=== PATIENT | female | born 1955 | race Caucasian/White ===

== ENCOUNTER 2017-05-20 11:18 | Emergency (ER) | payer MEDICARE, OTHER ==
[~2017-05-20] VITALS: Ht 177.8 cm; Wt 131.1 kg
[~2017-05-20 11:18] MED LIST: ALBUTEROL0.63 MG/3 NEB; ALLOPURINOL100 MG PO; ASPIR 8181 MG PO; ATENOLOL50 MG PO; CLONAZEPAM1 MG PO; CLONAZEPAM2 M1 PO; CLONIDINE HCL0.1 MG PO; FUROSEMIDE20 MG PO; GABAPENTIN400 MG PO; GABAPENTIN600 MG PO; LAMICTAL200 MG PO; LAMOTRIGINE200 MG PO; LEVAQUIN500 MG PO; LEVOTHYROXINE125 MCG PO; LEVOTHYROXINE137 MCG PO; LIPITOR40 MG PO; LOSARTAN POTASS25 MG PO; METFORMIN HCL500 MG PO; METRONIDAZOLE500 MG PO; PEPCID20 MG PO; SIMVASTATIN20 MG PO; VENLAFAXINE HC150 MG PO; VENLAFAXINE HCL75 MG PO; ZYPREXA5 MG PO
[2017-05-20] MEDS ORDERED: ASPIRIN 81 MG CHEW TAB PO ONE (11:45)
--- NOTE | 2017-05-20 12:59 | Diagnostic Imaging Report ---
PROCEDURE:X-RAY CHEST, ONE VIEW COMPARISON:Patients [facility], DX, CHEST SINGLE (PORTABLE), 03/02/2016, 9:27. INDICATIONS:CHEST PAIN FINDINGS: There are no consolidations, pleural effusions or pneumothorax. The cardiomediastinal silhouette and pulmonary vasculature are normal. There is no interval change. There are no acute osseous abnormalities. There is a clip present in the left upper quadrant of the abdomen. CONCLUSION: No acute cardiopulmonary abnormality. James Macias D.O. Dictated by: James Macias D.O. on 05/20/2017 at 13:07 Electronically approved by: James Macias D.O. on 05/20/2017 at 13:07
[2017-05-20 14:49] LABS: BASOPHILS # (AUTO) 0.1 (0.0-0.1); BASOPHILS % 0.6 % (0.0-1.0); EOSINOPHILS # (AUTO) 0.2 (0.0-0.4); HEMATOCRIT 41.6 % (34.2-44.1); HEMOGLOBIN 13.7 g/dL (12.0-16.0); LYMPHOCYTES # (AUTO) 3.4 (1.0-3.2); LYMPHOCYTES % 34.4 % (18.0-39.1); MEAN CORPUSCULAR HEMOGLOBIN 29.4 pg (28-32); MEAN CORPUSCULAR HGB CONC 32.9 g/dL (31-35); MEAN CORPUSCULAR VOLUME 89.3 fL (81-99); MONOCYTES # (AUTO) 0.6 (0.2-0.8); MONOCYTES % 5.7 % (4.4-11.3); NEUTROPHILS # (AUTO) 5.6 (2.1-6.9); PLATELET COUNT 167 x10e3/uL (140-360); RED BLOOD COUNT 4.66 x10e6/uL (3.6-5.1); RED CELL DISTRIBUTION WIDTH 13.7 % (11.7-14.4)
[2017-05-20 15:19] LABS: ALBUMIN 4.3 g/dL (3.5-5.0); ALBUMIN/GLOBULIN RATIO 1.2 (0.8-2.0); ANION GAP 13.3 mmol/L (8-16); CALCIUM 10.1 mg/dL (8.4-10.2); CREATININE, SERUM 0.97 mg/dL (0.57-1.11); POTASSIUM 4.3 mmol/L (3.5-5.1)
[2017-05-20 15:27] LABS: CREATINE KINASE MB 1.2 ng/mL (0.00-5.00); TROPONIN I 0.004 ng/mL (0-0.300)
[2017-05-20 19:03] VITALS: BP 131/68
== END 2017-05-20 20:22 | disposition home or self-care (01) ==
LOC: ER 11:18
DX: R07.9 Chest pain, unspecified (principal); I10 Essential (primary) hypertension; E11.9 Type 2 diabetes mellitus without complications; E03.9 Hypothyroidism, unspecified; E78.5 Hyperlipidemia, unspecified; F31.9 Bipolar disorder, unspecified; M10.9 Gout, unspecified; Z87.891 Personal history of nicotine dependence
CPT/HCPCS: 36415; 71010; 80053; 82550; 82553; 82948; 84484; 85025; 93005; 99284

== ENCOUNTER 2017-07-10 06:58 | Emergency (ER) | payer MEDICARE ==
[~2017-07-10] VITALS: Ht 177.8 cm; Wt 131.1 kg
--- OUTSIDE RECORDS SUMMARY | 2017-07-10 07:03 | XMS REPORT ---
[facility] Organization [facility] Address Unknown Phone Unavailable Care Team Providers Care End Polisher Name Role Phone CLAU CÉSAR Unavailable Unavailable Problems This patient has no known problems. Allergies, Adverse Reactions, Alerts This patient has no known allergies or adverse reactions. Medications This patient has no known medications. Results Test Description Test Time Test Comments Text Results Atomic Results Result Comments CHEST SINGLE (NOT PORTABLE) [facility] [address] [address] Patient Name: ALISON HOUSTON MR #: [id number] : 1955 Age/Sex: 62/F Req #: [id number] Adm Physician: Ordered by: LAZARO FERNANDEZ Report #: [id number] Location: ER Room/Bed: _ Procedure: [id number] DX/CHEST SINGLE (NOT PORTABLE) Exam Date: 05/20/17 Exam Time: 1215 REPORT STATUS: Signed PROCEDURE: X-RAY CHEST, ONE VIEW COMPARISON: [facility], DX, CHEST SINGLE (PORTABLE), 03/02/2016, 9:27. INDICATIONS: CHEST PAIN FINDINGS: There are no consolidations, pleural effusions or pneumothorax. The cardiomediastinal silhouette and pulmonary vasculature are normal. There is no interval change. There are no acute osseous abnormalities. There is a clip present in the left upper quadrant of the abdomen. CONCLUSION: No acute cardiopulmonary abnormality. Lenny [place], D.O. Dictated by: Lenny Macias D.O. on 05/20/2017 at 13:07 Electronically approved by: Lenny Macias D.O. on 05/20/2017 at 13:07 Dictated By: LENNY MACIAS DO 1308 Transcribed By: KIAN on 05/20/17 1307 COPY TO: LAZARO FERNANDEZ
--- OUTSIDE RECORDS SUMMARY | 2017-07-10 07:03 | XMS REPORT | Summary of Care ---
Author Author Merrill Rod, Lydia Organization Unknown Address [facility] Phone Unavailable Care Team Providers Care Eight Section Blower Name Role Phone Merrill Rod, Lydia Unavailable Unavailable MCKEON P.A., AGUSTÍN Unavailable Unavailable JOSEPH Villeda, YO Unavailable Unavailable YAMILE Villeda, JESUS MANUEL Unavailable Unavailable NIYAH N.P., MEKA Unavailable Unavailable AQUILES Villeda, ANGELIQUE Unavailable Unavailable JOSEPH TENORIO NE, YO Morales Unavailable Unavailable EARNESTINE LEONARD Unavailable Unavailable NIYAH KURTZ NE, MEKA Velásquez Unavailable Unavailable Adalgisa TENORIO, Kyle Unavailable Unavailable JOSIE TENORIO, MARGARETTE Schultz Unavailable Unavailable Christopher TENORIO, Archie Unavailable Unavailable Richard TENORIO, Gregory Unavailable Unavailable Unavailable Unavailable Functional Status Name Dates Details Functional status health issues are not documented Status: Name Dates Details Cognitive status health issues are not documented Status: Problems Name Dates Details Bipolar disorder (296.80, F31.9) Status: Active Palpitations (785.1, R00.2) Status: Active Female pelvic pain (625.9, R10.2) Status: Active Cutaneous candidiasis (112.3, B37.2) Status: Active Weakness (780.79, R53.1) Status: Active Pre-ulcerative corn or callous (700, L84) Status: Active Thoracic back pain (724.1, M54.6) Status: Active Venous stasis (459.81, I87.8) Status: Active Need for influenza vaccination (V04.81, Z23) Status: Active 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, 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 History of bariatric surgery (V45.86, Z98.84) Status: Active Menopausal hot flushes (627.2, N95.1) Status: Active Post-menopausal bleeding (627.1, N95.0) Status: Active Blood in urine (599.70, R31.9) Status: Active Bright red rectal bleeding (569.3, K62.5) Status: Active Hematuria (599.70, R31.9) Status: Active Nephrolithiasis (592.0, N20.0) Status: Active Acute idiopathic gout involving toe of left foot (274.01, M10.072) Status: Active Abnormal MMSE (780.97, F99) Status: Active Contusion of right great toe without damage to nail, initial encounter (924.3, S90.111A) Status: Active Vertigo (780.4, R42) Status: Active Other acute nonsuppurative otitis media of right ear (381.00, H65.191) Status: Active Ataxia (781.3, R27.0) Status: Active Skin lesion (709.9, L98.9) Status: Active Acute low back pain (724.2, M54.5) Status: Active Decreased vision in both eyes (369.20, H54.3) Status: Active Tension headache (307.81, G44.209) Status: Active Nausea (787.02, R11.0) Status: Active Colon cancer screening (V76.51, Z12.11) Status: Active Hemorrhoid (455.6, K64.9) Status: Active Post-menopausal (V49.81, Z78.0) Status: Active Hemorrhoids (455.6, K64.9) Status: Active Acne vulgaris (706.1, L70.0) Status: Active Bipolar affective disorder, remission status unspecified (296.80, F31.9) Status: Active Chronic diarrhea of unknown origin (787.91, K52.9) Status: Active Generalized osteoarthritis of multiple sites (715.09, M15.9) Status: Active Gout (274.9, M10.9) Status: Active Hypercalcemia (275.42, E83.52) Status: Active 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, 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) Status: Active Nocturnal leg cramps (327.52, G47.62) Status: Active OA (osteoarthritis of spine) (721.90, M47.9) Status: Active Obstructive sleep apnea (327.23, G47.33) Status: Active Peripheral neuropathy, 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.9, G60.9) Status: Active Abnormal urine finding (791.9, R82.90) Status: Active Abdominal pain (789.00, R10.9) Status: Active Weight loss (783.21, R63.4) Status: Active Diarrhea (787.91, R19.7) Status: Active IBS (irritable bowel syndrome) (564.1, K58.9) Status: Active Lumbar radiculopathy (724.4, M54.16) Status: Active UTI symptoms (788.99, R39.9) Status: Active Dizziness (780.4, R42) Status: Active Loss of balance (781.99, R26.89) Status: Active Fall (E888.9, W19.XXXA) Status: Active Other rosacea (695.3, L71.8) Status: Active Bacterial folliculitis (704.8, L73.8) Status: Active Allergic rhinitis due to pollen (477.0, J30.1) Status: Active Acid reflux (530.81, K21.9) Status: Active Shortness of breath at rest (786.05, R06.02) Status: Active Atypical chest pain (786.59, R07.89) Status: Active Morbid or severe obesity due to excess calories (278.01, E66.01) Status: Active Body aches (780.96, R52) Status: Active Sore throat (462, J02.9) Status: Active Common cold (460, J00) Status: Active Chronic obstructive pulmonary disease (496, J44.9) Status: Active BMI 40.0-44.9, adult (V85.41, Z68.41) Status: Active Diabetes mellitus (250.00, E11.9) Status: Active Hypertension (401.9, I10) Status: Active Hyperlipidemia (272.4, E78.5) Status: Active Hypothyroidism (244.9, E03.9) Status: Active Vitamin D deficiency (268.9, E55.9) Status: Active Breast mass, left (611.72, N63.20) Status: Active Medications Name Dates Details Venlafaxine HCl ER 75 MG Oral Tablet Extended Release 24 Hour TAKE 1 TABLET DAILY Active ClonazePAM 1 MG Oral Tablet TAKE 1 TABLET BEDTIME * Refills: 0 Active MetFORMIN HCl - 500 MG Oral Tablet TAKE 1 TABLET TWICE DAILY * Quantity: 180 Refills: 1 AGUSTÍN RASHID * Start : 05-Nov-2015 Active LamoTRIgine 200 MG Oral Tablet TAKE 2 TABLETS DAILY. * Refills: 0 JESUS MANUEL OVALLE M.D. Active Gabapentin 400 MG Oral Capsule TAKE 1 CAPSULE BY MOUTH TWICE DAILY * Quantity: 180 Refills: 0 YO RUIZ M.D. * Start : 16-Jun-2017 Active Vitamin B-12 1000 MCG Oral Tablet TAKE 1 TABLET DAILY DIRECTED. * Refills: 0 JESUS MANUEL OVALLE M.D. Active Fluticasone Propionate 50 MCG/ACT Nasal Suspension USE 2 SPRAYS IN EACH NOSTRIL ONCE DAILY * Quantity: 3 Refills: 1 AGUSTÍN RASHID * Start : 23-Jun-2014 Active 16 GM Bottle Losartan Potassium 100 MG Oral Tablet TAKE 1 TABLET DAILY. * Quantity: 90 Refills: 1 AGUSTÍN RASHID * Start : 22-Aug-2014 Active Arthur Contour Next Test In Vitro Strip Check BG 1-2x a day * Quantity: 2 Refills: 0 JESUS MANUEL OVALLE M.D. * Start : 09-Aug-2015 Active 100 Strip Box Atorvastatin Calcium 40 MG Oral Tablet TAKE 1 TABLET DAILY DIRECTED. * Quantity: 90 Refills: 1 AGUSTÍN RASHID * Start : 09-Aug-2015 Active Levothyroxine Sodium 100 MCG Oral Tablet 1 a day * Quantity: 90 Refills: 1 AGUSTÍN RASHID * Start : 21-Feb-2016 Active MetroNIDAZOLE 0.75 % External Cream APPLY AND GENTLY MASSAGE INTO AFFECTED AREA(S) TWICE DAILY. * Quantity: 1 Refills: 11 ANGELIQUE KWAN M.D. * Start : 01-Sep-2016 Active 45 GM Tube Vitamin A CAPS TAKE 1 CAPSULE DAILY * Refills: 0 Active Vitamin D-3 1000 UNIT Oral Capsule 1 a day ; pt will verify * Refills: 0 JESUS MANUEL OVALLE M.D. Active Hydrocortisone 2.5 % Rectal Cream INSERT 1 APPLICATORFUL RECTALLY AT BEDTIME FOR 7 DAYS, THEN NEEDED. * Quantity: 1 Refills: 1 MEKA LINDER N.P. * Start : 04-Dec-2016 Active 30 GM Tube Arthur Microlet Lancets Check BG 1 to 2x a day * Quantity: 1 Refills: 11 JESUS MANUEL OVALLE M.D. * Start : 21-Jan-2017 Active 100 Unit Package Biotin 5000 MCG Oral Tablet ONCE DAILY * Refills: 0 Active Metoprolol Tartrate 50 MG Oral Tablet TAKE 1 TABLET TWICE DAILY * Quantity: 180 Refills: 1 MCKEON P.A., AGUSTÍN * Start : 02-Apr-2017 Active Levocetirizine Dihydrochloride 5 MG Oral Tablet TAKE 1 TABLET DAILY. * Quantity: 90 Refills: 0 MCKEON P.A., AGUSTÍN * Start : 02-Apr-2017 Active Omeprazole 40 MG Oral Capsule Delayed Release TAKE 1 CAPSULE DAILY * Quantity: 90 Refills: 1 MCKEON P.A., AGUSTÍN * Start : 25-May-2017 Active Allergies and Adverse Reactions Name Dates Details SEJAL Inhibitors (Allergy) Reaction: Cough Status: Active Benadryl (Allergy) Status: Active clindamycin (Allergy) Status: Active Past Medical History Name Dates Details Hypothyroidism (244.9, E03.9) Status: Active History of Arthritis (716.90, M19.90) Status: Resolved History of bipolar disorder (V11.1, Z86.59) Status: Resolved History of Blood tests for routine general physical examination (V72.62, Z00.00 ) Status: Resolved History of Breast screening (V76.10, Z12.31) Status: Resolved History of Burning with urination (788.1, R30.0) Status: Resolved History of chest pain (V13.89, Z87.898) Status: Resolved History of Depression (311, F32.9) Status: Resolved History of essential hypertension (V12.59, Z86.79) Status: Resolved History of gout (V12.29, Z87.39) Status: Resolved History of Helicobacter infection (V12.09, Z86.19) Status: Resolved History of hypercalcemia (V12.29, Z86.39) Status: Resolved History of hypercholesterolemia (V12.29, Z86.39) Status: Resolved History of hyperparathyroidism (V12.29, Z86.39) Status: Resolved History of Lip abscess (528.5, K13.0) Status: Resolved History of migraine (V12.49, Z86.69) Status: Resolved History of Need for pneumococcal vaccination (V03.82, Z23) Status: Resolved History of Neuropathy of foot (355.8, G57.90) Status: Resolved History of Other protein-calorie malnutrition (263.8, E46) Status: Resolved History of Pre-operative cardiovascular examination (V72.81, Z01.810) Status: Resolved History of Restless leg syndrome (333.94, G25.81) Status: Resolved History 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, M48.07) Status: Resolved History of type 2 diabetes mellitus (V12.29, Z86.39) Status: Resolved Procedures Procedure Dates Details US Breast Unilat 18931 Date: 25-May-2017 [N] 2D Echo complete, with Doppler 76395 Date: 27-May-2017 [N] Nuclear Test-Adenosine Stress Perfusion Date: 27-May-2017 US Breast Bilat 29769 Date: 09-Jul-2017 [place] Digital Mammo DX [place] [id number] Date: 09-Jul-2017 History of Gastric Surgery For Morbid Obesity Gastric Stapling Completed History of Cholecystectomy Completed History of Appendectomy Completed History of Parathyroid Complete Parathyroidectomy Completed History of Parathyroid Resection Completed History of Parathyroid Surgery Completed Immunization Name Dates Details Influenza on: Jan-2014 Pneumovax 23 25 MCG/0.5ML Injection Injectable Lot #: [id number] on: 12-Feb-2015 Fluzone Quadrivalent 0.5 ML Intramuscular Suspension Prefilled Syringe Lot #: [id number] on: 12-Feb-2015 Fluzone Quadrivalent 0.5 ML Intramuscular Suspension Prefilled Syringe Lot #: [id number] on: 03-Mar-2016 Fluzone Quadrivalent 0.5 ML Intramuscular Suspension Prefilled Syringe Lot #: [id number] on: 09-Feb-2017 Family History Name Dates Details Family history of myocardial infarction (V17.3, Z82.49) Status: Active Name Dates Details Family history of Alzheimer's disease (V17.2, Z82.0) Status: Active Name Dates Details Family history of bipolar disorder (V17.0, Z81.8) Status: Active Family history of hypertension (V17.49, Z82.49) Status: Active Name Dates Details Family history of bipolar disorder (V17.0, Z81.8) Status: Active Social History Name Dates Details - Status: Name Dates Details Former smoker Vital Signs Date Test Result Details No Known Vitals to report Results Date Description Value Details Results not documented Plan of Care Name Dates Details Planned Observations Planned Goals not documented Planned Encounters Appointment; JESUS MANUEL OVALLE M.D. On: 10-Jul-2017 15:15 Interventions Provided Labs/Procedures/Imaging* MA Digital Mammo DX [place] [id number]; To Be Done: 09 Jul 2017 * US Breast Bilat [id number]; To Be Done: 09 Jul 2017 Instructions Name Dates Details Instructions not documented Encounters Appointment; JESUS MANUEL OVALLE M.D. Encounter Diagnosis: Problem not documented On: 09-Aug-2015 10:30 Appointment; MEKA LINDER NP Encounter Diagnosis: Problem not documented On: 20-Sep-2015 15:00 Appointment; MARI SCHMIDT NP Encounter Diagnosis: Problem not documented On: 17-Oct-2015 10:00 Appointment; KEIRA POSADAS RD Encounter Diagnosis: Problem not documented On: 31-Oct-2015 15:00 Appointment; AGUSTÍN MCKEON P.A. Encounter Diagnosis: Problem not documented On: 13-Nov-2015 9:00 Appointment; JESUS MANUEL OVALLE M.D. Encounter Diagnosis: Problem not documented On: 26-Nov-2015 14:45 Appointment; JESUS MANUEL OVALLE M.D. Encounter Diagnosis: Problem not documented On: 27-Nov-2015 11:00 Appointment; AGUSTÍN MCKEON P.A. Encounter Diagnosis: Problem not documented On: 17-Jan-2016 13:45 Appointment; JESUS MANUEL OVALLE M.D. Encounter Diagnosis: Problem not documented On: 21-Feb-2016 14:15 Appointment; FABIOLA SARKAR P.A. Encounter Diagnosis: Problem not documented On: 03-Mar-2016 14:45 Appointment; [facility] [place] Encounter Diagnosis: Problem not documented On: 07-Mar-2016 13:00 Appointment; MEKA LINDER NP Encounter Diagnosis: Problem not documented On: 28-Mar-2016 10:30 Appointment; KYLE YORK M.D. Encounter Diagnosis: Problem not documented On: 28-Mar-2016 15:00 Appointment; MEKA LINDER NP Encounter Diagnosis: Problem not documented On: 17-Apr-2016 11:00 Appointment; MEKA LINDER NP Encounter Diagnosis: Problem not documented On: 08-May-2016 14:00 Appointment; JESUS MANUEL OVALLE M.D. Encounter Diagnosis: Problem not documented On: 16-May-2016 16:15 Appointment; MEKA LINDER NP Encounter Diagnosis: Problem not documented On: 05-Aug-2016 10:00 Appointment; JESUS MANUEL OVALLE M.D. Encounter Diagnosis: Problem not documented On: 14-Aug-2016 14:45 Appointment; ARCHIE KIRBY M.D. Encounter Diagnosis: Problem not documented On: 01-Sep-2016 8:45 Appointment; WIL BECKHAM NP Encounter Diagnosis: Problem not documented On: 19-Sep-2016 14:30 Appointment; WIL BECKHAM NP Encounter Diagnosis: Problem not documented On: 22-Sep-2016 14:30 Appointment; AGUSTÍN MCKEON PYamilAYamil Encounter Diagnosis: Problem not documented On: 02-Oct-2016 9:00 Appointment; AGUSTÍN MCKEON PYamilAYamil Encounter Diagnosis: Problem not documented On: 09-Oct-2016 9:45 Appointment; AGUSTÍN MCKEON PYamilAYamil Encounter Diagnosis: Problem not documented On: 23-Oct-2016 9:30 Appointment; KYLE YORK M.D. Encounter Diagnosis: Problem not documented On: 06-Nov-2016 15:00 Appointment; KYLE YORK M.D. Encounter Diagnosis: Problem not documented On: 27-Nov-2016 15:45 Appointment; JESUS MANUEL OVALLE M.D. Encounter Diagnosis: Problem not documented On: 27-Nov-2016 16:15 Appointment; MEKA LINDER NP Encounter Diagnosis: Problem not documented On: 04-Dec-2016 10:30 Appointment; ARCHIE KIRBY M.D. Encounter Diagnosis: Problem not documented On: 15-Dec-2016 13:00 Appointment; ASH SCHULTZ P.A. Encounter Diagnosis: Problem not documented On: 02-Jan-2017 13:30 Appointment; KYLE YORK M.D. Encounter Diagnosis: Problem not documented On: 02-Jan-2017 14:30 Appointment; ASH SCHULTZ P.A. Encounter Diagnosis: Problem not documented On: 07-Jan-2017 13:30 Appointment; MEKA LINDER NP Encounter Diagnosis: Problem not documented On: 20-Jan-2017 14:45 Appointment; KYLE YORK M.D. Encounter Diagnosis: Problem not documented On: 02-Feb-2017 13:45 Appointment; AGUSTÍN MCKEON P.A. Encounter Diagnosis: Problem not documented On: 09-Feb-2017 12:30 Appointment; ANGELIQUE KWAN M.D. Encounter Diagnosis: Problem not documented On: 27-Feb-2017 13:00 Appointment; AGUSTÍN MCKEON P.A. Encounter Diagnosis: Problem not documented On: 02-Apr-2017 9:30 Appointment; JESUS MANUEL OVALLE M.D. Encounter Diagnosis: Problem not documented On: 08-Apr-2017 13:30 Appointment; AGUSTÍN MCKEON P.A. Encounter Diagnosis: Problem not documented On: 25-May-2017 8:30 Appointment; GREGORY BRADLEY M.D. Encounter Diagnosis: Problem not documented On: 27-May-2017 13:40 Appointment; YO RUIZ M.D. Encounter Diagnosis: Problem not documented On: 28-May-2017 14:30
[2017-07-10] MEDS ORDERED: LORAZEPAM INJ 2 MG/ML VIAL IV ONE (08:00)
--- NOTE | 2017-07-10 08:23 | Diagnostic Imaging Report ---
PROCEDURE: A single AP view of the chest. COMPARISON: Portable chest 05/20/2017. INDICATIONS: CHEST PAIN, HIGH BLOOD PRESSURE FINDINGS: Lines/tubes: None. Lungs: The lungs are well inflated and clear. There is no evidence of pneumonia or pulmonary edema. Pleura: There is no pleural effusion or pneumothorax. Heart and mediastinum: The heart and the mediastinum are unremarkable. Bones: No acute bony abnormality. Degenerative changes of the thoracic spine. IMPRESSION: No acute radiographic abnormality. Dictated by: Moises Hartmann M.D. on 07/10/2017 at 8:22 Electronically approved by: Moises Hartmann M.D. on 07/10/2017 at 8:22
[2017-07-10 09:03] LABS: BASOPHILS % 0.6 % (0.0-1.0); EOSINOPHILS # (AUTO) 0.1 (0.0-0.4); EOSINOPHILS % 1.3 % (0.0-6.0); HEMOGLOBIN 13.6 g/dL (12.0-16.0); LYMPHOCYTES % 29.5 % (18.0-39.1); MEAN CORPUSCULAR HEMOGLOBIN 29.3 pg (28-32); MEAN CORPUSCULAR VOLUME 86.2 fL (81-99); MONOCYTES # (AUTO) 0.5 (0.2-0.8); MONOCYTES % 6.6 % (4.4-11.3); NEUTROPHILS # (AUTO) 4.2 (2.1-6.9); NEUTROPHILS % 61.9 % (38.7-80.0); PLATELET COUNT 159 x10e3/uL (140-360); RED BLOOD COUNT 4.64 x10e6/uL (3.6-5.1); RED CELL DISTRIBUTION WIDTH 13.4 % (11.7-14.4)
[2017-07-10 09:21] LABS: ALANINE AMINOTRANSFERASE 15 IU/L (0-55); ALBUMIN 4.2 g/dL (3.5-5.0); ALBUMIN/GLOBULIN RATIO 1.3 (0.8-2.0); ALKALINE PHOSPHATASE 68 IU/L (40-150); ANION GAP 14.7 mmol/L (8-16); BLOOD UREA NITROGEN 20 mg/dL (7-26); BUN/CREATININE RATIO 23 (6-25); CALCIUM 10.3 mg/dL (8.4-10.2); CARBON DIOXIDE 24 mmol/L (22-29); CHLORIDE 107 mmol/L (98-107); CREATININE, SERUM 0.86 mg/dL (0.57-1.11); EST GLOMERULAR FILTRATION RATE > 60 ML/MIN (60-); GLUCOSE 109 mg/dL (74-118); MAGNESIUM 1.9 MG/DL (1.3-2.1); PHOSPHORUS 3.6 MG/DL (2.3-4.7); POTASSIUM 3.7 mmol/L (3.5-5.1); SODIUM 142 mmol/L (136-145)
[2017-07-10 09:40] LABS: THYROID STIMULATING HORMONE 3.885 uIU/mL (0.350-4.940)
[2017-07-10 10:34] VITALS: BP 132/77
== END 2017-07-10 11:16 | disposition home or self-care (01) ==
LOC: ER 06:58
DX: F41.0 Panic disorder [episodic paroxysmal anxiety] (principal); I10 Essential (primary) hypertension; E11.9 Type 2 diabetes mellitus without complications; E03.9 Hypothyroidism, unspecified
CPT/HCPCS: 36415; 71045; 80053; 83735; 84100; 84443; 84484; 85025; 93005; 99284

== ENCOUNTER 2017-07-11 20:09 | Emergency (ER) | payer MEDICARE ==
[~2017-07-11] VITALS: Ht 177.8 cm; Wt 131.1 kg
--- OUTSIDE RECORDS SUMMARY | 2017-07-11 20:13 | XMS REPORT | Continuity of Care Document ---
Author Author [facility] Organization [facility] Address [address] [place] [address] Phone Unavailable Care Team Providers Care Donor Services Manager Name Role Phone YO RUIZ (NS) PCP Insurance Providers Guarantor Alison Pedersen Address [address] [place] [address] Email [email or web address] Payer [employer] Medicare Complete Policy Number [id number] Subscriber's Name Alison Pedersen Relationship 18 Self / Same As Patient Advance Directives Directive Response Recorded Date/Time Does the patient have an advance directive? Yes 07/29/14 7:27am If yes, is advance directive on file with [facility]? No 01/19/14 4:30pm If not on file with [facility] will patient provide a copy? Yes 12/14/14 2:53am Do you have a Directive to Physician? No 07/10/17 6:57am Do you have a Medical Power of Reed Man? No 07/10/17 6:57am Do you have an out of hospital Do Not Resuscitate Order? No 07/10/17 6:57am Do you have any special needs we should be aware of? No 07/10/17 6:57am Do you have a support person here with you today? Yes 07/10/17 9:09am Did patient receive Notice of Privacy Practices? Yes 07/10/17 6:57am Did patient receive patient rights and responsibilities? Yes 07/10/17 6:57am Problems Medical Problem Onset Date Status Allergic reaction Unknown Acute Chest pain Unknown Acute Chest pain on exertion 01/19/2014 Acute Medications Current Home Medications Medication Dose Units Route Directions Days Qty Instructions Start Date Albuterol Sulfate 0.63 Mg/3 Ml Vial.neb Nebullizer As Needed Atenolol 50 Mg Tablet 50 Mg Oral Daily Clonazepam 1 Mg Tablet 1 Mg Oral Bedtime Gabapentin 400 Mg Capsule 400 Mg Oral Twice A Day Lamotrigine (Lamictal) 200 Mg Tablet 200 Mg Oral Twice A Day Levothyroxine Sodium 125 Mcg Tablet 125 Mcg Oral Daily Losartan Potassium 25 Mg Tablet 25 Mg Oral Daily Metformin Hcl 500 Mg Tablet 500 Mg Oral Twice A Day Olanzapine (Zyprexa) 5 Mg Tablet 5 Mg Oral Bedtime Simvastatin 20 Mg Tablet 20 Mg Oral Daily Venlafaxine Hcl 75 Mg Tab 75 Mg Oral Twice A Day Past Home Medications Medication Directions Ordered Status Allopurinol 100 Mg Tablet, 100 Mg Oral Daily Discontinued Allopurinol 100 Mg Tablet, 100 Mg Oral Daily Discontinued Aspirin (Aspir 81) 81 Mg Tablet.dr, 81 Mg Oral Daily Discontinued Atorvastatin Calcium (Lipitor) 40 Mg Tablet, 40 Mg Oral Bedtime Discontinued Clonazepam 2 Mg Tab.rapdis, 2 Mg Oral Bedtime Discontinued Famotidine (Pepcid) 20 Mg Tablet, 20 Mg Oral Twice A Day Discontinued Furosemide 20 Mg Tablet, 20 Mg Oral Twice A Day Discontinued Lamotrigine 200 Mg Tablet, 400 Mg Oral Daily Discontinued Levofloxacin (Levaquin) 500 Mg Tablet, 500 Mg Oral Daily Discontinued Metronidazole 500 Mg Tablet, 500 Mg Oral Three Times A Day Discontinued Venlafaxine Hcl (Venlafaxine Hcl Er) 150 Mg Cap.er.24h, 150 Mg Oral Bedtime Discontinued Social History Social History Problem Response Recorded Date/Time Onset Date Status Hx Psychiatric Problems Y - bipolar 01/19/2014 4:30pm Not Applicable Not Applicable Hx Eating Disorder No 01/19/2014 4:30pm Not Applicable Not Applicable Hx Substance Use Disorder No 01/19/2014 4:30pm Not Applicable Not Applicable Hx Depression No 01/19/2014 4:30pm Not Applicable Not Applicable Hx Alcohol Use No 01/19/2014 4:30pm Not Applicable Not Applicable Hx Substance Use Treatment No 01/19/2014 4:30pm Not Applicable Not Applicable Hx Physical Abuse No 01/19/2014 4:30pm Not Applicable Not Applicable Smoking Status Start Date Stop Date Former smoker Hospital Discharge Instructions No hospital discharge instruction information available. Plan of Care Discharge Date 07/10/17 11:16am Disposition HOME, SELF-CARE Condition at Discharge Stable Instructions/Education Provided Panic Attack Forms Provided Work/School Excuse Prescriptions See Medication Section Referrals YO RUIZ MD (NS) Address: [address] [place] [id number] Additional Instructions/Education FOLLOW UP WITH PCP IN 3 DAYS. Functional Status No functional status information available. Allergies, Adverse Reactions, Alerts Allergen Type Severity Reaction Status Last Updated diphenhydramine HCl Allergy Mild ITCHING, SOB Active 03/02/16 Angiotensin-converting enzyme inhibitor Allergy Unknown Active 03/02/16 Immunizations No immunization information available. Vital Signs Acute Vital Signs Vital Response Date/Time Pulse Pulse Rate (adult) 72 bpm (60 - 90) 07/10/2017 10:34am Respiratory Rate 18 bpm (12 - 24) 07/10/2017 10:34am Blood Pressure 132/77 mm Hg 07/10/2017 10:34am Height 5 ft 10 in 07/10/2017 7:01am Weight 289 lb 07/10/2017 7:01am Body Mass Index 41.5 kg/m^2 07/10/2017 7:01am Results Laboratory Results Test Name Result Units Flags Reference Collection Date/Time Result Date/ Time Comments Bedside Glucose 81 mg/dL 70-120 05/20/2017 3:05pm 05/20/2017 3:14pm Meter ID: [id number] Creatine Kinase 67 IU/L 29-168 05/20/2017 1:50pm 05/20/2017 3:24pm Creatine Kinase MB 1.20 ng/mL 0.00-5.00 05/20/2017 1:50pm 05/20/2017 3: 29pm White Blood Count 6.78 x10e3/uL 4.8-10.8 07/10/2017 8:30am 07/10/2017 9 :45am Red Blood Count 4.64 x10e6/uL 3.6-5.1 07/10/2017 8:07/10/2017 9: 45am Hemoglobin 13.6 g/dL 12.0-16.0 07/10/2017 8:07/10/2017 9:45am Hematocrit 40.0 % 34.2-44.1 07/10/2017 8:07/10/2017 9:45am Mean Corpuscular Volume 86.2 fL 81-99 07/10/2017 8:07/10/2017 9: 45am Mean Corpuscular Hemoglobin 29.3 pg 28-32 07/10/2017 8:07/10/2017 9:45am Mean Corpuscular Hemoglobin Concent 34.0 g/dL 31-35 07/10/2017 8:07/10/2017 9:45am Red Cell Distribution Width 13.4 % 11.7-14.4 07/10/2017 8:2017 9:45am Platelet Count 159 x10e3/uL 140-360 07/10/2017 8:07/10/2017 9: 45am Neutrophils (%) (Auto) 61.9 % 38.7-80.0 07/10/2017 8:07/10/2017 9: 45am Lymphocytes (%) (Auto) 29.5 % 18.0-39.1 07/10/2017 8:07/10/2017 9: 45am Monocytes (%) (Auto) 6.6 % 4.4-11.3 07/10/2017 8:07/10/2017 9: 45am Eosinophils (%) (Auto) 1.3 % 0.0-6.0 07/10/2017 8:07/10/2017 9: 45am Basophils (%) (Auto) 0.6 % 0.0-1.0 07/10/2017 8:07/10/2017 9:45am IM GRANULOCYTES % 0.1 % 0.0-1.0 07/10/2017 8:07/10/2017 9:45am Neutrophils # (Auto) 4.2 2.1-6.9 07/10/2017 8:07/10/2017 9:45am Lymphocytes # (Auto) 2.0 1.0-3.2 07/10/2017 8:30am 07/10/2017 9:45am Monocytes # (Auto) 0.5 0.2-0.8 07/10/2017 8:30am 07/10/2017 9:45am Eosinophils # (Auto) 0.1 0.0-0.4 07/10/2017 8:30am 07/10/2017 9:45am Basophils # (Auto) 0.0 0.0-0.1 07/10/2017 8:30am 07/10/2017 9:45am Absolute Immature Granulocyte (auto 0.01 x10e3/uL 0-0.1 07/10/2017 8: 30am 07/10/2017 9:45am Sodium Level 142 mmol/L 136-145 07/10/2017 8:30am 07/10/2017 9:25am Potassium Level 3.7 mmol/L 3.5-5.1 07/10/2017 8:30am 07/10/2017 9:25am Chloride Level 107 mmol/L 98-107 07/10/2017 8:30am 07/10/2017 9:25am Carbon Dioxide Level 24 mmol/L 22-29 07/10/2017 8:30am 07/10/2017 9: 25am Anion Gap 14.7 mmol/L 8-16 07/10/2017 8:30am 07/10/2017 9:25am Blood Urea Nitrogen 20 mg/dL 7-07/10/2017 8:30am 07/10/2017 9:25am Creatinine 0.86 mg/dL 0.57-1.11 07/10/2017 8:30am 07/10/2017 9:25am BUN/Creatinine Ratio 23 6-25 07/10/2017 8:30am 07/10/2017 9:25am Estimat Glomerular Filtration Rate > 60 ML/MIN 60- 07/10/2017 8:30am 9:25am Ranges were taken from the National Kidney Disease Education Program and the National Kid[employer] Foundation literature. Reference ranges: 60 or greater: Normal 16-59 (for 3 consecutive months): Chronic kidney disease 15 or less: Kidney failure Glucose Level 109 mg/dL 74-118 07/10/2017 8:30am 07/10/2017 9:25am Calcium Level 10.3 mg/dL H 8.4-10.2 07/10/2017 8:30am 07/10/2017 9:25am Phosphorus Level 3.6 MG/DL 2.3-4.7 07/10/2017 8:30am 07/10/2017 9:25am Magnesium Level 1.9 MG/DL 1.3-2.1 07/10/2017 8:30am 07/10/2017 9:25am Total Bilirubin 0.9 mg/dL 0.2-1.2 07/10/2017 8:30am 07/10/2017 9:25am Aspartate Amino Transf (AST/SGOT) 15 IU/L 5-34 07/10/2017 8:30am 2017 9:25am Alanine Aminotransferase (ALT/SGPT) 15 IU/L 0-55 07/10/2017 8:30am 9:25am Total Protein 7.4 g/dL 6.5-8.1 07/10/2017 8:30am 07/10/2017 9:25am Albumin 4.2 g/dL 3.5-5.0 07/10/2017 8:30am 07/10/2017 9:25am Globulin 3.2 g/dL 2.3-3.5 07/10/2017 8:30am 07/10/2017 9:25am Albumin/Globulin Ratio 1.3 0.8-2.0 07/10/2017 8:30am 07/10/2017 9: 25am Alkaline Phosphatase 68 IU/L 40-150 07/10/2017 8:30am 07/10/2017 9: 25am Troponin I 0.003 ng/mL 0-0.300 07/10/2017 8:30am 07/10/2017 9:48am Thyroid Stimulating Hormone (TSH) 3.885 uIU/mL 0.350-4.940 07/10/2017 8: 30am 07/10/2017 9:48am Procedures Procedure Status Date Provider(s) X-ray of chest, single view Active 05/20/17 LAZARO FERNANDEZ Encounters Encounter Location Arrival/Admit Date Discharge/Depart Date Attending Provider Departed Emergency Room [facility] 07/10/17 6:58am 11:16am CÉSAR OLGUIN MD Departed Emergency Room [facility] 05/20/17 11:18am 05/20 8:22pm CÉSAR OLGUIN MD
--- OUTSIDE RECORDS SUMMARY | 2017-07-11 20:13 | XMS REPORT | Summary of Care ---
Author Author [facility] Address [address] [place] [address] Phone Unavailable Care Team Providers Care Gaming Table Operator Name Role Phone MCKEON P.A., AGUSTÍN Unavailable Unavailable JOSEPH Villeda, YO Unavailable Henna OVALLE M.D., JESUS MANUEL Unavailable Unavailable NIYAH N.PYamil, MEKA Unavailable Unavailable AQUILES Villeda, ANGELIQUE Unavailable Unavailable JOSEPH TENORIO [place], YO Morales Unavailable Unavailable MARGARET KIRAN, EARNESTINE Schultz Unavailable Unavailable NIYAH KURTZ [place], MEKA Velásquez Unavailable Unavailable Adalgisa TENORIO, Kyle [...] TABLET DAILY. * Quantity: 90 Refills: 1 LINDA P.AAGUSTÍN Lobo * Start : 22-Aug-2014 Active Vitamin A CAPS TAKE 1 CAPSULE DAILY * Refills: 0 Active Hydrocortisone 2.5 % Rectal Cream INSERT 1 APPLICATORFUL RECTALLY AT BEDTIME FOR 7 DAYS, THEN NEEDED. * Quantity: 1 Refills: 1 MEKA LINDER N.P. * Start : 04-Dec-2016 Active 30 GM Tube Arthur Contour Next Test In Vitro Strip Check BG 1-2x a day * Quantity: 2 Refills: 0 JESUS MANUEL OVALLE M.D. * Start : 09-Aug-2015 Active 100 Strip Box Arthur Microlet Lancets Check BG 1 to 2x a day * Quantity: 1 Refills: 11 JESUS MANUEL OVALLE M.D. * Start : 21-Jan-2017 Active 100 Unit Package MetroNIDAZOLE 0.75 % External Cream APPLY AND GENTLY MASSAGE INTO AFFECTED AREA(S) TWICE DAILY. * Quantity: 1 Refills: 11 ANGELIQUE WKAN M.D. * Start : 01-Sep-2016 Active 45 GM Tube Metoprolol Tartrate 50 MG Oral Tablet TAKE 1 TABLET TWICE DAILY * Quantity: 180 Refills: 1 LINDA P.AAGUSTÍN Lobo * Start : 02-Apr-2017 Active Atorvastatin Calcium 40 MG Oral Tablet TAKE 1 TABLET DAILY DIRECTED. * Quantity: 90 Refills: 1 LINDA P.AAGUSTÍN Lobo * Start : 09-Aug-2015 Active Levothyroxine Sodium 100 MCG Oral Tablet 1 a day * Quantity: 90 Refills: 1 MCKEON P.A., AGUSTÍN * Start : 21-Feb-2016 Active Levocetirizine Dihydrochloride 5 MG Oral Tablet TAKE 1 TABLET DAILY. * Quantity: 90 Refills: 0 MCKEON P.A., AGUSTÍN * Start : 02-Apr-2017 Active Vitamin D-3 1000 UNIT Oral Capsule 1 a day ; pt will verify * Refills: 0 JESUS MANUEL OVALLE M.D. Active Omeprazole 40 MG Oral Capsule Delayed Release TAKE 1 CAPSULE DAILY * Quantity: 90 Refills: 1 MCKEON P.A., AGUSTÍN * Start : 25-May-2017 Active Biotin 5000 MCG Oral Tablet ONCE DAILY * Refills: 0 Active Allergies and Adverse Reactions Name Dates [...] Resolved Procedures Procedure Dates Details US Breast Bilat 96115 Date: 09-Jul-2017 MA Digital Mammo DX [place] [id number] Date: 09-Jul-2017 US Breast Unilat [id number] Date: 25-May-2017 [N] 2D Echo complete, with Doppler 68370 Date: 27-May-2017 [N] Nuclear Test-Adenosine Stress Perfusion Date: 27-May-2017 History of Gastric Surgery For Morbid Obesity Gastric Stapling Completed History of Cholecystectomy Completed History of Appendectomy Completed History of Parathyroid Complete Parathyroidectomy Completed History of Parathyroid Resection Completed History of Parathyroid Surgery Completed Immunization Name Dates Details Influenza on: Jan-2014 Pneumovax 23 25 MCG/0.5ML Injection Injectable Lot #: [id number] on: 12-Feb-2015 Fluzone Quadrivalent 0.5 ML Intramuscular Suspension Prefilled Syringe Lot #: [id number] on: 12-Feb-2015 Fluzone Quadrivalent 0.5 ML Intramuscular Suspension Prefilled Syringe Lot #: [id number] on: 03-Mar-2016 Fluzone Quadrivalent 0.5 ML Intramuscular Suspension Prefilled Syringe Lot #: [id number] on: 09-Feb-2017 Family History Name Dates Details [...] Details Planned Observations Planned Goals not documented Instructions Name Dates Details Instructions not documented [...] Problem not documented On: 03-Mar-2016 14:45 Appointment; NIKOLAS BOWSER Encounter Diagnosis: Problem not documented On: 07-Mar-2016 [...] documented On: 22-Sep-2016 14:30 Appointment; AGUSTÍN MCKEON P.AYamil Encounter Diagnosis: Problem not documented On: 02-Oct-2016 9:00 Appointment; AGUSTÍN MCKEON P.AYamil Encounter Diagnosis: Problem not documented On: 09-Oct-2016 [...] documented On: 02-Feb-2017 13:45 Appointment; AGUSTÍN MCKEON PYamilAYamil Encounter Diagnosis: Problem not documented On: 09-Feb-2017 12:30 Appointment; ANGELIQUE KWAN M.D. Encounter Diagnosis: Problem not documented On: 27-Feb-2017 13:00 Appointment; AGUSTÍN MCKEON PYamilAYamil Encounter Diagnosis: Problem not documented On: 02-Apr-2017 [...]
--- NOTE | 2017-07-11 22:26 | Diagnostic Imaging Report ---
EXAMINATION: Head CT HISTORY: Headache, anxiety, hypercoagulation COMPARISON: Head CT on 03/02/2016 TECHNIQUE: Multidetector axial images were obtained without contrast from the foramen magnum to the vertex . The images were reconstructed using brain and bone algorithms. Thin section brain images were reformatted into coronal and sagittal planes. Intravenous contrast: None. Motion/streaking artifact limits the evaluation of the skull base and posterior cranial fossa. FINDINGS: Parenchyma: 1. Unchanged nonspecific approximately 7 mm CSF equal density focus in the right superior temporal white matter without associated mass effect. 2. No mass or hemorrhage. No CT evidence of acute territorial vascular insult. Extra-axial spaces:No abnormal density. No extra-axial fluid collections Brain volume: Normal for age. Ventricles: No hydrocephalus or displacement. Arteries: No density suggestive of thrombus. Dural sinuses: No abnormal density. Extra-axial spaces: No abnormal density. Foramen magnum: No mass, Chiari malformation, or basilar invagination. Sella: Mildly enlarged, partially empty, mostly CSF field. Paranasal/mastoid sinuses: Imaged portions unremarkable. Skull/Scalp: No lytic or blastic lesions. No fractures. IMPRESSION: No acute intracranial abnormalities. Unchanged nonspecific hypodensity in the right temporal lobe compared to head CT on 03/02/2016 Signed by: Dr. Santa Quevedo M.D. on 07/11/2017 10:22 PM
[2017-07-11 22:44] LABS: CREATINE KINASE 133 IU/L (29-168)
[2017-07-11 23:41] VITALS: BP 139/84
[2017-07-11] MEDS ORDERED: KETOROLAC TROMETHAMINE 30 MG/ML VIAL IV STA (23:45)
== END 2017-07-11 23:45 | disposition home or self-care (01) ==
LOC: ER 20:09
DX: F41.1 Generalized anxiety disorder (principal); I10 Essential (primary) hypertension; E11.9 Type 2 diabetes mellitus without complications; E03.9 Hypothyroidism, unspecified; G62.9 Polyneuropathy, unspecified
CPT/HCPCS: 36415; 70450; 82550; 82553; 84484; 99283; J1885; 93005

== ENCOUNTER → 2018-02-19 | Day surgery (SDC) | payer MEDICARE ==
[2018-02-16 12:17] LABS: BASOPHILS # (AUTO) 0.1 (0.0-0.1); BASOPHILS % 0.7 % (0.0-1.0); EOSINOPHILS # (AUTO) 0.2 (0.0-0.4); EOSINOPHILS % 1.7 % (0.0-6.0); HEMATOCRIT 41.6 % (34.2-44.1); HEMOGLOBIN 13.9 g/dL (12.0-16.0); LYMPHOCYTES # (AUTO) 2.7 (1.0-3.2); LYMPHOCYTES % 28.1 % (18.0-39.1); MEAN CORPUSCULAR HEMOGLOBIN 29.1 pg (28-32); MEAN CORPUSCULAR HGB CONC 33.4 g/dL (31-35); MEAN CORPUSCULAR VOLUME 87.2 fL (81-99); MONOCYTES # (AUTO) 0.6 (0.2-0.8); MONOCYTES % 6.4 % (4.4-11.3); NEUTROPHILS % 62.8 % (38.7-80.0); PLATELET COUNT 197 x10e3/uL (140-360); RED BLOOD COUNT 4.77 x10e6/uL (3.6-5.1); RED CELL DISTRIBUTION WIDTH 13.4 % (11.7-14.4)
[2018-02-16 12:37] LABS: ANION GAP 19.4 mmol/L (8-16); CALCIUM 10.7 mg/dL (8.4-10.2); CREATININE, SERUM 1.02 mg/dL (0.57-1.11); POTASSIUM 4.4 mmol/L (3.5-5.1)
--- NOTE | 2018-02-16 13:06 | Diagnostic Imaging Report ---
EXAMINATION: CHEST 2 VIEWS INDICATION: Chest pain. Preop. Foot pain. COMPARISON: None FINDINGS: TUBES and LINES: None. LUNGS: Lungs are well inflated. Lungs are clear. There is no evidence of pneumonia or pulmonary edema. PLEURA: No pleural effusion or pneumothorax. HEART AND MEDIASTINUM: The cardiomediastinal silhouette is unremarkable. BONES AND SOFT TISSUES: No acute osseous lesion. Soft tissues are unremarkable. Metallic clips are seen in the upper abdomen. UPPER ABDOMEN: No free air under the diaphragm. IMPRESSION: No acute thoracic abnormality. Signed by: Dr. Bill Becerril M.D. on 02/16/2018 1:03 PM
[~2018-02-19] MED LIST changes: +ATORVASTATIN CA20 MG PO; +ATORVASTATIN PO; +BUPIVACAINE HCL 0.5% 10ML MPF VIAL INJ ONE; +CEFAZOLIN SOD 2 GM/D5W 50ML 50 ML IV ONE; +DEXAMETHASONE SOD PHOS INJ 4 MG/ML VIAL ONE; +FENTANYL CITRATE/PF 100MCG/2 ML INJ ONE; +FLONASE; +KETOROLAC TROMETHAMINE 30 MG/ML VIAL ONE; +LIDOCAINE HCL 2% LOCAL INJ 5 ML SDV VIAL INJ ONE; +MIDAZOLAM HCL 2 MG/2 ML VIAL ONE; +MUPIROCIN 2% OINT 22 GM TUBE ONE; +ONDANSETRON HCL INJ 2 MG/ML VIAL ONE; +PROPOFOL IV EMULSION 10 MG/ML 20 ML VIAL ONE; +SEVOFLURANE INHAL SOLN 250 ML PEN BTL ONE
[2018-02-19 10:13] VITALS: BP 139/72
--- NOTE | 2018-02-19 15:24 | Operative Report ---
DATE OF PROCEDURE: February 19, 2018 PREOPERATIVE DIAGNOSES 1. 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 2. Chronic ulceration, plantar aspect of the right foot, partial thickness. POSTOPERATIVE DIAGNOSES 1. 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 2. Chronic ulceration, plantar aspect of the right foot, partial thickness. TITLE OF OPERATION 1. Modified Rafi bunionectomy with excision of bone cyst, right foot. 2. Arthrodesis, 2nd digit, right foot. 3. Debridement of ulceration, plantar aspect, right foot with application of human tissue allograft. PROCEDURE IN DETAIL: The patient was taken to the operating room in a mildly sedated state and placed upon the operating table in supine position. Following induction of general anesthetic, the right lower extremity was elevated to 60 degrees to exsanguinate before inflating the pneumatic thigh tourniquet to 350 mmHg to create hemostasis. The right lower extremity was placed upon the operating table prior to performing the following procedures: Procedure #1: Modified Rafi bunionectomy of the right foot. An approximate 6-cm dorsal linear incision was made overlying the dorsomedial aspect of the 1st metatarsophalangeal joint of the right foot. The incision was deepened via sharp and blunt dissection under the level of dorsal capsular structure. Care was taken to identify and retract all vital structures encountered. The head of the 1st metatarsal was delivered in the surgical site and remodeled utilizing oscillating saw. A large bone cyst was noted and was curetted from the central aspect of the head of the 1st metatarsal. A [id number] V osteotomy was placed with apex distally and base proximally through the surgical neck of the 1st metatarsal to allow for relative shift lateralward of the head of the more proximal segment, which was then impacted and stabilized with 2 cortical bone screws. The medial eminence was further remodeled. The area was irrigated with copious amounts of sterile saline solution. Deep closure was 3-0 Vicryl, subcutaneous closure was 4-0 Vicryl, and skin closure was 4-0 nylon. Attention was then directed to the 2nd digit, which was rigidly contracted and dorsally displaced. Linear longitudinal incision was made overlying the dorsal aspect of the 2nd metatarsophalangeal joint of the right foot as well as a separate incision overlying the head of the proximal phalanx. An extensor tenotomy capsulotomy was performed, which allowed for a release of the dorsal contracture of the 2nd digit at the metatarsophalangeal joint. A further dissection of the distal incision, where the head of the proximal phalanx was noted to be significantly prominent dorsally, was then performed. Transverse tenotomy was performed and the head of the proximal phalanx was delivered in the surgical site and remodeled utilizing a basket and cup reamer. The cup and cone style reamer allowed for repositioning of the proximal interphalangeal joint into a rectus positioning. K-wire was advanced distally and the appropriate implant, a 14-mm Trilliant digital implant was inserted. This crossed the proximal interphalangeal joint and was reapproximated with the appropriate compression. A tamp was used to further reduce the compression at the joint level. Excellent compression was achieved via fluoroscopic evaluation. The K-wire was then removed and all wounds were irrigated with copious amounts of sterile saline solution. Deep closure was 3-0 Vicryl and 4-0 nylon. The attention was then directed to the partial thickness plantar ulceration which had been under the prominent 1st metatarsal head. This was on the plantar medial aspect of the foot, which was reduced with a partial thickness debridement. At this point, human tissue allograft was injected into and surrounding all the areas to facilitate healing in this diabetic patient with poor bone stock and chronic ulceration secondary to mild PAD and distal peripheral neuropathy. The appropriate mildly compressive dressings were applied. Release of the pneumatic thigh tourniquet showed a normal hyperemic flush to all digits of the right foot. The patient left the operating room with vital signs stable in apparent satisfactory condition, having tolerated both anesthetic and procedure very well. Job#: [id number] REHAN
--- OUTSIDE RECORDS SUMMARY | 2018-03-02 11:00 | XMS REPORT | Summary of Care ---
Author Author [facility] Organization [facility] Address Unknown Phone Unavailable Encounter DELBERT Arreola(CANDELARIA) [id number] Date(s): 11/13/16 - 11/13/16 [facility] [address] [place] [address]- Discharge Disposition: Home or Self Care Attending Physician: Kyle Diana MD Referring Physician: Kyle Diana MD Vital Signs 1 2 3 Most recent to oldest [Reference Range]: 177.8 cm (11/11/16 2:26 PM) Height 125/69 mmHg (11/13/16 10:15 AM) 121/64 mmHg (11/13/16 10:00 AM) 175/72 mmHg *HI* (11/13/16 8:34 AM) Blood Pressure [90-140/60-90 mmHg] 12 BRMIN *LOW* (11/13/16 10:30 AM) 12 BRMIN *LOW* (11/13/16 10:15 AM) 15 BRMIN (11/13/16 10:00 AM) Respiratory Rate [14-20 BRMIN] 131.455 kg (11/11/16 2:26 PM) Weight 41.58 m2 (11/11/16 2:26 PM) Body Mass Index Problem List Condition Effective Dates Status Health Status Informant Bipolar(Confirmed) Resolved COPD (chronic Resolved obstructive pulmonary disease)(Confirmed) DM (diabetes Resolved mellitus)(Confirmed) Gout(Confirmed) Resolved Hemorrhoids(Confirme Resolved d) HTN - Resolved Hypertension(Confirm ed) Hypothyroidism(Confi Active rmed) Nephrolithiasis(Conf Resolved irmed) Depression(Confirmed Resolved ) MRSA(Confirmed)1, 2 02/19/14 Active OA Resolved (osteoarthritis)(Con firmed) 1Source:Abcesson lip of Mouth , Collection Date Organisam: MRSA 2Problem added by Discern Expert. Allergies, Adverse Reactions, Alerts Substance Reaction Severity Status SEJAL Inhibitors Active Benadryl Active clindamycin Active Medications albuterol 0.083% inhalation solution 2.49 mg=3 mL, INHALATION, Q6H, PRN wheezing, coughing, or shortness of breath, # 240 ea, 1 Refill(s) Start Date: 11/11/16 Stop Date: 01/10/17 Status: Ordered albuterol-ipratropium 2.5-0.5 mg inhalation solution 3 mL, Route: NEB, Drug Form: SOLN, Dosing Weight 131.455, kg, ONCE, STAT, Start date: 11/13/16 8:31:00 CDT, Stop date: 11/13/16 8:31:00 CDT Notes: (Same as: Rachael) Start Date: 11/13/16 Stop Date: 11/13/16 Status: Ordered atorvastatin 40 mg oral tablet 40 mg=1 tab, PO, Bedtime, # 30 tab, 0 Refill(s) Start Date: 11/11/16 Status: Ordered azelastine-fluticasone 137 mcg-50 mcg/inh nasal spray 2 spray, NASAL, Daily, # 23 gm, 1 Refill(s) Start Date: 11/11/16 Stop Date: 12/11/16 Status: Ordered Flovent HFA 220 mcg/inh inhalation aerosol with adapter 1 puff, INHALATION, BID, # 12 gm, 0 Refill(s) Start Date: 11/11/16 Status: Ordered levothyroxine 100 mcg (0.1 mg) oral tablet 100 microgram=1 tab, PO, Daily, # 30 tab, 0 Refill(s) Start Date: 11/11/16 Status: Ordered losartan 100 mg oral tablet 100 mg=1 tab, PO, Daily, # 30 tab, 0 Refill(s) Start Date: 11/11/16 Status: Ordered metroNIDAZOLE topical 0.75% cream 1 appl, TOP, BID, # 45 gm, 0 Refill(s) Start Date: 11/11/16 Status: Ordered ondansetron 8 mg oral tablet 8 mg=1 tab, PO, TID, PRN Nausea & Vomiting, # 3 tab, 0 Refill(s) Start Date: 11/11/16 Stop Date: 11/12/16 Status: Ordered Sodium Chloride 0.9% (Bolus) IV 500 mL, 500 ml/hr, Infuse Over: 1 hr, Route: IV, 500, Drug form: INJ, ONCE, Dosi ng Weight 131.455 kg, Start date: 11/13/16 8:31:00 CDT, Stop date: 11/13/16 8:31 :00 CDT, Bolus Start Date: 11/13/16 Stop Date: 11/13/16 Status: Ordered venlafaxine 75 mg oral capsule, extended release 75 mg=1 cap, PO, Daily, # 30 cap, 0 Refill(s) Start Date: 11/11/16 Status: Ordered Ventolin HFA 90 mcg/inh inhalation aerosol with adapter 2 puff, INHALER, Q6H, PRN wheezing, coughing, or shortness of breath, # 8 gm, 1 Refill(s) Start Date: 11/11/16 Status: Ordered vitamin A 0 Refill(s) Start Date: 11/11/16 Status: Ordered Vitamin B12 0 Refill(s) Start Date: 11/11/16 Status: Ordered Vitamin D3 0 Refill(s) Start Date: 11/11/16 Status: Ordered Results No data available for this section Immunizations No data available for this section Procedures Procedure Date Related Diagnosis Body Site Cholecystocecostomy 1981 Appendectomy Complete parathyroidectomy Gastric bypass Gastric stapling Social History Social History Type Response Alcohol Current, Type Beer, Liquor. Previous treatment: None. Alcohol use interferes with work or home: No. Drinks more than intended: No. Others hurt by drinking: No. Ready to change: No. Household alcohol concerns: No. Smoking Status Former smoker; Previous treatment: None; Ready to change: Yes; Concerns about tobacco use in household: Yes; Exposure to Tobacco Smoke None; Cigarette Smoking Last 365 Days Yes; Reg Smoking Cessation Counseling Yes Assessment and Plan No data available for this section
--- OUTSIDE RECORDS SUMMARY | 2018-03-02 11:00 | XMS REPORT | Continuity of Care Document ---
Author Author [facility] Organization Interface Address Unknown Phone Unavailable Problems Problem Status Onset Date Classification Date Reported Comments Source DX: G30.8 Active 12/15/2017 [facility] UNK Active 11/28/2016 [facility] DX: R10.9=UNSPECIFIED ABDOMINAL PAIN/K52 Active 03/28/2016 [facility] N95.0 - POSTMENOPAUSAL BLEEDING Active 07/06/2015 [facility] Discharge Diagnosis: Ureterolithiasis 05/26/2015 05/29/2015 [facility] ABD PAIN Active 05/25/2015 [facility] L74.519 - "PRIMARY FOCAL HYPERHIDROSIS, [facility]ERD Active 03/28/2015 [facility] R10.9 - UNSPECIFIED ABDOMINAL PAIN Z98.8 Active 03/08/2015 [facility] [place] BACK PAIN Active 02/09/2015 [facility] 724.4 - LUMBOSACRAL SHAKIRA 724.1 - PAIN IN Active [facility]/11[facility] [place] HYPERCALCEMIA, HYPERPARATHYROIDISM ICD-9 Active 05/12/2014 [facility] HYPERPARATHYROIDISM Active 05/12/2014 [facility] MRSA<sup>1, 2</sup> Active 02/19/2014 Problem 12/22/2016 Problem added by Discern Expert. [facility]<sup>1, 2</sup> Active 02/19/2014 Problem 05/20/2014 2Problem added by Discern Expert. [facility] MRSA<sup>1, 2</sup> Active 02/19/2014 Problem 11/16/2015 Problem added by Discern Expert. [facility] [place] MRSA<sup>1, 2</sup> Active 02/19/2014 Problem 05/18/2016 Problem added by Discern Expert. [facility] [place] SWOLLEN LIP Active 02/16/2014 [facility] UPPER LIP ABSCESS VS ANGIOEDEMA Active 02/16/2014 [facility] Bipolar Resolved Problem 12/22/2016 [facility] [place], [facility] [place] DM (<span ID="[id number]">Confirmed</span>) Resolved Problem 12/22/2016 [facility] Gout Resolved Problem 12/22/2016 [facility], LAURA Patel, [facility] [place] HTN - Hypertension Resolved Problem 12/22/2016 [facility] [place] Hyperthyroidism Resolved Problem 03/31/[facility] [place] COPD (<span [id number]">Confirmed</span>) Resolved Problem 12/22/2016 [facility] Hemorrhoids Resolved Problem 12/22/2016 [facility] Hypothyroidism Active Problem 12/22/2016 [facility] Nephrolithiasis Resolved Problem 12/22/2016 [facility] Depression Resolved Problem 12/22/2016 [facility] OA (<span ID="[id number]">Confirmed</span>) Resolved Problem 12/22/2016 [facility] DM (<span [id number]">Confirmed</span>) Resolved Problem 05/20/2014 [facility] Resolved Problem 05/20/2014 [facility] Sun,[facility] Hyperthyroidism Resolved Problem 05/20/[address] [facility] DM (<span [id number]">Confirmed</span>) Resolved Problem 11/16/2015 [facility] [place] HTN - Hypertension Resolved Problem 11/16/2015 [facility] [place] Hyperthyroidism Resolved Problem 11/16/2015 [facility] [place] DM (<span [id number]">Confirmed</span>) Resolved Problem 05/18/2016 [facility] Sun [facility] [place] HTN - Hypertension Resolved Problem 05/18/2016 [facility] [place] Hyperthyroidism Resolved Problem 05/18/[address] [facility] [place] CELLULITIS/ABSCESS MOUTH Active [facility] HYPERCALCEMIA Active [facility] HYPERPARATHYROIDISM NOS Active [facility] UNSPECIFIED ABDOMINAL PAIN Active [facility] Medications Medication Details Route Status Patient Instructions Ordering Provider Order Date Source sodium chloride 0.9% 1000 ml INJ 1,000 mL 1,000 mL, Rate: 25 ml/hr, Infuse over: 40 hr, Route: IV, Dosing Weight 129.091 kg, Total Volume: 1,000, Start date: 12/19/16 11:32:00 CDT, Duration: 1 day, Stop date: 12/20/16 11:31:00 CDT Inactive 12/19/2016 [facility] Albuterol 0.833 MG/ML / Ipratropium [place] 0.167 MG/ML Inhalant Solution 3 mL, Route: NEB, Drug Form: SOLN, Dosing Weight 131.455, kg, ONCE, STAT, Start date: 11/13/16 8:31:00 CDT, Stop date: 11/13/16 8:31:00 CDTNotes: (Same as: Rachael) Inactive 11/13/2016 [facility] Sodium Chloride 0.154 MEQ/ML Injectable Solution 500 mL, 500 ml/hr, Infuse Over: 1 hr, Route: IV, 500, Drug form: INJ, ONCE, Dosing Weight 131.455 kg, Start date: 11/13/16 8:31:00 CDT, Stop date: 11/13/16 8:31:00 CDT, Bolus Inactive 11/13/2016 [facility] Metronidazole 7.5 MG/ML Topical Cream 1 appl, TOP, BID, # 45 gm, 0 Refill(s) Active 11/11/2016 [facility] Ondansetron 8 MG Oral Tablet 8 mg=1 tab, PO, TID, PRN Nausea & Vomiting, # 3 tab, 0 Refill(s) Active 11/11/2016 [facility] atorvastatin 40 mg oral tablet 40 mg=1 tab, PO, Bedtime, # 30 tab, 0 Refill(s) Active 11/11/2016 [facility] Vitamin B12 0 Refill(s) Active 11/11/2016 [facility] Azelastine hydrochloride 0.137 MG/ACTUAT / Fluticasone propionate 0.05 MG/ACTUAT Metered Dose Nasal [place] 2 spray, NASAL, Daily, # 23 gm, 1 Refill(s) Active 11/11/2016 [facility] Ventolin HFA 90 mcg/inh inhalation aerosol with adapter 2 puff, INHALER, Q6H, PRN wheezing, coughing, or shortness of breath, # 8 gm, 1 Refill(s) Active 11/11/2016 [facility] 120 ACTUAT Fluticasone propionate 0.22 MG/ACTUAT Metered Dose Inhaler [Flovent] 1 puff, INHALATION, BID, # 12 gm, 0 Refill(s) Active 11/11/2016 [facility] Vitamin A 0 Refill(s) Active 11/11/2016 [facility] Albuterol 0.83 MG/ML Inhalant Solution 2.49 mg=3 mL, INHALATION, Q6H, PRN wheezing, coughing, or shortness of breath, # 240 ea, 1 Refill(s) Active 11/11/2016 [facility] Vitamin D3 0 Refill(s) Active 11/11/2016 [facility] venlafaxine 75 mg oral capsule, extended release 75 mg=1 cap, PO, Daily, # 30 cap, 0 Refill(s) Active 11/11/2016 [facility] levothyroxine 100 mcg (0.1 mg) oral tablet 100 microgram=1 tab, PO, Daily, # 30 tab, 0 Refill(s) Active 11/11/2016 [facility] losartan 100 mg oral tablet 100 mg=1 tab, PO, Daily, # 30 tab, 0 Refill(s) Active 11/11/2016 [facility] Ciprofloxacin 500 MG Oral Tablet [Cipro] 500 mg=1 tab, PO, Q12H, X 7 day, # 14 tab, 0 Refill(s) Active 05/26/2015 [facility] Acetaminophen 325 MG / Hydrocodone Bitartrate 10 MG Oral Tablet 1 tab, PO, Q4H, PRN Pain, X 2 day, # 12 tab, 0 Refill(s) No Longer Active 05/26/2015 [facility] Tamsulosin hydrochloride 0.4 MG Oral Capsule [Flomax] 0.4 mg=1 cap, PO, Daily, # 30 cap, 0 Refill(s) Active 05/26/2015 [facility] Promethazine Hydrochloride 12.5 MG Oral Tablet [Phenergan] 12.5 mg=1 tab, PO, Q4H, PRN Other-See Comments, X 3 day, # 18 tab, 0 Refill(s) Active 05/26/2015 [facility] Ketorolac 15 mg, 0.5 mL, Route: IVP, Drug form: INJ, ONCE, Dosing Weight 147.273, kg, Priority: STAT, Start date: 05/26/15 1:42:00, Stop date: 05/26/15 1:42:00Notes: (Same as:Toradol) IV bolus must be given >15 seconds. Give IM administration slowly and deeply into the muscle. Not for use > 4 days MEDICATION WASTE Product Size: 30 mg Product Wasted: ___ mg Inactive 05/26/2015 [facility] Ondansetron 4 mg, 2 mL, Route: IVP, Drug form: INJ, ONCE, Dosing Weight 147.273, kg, Priority: STAT, Start date: 05/26/15 1:42:00, Stop date: 05/26/15 1:42:00Notes: (Same as: Zofran) MEDICATION WASTE P roduct Size: 4 mg Product Wasted: ___ mg Inactive 05/26/2015 [facility] Saline Flush 0.9% 10 mL, Route: IVP, Drug Form: INJ, Dosing Weight 147.273, kg, PRN, PRN Line Flush, Start date: 05/26/15 1:42:00, Duration: 30 day, Stop date: 06/25/15 1:41:00Notes: (Same as: BD Posiflush) Inactive 05/26/2015 [facility] Sodium Chloride 0.154 MEQ/ML Injectable Solution 1,000 mL, 1000 ml/hr, Infuse Over: 1 hr, Route: IV, 1,000, Drug form: INJ, ONCE, Priority: STAT, Dosing Weight 147.273 kg, Start date: 05/26/15 1:42:00, Duration: 1 doses or times, Stop date: 05/26/15 1:42:00 Inactive 05/26/2015 [facility] venlafaxine 150 mg, 1 cap, Route: PO, Drug form: ERCAP, Daily, Dosing Weight 145, kg, Start date: 05/17/14 9:00:00, Duration: 30 day, Stop date: 06/15/14 9:00:00Notes: Do not open, crush, or chew. (Same As: Eff exor XR) Inactive 05/17/2014 [facility] Losartan 25 mg, 1 tab, Route: PO, Drug form: TAB, Daily, Dosing Weight 145, kg, Start date: 05/17/14 9:00:00, Duration: 30 day, Stop date: 06/15/14 9:00:00Notes: (Same as: Cozaar) Inactive 05/17/2014 [facility] LaMICtal XR 400 mg, 4 tab, Route: PO, Drug form: ERTAB, Daily, Dosing Weight 145, kg, Start date: 05/17/14 9:00:00, Duration: 30 day, Stop date: 06/15/14 9:00:00Notes: Same as: LaMICtal XR Inactive 05/17/2014 [facility] Gemfibrozil 600 mg, 1 tab, Route: PO, Drug form: TAB, Daily, Dosing Weight 145, kg, Start date: 05/17/14 9:00:00, Duration: 30 day, Stop date: 06/15/14 9:00:00Notes: (Same as: Lopid) Inactive 05/17/2014 [facility] Atenolol 50 MG Oral Tablet 50 mg, 1 tab, Route: PO, Drug form: TAB, Daily, Dosing Weight 145, kg, Start date: 05/17/14 9:00:00, Duration: 30 day, Stop date: 06/15/14 9:00:00Notes: (Same As:Tenormin) Inactive 05/17/2014 [facility] Allopurinol 100 mg, 1 tab, Route: PO, Drug form: TAB, Daily, Dosing Weight 145, kg, Start date: 05/17/14 9:00:00, Duration: 30 day, Stop date: 06/15/14 9:00:00Notes: (Same as: Zyloprim) Inactive 05/17/2014 [facility] Promethazine Hydrochloride 12.5 MG Oral Tablet [Phenergan] 12.5 mg=1 tab, PO, Q4H, Nausea & Vomiting, # 60 tab, 0 Refill(s) Active 05/17/2014 [facility] Docusate Sodium 100 MG Oral Capsule 100 mg=1 cap, PO, BID, # 30 cap, 0 Refill(s) Active 05/17/2014 [facility] Acetaminophen 300 MG / Codeine Phosphate 30 MG Oral Tablet 1 tab, PO, Q4H, Pain Score 1-3, # 50 tab, 0 Refill(s) Active 05/17/2014 [facility] Thyroxine 125 microgram, 1 tab, Route: PO, Drug form: TAB, Q630AM, Dosing Weight 145, kg, Start date: 05/17/14 6:30:00, Duration: 30 day, Stop date: 06/15/14 6:30:00Notes: Take 1 hour before or 2 hours after meal; Enteral feeds may interefere with the absorption of this medication. (Same as:Levothroid) Inactive 05/17/2014 [facility] Clonazepam 1 mg, 1 tab, Route: PO, Drug form: TAB, Bedtime, Dosing Weight 145, kg, Start date: 05/16/14 21:00:00, Duration: 30 day, Stop date: 06/14/14 21:00:00Notes: (Same As: KlonoPIN) No Longer Active 05/17/2014 [facility] Docusate 100 mg, 1 cap, Route: PO, Drug form: CAP, BID, Dosing Weight 145, kg, Start date: 05/16/14 17:00:00, Duration: 30 day, Stop date: 06/15/14 9:00:00Notes: (Same as: Colace) (Do Not Crush) No Longer Active 05/16/2014 [facility] Metformin hydrochloride 500 MG Oral Tablet 1,000 mg, 2 tab, Route: PO, Drug form: TAB, BID, Dosing Weight 145, kg, Start date: 05/16/14 17:00:00, Duration: 30 day, Stop date: 06/15/14 9:00:00Notes: (Same as: Glucophage) Take with meal No Longer Active 05/16/2014 [facility] gabapentin 400 MG Oral Capsule 400 mg, 1 cap, Route: PO, Drug form: CAP, BID, Dosing Weight 145, kg, Start date: 05/16/14 17:00:00, Duration: 30 day, Stop date: 06/15/14 9:00:00Notes: (Same as: Neurontin) No Longer Active 05/16/2014 [facility] Furosemide 20 MG Oral Tablet [Lasix] 20 mg, 1 tab, Route: PO, Drug form: TAB, BID, Dosing Weight 145, kg, Start date: 05/16/14 17:00:00, Duration: 30 day, Stop date: 06/15/14 9:00:00Notes: (Same as: Lasix) May cause GI upset. Give with food or milk. No Longer Active 05/16/2014 [facility] Famotidine 20 mg, 1 tab, Route: PO, Drug form: TAB, BID, Dosing Weight 145, kg, Start date: 05/16/14 17:00:00, Duration: 30 day, Stop date: 06/15/14 9:00:00Notes: (Same as: Pepcid) No Longer Active 05/16/2014 [facility] Ondansetron 4 mg, Route: IVP, ONCE, Dosing Weight 145, kg, PRN Nausea & Vomiting, Start date: 05/16/14 12:41:00 Inactive 05/16/2014 [facility] Labetalol 10 mg, Route: IVP, Q5Min, Dosing Weight 145, kg, PRN Elevated BP, Start date: 05/16/14 12:41:00, Duration: 5 doses or times, Stop date: Limited # of times Inactive 05/16/2014 [facility] Flumazenil 0.2 mg, Route: IVP, PRN, Dosing Weight 145, kg, PRN Benzodiazepine Reversal, Initial dose, Start date: 05/16/14 12:41:00, Duration: 30 day, Stop date: 06/15/14 12:40:00 Inactive 05/16/2014 [facility] Naloxone 0.04 mg, Route: IVP, Q2MIN, Dosing Weight 145, kg, PRN Narcotic Reversal, Start date: 05/16/14 12:41:00, Duration: 8 doses or times, Stop date: Limited # of times Inactive 05/16/2014 [facility] Morphine 2 mg, Route: IVP, Q5Min, Dosing Weight 145, kg, PRN Pain Score 4-6, Start date: 05/16/14 12:41:00, Duration: 5 doses or times, Stop date: Limited # of times Inactive 05/16/2014 [facility] Sodium Chloride 0.154 MEQ/ML Injectable Solution 1,000 mL, Rate: 100 ml/hr, Infuse over: 10 hr, Route: IV, Dosing Weight 145 kg, Total Volume: 1,000, Start date: 05/16/14 12:09:00, Duration: 30 day, Stop date: 06/15/14 12:08:00 No Longer Active 05/16/2014 [facility] Saline Flush 0.9% 10 ml, Route: IVP, Drug Form: INJ, Dosing Weight 145, kg, PRN, PRN Line Flush, Start date: 05/16/14 12:09:00, Duration: 30 day, Stop date: 06/15/14 12:08:00Notes: Same as: BD Posiflush Sterile No Longer Active 05/16/2014 [facility] Ondansetron 4 mg, 2 mL, Route: IVP, Drug form: INJ, Q6H, Dosing Weight 145, kg, PRN Nausea & Vomiting, Start date: 05/16/14 12:09:00, Duration: 30 day, Stop date: 06/15/14 12:08:00Notes: (Same as: Zofran) No Longer Active 05/16/2014 [facility] Promethazine 12.5 mg, 0.5 mL, Route: IVPB, Drug form: INJ, Q4H, Dosing Weight 145, kg, PRN Nausea & Vomiting, Start date: 05/16/14 12:09:00, Duration: 30 day, Stop date: 06/15/14 12:08:00Notes: Do not give IV push. (Same as: Phenergan) No Longer Active 05/16/2014 [facility] acetaminophen-codeine #3 1 tab, Route: PO, Drug Form: TAB, Dosing Weight 145, kg, Q4H, PRN Pain Score 1-3, Start date: 05/16/14 12:09:00, Duration: 30 day, Stop date: 06/15/14 12:08:00Notes: Do not exceed 4gm/day of acetaminophen. (Same as: Tylenol with Codeine # 3) No Longer Active 05/16/2014 [facility] Morphine 2 mg, 1 mL, Route: IVP, Drug form: INJ, Q3H, Dosing Weight 145, kg, PRN Pain Score 1-3, Start date: 05/16/14 12:09:00, Duration: 30 day, Stop date: 06/15/14 12:08:00Notes: (Same as:MORPhine Sulfate) No Longer Active 05/16/2014 [facility] Zofran 4 mg, 2 mL, Route: IVP, Drug form: INJ, ONCE, Dosing Weight 145, kg, PRN as needed for nausea/vomiting, Start date: 05/16/14 9:37:00Notes: (Same as: Zofran) No Longer Active 05/16/2014 [facility] losartan 25 mg oral tablet 25 mg=1 tab, PO, Daily, # 30 tab, 0 Refill(s) Active 05/16/2014 [facility] Ancef 2 gm, 50 mL, Route: IVPB, Drug form: INJ, ONCE, Dosing Weight 145, kg, Start date: 05/16/14 8:59:00, Duration: 1 doses or times, Stop date: 05/16/14 8:59:00 Inactive 05/16/2014 [facility] hydromorphone 2 mg oral tablet See Instructions, 2 tab, # 7 tab, 0 Refill(s)Special Instructions: 2 tab Active 02/22/2014 [facility] clindamycin 300 mg oral capsule 300 mg=1 cap, PO, Q6H, # 28 cap, 0 Refill(s) Active 02/22/2014 [facility] Clindamycin 600 mg, 4 mL, Route: IVPB, [id number], Dosing Weight 144.682, kg, Start date: 02/21/14 22:00:00, Duration: 30 day, Stop date: 03/23/14 14:00:00Notes: (clindamycin 150 mg/1 ml (600 mg/4 ml VL) INJ) (Same As: Cleocin) No Longer Active 02/22/2014 [facility] Ceftriaxone 2 gm, Route: IVPB, [id number], Dosing Weight 144.682, kg, Start date: 02/21/14 21:00:00, Duration: 30 day, Stop date: 03/22/14 21:00:00Notes: (Same As: Rocephin). No Longer Active 02/22/2014 [facility] hydromorphone 0.5 mg, 0.5 mL, Route: IVP, Drug form: INJ, Daily, PRN Wound Care, Start date: 02/21/14 15:43:00, Duration: 30 day, Stop date: 03/23/14 15:42:00 No Longer Active 02/21/2014 [facility] Dilaudid 0.5 mg, Route: IV, ONCE, Dosing Weight 144.682, kg, PRN, Start date: 02/21/14 15:36:00, for wound care Inactive 02/21/2014 [facility] Hydroxyzine 25 mg, 1 tab, Route: PO, Drug form: TAB, Q6H, Dosing Weight 144.682, kg, PRN Itching, Start date: 02/20/14 20:31:00, Stop date: 03/22/14 20:30:00Notes: (Same as: Atarax) Avoid alcohol. No Longer Active 02/21/2014 [facility] Acetaminophen 325 MG / Hydrocodone Bitartrate 5 MG Oral Tablet [Olla 5/325] 1 tab, Route: PO, Drug Form: TAB, Dosing Weight 144.682, kg, Q4H, PRN Pain, Start date: 02/20/14 12:10:00, Duration: 30 day, Stop date: 03/22/14 12:09:00 Inactive 02/20/2014 [facility] Ondansetron 4 mg, Route: IVP, ONCE, Dosing Weight 144.682, kg, PRN Nausea & Vomiting, Start date: 02/20/14 12:10:00 Inactive 02/20/2014 [facility] Meperidine 12.5 mg, Route: IVP, Q30Min, Dosing Weight 144.682, kg, PRN Other -See Comment, For shivering, Start date: 02/20/14 12:10:00, Duration: 2 doses or times, Stop date: Limited # of times Inactive 02/20/2014 [facility] Flumazenil 0.2 mg, Route: IVP, PRN, Dosing Weight 144.682, kg, PRN Benzodiazepine Reversal, Initial dose, Start date: 02/20/14 12:10:00, Duration: 30 day, Stop date: 03/22/14 11:09:00 Inactive 02/20/2014 [facility] Naloxone 0.04 mg, Route: IVP, Q2MIN, Dosing Weight 144.682, kg, PRN Narcotic Reversal, Start date: 02/20/14 12:10:00, Duration: 8 doses or times, Stop date: Limited # of times Inactive 02/20/2014 [facility] Fentanyl 25 microgram, Route: IVP, Q5Min, Dosing Weight 144.682, kg, PRN Pain Score 4-6, Start date: 02/20/14 12:10:00, Duration: 4 doses or times, Stop date: Limited # of times Inactive 02/20/2014 [facility] Hydromorphone 0.5 mg, Route: IVP, Q5Min, Dosing Weight 144.682, kg, PRN Pain Score 7-10, Start date: 02/20/14 12:10:00, Duration: 4 doses or times, Stop date: Limited # of times Inactive 02/20/2014 [facility] Acetaminophen 1,000 mg, Route: IVPB, Drug form: INJ, ONCE, Dosing Weight 144.682, kg, PRN Pain Score 1-3, Start date: 02/20/14 12:10:00, Duration: 1 doses or times, Stop date: Limited # of times Inactive 02/20/2014 [facility] Calcium Chloride 0.0014 MEQ/ML / Potassium Chloride 0.004 MEQ/ML / Sodium Chloride 0.103 MEQ/ML / Sodium Lactate 0.028 MEQ/ML Injectable Solution 1,000 mL, Rate: 25 ml/hr, Infuse over: 40 hr, Route: IV, Dosing Weight 144.682 kg, Total Volume: 1,000, Start date: 02/20/14 11:43:00, Duration: 30 day, Stop date: 03/22/14 11:42:00 Inactive 02/20/2014 [facility] Solu-Medrol 40 mg, 1 mL, Route: IVP, Drug form: INJ, Q8H, Dosing Weight 144.682, kg, Start date: 02/18/14 16:00:00, Duration: 30 day, Stop date: 03/20/14 8:00:00Notes: (Same as:Solu-MEDROL, A-Methapred) No Longer Active 02/18/2014 [facility] Lamictal 200mg Lamictal 200mg, 2 tab, Drug form: MISC, Route: PO, Daily, 02/18/14 10:17:00, Duration: 30 day, Stop date: 03/20/14 9:00:00 No Longer Active 02/18/2014 [facility] Acetaminophen 325 MG / Hydrocodone Bitartrate 7.5 MG Oral Tablet [Olla 7.5/325] 1 tab, Route: PO, Drug Form: TAB, Dosing Weight 144.682, kg, Q6H, PRN Pain Score 4-6, Start date: 02/18/14 9:17:00, Duration: 30 day, Stop date: 03/20/14 9:16:00Notes: Same as Olla 325-7.5mg Do not exceed 4gm/day of acetaminophen. No Longer Active 02/18/2014 [facility] LaMICtal (Lamotrigine) XR 400 mg tab Pt's Own MED LaMICtal (Lamotrigine) XR 400 mg tab [facility] Own [facility], 400 mg, Drug form: MISC, Route: PO, Daily, 02/18/14 9:00:00, Duration: 30 day, Stop date: 03/19/14 9:00:00 Inactive 02/18/2014 [facility] LaMICtal XR 400 mg, Route: PO, Drug form: ERTAB, Daily, Dosing Weight 144.682, kg, Start date: 02/18/14 9:00:00, Duration: 30 day, Stop date: 03/19/14 9:00:00 No Longer Active 02/18/2014 [facility] Thyroxine 125 microgram, 1 tab, Route: PO, Drug form: TAB, Q630AM, Dosing Weight 144.682, kg, Start date: 02/18/14 6:30:00, Duration: 30 day, Stop date: 03/19/14 6:30:00Notes: Take 1 hour before or 2 hours after meal; Enteral feeds may interefere with the absorption of this medication. (Same as:Levothroid) No Longer Active 02/18/2014 [facility] Vancomycin 1 gm, 200 mL, Route: IVPB, Drug form: INJ, Bedtime, Dosing Weight 144.682, kg, Start date: 02/17/14 21:00:00, Duration: 30 day, Stop date: 03/18/14 21:00:00 Inactive 02/18/2014 [facility] Clonazepam 1 mg, 1 tab, Route: PO, Drug form: TAB, Bedtime, Dosing Weight 144.682, kg, Start date: 02/17/14 21:00:00, Duration: 30 day, Stop date: 03/18/14 21:00:00Notes: (Same As: KlonoPIN) No Longer Active 02/18/2014 [facility] Unasyn 3 gm, 1 ea, Route: IVPB, Q6H, Dosing Weight 144.682, kg, Start date: 02/17/14 18:00:00, Duration: 30 day, Stop date: 03/19/14 12:00:00Notes: Dosing based on Ampicillin component (Same as: Unasyn) No Longer Active 02/17/2014 [facility] Famotidine 20 mg, 1 tab, Route: PO, Drug form: TAB, BID, Dosing Weight 144.682, kg, Start date: 02/17/14 17:00:00, Duration: 30 day, Stop date: 03/19/14 9:00:00Notes: (Same as: Pepcid) No Longer Active 02/17/2014 [facility] Furosemide 20 MG Oral Tablet [Lasix] 20 mg, 1 tab, Route: PO, Drug form: TAB, BID, Dosing Weight 144.682, kg, Start date: 02/17/14 17:00:00, Duration: 30 day, Stop date: 03/19/14 9:00:00Notes: (Same as: Lasix) May cause GI upset. Give with food or milk. No Longer Active 02/17/2014 [facility] 24 HR lamotrigine 200 MG Extended Release Enteric Coated Tablet [Lamictal] 400 mg=2 tab, PO, Daily, 0 Refill(s) Active 02/17/2014 [facility] Atenolol 50 MG Oral Tablet 50 mg, 1 tab, Route: PO, Drug form: TAB, Daily, Dosing Weight 144.682, kg, Start date: 02/17/14 11:00:00, Duration: 30 day, Stop date: 03/19/14 9:00:00Notes: (Same As:Tenormin) No Longer Active 02/17/2014 [facility] venlafaxine 150 mg, 1 cap, Route: PO, Drug form: ERCAP, Daily, Dosing Weight 144.682, kg, Start date: 02/17/14 11:00:00, Duration: 30 day, Stop date: 03/19/14 21:00:00Notes: Do not open, crush, or chew. (Same As: Effexor XR) No Longer Active 02/17/2014 [facility] lamotrigine 200 MG Oral Tablet 200 mg, 2 tab, Route: PO, Drug form: TAB, Daily, Dosing Weight 144.682, kg, Start date: 02/17/14 11:00:00, Stop date: 03/19/14 9:00:00Notes: (Same as:LaMICtal) Inactive 02/17/2014 [facility] Gemfibrozil 600 mg, 1 tab, Route: PO, Drug form: TAB, Daily, Dosing Weight 144.682, kg, Start date: 02/17/14 11:00:00, Duration: 30 day, Stop date: 03/19/14 9:00:00Notes: (Same as: Lopid) No Longer Active 02/17/2014 [facility] gabapentin 400 MG Oral Capsule 400 mg, 1 cap, Route: PO, Drug form: CAP, BID, Dosing Weight 144.682, kg, Start date: 02/17/14 11:00:00, Duration: 30 day, Stop date: 03/19/14 9:00:00Notes: (Same as: Neurontin) No Longer Active 02/17/2014 [facility] Enoxaparin 40 mg, 0.4 mL, Route: SUB-Q, Drug form: INJ, [id number], Dosing Weight 144.682, kg, Start date: 02/17/14 10:00:00, Duration: 30 day, Stop date: 03/18/14 10:00:00Notes: (Same as: Lovenox) No Longer Active 02/17/2014 [facility] Zosyn 3.375 gm, 100 mL, Route: IV, Drug form: PDR/INJ, [id number], Dosing Weight 144.682, kg, > 30 kg, Start date: 02/17/14 10:00:00, Duration: 30 day, Stop date: 03/19/14 2:00:00, Pediatric DosingSpecial Instructions: Pediatric DosingNotes: (Same as: Zosyn) Infuse over 4 hours. Activate and reconstitute before use. Dosing based on Piperacillin component Inactive 02/17/2014 [facility] Dextrose 50% Syringe 12.5 gm, 25 mL, Route: IVP, Drug Form: INJ, Dosing Weight 144.682, kg, PRN, PRN Blood Glucose Results, Start date: 02/17/14 9:49:00, Duration: 30 day, Stop date: 03/19/14 8:48:00 No Longer Active 02/17/2014 [facility] Glucagon 1 mg, Route: IM, Drug form: PDR/INJ, PRN, Dosing Weight 144.682, kg, PRN Blood Glucose Results, Start date: 02/17/14 9:49:00, Duration: 30 day, Stop date: 03/19/14 8:48:00 No Longer Active 02/17/2014 [facility] Insulin, Aspart, Human 1 unit, 0.01 mL, Route: SUB-Q, Drug form: SOLN, Bedtime, Dosing Weight 144.682, kg, PRN Blood Glucose Results, Start date: 02/17/14 9:49:00, Duration: 30 day, Stop date: 03/19/14 9:48:00Notes: Roll in palms of hands gently; Do not shake vigorously. (Same as: NovoLOG) "single patient use only" Stable for 28 days at room temperature. Expires in days from Date No Longer Active 02/17/2014 [facility] Famotidine 20 mg=1 tab, PO, BID, # 60 tab, 0 Refill(s) Active 02/17/2014 [facility] Ciprofloxacin 500 mg, PO, Q12H, 0 Refill(s) Inactive 02/17/2014 [facility] Atropine 0.5 mg, 5 mL, Route: IVP, Drug form: INJ, PRN, Dosing Weight 144.682, kg, PRN Bradycardia, Start date: 02/17/14 0:49:00, Duration: 30 day, Stop date: 03/19/14 0:48:00, HR No Longer Active 02/17/2014 [facility] Nitroglycerin 0.4 mg, 1 tab, Route: SL, Drug form: TAB, Q5Min, Dosing Weight 144.682, kg, PRN Chest Pain, Start date: 02/17/14 0:49:00, Duration: 30 day, Stop date: 03/19/14 0:48:00, Chest Pain [id number]: (Same as:N itroquick, Anishtat) "Do Not Crush" Sublingual tablet No Longer Active 02/17/2014 [facility] gemfibrozil 600 mg oral tablet 600 mg=1 tab, PO, Daily, 0 Refill(s) Active 02/17/2014 [facility] gabapentin 400 MG Oral Capsule 400 mg=1 cap, PO, BID, 0 Refill(s) Active 02/17/2014 [facility] Furosemide 20 MG Oral Tablet [Lasix] 20 mg=1 tab, PO, BID, # 30 tab, 0 Refill(s) Active 02/17/2014 [facility] levothyroxine 125 mcg (0.125 mg) oral tablet 125 microgram=1 tab, PO, Daily, 0 Refill(s) Active 02/17/2014 [facility] clonazePAM 1 mg oral tablet 1 mg=1 tab, PO, Bedtime, 0 Refill(s) Active 02/17/2014 [facility] lamotrigine 200 MG Oral Tablet 2 tabs, PO, Daily, 0 Refill(s) Inactive 02/17/2014 [facility] allopurinol 100 mg oral tablet 100 mg=1 tab, PO, Daily, 0 Refill(s) Active 02/17/2014 [facility] venlafaxine 150 mg oral capsule, extended release 150 mg=1 cap, PO, Daily, 0 Refill(s) Active 02/17/2014 [facility] Metformin hydrochloride 500 MG Oral Tablet 1,000 mg=2 tab, PO, BID, 0 Refill(s) Active 02/17/2014 [facility] Atenolol 50 MG Oral Tablet 50 mg=1 tab, PO, Daily, 0 Refill(s) Active 02/17/2014 [facility] Vancomycin 1 gm, 200 mL, Route: IVPB, Drug form: INJ, [id number], Dosing Weight 145.455, kg, Priority: STAT, Start date: 02/17/14 0:03:00, Stop date: 03/18/14 18:57:00 Inactive 02/17/2014 [facility] Ondansetron 4 mg, 2 mL, Route: IVP, Drug form: INJ, Q8H, Dosing Weight 144.682, kg, PRN Nausea & Vomiting, Start date: 02/17/14 0:03:00, Duration: 30 day, Stop date: 03/19/14 0:02:00Notes: (Same as: Zofran) No Longer Active 02/17/2014 [facility] Acetaminophen 650 mg, 20.3 mL, Route: PO, Drug form: LIQ, Q4H, Dosing Weight 144.682, kg, PRN Pain 1-3/Temp > 100.4 F, Start date: 02/17/14 0:03:00, Duration: 30 day, Stop date: 03/19/14 0:02:00Notes: Max aceta [id number]/day (4 gm/day). (Same as: Tylenol) No Longer Active 02/17/2014 [facility] Docusate 100 mg, 1 cap, Route: PO, Drug form: CAP, BID, Dosing Weight 144.682, kg, PRN Constipation, Start date: 02/17/14 0:03:00, Duration: 30 day, Stop date: 03/19/14 0:02:00Notes: (Same as: Colace) (Do Not Crush) No Longer Active 02/17/2014 [facility] Morphine 4 mg, 2 mL, Route: IVP, Drug form: INJ, Q3H, Dosing Weight 145.455, kg, PRN Pain Score 4-6, Start date: 02/17/14 0:03:00, Duration: 30 day, Stop date: 03/19/14 0:02:00Notes: (Same as:MORPhine Sulfate) No Longer Active 02/17/2014 [facility] Methylprednisolone 125 mg, Route: IVP, ONCE, Dosing Weight 145.455, kg, Priority: STAT, Start date: 02/16/14 19:38:00, Stop date: 02/16/14 19:38:00 Inactive 02/17/2014 [facility] Vancomycin 1 gm, Route: IVPB, Drug form: INJ, ONCE, Dosing Weight 145.455, kg, Priority: STAT, Start date: 02/16/14 19:38:00, Stop date: 02/16/14 19:38:00 Inactive 02/17/2014 [facility] Hydromorphone 1 mg, Route: IVP, ONCE, Dosing Weight 145.455, kg, Priority: STAT, Start date: 02/16/14 19:05:00, Stop date: 02/16/14 19:05:00 Inactive 02/17/2014 [facility] Lidocaine Hydrochloride 10 MG/ML Injectable Solution 1 ml, Route: SUB-Q, Drug Form: INJ, Dosing Weight 145.455, kg, ONCE, STAT, Start date: 02/16/14 18:11:00, Stop date: 02/16/14 18:11:00Notes: Preservative free. (Same as: Xylocaine MPF) Inactive 02/16/2014 [facility] Zofran 4 mg, Route: IVP, Drug form: INJ, ONCE, Dosing Weight 145.455, kg, Priority: STAT, Start date: 02/16/14 17:04:00, Stop date: 02/16/14 17:04:00 Inactive 02/16/2014 [facility] Morphine 4 mg, Route: IVP, Drug form: INJ, ONCE, Dosing Weight 145.455, kg, Priority: STAT, Start date: 02/16/14 17:04:00, Stop date: 02/16/14 17:04:00 Inactive 02/16/2014 [facility] Allergies, Adverse Reactions, Alerts Substance Category Reaction Severity Reaction type Status Date Reported Comments Source Benadryl Assertion Drug allergy Active [facility] SEJAL Inhibitors Assertion Drug allergy Active [facility] clindamycin Assertion Drug allergy Active [facility] Immunizations Immunization Date Given Site Status Last Updated Comments Source Results Order Name Results Value Reference Range Date Interpretation Comments Source Brain wo contrast MRI Brain wo contrast MRI Study: Brain wo contrast MRI 12/22/2017 12:37 PM CDT Ordering Physician: Rere Solorio MD Clinical Indication: - G30.8 Other alzheimer's disease. No onset headaches, with photophobia, worsening over the past 3 months. Comparison: None TECHNIQUE: Multiplanar, multiecho magnetic resonance imaging of the brain is performed without contrast on a high-field strength magnet. An oval fluid signal intensity is present in the anterior, superior right temporal lobe measuring 0.8 cm in greatest dimension. It probably represents a neuroepithelial cyst. There may be minimal T2/FLAIR hyperintensity in the posterior chirag, suggesting minimal chronic small vessel ischemic disease. No additional foci of abnormal signal are identified within the cerebral or cerebellar hemispheres. There is no evidence for intracranial mass, mass effect or extra-axial fluid collection. No subacute or chronic blood products are seen. There is no evidence for acute ischemia on diffusion-weighted images. Ventricles, sulci and basal cisterns are within normal limits for age. The mesial temporal lobes are grossly normal and symmetric, with no evidence for size or signal alteration. A flow-void is not seen within the distal right vertebral artery, suggesting occlusion. Remaining visualized arterial flow voids at the skull base and in the dural venous sinuses are within normal limits. The pituitary, internal auditory canals and visualized cranial nerves at the skull base are unremarkable. Paranasal sinuses are clear. Mastoid air cells are clear. Orbital structures are grossly unremarkable. IMPRESSION: Minimal chronic small vessel ischemic disease is suspected in the posterior portion of the chirag. A 0.8 cm neuroepithelial cyst is present in the right temporal lobe. No additional abnormalities are seen. SL: [id number] 12/22/2017 - - Read by: Krystle Cisneros MD Dictated Date/time: 12/22/17 13:56 Electronically Signed by: Krystle Cisneros MD 12/22/17 15:39 FINAL REPORT [facility] Chest 2 views DX Chest 2 views DX EXAM: XR CHEST 2 VIEWS DATE: 05/15/2016 12:40 PM [employer] INDICATION: R63.4 Abnormal weight loss COMPARISON: CXR 03/28/[address] abdomen pelvis 03/28/2016 TECHNIQUE: PA and lateral chest radiographs FINDINGS: Lines and tubes: None. Lungs and pleura: Bibasilar atelectasis. No consolidations. No pleural effusions or pneumothorax. Heart and mediastinum: The cardiac silhouette is slightly prominent size. Bones: No acute bony abnormality is identified. Soft tissues: Mild degenerative changes of the thoracic spine. Upper abdomen: Surgical clips project over the upper abdomen. IMPRESSION: Bibasilar atelectasis. No consolidations. 05/15/2016 - - Read by: Сергей Howard MD Dictated Date/time: 05/15/16 13:32 Electronically Signed by: Сергей Howard MD 05/15/16 13:34 FINAL REPORT [facility] eGFR 70 mL/min/1.73m2 03/28/2016 Result Comment: The eGFR is calculated using the CKD-EPI formula. In most young, healthy individuals the eGFR will be >90 mL/min/1.73m2. The eGFR declines with age. An eGFR of 60-89 may be normal in some populations, particularly the elderly, for whom the CKD-EPI formula has not been extensively validated. Use of the eGFR is not recommended in the following populations: Individuals with unstable creatinine concentrations, including patients and those with serious co-morbid conditions. Patients with extremes in muscle mass or diet. The data above are obtained from the National Kidney Disease Education Program (NKDEP) which additionally recommends that when the eGFR is used in patients with extremes of body mass index for purposes of drug dosing, the eGFR should be multiplied by the estimated BMI. [facility] CHEM PANEL POC Creatinine 0.9 mg/dL 0.5 - 1.4 03/28/2016 [facility] Abdomen/Pelvis w IV contrast CT Abdomen/Pelvis w IV contrast CT Patient Name: ALISON HOUSTON : 1955; Age: 60 years y/o Female MR: [id number] Study: Abdomen/Pelvis w IV contrast CT 03/28/2016 2:42 PM [employer] Ordering Physician: Amie Hicks MD Clinical Indication: chronic diarrhea; abdominal pain; weight loss; Comparison: 03/15/2015 CT abdomen pelvis. TECHNIQUE: Helical imaging was performed from the diaphragm through the symphysis with multiplanar reformations obtained after intravenous administration of 100 mL of Omnipaque. Oral contrast had been administered. Total exam DLP 2144mGy-cm FINDINGS: LOWER CHEST: The lung bases are clear without significant pleural effusion bilaterally. SOLID ORGANS: Previous cholecystectomy. No biliary ductal dilatation. Liver, spleen, pancreas, adrenal glands and kidneys are unremarkable. RETROPERITONEUM: No abdominal or pelvic adenopathy. The abdominal aorta is unremarkable. PELVIS: No pelvic mass. Bladder is unremarkable. BOWEL: No bowel abnormality identified in the abdomen or pelvis. The appendix is nonvisualized. Previous gastric surgery with suture line about the proximal stomach, unchanged from its previous appearance. PERITONEUM: No free intraperitoneal air. No abnormal fluid collection identified in the abdomen or pelvis. MUSCULOSKELETAL: L4-L5 degenerative spondylosis with severe disc space narrowing. No additional bone lesion. IMPRESSION: Prior cholecystectomy. Previous gastroplasty. No specific new or acute findings, otherwise. SL: [id number] 03/28/2016 - - Read by: Zeke Ruiz MD Dictated Date/time: 03/28/16 16:50 Electronically Signed by: Zeke Ruiz MD 03/28/16 17:00 FINAL REPORT [facility] Abdomen complete US Abdomen complete US ULTRASOUND OF THE ABDOMEN History: 60-year-old female with right upper quadrant pain. Technique: Real-time harrison-scale imaging supplemented with color Doppler of complete abdomen was performed. Comparison: CT abdomen pelvis 05/26/2015 Findings: The liver parenchymal pattern suggests steatosis, no focal abnormality seen. The liver is large and long axis dimension of right lobe is 17.8 cm, portal vein caliber is 1.1 cm with hepatopetal flow. The gallbladder is absent and the sonographic Jenkins sign is negative. The common bile duct caliber is 0.3 cm. The pancreas head and body appear normal and pancreatic tail is not seen. The spleen is unremarkable measuring 10.7 cm. The kidneys have normal morphology. Right kidney measures 11.5 x 4 x 4.7 cm and left 11.5 x 4.1 x 4.7 cm. The abdominal aorta and segments of the IVC seen have normal caliber. IMPRESSION: Hepatomegaly with mild steatosis parenchymal pattern. Status post cholecystectomy. Bile ducts have normal caliber. 11/13/2015 - - Read by: James Augustin MD Dictated Date/time: 11/13/15 12:35 Electronically Signed by: James Augustin 11/13/15 12:41 FINAL REPORT [facility] Troponin-I null 0.00 - 0.40 05/26/2015 [facility] CARDIAC ENZYMES CK MB 1.4 ng/mL 0.5 - 3.6 05/26/2015 [facility] CHEM PANEL A/G Ratio 1.2 0.7 - 1.6 05/26/2015 [facility] CHEM PANEL AGAP 12.2 meq/L 10.0 - 20.0 05/26/2015 [facility] CHEM PANEL Globulin 3.5 g/dL 2.0 - 4.0 05/26/2015 [facility] CHEM PANEL B/C Ratio 23 6 - 25 05/26/2015 [facility] CHEM PANEL Total Protein 7.6 g/dL 6.4 - 8.4 05/26/2015 [facility] CHEM PANEL Albumin Lvl 4.1 g/dL 3.5 - 5.0 05/26/2015 [facility] CHEM PANEL AST 16 unit/L 0 - 37 05/26/2015 [facility] CHEM PANEL Alk Phos 116 unit/L 39 - 136 05/26/2015 [facility] CHEM PANEL ALT 36 unit/L 0 - 65 05/26/2015 [facility] CHEM PANEL Bili Total 0.5 mg/dL 0.2 - 1.3 05/26/2015 [facility] CHEM PANEL eGFR 52 mL/min/1.73m2 05/26/2015 Result Comment: The eGFR is calculated using the CKD-EPI formula. In most young, healthy individuals the eGFR will be >90 mL/min/1.73m2. The eGFR declines with age. An eGFR of 60-89 may be normal in some populations, particularly the elderly, for whom the CKD-EPI formula has not been extensively validated. Use of the eGFR is not recommended in the following populations: Individuals with unstable creatinine concentrations, including patients and those with serious co-morbid conditions. Patients with extremes in muscle mass or diet. The data above are obtained from the National Kidney Disease Education Program (NKDEP) which additionally recommends that when the eGFR is used in patients with extremes of body mass index for purposes of drug dosing, the eGFR should be multiplied by the estimated BMI. [facility] CHEM PANEL Calcium Lvl 9.4 mg/dL 8.5 - 10.5 05/26/2015 [facility] CHEM PANEL CO2 28 meq/L 24 - 32 05/26/2015 [facility] CHEM PANEL Chloride Lvl 107 meq/L 95 - 109 05/26/2015 [facility] CHEM PANEL Potassium Lvl 4.2 meq/L 3.5 - 5.1 05/26/2015 [facility] CHEM PANEL Sodium Lvl 143 meq/L 135 - 145 05/26/2015 [facility] CHEM PANEL Creatinine Lvl 1.14 mg/dL 0.50 - 1.40 05/26/2015 [facility] CHEM PANEL BUN 26 mg/dL 7 - 22 05/26/2015 [facility] CHEM PANEL Glucose Lvl 131 mg/dL 70 - 99 05/26/2015 [facility] HEMATOLOGY Lymphocytes # 2.1 K/CMM 1.0 - 5.5 05/26/2015 [facility] HEMATOLOGY Eosinophils # 0.2 K/CMM 0.0 - 0.5 05/26/2015 [facility] HEMATOLOGY Basophils # 0.1 K/CMM 0.0 - 0.2 05/26/2015 [facility] HEMATOLOGY Basophils 1.0 % 0.0 - 1.0 05/26/2015 [facility] HEMATOLOGY Monocytes 7.3 % 2.0 - 12.0 05/26/2015 [facility] HEMATOLOGY Segs-Bands # 5.9 K/CMM 1.5 - 8.1 05/26/2015 [facility] HEMATOLOGY Eosinophils 1.8 % 0.0 - 4.0 05/26/2015 [facility] HEMATOLOGY Segs 66.6 % 45.0 - 75.0 05/26/2015 [facility] HEMATOLOGY Lymphocytes 23.3 % 20.0 - 40.0 05/26/2015 [facility] HEMATOLOGY Monocytes # 0.6 K/CMM 0.0 - 0.8 05/26/2015 [facility] HEMATOLOGY MPV 7.8 fL 7.4 - 10.4 05/26/2015 [facility] HEMATOLOGY RDW 13.9 % 11.5 - 14.5 05/26/2015 [facility] MCHC 32.4 g/dL 32.0 - 36.0 05/26/2015 [facility] MCV 90.4 fL 80.0 - 98.0 05/26/2015 [facility] MCH 29.3 pg 27.0 - 31.0 05/26/2015 [facility] Hct 41.1 % 36.0 - 48.0 05/26/2015 [facility] HEMATOLOGY Platelet 180 K/CMM 133 - 450 05/26/2015 [facility] HEMATOLOGY WBC 8.8 K/CMM 3.7 - 10.4 05/26/2015 [facility] HEMATOLOGY RBC 4.54 M/CMM 4.20 - 5.40 05/26/2015 [facility] Hgb 13.3 g/dL 12.0 - 16.0 05/26/2015 [facility] URINE AND STOOL UA Mucus Moderate /LPF None Seen /LPF 05/26/2015 [facility] URINE AND STOOL UA RBC null 0 - 2 05/26/2015 [facility] URINE AND STOOL UA CaOx Dora Moderate /HPF None Seen /HPF 05/26/2015 [facility] URINE AND STOOL UA Amorph Dora Occasional /HPF None Seen /HPF 05/26/2015 [facility] URINE AND STOOL UA Color Latoya 05/26/2015 [facility] URINE AND STOOL UA Urobilinogen <=1.0 mg/dL 0.1 - 1.0 05/26/2015 [facility] URINE AND STOOL UA pH 5.0 5.0 - 8.0 05/26/2015 [facility] URINE AND STOOL UA Spec Grav 1.027 <=1.030 05/26/2015 [facility] URINE AND STOOL UA Glucose Negative mg/dL Negative mg/dL 05/26/2015 [facility] URINE AND STOOL UA Protein 100 mg/dL Negative mg/dL 05/26/2015 [facility] URINE AND STOOL UA Ketones Negative mg/dL Negative mg/dL 05/26/2015 [facility] URINE AND STOOL UA Bili Negative *NA* (05/26/15 2:06 AM) Negative 05/26/2015 [facility] URINE AND STOOL UA Nitrite Negative (05/26/15 2:06 AM) Negative 05/26/2015 [facility] URINE AND STOOL UA Blood Large *ABN* (05/26/15 2:06 AM) Negative 05/26/2015 [facility] URINE AND STOOL UA Sq Epi Many /LPF Few /LPF 05/26/2015 [facility] URINE AND STOOL UA Leuk Est Small *ABN* (05/26/15 2:06 AM) Negative 05/26/2015 [facility] URINE AND STOOL UA WBC 32 /HPF 0 - 5 05/26/2015 [facility] URINE AND STOOL UA Turbidity Marked *ABN* (05/26/15 2:06 AM) Clear 05/26/2015 [facility] Renal Stone CT Renal Stone CT I. CT SCAN of the ABDOMEN WITHOUT CONTRAST II. CT SCAN of the PELVIS WITHOUT CONTRAST (Renal stone protocol) HISTORY: Abdominal pain, Left Flank Pain The examination was performed from the emergency department. A CT scan of the abdomen and pelvis of 03/15/[address] SCAN OF THE ABDOMEN WITHOUT CONTRAST (Renal stone protocol). Technique: Helical CT images at 5 mm intervals were obtained from the domes of the diaphragms to the iliac crests. Neither oral or intravenous contrast was administered (renal stone protocol). II. CT SCAN OF THE PELVIS WITHOUT CONTRAST (Renal stone protocol). Technique: Helical CT images at 5 mm intervals were obtained from the iliac crests to the pubic symphysis. Neither oral or intravenous contrast was administered. Sagittal and coronal reconstructions were provided. FINDINGS: There is mild left hydronephrosis secondary to a tiny (approximately 1 mm) left ureteral calculus at the left ureterovesical junction (image 107 of series 3). This calculus is too small to be seen on the charger tester radiograph. No other urinary tract calculi are seen. There is no hydronephrosis on the right. 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 There is a tiny (approximately 5 mm) hypodense area in the medial aspect of the midpolar region of the left kidney (image 35 of series 3) probably representing a small hyperdense cyst. No other focal lesions are seen about the kidneys on this limited noncontrast study. The kidneys are normal in size. There are are mild diffuse fatty changes involving the liver. There appears to be mild hepatomegaly. No focal lesions are seen within the liver. There are surgical clips in the right upper quadrant consistent with a prior cholecystectomy. There is no evidence of biliary ductal dilatation. The spleen, pancreas, and adrenal glands are normal in appearance. Evaluation of the solid organs is limited due to lack of intravenous contrast. There postoperative change involving the stomach consistent with bariatric surgery. Please correlate with surgical history. The gastrointestinal structures are otherwise unremarkable. There is no evidence of obstruction or ileus. A small structure possibly representing a small appendix was visualized. There are no findings to suggest appendicitis. Evaluation of the gastrointestinal structures is limited due to lack of oral contrast. No ascites or fluid collections are seen. No mass or adenopathy is seen within the abdomen. There mild atherosclerotic calcifications involving the abdominal aorta. There is no aneurysm. There is a tiny umbilical hernia. There is no herniation of bowel. The visualized lung bases are clear. There are no pleural effusions. The heart is normal in size. There is no pericardial effusion. There is severe degenerative disc disease at L4-L5. There is marked to space narrowing, a vacuum disc phenomena, endplates sclerosis, and osteophyte formation. There are relatively mild degenerative changes elsewhere within the visualized lumbar spine. There is mild hypertrophic spondylosis involving the visualized lower thoracic spine. No blastic or destructive lesions are seen. CONCLUSION: 1. Mild left hydronephrosis secondary to a tiny (approximately 1 mm) distal left ureteral calculus. 2. No other urinary tract calculi are seen. There is no hydronephrosis on the right. 3. Tiny hyperdense lesion within the left kidney, probable hyperdense cyst. 4. Mild malrotation of the right kidney. 5. Mild diffuse fatty change involving the liver. 6. Status post cholecystectomy. 7. Postoperative change involving the stomach consistent with prior bariatric surgery. 8. Severe degenerative disc disease at L4-L5. Coding: Abdomen/Pelvis wo contrast CT SL: 12 Hemal Barragan M.D. 05/26/2015 - - Read by: Hemal Barragan MD Dictated Date/time: 05/26/15 02:59 Electronically Signed by: Hemal Barragan MD 05/26/15 03:07 FINAL REPORT [facility] Abdomen/Pelvis w IV contrast CT Abdomen/Pelvis w IV contrast CT EXAM: Abdomen/Pelvis w contrast CT HISTORY: r10. abdomen pain. Preoperative exam for gastric bypass. COMPARISON: None TECHNIQUE: Helical images of the abdomen and pelvis were obtained from the lung bases to the symphysis pubis after the administration of intravenous contrast. Sagittal and coronal reformats were reviewed. DLP: [id number] Findings: The bilateral lung bases are clear. Fatty liver. Cholecystectomy. Surgical tamar noted at the gastric cardia. The spleen, pancreas, and bilateral adrenal glands are unremarkable. The kidneys enhance symmetrically. No focal parenchymal abnormalities identified. No hydronephrosis is present. The bowel is nondilated without evidence of inflammation. There is no free air or free fluid. No significant abdominal or pelvic lymphadenopathy is noted. The bladder is unremarkable. No adnexal mass. No aggressive osseous lesion is identified. IMPRESSION: Unremarkable appearance of the abdomen. Hepatic steatosis. Cholecystectomy. Surgical tamar noted at the gastric cardia. 03/15/2015 - - Read by: Son Kay MD Dictated Date/time: 03/15/15 16:31 Electronically Signed by: Son Kay MD 03/15/15 16:34 [facility] [facility] [place] Magnesium Lvl 1.9 mg/dL 1.8 - 2.4 05/17/2014 [facility] CHEM PANEL Phosphorus 3.2 mg/dL 2.5 - 4.5 05/17/2014 [facility] CHEM PANEL Calcium Lvl 9.4 mg/dL 8.5 - 10.5 05/17/2014 [facility] PARATHYROID PROFILE PTH Intact 61.8 pg/mL 11.1 - 79.5 05/17/2014 [facility] CHEM PANEL Phosphorus 3.1 mg/dL 2.5 - 4.5 05/16/2014 [facility] CHEM PANEL Magnesium Lvl 1.8 mg/dL 1.8 - 2.4 05/16/2014 [facility] CHEM PANEL Albumin Lvl 3.8 g/dL 3.5 - 5.0 05/16/2014 [facility] CHEM PANEL Calcium Lvl 9.7 mg/dL 8.5 - 10.5 05/16/2014 [facility] ELECTROLYTES AGAP 10.2 meq/L 10.0 - 20.0 05/16/2014 [facility] ELECTROLYTES eGFR 55 mL/min/1.73m2 05/16/2014 1Result Comment: The eGFR is calculated using the CKD-EPI formula. In most young, healthy individuals the eGFR will be >90 mL/min/1.73m2. The eGFR declines with age. An eGFR of 60-89 may be normal in some populations, particularly the elderly, for whom the CKD-EPI formula has not been extensively validated. Use of the eGFR is not recommended in the following populations: Individuals with unstable creatinine concentrations, including patients and those with serious co-morbid conditions. Patients with extremes in muscle mass or diet. The data above are obtained from the National Kidney Disease Education Program (NKDEP) which additionally recommends that when the eGFR is used in patients with extremes of body mass index for purposes of drug dosing, the eGFR should be multiplied by the estimated BMI. [facility] ELECTROLYTES Sodium Lvl 142 meq/L 135 - 145 05/16/2014 [facility] ELECTROLYTES Potassium Lvl 4.2 meq/L 3.5 - 5.1 05/16/2014 [facility] ELECTROLYTES Chloride Lvl 109 meq/L 95 - 109 05/16/2014 [facility] ELECTROLYTES CO2 27 meq/L 24 - 32 05/16/2014 [facility] ELECTROLYTES Calcium Lvl 9.3 mg/dL 8.5 - 10.5 05/16/2014 [facility] ELECTROLYTES BUN 15 mg/dL 7 - 22 05/16/2014 [facility] ELECTROLYTES Creatinine Lvl 1.1 mg/dL 0.5 - 1.4 05/16/2014 [facility] ELECTROLYTES Glucose Lvl 116 mg/dL 70 - 99 05/16/2014 3Interpretive Data: Adult reference range values reflect the clinical guidelines of the [place] [employer]. [facility] PARATHYROID PROFILE PTH Intact 33.6 pg/mL 11.1 - 79.5 05/16/2014 [facility] PARATHYROID PROFILE PTH Intact 56.2 pg/mL 11.1 - 79.5 05/16/2014 5Result Comment: called to Phill Kumar 05/16/2014 12:45 lwb [facility] PARATHYROID PROFILE Ca Norm WB 1.24 mMol/L 1.05 - 1.25 05/16/2014 [facility] PARATHYROID PROFILE Ca Ion WB 1.28 mMol/L 1.05 - 1.25 05/16/2014 [facility] ELECTROLYTES Potassium WB 4.0 meq/L 3.5 - 5.1 05/16/2014 [facility] ELECTROLYTES AGAP 10.0 meq/L 10.0 - 20.0 05/16/2014 [facility] ELECTROLYTES eGFR 55 mL/min/1.73m2 05/16/2014 2Result Comment: The eGFR is calculated using the CKD-EPI formula. In most young, healthy individuals the eGFR will be >90 mL/min/1.73m2. The eGFR declines with age. An eGFR of 60-89 may be normal in some populations, particularly the elderly, for whom the CKD-EPI formula has not been extensively validated. Use of the eGFR is not recommended in the following populations: Individuals with unstable creatinine concentrations, including patients and those with serious co-morbid conditions. Patients with extremes in muscle mass or diet. The data above are obtained from the National Kidney Disease Education Program (NKDEP) which additionally recommends that when the eGFR is used in patients with extremes of body mass index for purposes of drug dosing, the eGFR should be multiplied by the estimated BMI. [facility] ELECTROLYTES Sodium Lvl 143 meq/L 135 - 145 05/16/2014 [facility] ELECTROLYTES Creatinine Lvl 1.1 mg/dL 0.5 - 1.4 05/16/2014 [facility] ELECTROLYTES BUN 15 mg/dL 7 - 22 05/16/2014 [facility] ELECTROLYTES CO2 28 meq/L 24 - 32 05/16/2014 [facility] ELECTROLYTES Chloride Lvl 109 meq/L 95 - 109 05/16/2014 [facility] ELECTROLYTES Potassium Lvl 4.0 meq/L 3.5 - 5.1 05/16/2014 [facility] ELECTROLYTES Glucose Lvl 105 mg/dL 70 - 99 05/16/2014 4Interpretive Data: Adult reference range values reflect the clinical guidelines of the [place] [employer]. [facility] HEMATOLOGY Monocytes 8.1 % 2.0 - 12.0 05/16/2014 [facility] HEMATOLOGY Lymphocytes 30.8 % 20.0 - 40.0 05/16/2014 [facility] HEMATOLOGY Segs 58.1 % 45.0 - 75.0 05/16/2014 [facility] HEMATOLOGY Segs-Bands # 4.1 K/CMM 1.5 - 8.1 05/16/2014 [facility] HEMATOLOGY Basophils 0.8 % 0.0 - 1.0 05/16/2014 [facility] HEMATOLOGY Monocytes # 0.6 K/CMM 0.0 - 0.8 05/16/2014 [facility] HEMATOLOGY Lymphocytes # 2.2 K/CMM 1.0 - 5.5 05/16/2014 [facility] HEMATOLOGY Eosinophils 2.2 % 0.0 - 4.0 05/16/2014 [facility] HEMATOLOGY Basophils # 0.1 K/CMM 0.0 - 0.2 05/16/2014 [facility] HEMATOLOGY Eosinophils # 0.2 K/CMM 0.0 - 0.5 05/16/2014 [facility] HEMATOLOGY RBC 4.43 M/CMM 4.20 - 5.40 05/16/2014 [facility] HEMATOLOGY MCV 89.2 fL 80.0 - 98.0 05/16/2014 [facility] HEMATOLOGY RDW 13.7 % 11.5 - 14.5 05/16/2014 [facility] HEMATOLOGY MPV 7.5 fL 7.4 - 10.4 05/16/2014 [facility] HEMATOLOGY Platelet 178 K/CMM 133 - 450 05/16/2014 [facility] HEMATOLOGY Hct 39.5 % 36.0 - 48.0 05/16/2014 [facility] HEMATOLOGY Hgb 13.5 g/dL 12.0 - 16.0 05/16/2014 [facility] HEMATOLOGY MCH 30.4 pg 27.0 - 31.0 05/16/2014 [facility] HEMATOLOGY MCHC 34.1 g/dL 32.0 - 36.0 05/16/2014 [facility] HEMATOLOGY WBC 7.1 K/CMM 3.7 - 10.4 05/16/2014 [facility] Parathyroid SPECT NM Parathyroid SPECT NM EXAM: Parathyroid planar imaging with tomographic SPECT-CT. DATE: 05/05/2014 at 1035 hours. INDICATION: Hypercalcemia, evaluate for parathyroid adenoma. TECHNIQUE: After intravenous administration of 25 mCi of technetium 99m sestamibi, immediate and three-hour delayed static images of the neck and chest as well as SPECT-CT images were obtained. FINDINGS: There is focal increased tracer uptake within the region of the inferior left thyroid lobe. Further localization with SPECT-CT images demonstrate this focus to lie immediately posterior to the left inferior thyroid lobe at the level of the left clavicular head. This focus is located anterior and left lateral to the trachea. This is suggestive of a left inferior parathyroid adenoma. The remainder of tracer distribution in the neck and chest is physiologic. IMPRESSION: Left inferior parathyroid adenoma located immediately posterior to the left inferior thyroid lobe at the level of the left clavicular head and anterolateral to the trachea. 05/05/2014 - - This report was dictated by a Retail Helper/Fellow. I have personally reviewed the images as well as the Resident's interpretation and agree with the findings. Read by: oLbito Daniels MD Resident: Lobito Daniels MD Dictated Date/time: 05/05/14 13:59 Electronically Signed by: Kassidy Pina MD 05/05/14 15:03 FINAL REPORT [facility] Parathyroid scan NM Parathyroid scan NM EXAM: Parathyroid planar imaging with tomographic SPECT-CT. DATE: 05/05/2014 at 1035 hours. INDICATION: Hypercalcemia, evaluate for parathyroid adenoma. TECHNIQUE: After intravenous administration of 25 mCi of technetium 99m sestamibi, immediate and three-hour delayed static images of the neck and chest as well as SPECT-CT images were obtained. FINDINGS: There is focal increased tracer uptake within the region of the inferior left thyroid lobe. Further localization with SPECT-CT images demonstrate this focus to lie immediately posterior to the left inferior thyroid lobe at the level of the left clavicular head. This focus is located anterior and left lateral to the trachea. This is suggestive of a left inferior parathyroid adenoma. The remainder of tracer distribution in the neck and chest is physiologic. IMPRESSION: Left inferior parathyroid adenoma located immediately posterior to the left inferior thyroid lobe at the level of the left clavicular head and anterolateral to the trachea. 05/05/2014 - - This report was dictated by a Retail Helper/Fellow. I have personally reviewed the images as well as the Resident's interpretation and agree with the findings. Read by: Lobito Daniels MD Resident: Lobito Daniels MD Dictated Date/time: 05/05/14 13:59 Electronically Signed by: Kassidy Pina MD 05/05/14 15:03 FINAL REPORT [facility] CHEM PANEL eGFR 62 mL/min/1.73m2 02/21/2014 1Result Comment: The eGFR is calculated using the CKD-EPI formula. In most young, healthy individuals the eGFR will be >90 mL/min/1.73m2. The eGFR declines with age. An eGFR of 60-89 may be normal in some populations, particularly the elderly, for whom the CKD-EPI formula has not been extensively validated. Use of the eGFR is not recommended in the following populations: Individuals with unstable creatinine concentrations, including patients and those with serious co-morbid conditions. Patients with extremes in muscle mass or diet. The data above are obtained from the National Kidney Disease Education Program (NKDEP) which additionally recommends that when the eGFR is used in patients with extremes of body mass index for purposes of drug dosing, the eGFR should be multiplied by the estimated BMI. [facility] CHEM PANEL AGAP 9.3 meq/L 10.0 - 20.0 02/21/2014 [facility] CHEM PANEL Calcium Lvl 9.7 mg/dL 8.5 - 10.5 02/21/2014 [facility] CHEM PANEL Chloride Lvl 102 meq/L 95 - 109 02/21/2014 [facility] CHEM PANEL Potassium Lvl 4.3 meq/L 3.5 - 5.1 02/21/2014 [facility] CHEM PANEL CO2 29 meq/L 24 - 32 02/21/2014 [facility] CHEM PANEL Creatinine Lvl 1.0 mg/dL 0.5 - 1.4 02/21/2014 [facility] CHEM PANEL BUN 24 mg/dL 7 - 22 02/21/2014 [facility] CHEM PANEL Sodium Lvl 136 meq/L 135 - 145 02/21/2014 [facility] CHEM PANEL Glucose Lvl 159 mg/dL 70 - 99 02/21/2014 4Interpretive Data: Adult reference range values reflect the clinical guidelines of the [place] [employer]. [facility] HEMATOLOGY Platelet 240 K/CMM 133 - 450 02/21/2014 [facility] HEMATOLOGY MPV 6.7 fL 7.4 - 10.4 02/21/2014 [facility] HEMATOLOGY MCHC 32.8 g/dL 32.0 - 36.0 02/21/2014 [facility] HEMATOLOGY RDW 13.2 % 11.5 - 14.5 02/21/2014 [facility] WBC 14.0 K/CMM 3.7 - 10.4 02/21/2014 [facility] HEMATOLOGY MCV 89.9 fL 80.0 - 98.0 02/21/2014 [facility] MCH 29.4 pg 27.0 - 31.0 02/21/2014 [facility] Hct 37.9 % 36.0 - 48.0 02/21/2014 [facility] RBC 4.22 M/CMM 4.20 - 5.40 02/21/2014 [facility] Hgb 12.4 g/dL 12.0 - 16.0 02/21/2014 [facility] Monocytes 2.8 % 2.0 - 12.0 02/21/2014 [facility] Basophils 0.4 % 0.0 - 1.0 02/21/2014 [facility] Segs-Bands # 11.6 K/CMM 1.5 - 8.1 02/21/2014 [facility] Lymphocytes # 2.0 K/CMM 1.0 - 5.5 02/21/2014 [facility] Lymphocytes 13.9 % 20.0 - 40.0 02/21/2014 [facility] Segs 82.9 % 45.0 - 75.0 02/21/2014 [facility] Basophils # 0.1 K/CMM 0.0 - 0.2 02/21/2014 [facility] Monocytes # 0.4 K/CMM 0.0 - 0.8 02/21/2014 [facility] ELECTROLYTES AGAP 10.8 meq/L 10.0 - 20.0 02/19/2014 [facility] ELECTROLYTES eGFR 55 mL/min/1.73m2 02/19/2014 2Result Comment: The eGFR is calculated using the CKD-EPI formula. In most young, healthy individuals the eGFR will be >90 mL/min/1.73m2. The eGFR declines with age. An eGFR of 60-89 may be normal in some populations, particularly the elderly, for whom the CKD-EPI formula has not been extensively validated. Use of the eGFR is not recommended in the following populations: Individuals with unstable creatinine concentrations, including patients and those with serious co-morbid conditions. Patients with extremes in muscle mass or diet. The data above are obtained from the National Kidney Disease Education Program (NKDEP) which additionally recommends that when the eGFR is used in patients with extremes of body mass index for purposes of drug dosing, the eGFR should be multiplied by the estimated BMI. [facility] ELECTROLYTES Calcium Lvl 9.9 mg/dL 8.5 - 10.5 02/19/2014 [facility] ELECTROLYTES CO2 31 meq/L 24 - 32 02/19/2014 [facility] ELECTROLYTES Creatinine Lvl 1.1 mg/dL 0.5 - 1.4 02/19/2014 [facility] ELECTROLYTES Chloride Lvl 101 meq/L 95 - 109 02/19/2014 [facility] ELECTROLYTES Potassium Lvl 4.8 meq/L 3.5 - 5.1 02/19/2014 [facility] ELECTROLYTES Sodium Lvl 138 meq/L 135 - 145 02/19/2014 [facility] ELECTROLYTES Glucose Lvl 159 mg/dL 70 - 99 02/19/2014 5Interpretive Data: Adult reference range values reflect the clinical guidelines of the [place] [employer]. [facility] ELECTROLYTES BUN 25 mg/dL 7 - 22 02/19/2014 [facility] HEMATOLOGY Lymphocytes # 1.0 K/CMM 1.0 - 5.5 02/19/2014 [facility] HEMATOLOGY Monocytes # 0.2 K/CMM 0.0 - 0.8 02/19/2014 [facility] Lymphocytes 14.4 % 20.0 - 40.0 02/19/2014 [facility] HEMATOLOGY Basophils 0.2 % 0.0 - 1.0 02/19/2014 [facility] HEMATOLOGY Segs-Bands # 5.9 K/CMM 1.5 - 8.1 02/19/2014 [facility] HEMATOLOGY Monocytes 3.5 % 2.0 - 12.0 02/19/2014 [facility] HEMATOLOGY Segs 81.9 % 45.0 - 75.0 02/19/2014 [facility] Platelet 199 K/CMM 133 - 450 02/19/2014 [facility] MPV 6.9 fL 7.4 - 10.4 02/19/2014 [facility] RDW 13.4 % 11.5 - 14.5 02/19/2014 [facility] MCHC 33.4 g/dL 32.0 - 36.0 02/19/2014 [facility] WBC 7.1 K/CMM 3.7 - 10.4 02/19/2014 [facility] MCH 30.2 pg 27.0 - 31.0 02/19/2014 [facility] HEMATOLOGY MCV 90.5 fL 80.0 - 98.0 02/19/2014 [facility] HEMATOLOGY Hct 37.4 % 36.0 - 48.0 02/19/2014 [facility] Hgb 12.5 g/dL 12.0 - 16.0 02/19/2014 [facility] HEMATOLOGY RBC 4.13 M/CMM 4.20 - 5.40 02/19/2014 [facility] HEMATOLOGY MCH 30.4 pg 27.0 - 31.0 02/18/2014 [facility] HEMATOLOGY MCHC 33.2 g/dL 32.0 - 36.0 02/18/2014 [facility] HEMATOLOGY RDW 13.6 % 11.5 - 14.5 02/18/2014 [facility] HEMATOLOGY Platelet 184 K/CMM 133 - 450 02/18/2014 [facility] HEMATOLOGY RBC 4.73 M/CMM 4.20 - 5.40 02/18/2014 [facility] HEMATOLOGY Hgb 14.4 g/dL 12.0 - 16.0 02/18/2014 [facility] HEMATOLOGY Hct 43.3 % 36.0 - 48.0 02/18/2014 [facility] HEMATOLOGY MPV 7.1 fL 7.4 - 10.4 02/18/2014 [facility] HEMATOLOGY MCV 91.5 fL 80.0 - 98.0 02/18/2014 [facility] HEMATOLOGY WBC 13.3 K/CMM 3.7 - 10.4 02/18/2014 [facility] HEMATOLOGY Lymphocytes # 2.3 K/CMM 1.0 - 5.5 02/18/2014 [facility] HEMATOLOGY Eosinophils # 0.1 K/CMM 0.0 - 0.5 02/18/2014 [facility] HEMATOLOGY Monocytes # 1.7 K/CMM 0.0 - 0.8 02/18/2014 [facility] HEMATOLOGY Eosinophils 0.7 % 0.0 - 4.0 02/18/2014 [facility] HEMATOLOGY Basophils 0.2 % 0.0 - 1.0 02/18/2014 [facility] HEMATOLOGY Segs-Bands # 9.2 K/CMM 1.5 - 8.1 02/18/2014 [facility] HEMATOLOGY Monocytes 12.7 % 2.0 - 12.0 02/18/2014 [facility] HEMATOLOGY Lymphocytes 17.0 % 20.0 - 40.0 02/18/2014 [facility] HEMATOLOGY Segs 69.4 % 45.0 - 75.0 02/18/2014 [facility] HEMATOLOGY PTT 27.4 s 22.9 - 35.8 02/17/2014 8Interpretive Data: Heparin Therapeutic Range: 57 - 92 Seconds [facility] ELECTROLYTES Chloride Lvl 102 meq/L 95 - 109 02/17/2014 [facility] ELECTROLYTES AGAP 17.8 meq/L 10.0 - 20.0 02/17/2014 [facility] ELECTROLYTES Calcium Lvl 10.4 mg/dL 8.5 - 10.5 02/17/2014 [facility] ELECTROLYTES CO2 20 meq/L 24 - 32 02/17/2014 [facility] ELECTROLYTES Glucose Lvl 263 mg/dL 70 - 99 02/17/2014 6Interpretive Data: Adult reference range values reflect the clinical guidelines of the [place] [employer]. [facility] ELECTROLYTES BUN 24 mg/dL 7 - 22 02/17/2014 [facility] ELECTROLYTES Creatinine Lvl 1.3 mg/dL 0.5 - 1.4 02/17/2014 [facility] ELECTROLYTES Sodium Lvl 135 meq/L 135 - 145 02/17/2014 [facility] ELECTROLYTES Potassium Lvl 4.8 meq/L 3.5 - 5.1 02/17/2014 [facility] ELECTROLYTES eGFR 45 mL/min/1.73m2 02/17/2014 3Result Comment: The eGFR is calculated using the CKD-EPI formula. In most young, healthy individuals the eGFR will be >90 mL/min/1.73m2. The eGFR declines with age. An eGFR of 60-89 may be normal in some populations, particularly the elderly, for whom the CKD-EPI formula has not been extensively validated. Use of the eGFR is not recommended in the following populations: Individuals with unstable creatinine concentrations, including patients and those with serious co-morbid conditions. Patients with extremes in muscle mass or diet. The data above are obtained from the National Kidney Disease Education Program (NKDEP) which additionally recommends that when the eGFR is used in patients with extremes of body mass index for purposes of drug dosing, the eGFR should be multiplied by the estimated BMI. [facility] HEMATOLOGY Basophils # 0.1 K/CMM 0.0 - 0.2 02/17/2014 [facility] HEMATOLOGY Eosinophils 0.1 % 0.0 - 4.0 02/17/2014 [facility] SPECIAL CHEMISTRY Hgb A1C 5.7 % <=5.6 % 02/17/2014 [facility] CHEM PANEL AST 15 unit/L 0 - 37 02/17/2014 [facility] CHEM PANEL Alk Phos 92 unit/L 39 - 136 02/17/2014 [facility] CHEM PANEL ALT 18 unit/L 0 - 65 02/17/2014 [facility] CHEM PANEL Albumin Lvl 3.8 g/dL 3.5 - 5.0 02/17/2014 [facility] CHEM PANEL Total Protein 7.7 g/dL 6.4 - 8.4 02/17/2014 [facility] CHEM PANEL B/C Ratio 15 6 - 25 02/17/2014 [facility] CHEM PANEL Globulin 3.9 g/dL 2.0 - 4.0 02/17/2014 [facility] CHEM PANEL A/G Ratio 1.0 0.7 - 1.6 02/17/2014 [facility] CHEM PANEL Bili Total 0.6 mg/dL 0.2 - 1.3 02/17/2014 [facility] Facial bone wo contrast CT Facial bone wo contrast CT CT FACE WITHOUT CONTRAST INDICATION: Pain and swelling COMPARISON: None DISCUSSION: Soft tissues: There is questionable perilabial soft tissue swelling; otherwise, there is no appreciable soft tissue swelling. Bones: No fractures or other bony abnormalities are visualized. Orbits: The globes are grossly intact. There are no intraconal or extraconal abnormalities. Sinuses: The paranasal sinuses are clear. IMPRESSION: Questionable perilabial soft tissue swelling. Otherwise, unremarkable CT of the face. SL: 16 02/16/2014 - - Read by: Beny Renee MD Dictated Date/time: 02/16/14 23:21 Electronically Signed by: Beny Renee MD 02/16/14 23:26 FINAL REPORT [facility] HEMATOLOGY Basophils # 0.1 K/CMM 0.0 - 0.2 02/16/2014 [facility] HEMATOLOGY Eosinophils 0.2 % 0.0 - 4.0 02/16/2014 [facility] Vital Signs Vital Sign Value Date Comments Source Respitory Rate 11 12/19/2016 [facility] Systolic (mm Hg) 125 12/19/2016 [facility] Diastolic (mm Hg) 61 12/19/2016 [facility] Systolic (mm Hg) 93 12/19/2016 [facility] Diastolic (mm Hg) 69 12/19/2016 [facility] Respitory Rate 13 12/19/2016 [facility] Systolic (mm Hg) 132 12/19/2016 [facility] Diastolic (mm Hg) 71 12/19/2016 [facility] Respitory Rate 19 12/19/2016 [facility] Height 177.8 cm 12/18/2016 [facility] BMI Calculated 40.83 12/18/2016 [facility] Weight 129.091 12/18/2016 [facility] Respitory Rate 12 11/13/2016 [facility] Systolic (mm Hg) 125 11/13/2016 [facility] Diastolic (mm Hg) 69 11/13/2016 [facility] Respitory Rate 12 11/13/2016 [facility] Systolic (mm Hg) 121 11/13/2016 [facility] Diastolic (mm Hg) 64 11/13/2016 [facility] Respitory Rate 15 11/13/2016 [facility] Systolic (mm Hg) 175 11/13/2016 [facility] Diastolic (mm Hg) 72 11/13/2016 [facility] Weight 131.455 11/11/2016 [facility] BMI Calculated 41.58 11/11/2016 [facility] Height 177.8 cm 11/11/2016 [facility] Temperature Oral (F) 98.5 F 05/26/2015 [facility] Respitory Rate 18 05/26/2015 [facility] Heart Rate 65 05/26/2015 [facility] Systolic (mm Hg) 138 05/26/2015 [facility] Diastolic (mm Hg) 54 05/26/2015 [facility] Weight 147.273 05/26/2015 [facility] Temperature Oral (F) 98.1 F 05/26/2015 [facility] BMI Calculated 46.59 05/26/2015 [facility] Height 177.8 cm 05/26/2015 [facility] Systolic (mm Hg) 170 05/26/2015 [facility] Diastolic (mm Hg) 80 05/26/2015 [facility] Heart Rate 70 05/26/2015 [facility] Respitory Rate 18 05/26/2015 [facility] Heart Rate 70 02/09/2015 [facility] Respitory Rate 16 02/09/2015 [facility] Temperature Oral (F) 98.1 F 02/09/2015 [facility] Systolic (mm Hg) 146 02/09/2015 [facility] Diastolic (mm Hg) 79 02/09/2015 [facility] Height 177.8 cm 02/09/2015 [facility] BMI Calculated 46.01 02/09/2015 [facility] Weight 145.455 02/09/2015 [facility] Diastolic (mm Hg) 57 05/17/2014 [facility] Temperature Oral (F) 97.8 F 05/17/2014 [facility] Respitory Rate 18 05/17/2014 [facility] Heart Rate 71 05/17/2014 [facility] Systolic (mm Hg) 134 05/17/2014 [facility] Diastolic (mm Hg) 61 05/17/2014 [facility] Systolic (mm Hg) 124 05/17/2014 [facility] Temperature Oral (F) 97.6 F 05/17/2014 [facility] Respitory Rate 18 05/17/2014 [facility] Heart Rate 61 05/17/2014 [facility] Diastolic (mm Hg) 59 05/17/2014 [facility] Systolic (mm Hg) 105 05/17/2014 [facility] Respitory Rate 18 05/17/2014 [facility] Heart Rate 77 05/17/2014 [facility] Temperature Oral (F) 98.0 F 05/17/2014 [facility] BMI Calculated 45.87 05/16/2014 [facility] Weight 145 05/16/2014 [facility] Height 177.8 cm 05/16/2014 [facility] BMI Calculated 45.87 05/16/2014 [facility] Weight 145 05/16/2014 [facility] Height 177.8 cm 05/16/2014 [facility] Diastolic (mm Hg) 85 02/22/2014 [facility] Heart Rate 56 02/22/2014 [facility] Respitory Rate 17 02/22/2014 [facility] Systolic (mm Hg) 149 02/22/2014 [facility] Temperature Oral (F) 98.3 F 02/22/2014 [facility] Diastolic (mm Hg) 82 02/22/2014 [facility] Systolic (mm Hg) 145 02/22/2014 [facility] Heart Rate 56 02/22/2014 [facility] Respitory Rate 18 02/22/2014 [facility] Temperature Oral (F) 98.6 F 02/22/2014 [facility] Systolic (mm Hg) 146 02/22/2014 [facility] Diastolic (mm Hg) 78 02/22/2014 [facility] Respitory Rate 18 02/22/2014 [facility] Temperature Oral (F) 98.5 F 02/22/2014 [facility] Heart Rate 59 02/22/2014 [facility] Weight 144.682 02/17/2014 [facility] Height 177.8 cm 02/17/2014 [facility] BMI Calculated 45.77 02/17/2014 [facility] Weight 145.455 02/16/2014 [facility] BMI Calculated 46.01 02/16/2014 [facility] Height 177.8 cm 02/16/2014 [facility] Encounters Location Location Details Encounter Type Encounter Number Reason For Visit Attending Provider ADM Date DC Date Status Source [facility] Inpatient [id number] Faye Mccrary 02/16/2014 02/22/2014 [facility] Outpatient [facility] Diag Services [id number] Morales Toney 05/05/2014 05/06/2014 [facility] OBS Observation Patient [id number] Morales Toney 05/16/2014 05/17/2014 [facility] [id number] Helder Peterson 02/09/2015 02/10/2015 [facility] Outpatient [facility] - [place] [facility] Diag Services [id number] Helio Major 03/15/2015 03/16/2015 [facility] [id number] Manfred Bang 05/26/2015 05/26/2015 [facility] - [place] [facility] Diag Services [id number] Leatha Dumas 11/13/2015 11/14/2015 [facility] Outpatient [id number] Amie Hicks 03/28/2016 03/29/2016 [facility] Outpatient [facility] - [place] Outpt Diag Services [id number] Emanuel Jenkins 05/15/2016 05/16/2016 [facility] Bedded Outpatient [id number] Kyle Diana 11/13/2016 11/13/2016 [facility] Bedded Outpatient [id number] Kyle Diana 12/19/2016 12/19/2016 [facility] Procedures Procedure Code Date Perfomer Comments Source Cholecystocecostomy [id number] 05/18/1980 [facility] Cholecystocecostomy [id number] 05/18/1980 [facility] [place] Cholecystocecostomy [id number] 05/18/1980 [facility] Appendectomy [id number] [facility] Gastric bypass [id number] [facility] Complete parathyroidectomy [id number] [facility] Gastric stapling [id number] [facility] Appendectomy [id number] [facility] [place] Gastric bypass [id number] [facility] [place] Appendectomy [id number] [facility] Gastric bypass [id number] [facility]
--- OUTSIDE RECORDS SUMMARY | 2018-03-02 11:01 | XMS REPORT | Summary of Care ---
Author Author [facility] Organization [facility] Address Unknown Phone Unavailable Encounter DELBERT Arreola(CANDELARIA) [id number] Date(s): 02/09/15 - 02/09/15 [facility] [address] [place] [address]- Discharge Disposition: Non-Emergent Attending Physician: Helder Peterson MD Vital Signs Most recent to 1 oldest [Reference Range]: Height 177.8 cm (02/09/15 2:48 PM) Most recent to 1 oldest [Reference Range]: Temperature Oral 98.1 DegF [96.4-99.1 DegF] (02/09/15 2:48 PM) Most recent to 1 oldest [Reference Range]: Blood Pressure 146/79 mmHg [90-140/60-90 mmHg] *HI* (02/09/15 2:48 PM) Most recent to 1 oldest [Reference Range]: Respiratory Rate 16 BRMIN [14-20 BRMIN] (02/09/15 2:48 PM) Most recent to 1 oldest [Reference Range]: Peripheral Pulse 70 bpm Rate [60-100 bpm] (02/09/15 2:48 PM) Most recent to 1 oldest [Reference Range]: Weight 145.455 kg (02/09/15 2:48 PM) Most recent to 1 oldest [Reference Range]: Body Mass Index 46.01 m2 (02/09/15 2:48 PM) Problem List Condition Effective Dates Status Health Status Informant Bipolar(Confirmed) Resolved DM (diabetes Resolved mellitus)(Confirmed) Gout(Confirmed) Resolved HTN - Resolved Hypertension(Confirm ed) Hyperthyroidism(Conf Resolved irmed) MRSA(Confirmed)1, 2 02/19/14 Active 1Source:Abcesson lip of Mouth , Collection Date Organisam: MRSA 2Problem added by Discern Expert. Allergies, Adverse Reactions, Alerts Substance Reaction Severity Status SEJAL Inhibitors Active Benadryl Active Medications No data available for this section Results No data available for this section Immunizations No data available for this section Procedures Procedure Date Related Diagnosis Body Site Cholecystocecostomy 1981 Appendectomy Gastric bypass Social History Social History Type Response Alcohol [...]
--- OUTSIDE RECORDS SUMMARY | 2018-03-02 11:01 | XMS REPORT | Summary of Care ---
Author Organization Unknown Address Unknown Phone Unavailable Encounter [facility]([place]DELAR[place]) [id number] Date(s): 05/05/14 - 05/05/14 [facility] Outpatient Imaging [address] Discharge Disposition: Home Physician Attending: Morales Toney MD Reason for Visit 275.42 - HYPERCALCEMIA 252.0 - HYPERPARATHYROI Problem List Condition Effective Dates Status Health Status Informant DM (diabetes Resolved mellitus)(Confirmed) HTN - Resolved Hypertension(Confirm ed) Hyperthyroidism(Conf Resolved irmed) MRSA(Confirmed)1, 2 02/19/14 Active 1Source:Abcesson lip of Mouth , Collection Date Organisam: MRSA 2Problem added by Discern Expert. Allergies, Adverse Reactions, Alerts Substance Reaction Severity Status Benadryl Active Medications No data available for this section Medications Administered During Your Visit No data available for this section Immunizations No data available for this section Social History Social History Type Response Smoking Status Former smoker, Previous treatment: None, Ready to change: Yes, Concerns about tobacco use in household: Yes, Exposure to Tobacco Smoke None, Cigarette Smoking Last 365 Days Yes, Reg Smoking Cessation Counseling Yes
--- OUTSIDE RECORDS SUMMARY | 2018-03-02 11:01 | XMS REPORT | Summary of Care ---
Author Author [facility] Organization [facility] Address Unknown Phone Unavailable Encounter DELBERT Arreola(CANDELARIA) [id number] Date(s): 12/19/16 - 12/19/16 [facility] [address] [place] [address]- [phone] Discharge Disposition: Home or Self Care Attending Physician: Kyle Diana MD Referring Physician: Kyle Diana MD Vital Signs 1 2 3 Most recent to oldest [Reference Range]: 177.8 cm (12/18/16 6:03 PM) Height 125/61 mmHg (12/19/16 12:45 PM) 93/69 mmHg (12/19/16 12:30 PM) 132/71 mmHg (12/19/16 12:19 PM) Blood Pressure [90-140/60-90 mmHg] 11 BRMIN *LOW* (12/19/16 12:45 PM) 13 BRMIN *LOW* (12/19/16 12:30 PM) 19 BRMIN (12/19/16 12:19 PM) Respiratory Rate [14-20 BRMIN] 129.091 kg (12/18/16 6:03 PM) Weight 40.83 m2 (12/18/16 6:03 PM) Body Mass Index Problem List Condition [...] Inhibitors Active Benadryl Active clindamycin Active Medications sodium chloride 0.9% 1000 ml INJ 1,000 mL 1,000 mL, Rate: 25 ml/hr, Infuse over: 40 hr, Route: IV, Dosing Weight 129.091 k g, Total Volume: 1,000, Start date: 12/19/16 11:32:00 CDT, Duration: 1 day, Stop date: 12/20/16 11:31:00 CDT Start Date: 12/19/16 Stop Date: 12/19/16 Status: Discontinued Results No data available for this section Immunizations No data available for this section Procedures Procedure Date Related Diagnosis Body Site Cholecystocecostomy 1980 Appendectomy Complete parathyroidectomy Gastric bypass Gastric stapling [...]
--- OUTSIDE RECORDS SUMMARY | 2018-03-02 11:01 | XMS REPORT | Summary of Care ---
Author Author [facility] Organization [facility] Address Unknown Phone Unavailable Encounter DELBERT Arreola(CANDELARIA) [id number] Date(s): 05/26/15 - 05/26/15 [facility] [address] [place] [address]- Discharge Diagnosis: Ureterolithiasis Discharge Disposition: Home Attending Physician: Manfred Bang MD Vital Signs Most recent to 1 2 oldest [Reference Range]: Height 177.8 cm (05/26/15 1:26 AM) Temperature Oral 98.5 DegF 98.1 DegF [96.4-99.1 DegF] (05/26/15 4:11 AM) (05/26/15 1:26 AM) Blood Pressure 138/54 mmHg 170/80 mmHg [90-140/60-90 mmHg] (05/26/15 4:11 AM) *HI* (05/26/15 1:26 AM) Respiratory Rate 18 BRMIN 18 BRMIN [14-20 BRMIN] (05/26/15 4:11 AM) (05/26/15 1:26 AM) Peripheral Pulse 65 bpm 70 bpm Rate [60-100 bpm] (05/26/15 4:11 AM) (05/26/15 1:26 AM) Weight 147.273 kg (05/26/15 1:26 AM) Body Mass Index 46.59 m2 (05/26/15 1:26 AM) Problem List Condition Effective Dates Status Health Status Informant Bipolar(Confirmed) Resolved DM (diabetes Resolved mellitus)(Confirmed) Gout(Confirmed) Resolved HTN - Resolved Hypertension(Confirm ed) Hyperthyroidism(Conf Resolved irmed) MRSA(Confirmed)1, 2 02/19/14 Active 1Source:Abcesson lip of Mouth , Collection Date Organisam: MRSA 2Problem added by Discern Expert. Allergies, Adverse Reactions, Alerts Substance Reaction Severity Status SEJAL Inhibitors Active Benadryl Active Medications acetaminophen-hydrocodone 325 mg-10 mg oral tablet 1 tab, PO, Q4H, PRN Pain, X 2 day, # 12 tab, 0 Refill(s) Start Date: 05/26/15 Stop Date: 05/28/15 Status: Completed Cipro 500 mg oral tablet 500 mg=1 tab, PO, Q12H, X 7 day, # 14 tab, 0 Refill(s) Start Date: 05/26/15 Stop Date: 06/02/15 Status: Ordered Flomax 0.4 mg oral capsule 0.4 mg=1 cap, PO, Daily, # 30 cap, 0 Refill(s) Start Date: 05/26/15 Status: Ordered ketOROLAC 15 mg, 0.5 mL, Route: IVP, Drug form: INJ, ONCE, Dosing Weight 147.273, kg, Prio rity: STAT, Start date: 05/26/15 1:42:00, Stop date: 05/26/15 1:42:00 Notes: (Same as:Toradol) IV bolus must be given >15 seconds. Give IM administration slowly and deeply into the muscle.Not for use > 4 days MEDICATION WASTE Product Size: 30 mgProduct Wasted: ___ mg Start Date: 05/26/15 Stop Date: 05/26/15 Status: Completed ondansetron 4 mg, 2 mL, Route: IVP, Drug form: INJ, ONCE, Dosing Weight 147.273, kg, Priorit y: STAT, Start date: 05/26/15 1:42:00, Stop date: 05/26/15 1:42:00 Notes: (Same as: Zofran) MEDICATION WASTE Product Size: 4 mgProduct Was ragini: ___ mg Start Date: 05/26/15 Stop Date: 05/26/15 Status: Completed Phenergan 12.5 mg oral tablet 12.5 mg=1 tab, PO, Q4H, PRN Other-See Comments, X 3 day, # 18 tab, 0 Refill(s) Start Date: 05/26/15 Stop Date: 05/29/15 Status: Ordered Saline Flush 0.9% 10 mL, Route: IVP, Drug Form: INJ, Dosing Weight 147.273, kg, PRN, PRN Line Flus h, Start date: 05/26/15 1:42:00, Duration: 30 day, Stop date: 06/25/15 1:41:00 Notes: (Same as: BD Posiflush) Start Date: 05/26/15 Stop Date: 05/26/15 Status: Discontinued Sodium Chloride 0.9% (Bolus) IV 1,000 mL, 1000 ml/hr, Infuse Over: 1 hr, Route: IV, 1,000, Drug form: INJ, ONCE, Priority: STAT, Dosing Weight 147.273 kg, Start date: 05/26/15 1:42:00, Duratio n: 1 doses or times, Stop date: 05/26/15 1:42:00 Start Date: 05/26/15 Stop Date: 05/26/15 Status: Completed Results ELECTROLYTES Most recent to 1 oldest [Reference Range]: Sodium Lvl [135-145 143 mEq/L mEq/L] (05/26/15 2:06 AM) Potassium Lvl 4.2 mEq/L [3.5-5.1 mEq/L] (05/26/15 2:06 AM) Chloride Lvl [95-109 107 mEq/L mEq/L] (05/26/15 2:06 AM) CO2 [24-32 mEq/L] 28 mEq/L (05/26/15 2:06 AM) AGAP [10.0-20.0 12.2 mEq/L mEq/L] (05/26/15 2:06 AM) CHEM PANEL Most recent to 1 oldest [Reference Range]: Creatinine Lvl 1.14 mg/dL [0.50-1.40 mg/dL] (05/26/15 2:06 AM) eGFR 52 mL/min/1.73m2 1 *NA* (05/26/15 2:06 AM) BUN [7-22 mg/dL] 26 mg/dL *HI* (05/26/15 2:06 AM) B/C Ratio [6-25] 23 (05/26/15 2:06 AM) Glucose Lvl [70-99 131 mg/dL mg/dL] *HI* (05/26/15 2:06 AM) Total Protein 7.6 g/dL [6.4-8.4 g/dL] (05/26/15 2:06 AM) Albumin Lvl [3.5-5.0 4.1 g/dL g/dL] (05/26/15 2:06 AM) Globulin [2.0-4.0 3.5 g/dL g/dL] (05/26/15 2:06 AM) A/G Ratio [0.7-1.6] 1.2 (05/26/15 2:06 AM) Calcium Lvl 9.4 mg/dL [8.5-10.5 mg/dL] (05/26/15 2:06 AM) ALT [0-65 unit/L] 36 unit/L (05/26/15 2:06 AM) AST [0-37 unit/L] 16 unit/L (05/26/15 2:06 AM) Alk Phos [39-136 116 unit/L unit/L] (05/26/15 2:06 AM) Bili Total [0.2-1.3 0.5 mg/dL mg/dL] (05/26/15 2:06 AM) 1Result Comment: The eGFR is calculated using [...] from the National Kidney Disease Education Program ( NKDEP) which additionally recommends that when the eGFR is used in patients with extremes of body mass index for purposes of drug dosing, the eGFR should be mul tiplied by the estimated BMI. CARDIAC ENZYMES Most recent to 1 oldest [Reference Range]: CK MB [0.5-3.6 1.4 ng/mL ng/mL] (05/26/15 2:06 AM) Troponin-I <0.02 ng/mL [0.00-0.40 ng/mL] (05/26/15 2:06 AM) URINE AND STOOL Most recent to 1 oldest [Reference Range]: UA Turbidity [Clear] Marked *ABN* (05/26/15 2:06 AM) UA Color Latoya *NA* (05/26/15 2:06 AM) UA pH [5.0-8.0] 5.0 (05/26/15 2:06 AM) UA Spec Grav 1.027 [<=1.030] (05/26/15 2:06 AM) UA Glucose [Negative Negative mg/dL mg/dL] *NA* (05/26/15 2:06 AM) UA Blood [Negative] Large *ABN* (05/26/15 2:06 AM) UA Ketones [Negative Negative mg/dL mg/dL] *NA* (05/26/15 2:06 AM) UA Protein [Negative 100 mg/dL mg/dL] *ABN* (05/26/15 2:06 AM) UA Urobilinogen <=1.0 mg/dL [0.1-1.0 mg/dL] *NA* (05/26/15 2:06 AM) UA Bili [Negative] Negative *NA* (05/26/15 2:06 AM) UA Leuk Est Small [Negative] *ABN* (05/26/15 2:06 AM) UA Nitrite Negative [Negative] (05/26/15 2:06 AM) UA WBC [0-5 /HPF] 32 /HPF *HI* (05/26/15 2:06 AM) UA RBC [0-2 /HPF] >182 /HPF *HI* (05/26/15 2:06 AM) UA Sq Epi [Few /LPF] Many /LPF *ABN* (05/26/15 2:06 AM) UA CaOx Dora [None Moderate /HPF Seen /HPF] *ABN* (05/26/15 2:06 AM) UA Amorph Dora [None Occasional /HPF Seen /HPF] *NA* (05/26/15 2:06 AM) UA Mucus [None Seen Moderate /LPF /LPF] *ABN* (05/26/15 2:06 AM) HEMATOLOGY Most recent to 1 oldest [Reference Range]: WBC [3.7-10.4 K/CMM] 8.8 K/CMM (05/26/15 2:06 AM) RBC [4.20-5.40 4.54 M/CMM M/CMM] (05/26/15 2:06 AM) Hgb [12.0-16.0 g/dL] 13.3 g/dL (05/26/15 2:06 AM) Hct [36.0-48.0 %] 41.1 % (05/26/15 2:06 AM) MCV [80.0-98.0 fL] 90.4 fL (05/26/15 2:06 AM) MCH [27.0-31.0 pg] 29.3 pg (05/26/15 2:06 AM) MCHC [32.0-36.0 32.4 g/dL g/dL] (05/26/15 2:06 AM) RDW [11.5-14.5 %] 13.9 % (05/26/15 2:06 AM) Platelet [133-450 180 K/CMM K/CMM] (05/26/15 2:06 AM) MPV [7.4-10.4 fL] 7.8 fL (05/26/15 2:06 AM) Segs [45.0-75.0 %] 66.6 % (05/26/15 2:06 AM) Lymphocytes 23.3 % [20.0-40.0 %] (05/26/15 2:06 AM) Monocytes [2.0-12.0 7.3 % %] (05/26/15 2:06 AM) Eosinophils [0.0-4.0 1.8 % %] (05/26/15 2:06 AM) Basophils [0.0-1.0 1.0 % %] (05/26/15 2:06 AM) Segs-Bands # 5.9 K/CMM [1.5-8.1 K/CMM] (05/26/15 2:06 AM) Lymphocytes # 2.1 K/CMM [1.0-5.5 K/CMM] (05/26/15 2:06 AM) Monocytes # [0.0-0.8 0.6 K/CMM K/CMM] (05/26/15 2:06 AM) Eosinophils # 0.2 K/CMM [0.0-0.5 K/CMM] (05/26/15 2:06 AM) Basophils # [0.0-0.2 0.1 K/CMM K/CMM] (05/26/15 2:06 AM) Immunizations No data available for this section [...]
--- OUTSIDE RECORDS SUMMARY | 2018-03-02 11:01 | XMS REPORT | Summary of Care ---
Author Author [facility] Outpatient Imaging [facility] Outpatient Imaging [facility] Address Unknown Phone Unavailable Encounter [facility](FIN) [id number] Date(s): 05/15/16 - 05/15/16 [facility] Imaging [facility] [address], [address] [place] [phone] Discharge Disposition: Home or Self Care Attending Physician: Emanuel Jenkins MD Vital Signs No data available for this section Problem List Condition Effective Dates Status Health [...]
--- OUTSIDE RECORDS SUMMARY | 2018-03-02 11:01 | XMS REPORT | Summary of Care ---
Author Organization Unknown Address Unknown Phone Unavailable Encounter [facility]([place]DELAR[place]) [id number] Date(s): 05/16/14 - 05/17/[address] Discharge Disposition: Home Physician Attending: Morales Toney MD Physician Admitting: Morales Toney MD Physician_Referring: Morales Toney MD Reason for Visit HYPERCALCEMIA, HYPERPARATHYROIDISM ICD-9# 275.42 252.00 Vital Signs 1 2 3 Most recent to oldest [Reference Range]: 177.8 cm (05/16/14 2:45 PM) 177.8 cm (05/16/14 8:17 AM) Height 97.8 DegF (05/17/14 8:27 AM) 97.6 DegF (05/17/14 3:39 AM) 98.0 DegF (05/17/14 12:19 AM) Temperature Oral [96.4-99.1 DegF] 134 mmHg (05/17/14 8:27 AM) 124 mmHg (05/17/14 3:39 AM) 105 mmHg (05/17/14 12:19 AM) Systolic Blood Pressure [90-140 mmHg] 57 mmHg *LOW* (05/17/14 8:27 AM) 61 mmHg (05/17/14 3:39 AM) 59 mmHg *LOW* (05/17/14 12:19 AM) Diastolic Blood Pressure [60-90 mmHg] 18 BRMIN (05/17/14 8:27 AM) 18 BRMIN (05/17/14 3:39 AM) 18 BRMIN (05/17/14 12:19 AM) Respiratory Rate [14-20 BRMIN] 71 bpm (05/17/14 8:27 AM) 61 bpm (05/17/14 3:39 AM) 77 bpm (05/17/14 12:19 AM) Peripheral Pulse Rate [60-100 bpm] 145 kg (05/16/14 2:45 PM) 145 kg (05/16/14 8:17 AM) Weight 45.87 m2 (05/16/14 2:45 PM) 45.87 m2 (05/16/14 8:17 AM) Body Mass Index Problem List Condition Effective Dates Status Health Status Informant DM (diabetes Resolved mellitus)(Confirmed) HTN - Resolved Hypertension(Confirm ed) Hyperthyroidism(Conf Resolved irmed) MRSA(Confirmed)1, 2 02/19/14 Active 1Source:Abcesson lip of Mouth , Collection Date Organisam: MRSA 2Problem added by Discern Expert. Allergies, Adverse Reactions, Alerts Substance Reaction Severity Status Benadryl Active Medications acetaminophen-codeine #3 1 tab, Route: PO, Drug Form: TAB, Dosing Weight 145, kg, Q4H, PRN Pain Score 1-3 , Start date: 05/16/14 12:09:00, Duration: 30 day, Stop date: 06/15/14 12:08:00 Notes: Do not exceed 4gm/day of acetaminophen. (Same as: Tylenol with Codeine # 3) Start Date: 05/16/14 Stop Date: 05/17/14 Status: Discontinued acetaminophen-codeine #3 2 tab, Route: PO, Drug Form: TAB, Dosing Weight 145, kg, Q4H, PRN Pain Score 4-6 , Start date: 05/16/14 12:09:00, Duration: 30 day, Stop date: 06/15/14 12:08:00 Notes: Do not exceed 4gm/day of acetaminophen. (Same as: Tylenol with Codeine # 3) Start Date: 05/16/14 Stop Date: 05/17/14 Status: Discontinued acetaminophen-codeine 300 mg-30 mg oral tablet 1 tab, PO, Q4H, Pain Score 1-3, # 50 tab, 0 Refill(s) Start Date: 05/17/14 Status: Ordered allopurinol 100 mg, 1 tab, Route: PO, Drug form: TAB, Daily, Dosing Weight 145, kg, Start da te: 05/17/14 9:00:00, Duration: 30 day, Stop date: 06/15/14 9:00:00 Notes: (Same as: Zyloprim) Start Date: 05/17/14 Stop Date: 05/17/14 Status: Discontinued Ancef 2 gm, 50 mL, Route: IVPB, Drug form: INJ, ONCE, Dosing Weight 145, kg, Start emigdio e: 05/16/14 8:59:00, Duration: 1 doses or times, Stop date: 05/16/14 8:59:00 Start Date: 05/16/14 Stop Date: 05/16/14 Status: Completed atenolol 50 mg oral tablet 50 mg, 1 tab, Route: PO, Drug form: TAB, Daily, Dosing Weight 145, kg, Start emigdio e: 05/17/14 9:00:00, Duration: 30 day, Stop date: 06/15/14 9:00:00 Notes: (Same As:Tenormin) Start Date: 05/17/14 Stop Date: 05/17/14 Status: Discontinued clonazePAM 1 mg, 1 tab, Route: PO, Drug form: TAB, Bedtime, Dosing Weight 145, kg, Start da te: 05/16/14 21:00:00, Duration: 30 day, Stop date: 06/14/14 21:00:00 Notes: (Same As: KlonoPIN) Start Date: 05/16/14 Stop Date: 05/17/14 Status: Discontinued docusate 100 mg, 1 cap, Route: PO, Drug form: CAP, BID, Dosing Weight 145, kg, Start date : 05/16/14 17:00:00, Duration: 30 day, Stop date: 06/15/14 9:00:00 Notes: (Same as: Colace) (Do Not Crush) Start Date: 05/16/14 Stop Date: 05/17/14 Status: Discontinued docusate sodium 100 mg oral capsule 100 mg=1 cap, PO, BID, # 30 cap, 0 Refill(s) Start Date: 05/17/14 Status: Ordered famotidine 20 mg, 1 tab, Route: PO, Drug form: TAB, BID, Dosing Weight 145, kg, Start date: 05/16/14 17:00:00, Duration: 30 day, Stop date: 06/15/14 9:00:00 Notes: (Same as: Pepcid) Start Date: 05/16/14 Stop Date: 05/17/14 Status: Discontinued flumazenil 0.2 mg, Route: IVP, PRN, Dosing Weight 145, kg, PRN Benzodiazepine Reversal, Ini tial dose, Start date: 05/16/14 12:41:00, Duration: 30 day, Stop date: 06/15/14 12:40:00 Start Date: 05/16/14 Stop Date: 05/16/14 Status: Discontinued gabapentin 400 mg oral capsule 400 mg, 1 cap, Route: PO, Drug form: CAP, BID, Dosing Weight 145, kg, Start date : 05/16/14 17:00:00, Duration: 30 day, Stop date: 06/15/14 9:00:00 Notes: (Same as: Neurontin) Start Date: 05/16/14 Stop Date: 05/17/14 Status: Discontinued gemfibrozil 600 mg, 1 tab, Route: PO, Drug form: TAB, Daily, Dosing Weight 145, kg, Start da te: 05/17/14 9:00:00, Duration: 30 day, Stop date: 06/15/14 9:00:00 Notes: (Same as: Lopid) Start Date: 05/17/14 Stop Date: 05/17/14 Status: Discontinued labetalol 10 mg, Route: IVP, Q5Min, Dosing Weight 145, kg, PRN Elevated BP, Start date: 12:41:00, Duration: 5 doses or times, Stop date: Limited # of times Start Date: 05/16/14 Stop Date: 05/16/14 Status: Discontinued LaMICtal XR 400 mg, 4 tab, Route: PO, Drug form: ERTAB, Daily, Dosing Weight 145, kg, Start date: 05/17/14 9:00:00, Duration: 30 day, Stop date: 06/15/14 9:00:00 Notes: Same as: LaMICtal XR Start Date: 05/17/14 Stop Date: 05/17/14 Status: Discontinued Lasix 20 mg oral tablet 20 mg, 1 tab, Route: PO, Drug form: TAB, BID, Dosing Weight 145, kg, Start date: 05/16/14 17:00:00, Duration: 30 day, Stop date: 06/15/14 9:00:00 Notes: (Same as: Lasix) May cause GI upset. Give with food or milk. Start Date: 05/16/14 Stop Date: 05/17/14 Status: Discontinued levothyroxine 125 microgram, 1 tab, Route: PO, Drug form: TAB, Q630AM, Dosing Weight 145, kg, Start date: 05/17/14 6:30:00, Duration: 30 day, Stop date: 06/15/14 6:30:00 Notes: Take 1 hour before or 2 hours after meal; Enteral feeds may interefere wi th the absorption of this medication. (Same as:Levothroid) Start Date: 05/17/14 Stop Date: 05/17/14 Status: Discontinued losartan 25 mg, 1 tab, Route: PO, Drug form: TAB, Daily, Dosing Weight 145, kg, Start emigdio e: 05/17/14 9:00:00, Duration: 30 day, Stop date: 06/15/14 9:00:00 Notes: (Same as: Cozaar) Start Date: 05/17/14 Stop Date: 05/17/14 Status: Discontinued losartan 25 mg oral tablet 25 mg=1 tab, PO, Daily, # 30 tab, 0 Refill(s) Start Date: 05/16/14 Status: Ordered metFORMIN 500 mg oral tablet 1,000 mg, 2 tab, Route: PO, Drug form: TAB, BID, Dosing Weight 145, kg, Start da te: 05/16/14 17:00:00, Duration: 30 day, Stop date: 06/15/14 9:00:00 Notes: (Same as: Glucophage) Take with meal Start Date: 05/16/14 Stop Date: 05/17/14 Status: Discontinued morphine Sulfate 2 mg, 1 mL, Route: IVP, Drug form: INJ, Q3H, Dosing Weight 145, kg, PRN Pain Sco re 1-3, Start date: 05/16/14 12:09:00, Duration: 30 day, Stop date: 06/15/14 12: 08:00 Notes: (Same as:MORPhine Sulfate) Start Date: 05/16/14 Stop Date: 05/17/14 Status: Discontinued morphine Sulfate 2 mg, Route: IVP, Q5Min, Dosing Weight 145, kg, PRN Pain Score 4-6, Start date: 05/16/14 12:41:00, Duration: 5 doses or times, Stop date: Limited # of times Start Date: 05/16/14 Stop Date: 05/16/14 Status: Discontinued naloxone 0.04 mg, Route: IVP, Q2MIN, Dosing Weight 145, kg, PRN Narcotic Reversal, Start date: 05/16/14 12:41:00, Duration: 8 doses or times, Stop date: Limited # of razia es Start Date: 05/16/14 Stop Date: 05/16/14 Status: Discontinued ondansetron 4 mg, 2 mL, Route: IVP, Drug form: INJ, Q6H, Dosing Weight 145, kg, PRN Nausea & Vomiting, Start date: 05/16/14 12:09:00, Duration: 30 day, Stop date: 06/15/14 12:08:00 Notes: (Same as: Zofran) Start Date: 05/16/14 Stop Date: 05/17/14 Status: Discontinued ondansetron 4 mg, Route: IVP, ONCE, Dosing Weight 145, kg, PRN Nausea & Vomiting, Start date: 05/16/14 12:41:00 Start Date: 05/16/14 Stop Date: 05/16/14 Status: Discontinued Phenergan 12.5 mg oral tablet 12.5 mg=1 tab, PO, Q4H, Nausea & Vomiting, # 60 tab, 0 Refill(s) Start Date: 05/17/14 Status: Ordered promethazine 12.5 mg, 0.5 mL, Route: IVPB, Drug form: INJ, Q4H, Dosing Weight 145, kg, PRN Na usea & Vomiting, Start date: 05/16/14 12:09:00, Duration: 30 day, Stop date: 06/15/14 12:08:00 Notes: Do not give IV push. (Same as: Phenergan) Start Date: 05/16/14 Stop Date: 05/17/14 Status: Discontinued Saline Flush 0.9% 10 ml, Route: IVP, Drug Form: INJ, Dosing Weight 145, kg, PRN, PRN Line Flush, S tart date: 05/16/14 12:09:00, Duration: 30 day, Stop date: 06/15/14 12:08:00 Notes: Same as: BD Posiflush Sterile Start Date: 05/16/14 Stop Date: 05/17/14 Status: Discontinued Sodium Chloride 0.9% IV 1,000 mL 1,000 mL, Rate: 100 ml/hr, Infuse over: 10 hr, Route: IV, Dosing Weight 145 kg, Total Volume: 1,000, Start date: 05/16/14 12:09:00, Duration: 30 day, Stop date: 06/15/14 12:08:00 Start Date: 05/16/14 Stop Date: 05/17/14 Status: Discontinued venlafaxine 150 mg, 1 cap, Route: PO, Drug form: ERCAP, Daily, Dosing Weight 145, kg, Start date: 05/17/14 9:00:00, Duration: 30 day, Stop date: 06/15/14 9:00:00 Notes: Do not open, crush, or chew. (Same As: Effexor XR) Start Date: 05/17/14 Stop Date: 05/17/14 Status: Discontinued Zofran 4 mg, 2 mL, Route: IVP, Drug form: INJ, ONCE, Dosing Weight 145, kg, PRN as need ed for nausea/vomiting, Start date: 05/16/14 9:37:00 Notes: (Same as: Zofran) Start Date: 05/16/14 Stop Date: 05/17/14 Status: Discontinued Results ELECTROLYTES 1 2 3 Most recent to oldest [Reference Range]: 142 mEq/L (05/16/14 12:54 PM) 143 mEq/L (05/16/14 8:46 AM) Sodium Lvl [135-145 mEq/L] 4.2 mEq/L (05/16/14 12:54 PM) 4.0 mEq/L (05/16/14 8:46 AM) Potassium Lvl [3.5-5.1 mEq/L] 4.0 mEq/L (05/16/14 8:46 AM) Potassium WB [3.5-5.1 mEq/L] 109 mEq/L (05/16/14 12:54 PM) 109 mEq/L (05/16/14 8:46 AM) Chloride Lvl [95-109 mEq/L] 27 mEq/L (05/16/14 12:54 PM) 28 mEq/L (05/16/14 8:46 AM) CO2 [24-32 mEq/L] 10.2 mEq/L (05/16/14 12:54 PM) 10.0 mEq/L (05/16/14 8:46 AM) AGAP [10.0-20.0 mEq/L] CHEM PANEL 1 2 3 Most recent to oldest [Reference Range]: 1.1 mg/dL (05/16/14 12:54 PM) 1.1 mg/dL (05/16/14 8:46 AM) Creatinine Lvl [0.5-1.4 mg/dL] 55 mL/min/1.73m2 1 *NA* (05/16/14 12:54 PM) 55 mL/min/1.73m2 2 *NA* (05/16/14 8:46 AM) eGFR 15 mg/dL (05/16/14 12:54 PM) 15 mg/dL (05/16/14 8:46 AM) BUN [7-22 mg/dL] 116 mg/dL 3 *HI* (05/16/14 12:54 PM) 105 mg/dL 4 *HI* (05/16/14 8:46 AM) Glucose Lvl [70-99 mg/dL] 3.8 g/dL (05/16/14 12:54 PM) Albumin Lvl [3.5-5.0 g/dL] 9.4 mg/dL (05/17/14 4:51 AM) 9.3 mg/dL (05/16/14 12:54 PM) 9.7 mg/dL (05/16/14 12:54 PM) Calcium Lvl [8.5-10.5 mg/dL] 3.2 mg/dL (05/17/14 4:51 AM) 3.1 mg/dL (05/16/14 12:54 PM) Phosphorus [2.5-4.5 mg/dL] 1.9 mg/dL (05/17/14 4:51 AM) 1.8 mg/dL (05/16/14 12:54 PM) Magnesium Lvl [1.8-2.4 mg/dL] 1Result Comment: The eGFR is calculated using [...] be mul tiplied by the estimated BMI. 2Result Comment: The eGFR is calculated using [...] be mul tiplied by the estimated BMI. 3Interpretive Data: Adult reference range values reflect the clinical guidelines of the [place] [employer]. 4Interpretive Data: Adult reference range values reflect the clinical guidelines of the [place] [employer]. PARATHYROID PROFILE 1 2 3 Most recent to oldest [Reference Range]: 1.28 mMol/L *HI* (05/16/14 8:59 AM) Ca Ion WB [1.05-1.25 mMol/L] 1.24 mMol/L (05/16/14 8:59 AM) Ca Norm WB [1.05-1.25 mMol/L] 61.8 pg/mL (05/17/14 4:51 AM) 33.6 pg/mL (05/16/14 12:54 PM) 56.2 pg/mL 5 (05/16/14 12:16 PM) PTH Intact [11.1-79.5 pg/mL] 5Result Comment: called to Phill Kumar 05/16/2014 12:45 lwb HEMATOLOGY 1 2 3 Most recent to oldest [Reference Range]: 7.1 K/CMM (05/16/14 8:46 AM) WBC [3.7-10.4 K/CMM] 4.43 M/CMM (05/16/14 8:46 AM) RBC [4.20-5.40 M/CMM] 13.5 g/dL (05/16/14 8:46 AM) Hgb [12.0-16.0 g/dL] 39.5 % (05/16/14 8:46 AM) Hct [36.0-48.0 %] 89.2 fL (05/16/14 8:46 AM) MCV [80.0-98.0 fL] 30.4 pg (05/16/14 8:46 AM) MCH [27.0-31.0 pg] 34.1 g/dL (05/16/14 8:46 AM) MCHC [32.0-36.0 g/dL] 13.7 % (05/16/14 8:46 AM) RDW [11.5-14.5 %] 178 K/CMM (05/16/14 8:46 AM) Platelet [133-450 K/CMM] 7.5 fL (05/16/14 8:46 AM) MPV [7.4-10.4 fL] 58.1 % (05/16/14 8:46 AM) Segs [45.0-75.0 %] 30.8 % (05/16/14 8:46 AM) Lymphocytes [20.0-40.0 %] 8.1 % (05/16/14 8:46 AM) Monocytes [2.0-12.0 %] 2.2 % (05/16/14 8:46 AM) Eosinophils [0.0-4.0 %] 0.8 % (05/16/14 8:46 AM) Basophils [0.0-1.0 %] 4.1 K/CMM (05/16/14 8:46 AM) Segs-Bands # [1.5-8.1 K/CMM] 2.2 K/CMM (05/16/14 8:46 AM) Lymphocytes # [1.0-5.5 K/CMM] 0.6 K/CMM (05/16/14 8:46 AM) Monocytes # [0.0-0.8 K/CMM] 0.2 K/CMM (05/16/14 8:46 AM) Eosinophils # [0.0-0.5 K/CMM] 0.1 K/CMM (05/16/14 8:46 AM) Basophils # [0.0-0.2 K/CMM] Medications Administered During Your Visit No data available for this section Immunizations No data available for this section Social History Social History Type Response Alcohol Use: Current, Type: Beer, Type: Liquor, Previous treatment: None, Has alcohol use interfered with work or home life? No, Do you ever drink more than intended? No, Has anyone been hurt or at risk by your drinking? No, Ready to change: No, Concerns about alcohol use in household: No Smoking Status Former smoker, Previous treatment: None, Ready to change: Yes, Concerns about tobacco use in household: Yes, Exposure to Tobacco Smoke None, Cigarette Smoking Last 365 Days Yes, Reg Smoking Cessation Counseling Yes Assessment and Plan Extracted from: Title: ENT Author: Maik Zarco MD Date: 05/17/14 ENT BEN AFVSS NAD Neck soft/flat MIL[place] in place - SS - 20 cc output Voice good Weakly positive chovstek Labs pending A/P: D/C home today pending AM labs Follow up with Dr. Toney in 1-2 weeks
--- OUTSIDE RECORDS SUMMARY | 2018-03-02 11:01 | XMS REPORT | Summary of Care ---
Author Author [facility] [place] Organization [facility] [place] Address Unknown Phone Unavailable Encounter [facility] Yon_mik(FIN) [id number] Date(s): 03/15/15 - 03/15/15 [facility] [place] [address] [address]- [facility] [phone] Discharge Disposition: Home Attending Physician: Helio Major MD Vital Signs No data available for [...]
--- OUTSIDE RECORDS SUMMARY | 2018-03-02 11:01 | XMS REPORT | Summary of Care ---
Author Author [facility] Organization [facility] Address Unknown Phone Unavailable Encounter DELBERT Arreola([place]) [id number] Date(s): 03/28/16 - 03/28/16 [facility] [address] [place] [address]- [phone] Discharge Disposition: Home or Self Care Attending Physician: Amie Hicks MD Referring Physician: Amie Hicks MD Vital Signs No data available for [...] No data available for this section Results CHEM PANEL Most recent to 1 oldest [Reference Range]: eGFR 70 mL/min/1.73m2 1 *NA* (03/28/16 5:13 PM) POC Creatinine 0.9 mg/dL [0.5-1.4 mg/dL] (03/28/16 5:13 PM) 1Result Comment: The eGFR is calculated using [...] be mul tiplied by the estimated BMI. Immunizations No data available for this section [...]
--- OUTSIDE RECORDS SUMMARY | 2018-03-02 11:01 | XMS REPORT | Summary of Care ---
Author Author AGUSTÍN RASHID Organization Unknown Address [facility] Phone Unavailable Care Team Providers Care Supervisor [employer] Former Name Role Phone AGUSTÍN RASHID Unavailable Unavailable JOSEPH Villeda, YO Unavailable Unavailable YAMILE Villeda, JESUS MANUEL Unavailable Unavailable LINDER N.P., MEKA Unavailable Unavailable AQUILES Villeda, ANGELIQUE Unavailable Unavailable JOSEPH TENORIO [facility], YO Morales Unavailable Unavailable MARGARET KIRAN, EARNESTINE Schultz Unavailable Unavailable NIYAH COLLEGE HIRE [place], MEKA Velásquez Unavailable Unavailable Adalgisa TENORIO, Kyle [...] BMI 40.0-44.9, adult (V85.41, Z68.41) Status: Active Breast mass, left (611.72, N63.20) Status: Active Anxiety (300.00, F41.9) Status: Active Acute UTI (599.0, N39.0) Status: Active Diabetes mellitus (250.00, E11.9) Status: Active Hypertension (401.9, I10) Status: Active Hyperlipidemia (272.4, E78.5) Status: Active Hypothyroidism (244.9, E03.9) Status: Active Vitamin D deficiency (268.9, E55.9) Status: Active Headache (784.0, R51) Status: Active Medications Name Dates Details Venlafaxine HCl ER 75 MG Oral Tablet Extended Release 24 Hour TAKE 1 TABLET DAILY Active ClonazePAM 1 MG Oral Tablet TAKE 1 TABLET BEDTIME * Refills: 0 Active MetFORMIN HCl - 500 MG Oral Tablet TAKE 1 TABLET DAILY * Quantity: 180 Refills: 1 JESUS MANUEL OVALLE M.D. * Start : 05-Nov-2015 Active LamoTRIgine 200 [...] DAILY DIRECTED. * Quantity: 90 Refills: 1 JESUS MANUEL OVALLE M.D. * Start : 09-Aug-2015 Active Levothyroxine Sodium 100 MCG Oral Tablet 1 a day * Quantity: 90 Refills: 1 JESUS MANUEL OVALLE M.D. * Start : 21-Feb-2016 Active MetroNIDAZOLE 0.75 % External Cream APPLY AND GENTLY MASSAGE INTO AFFECTED AREA(S) TWICE DAILY. * Quantity: 1 Refills: 11 ANGELIQUE KWAN M.D. * Start : 01-Sep-2016 Active 45 GM Tube Vitamin A CAPS TAKE 1 CAPSULE DAILY * Refills: 0 Active Vitamin D-3 1000 UNIT Oral Capsule 3 a day ; Per Pt 07-16-17 * Refills: 0 JESUS MANUEL OVALLE M.D. [...] Tablet ONCE DAILY * Refills: 0 Active Levocetirizine Dihydrochloride 5 MG Oral Tablet [...] tests for routine general physical examination (V72.62, Z00.00) Status: Resolved History of Breast screening (V76.10, [...] Procedures Procedure Dates Details US Breast Bilat [id number] Date: 09-Jul-2017 [facility] Digital Mammo DX [place] [id number] Date: 09-Jul-2017 History of Gastric Surgery For Morbid Obesity Gastric Stapling Completed History of Cholecystectomy Completed History of Appendectomy Completed History of Parathyroid Complete Parathyroidectomy Completed History of Parathyroid Resection Completed History of Parathyroid Surgery Completed Immunization Name Dates Details Influenza on: Jan-2014 Pneumovax 23 25 MCG/0.5ML Injection Injectable Lot #: [id number] on: 12-Feb-2015 Fluzone Quadrivalent 0.5 ML Intramuscular Suspension Prefilled Syringe Lot #: [id number] on: 12-Feb-2015 Fluzone Quadrivalent 0.5 ML Intramuscular Suspension Prefilled Syringe Lot #: [id number] on: 03-Mar-2016 Fluzone Quadrivalent 0.5 ML Intramuscular Suspension Prefilled Syringe Lot #: [id number] on: 09-Feb-2017 Family History Name Dates Details [...] smoker Vital Signs Date Test Result Details [id number] Physical Findings 0 Status: Comments: PHQ-9 Adult Depression Screening [id number] BP Systolic 143 mm[Hg] Status: Comments: Location: LUE; Position: Sitting BP Diastolic 77 mm[Hg] Status: Comments: Location: LUE; Position: Sitting Temperature 98.1 f Status: Comments: Method: Oral Height 70 in Status: Weight 286 lb Status: Body Mass Index Calculated 41.04 kg/m2 Status: Body Surface Area Calculated 2.43 m2 Status: Heart Rate 76 /min Status: Respiration Rate 16 /min Status: :49 BP Systolic 130 mm[Hg] Status: BP Diastolic 70 mm[Hg] Status: :27 BP Systolic 144 mm[Hg] Status: Comments: Location: LUE; Position: Sitting BP Diastolic 78 mm[Hg] Status: Comments: Location: LUE; Position: Sitting Height 70 in Status: Weight 280.25 lb Status: Body Mass Index Calculated 40.21 kg/m2 Status: Body Surface Area Calculated 2.41 m2 Status: Heart Rate 77 /min Status: :56 Temperature 97.2 f Status: Comments: Method: Temporal :48 BP Systolic 139 mm[Hg] Status: Comments: Location: LUE; Position: Sitting BP Diastolic 72 mm[Hg] Status: Comments: Location: LUE; Position: Sitting Temperature 96.5 f Status: Comments: Method: Temporal Height 70 in Status: Weight 278.375 lb Status: Body Mass Index Calculated 39.94 kg/m2 Status: Body Surface Area Calculated 2.4 m2 Status: Heart Rate 92 /min Status: Respiration Rate 16 /min Status: Results Date Description Value Details :00 [QLH] CULTURE, URINE, ROUTINE CULTURE Comments: CULTURE, URINE, ROUTINE MICRO NUMBER: [id number] TEST STATUS: FINAL SPECIMEN SOURCE: URINE SPECIMEN QUALITY: ADEQUATE RESULT: No GrowthNO COLLECTION DATE RECEIVED. WE HAVE USEDTHE DATE THE SPECIMEN WAS [facility]LECTION DATE. IF THISIS INCORRECT, PLEASE CONTACT CLIENT SERVICES.PHONE NUMBER: [phone] :28 [O] Hemoglobin A1c (in office) HEMOGLOBIN A1c 5.1 :28 [O] Lipid Panel (In Office) CHOLESTEROL, TOTAL 128 HDL CHOLESTEROL 60 TRIGLYCERIDES 160 LDL-CHOLESTEROL 36 NON HDL CHOLESTEROL 68 T. Chol/HDL Ratio 2.1 GLUCOSE 105 :29 Glucose (Point of Care In Office) Glucose POC Lifescan 107 Plan of Care Name Dates Details Planned Observations Planned Goals not documented Planned Encounters Appointment; JESUS MANUEL OVALLE M.D. On: 16-Oct-2017 14:45 Instructions Name Dates Details Instructions not documented Encounters Appointment; MEKA LINDER NP Encounter Diagnosis: Problem [...] documented On: 27-Nov-2015 11:00 Appointment; AGUSTÍN MCKEON PYamilAYamil Encounter Diagnosis: Problem not documented On: 17-Jan-2016 [...] documented On: 09-Oct-2016 9:45 Appointment; AGUSTÍN MCKEON P.AYamil Encounter Diagnosis: Problem not documented On: 23-Oct-2016 [...] Diagnosis: Problem not documented On: 28-May-2017 14:30 Appointment; AGUSTÍN MCKEON P.A. Encounter Diagnosis: Problem not documented On: 13-Jul-2017 9:30 Appointment; JESUS MANUEL OVALLE M.D. Encounter Diagnosis: Problem not documented On: 16-Jul-2017 10:30 Appointment; AGUSTÍN MCKEON P.A. Encounter Diagnosis: Problem not documented On: 11-Aug-2017 13:30
--- OUTSIDE RECORDS SUMMARY | 2018-03-02 11:01 | XMS REPORT | Summary of Care ---
Author Author [facility] [place] Organization [facility] [place] Address Unknown Phone Unavailable Encounter [facility] Elba(FIN) [id number] Date(s): 11/13/15 - 11/13/15 [facility] [place] [address] [address] [phone] Discharge Disposition: Home Attending Physician: Leatha Dumas MD Vital Signs No data available for [...]
--- OUTSIDE RECORDS SUMMARY | 2018-03-02 11:01 | XMS REPORT | Summary of Care ---
Author Organization Unknown Address Unknown Phone Unavailable Encounter [facility]([place]) [id number] Date(s): 02/16/14 - 02/22/14 [facility] [address] [address] [address] - [facility] Discharge Disposition: Home Physician Attending: Faye Mccrary MD Physician Admitting: Faye Mccrary MD Reason for Visit UPPER LIP ABSCESS VS ANGIOEDEMA Vital Signs 1 2 3 Most recent to oldest [Reference Range]: 177.8 cm (02/16/14 11:59 PM) 177.8 cm (02/16/14 2:26 PM) Height 98.3 DegF (02/22/14 5:32 PM) 98.6 DegF (02/22/14 12:27 PM) 98.5 DegF (02/22/14 8:45 AM) Temperature Oral [96.4-99.1 DegF] 149 mmHg *HI* (02/22/14 5:32 PM) 145 mmHg *HI* (02/22/14 12:27 PM) 146 mmHg *HI* (02/22/14 8:45 AM) Systolic Blood Pressure [90-140 mmHg] 85 mmHg (02/22/14 5:32 PM) 82 mmHg (02/22/14 12:27 PM) 78 mmHg (02/22/14 8:45 AM) Diastolic Blood Pressure [60-90 mmHg] 17 BRMIN (02/22/14 5:32 PM) 18 BRMIN (02/22/14 12:27 PM) 18 BRMIN (02/22/14 8:45 AM) Respiratory Rate [14-20 BRMIN] 56 bpm *LOW* (02/22/14 5:32 PM) 56 bpm *LOW* (02/22/14 12:27 PM) 59 bpm *LOW* (02/22/14 8:45 AM) Peripheral Pulse Rate [60-100 bpm] 144.682 kg (02/16/14 11:59 PM) 145.455 kg (02/16/14 2:26 PM) Weight 45.77 m2 (02/16/14 11:59 PM) 46.01 m2 (02/16/14 2:26 PM) Body Mass Index Problem List Condition Effective Dates Status Health Status Informant DM (diabetes Resolved mellitus)(Confirmed) HTN - Resolved Hypertension(Confirm ed) Hyperthyroidism(Conf Resolved irmed) MRSA(Confirmed)1, 2 02/19/14 Active 1Source:Abcesson lip of Mouth , Collection Date Organisam: MRSA 2Problem added by Discern Expert. Allergies, Adverse Reactions, Alerts Substance Reaction Severity Status Benadryl Active Medications acetaminophen 1,000 mg, Route: IVPB, Drug form: INJ, ONCE, Dosing Weight 144.682, kg, PRN Pain Score 1-3, Start date: 02/20/14 12:10:00, Duration: 1 doses or times, Stop date: Limited # of times Start Date: 02/20/14 Stop Date: 02/20/14 Status: Discontinued acetaminophen 650 mg, 20.3 mL, Route: PO, Drug form: LIQ, Q4H, Dosing Weight 144.682, kg, PRN Pain 1-3/Temp > 100.4 F, Start date: 02/17/14 0:03:00, Duration: 30 day, Stop date: 03/19/14 0:02:00 Notes: Max [id number]=7412ob/day (4 gm/day). (Same as: Tylenol) Start Date: 02/17/14 Stop Date: 02/22/14 Status: Discontinued allopurinol 100 mg oral tablet 100 mg=1 tab, PO, Daily, 0 Refill(s) Start Date: 02/17/14 Status: Ordered atenolol 50 mg oral tablet 50 mg, 1 tab, Route: PO, Drug form: TAB, Daily, Dosing Weight 144.682, kg, Start date: 02/17/14 11:00:00, Duration: 30 day, Stop date: 03/19/14 9:00:00 Notes: (Same As:Tenormin) Start Date: 02/17/14 Stop Date: 02/22/14 Status: Discontinued atenolol 50 mg oral tablet 50 mg=1 tab, PO, Daily, 0 Refill(s) Start Date: 02/17/14 Status: Ordered atropine 0.5 mg, 5 mL, Route: IVP, Drug form: INJ, PRN, Dosing Weight 144.682, kg, PRN Br adycardia, Start date: 02/17/14 0:49:00, Duration: 30 day, Stop date: 03/19/14 0 :48:00, HR <40 Start Date: 02/17/14 Stop Date: 02/22/14 Status: Discontinued cefTRIAXone + Sodium Chloride 0.9% IV 100 mL 2 gm, Route: IVPB, [id number], Dosing Weight 144.682, kg, Start date: 02/21/14 21:0 0:00, Duration: 30 day, Stop date: 03/22/14 21:00:00 Notes: (Same As: Rocephin). Start Date: 02/21/14 Stop Date: 02/22/14 Status: Discontinued ciprofloxacin 500 mg, PO, Q12H, 0 Refill(s) Start Date: 02/17/14 Stop Date: 02/17/14 Status: Discontinued clindamycin + Sodium Chloride 0.9% IV 100 mL 600 mg, 4 mL, Route: IVPB, [id number], Dosing Weight 144.682, kg, Start date: 22:00:00, Duration: 30 day, Stop date: 03/23/14 14:00:00 Notes: (clindamycin 150 mg/1 ml (600 mg/4 ml VL) INJ) (Same As: Cleocin) Start Date: 02/21/14 Stop Date: 02/22/14 Status: Discontinued clindamycin 300 mg oral capsule 300 mg=1 cap, PO, Q6H, # 28 cap, 0 Refill(s) Start Date: 02/22/14 Stop Date: 03/01/14 Status: Ordered clonazePAM 1 mg, 1 tab, Route: PO, Drug form: TAB, Bedtime, Dosing Weight 144.682, kg, Star t date: 02/17/14 21:00:00, Duration: 30 day, Stop date: 03/18/14 21:00:00 Notes: (Same As: KlonoPIN) Start Date: 02/17/14 Stop Date: 02/22/14 Status: Discontinued clonazePAM 1 mg oral tablet 1 mg=1 tab, PO, Bedtime, 0 Refill(s) Start Date: 02/17/14 Status: Ordered Dextrose 50% Syringe 12.5 gm, 25 mL, Route: IVP, Drug Form: INJ, Dosing Weight 144.682, kg, PRN, PRN Blood Glucose Results, Start date: 02/17/14 9:49:00, Duration: 30 day, Stop date : 03/19/14 8:48:00 Start Date: 02/17/14 Stop Date: 02/22/14 Status: Discontinued Dextrose 50% Syringe 25 gm, 50 mL, Route: IVP, Drug Form: INJ, Dosing Weight 144.682, kg, PRN, PRN Bl ood Glucose Results, Start date: 02/17/14 9:49:00, Duration: 30 day, Stop date: 03/19/14 8:48:00 Start Date: 02/17/14 Stop Date: 02/22/14 Status: Discontinued Dilaudid 0.5 mg, Route: IV, ONCE, Dosing Weight 144.682, kg, PRN, Start date: 02/21/14 15 :36:00, for wound care Start Date: 02/21/14 Stop Date: 02/21/14 Status: Deleted docusate 100 mg, 1 cap, Route: PO, Drug form: CAP, BID, Dosing Weight 144.682, kg, PRN Co nstipation, Start date: 02/17/14 0:03:00, Duration: 30 day, Stop date: 03/19/14 0:02:00 Notes: (Same as: Colace) (Do Not Crush) Start Date: 02/17/14 Stop Date: 02/22/14 Status: Discontinued enoxaparin 40 mg, 0.4 mL, Route: SUB-Q, Drug form: INJ, [id number], Dosing Weight 144.682, kg , Start date: 02/17/14 10:00:00, Duration: 30 day, Stop date: 03/18/14 10:00:00 Notes: (Same as: Lovenox) Start Date: 02/17/14 Stop Date: 02/22/14 Status: Discontinued famotidine 20 mg=1 tab, PO, BID, # 60 tab, 0 Refill(s) Start Date: 02/17/14 Stop Date: 03/19/14 Status: Ordered famotidine 20 mg, 1 tab, Route: PO, Drug form: TAB, BID, Dosing Weight 144.682, kg, Start d ate: 02/17/14 17:00:00, Duration: 30 day, Stop date: 03/19/14 9:00:00 Notes: (Same as: Pepcid) Start Date: 02/17/14 Stop Date: 02/22/14 Status: Discontinued fentaNYL 25 microgram, Route: IVP, Q5Min, Dosing Weight 144.682, kg, PRN Pain Score 4-6, Start date: 02/20/14 12:10:00, Duration: 4 doses or times, Stop date: Limited # of times Start Date: 02/20/14 Stop Date: 02/20/14 Status: Discontinued flumazenil 0.2 mg, Route: IVP, PRN, Dosing Weight 144.682, kg, PRN Benzodiazepine Reversal, Initial dose, Start date: 02/20/14 12:10:00, Duration: 30 day, Stop date: 03/22 11:09:00 Start Date: 02/20/14 Stop Date: 02/20/14 Status: Discontinued gabapentin 400 mg oral capsule 400 mg=1 cap, PO, BID, 0 Refill(s) Start Date: 02/17/14 Status: Ordered gabapentin 400 mg oral capsule 400 mg, 1 cap, Route: PO, Drug form: CAP, BID, Dosing Weight 144.682, kg, Start date: 02/17/14 11:00:00, Duration: 30 day, Stop date: 03/19/14 9:00:00 Notes: (Same as: Neurontin) Start Date: 02/17/14 Stop Date: 02/22/14 Status: Discontinued gemfibrozil 600 mg, 1 tab, Route: PO, Drug form: TAB, Daily, Dosing Weight 144.682, kg, Star t date: 02/17/14 11:00:00, Duration: 30 day, Stop date: 03/19/14 9:00:00 Notes: (Same as: Lopid) Start Date: 02/17/14 Stop Date: 02/22/14 Status: Discontinued gemfibrozil 600 mg oral tablet 600 mg=1 tab, PO, Daily, 0 Refill(s) Start Date: 02/17/14 Status: Ordered glucagon 1 mg, Route: IM, Drug form: PDR/INJ, PRN, Dosing Weight 144.682, kg, PRN Blood G lucose Results, Start date: 02/17/14 9:49:00, Duration: 30 day, Stop date: 03/19 8:48:00 Start Date: 02/17/14 Stop Date: 02/22/14 Status: Discontinued hydromorphone 0.5 mg, 0.5 mL, Route: IVP, Drug form: INJ, Daily, PRN Wound Care, Start date: 15:43:00, Duration: 30 day, Stop date: 03/23/14 15:42:00 Start Date: 02/21/14 Stop Date: 02/22/14 Status: Discontinued hydromorphone 1 mg, Route: IVP, ONCE, Dosing Weight 145.455, kg, Priority: STAT, Start date: 19:05:00, Stop date: 02/16/14 19:05:00 Start Date: 02/16/14 Stop Date: 02/16/14 Status: Completed hydromorphone 0.5 mg, Route: IVP, Q5Min, Dosing Weight 144.682, kg, PRN Pain Score 7-10, Start date: 02/20/14 12:10:00, Duration: 4 doses or times, Stop date: Limited # of ti mes Start Date: 02/20/14 Stop Date: 02/20/14 Status: Discontinued hydromorphone 2 mg oral tablet See Instructions, 2 tab, # 7 tab, 0 Refill(s) Special Instructions: 2 tab Start Date: 02/22/14 Status: Ordered hydrOXYzine 25 mg, 1 tab, Route: PO, Drug form: TAB, Q6H, Dosing Weight 144.682, kg, PRN Itc brooke, Start date: 02/20/14 20:31:00, Stop date: 03/22/14 20:30:00 Notes: (Same as: Atarax) Avoid alcohol. Start Date: 02/20/14 Stop Date: 02/22/14 Status: Discontinued insulin aspart 1 unit, 0.01 mL, Route: SUB-Q, Drug form: SOLN, Bedtime, Dosing Weight 144.682, kg, PRN Blood Glucose Results, Start date: 02/17/14 9:49:00, Duration: 30 day, S top date: 03/19/14 9:48:00 Notes: Roll in palms of hands gently; Do not shake vigorously. (Same as: NovoLO G)"single patient use only" Stable for 28 days at room temperature.Expires in _ ____ days from Date Start Date: 02/17/14 Stop Date: 02/22/14 Status: Discontinued insulin aspart 4 unit, 0.04 mL, Route: SUB-Q, Drug form: SOLN, TID-Before Meals, Dosing Weight 144.682, kg, PRN Blood Glucose Results, Start date: 02/17/14 9:49:00, Duration: 30 day, Stop date: 03/19/14 9:48:00 Notes: Roll in palms of hands gently; Do not shake vigorously. (Same as: NovoLO G)"single patient use only" Stable for 28 days at room temperature.Expires in _ ____ days from Date Start Date: 02/17/14 Stop Date: 02/22/14 Status: Discontinued insulin aspart 5 unit, 0.05 mL, Route: SUB-Q, Drug form: SOLN, TID-Before Meals, Dosing Weight 144.682, kg, PRN Blood Glucose Results, Start date: 02/17/14 9:49:00, Duration: 30 day, Stop date: 03/19/14 9:48:00 Notes: Roll in palms of hands gently; Do not shake vigorously. (Same as: NovoLO G)"single patient use only" Stable for 28 days at room temperature.Expires in _ ____ days from Date Start Date: 02/17/14 Stop Date: 02/22/14 Status: Discontinued insulin aspart 1 unit, 0.01 mL, Route: SUB-Q, Drug form: SOLN, TID-Before Meals, Dosing Weight 144.682, kg, PRN Blood Glucose Results, Start date: 02/17/14 9:49:00, Duration: 30 day, Stop date: 03/19/14 9:48:00 Notes: Roll in palms of hands gently; Do not shake vigorously. (Same as: NovoLO G)"single patient use only" Stable for 28 days at room temperature.Expires in _ ____ days from Date Start Date: 02/17/14 Stop Date: 02/22/14 Status: Discontinued insulin aspart 2 unit, 0.02 mL, Route: SUB-Q, Drug form: SOLN, TID-Before Meals, Dosing Weight 144.682, kg, PRN Blood Glucose Results, Start date: 02/17/14 9:49:00, Duration: 30 day, Stop date: 03/19/14 9:48:00 Notes: Roll in palms of hands gently; Do not shake vigorously. (Same as: NovoLO G)"single patient use only" Stable for 28 days at room temperature.Expires in _ ____ days from Date Start Date: 02/17/14 Stop Date: 02/22/14 Status: Discontinued insulin aspart 3 unit, 0.03 mL, Route: SUB-Q, Drug form: SOLN, TID-Before Meals, Dosing Weight 144.682, kg, PRN Blood Glucose Results, Start date: 02/17/14 9:49:00, Duration: 30 day, Stop date: 03/19/14 9:48:00 Notes: Roll in palms of hands gently; Do not shake vigorously. (Same as: NovoLO G)"single patient use only" Stable for 28 days at room temperature.Expires in _ ____ days from Date Start Date: 02/17/14 Stop Date: 02/22/14 Status: Discontinued insulin aspart 3 unit, 0.03 mL, Route: SUB-Q, Drug form: SOLN, Bedtime, Dosing Weight 144.682, kg, PRN Blood Glucose Results, Start date: 02/17/14 9:49:00, Duration: 30 day, S top date: 03/19/14 9:48:00 Notes: Roll in palms of hands gently; Do not shake vigorously. (Same as: NovoLO G)"single patient use only" Stable for 28 days at room temperature.Expires in _ ____ days from Date Start Date: 02/17/14 Stop Date: 02/22/14 Status: Discontinued insulin aspart 4 unit, 0.04 mL, Route: SUB-Q, Drug form: SOLN, Bedtime, Dosing Weight 144.682, kg, PRN Blood Glucose Results, Start date: 02/17/14 9:49:00, Duration: 30 day, S top date: 03/19/14 9:48:00 Notes: Roll in palms of hands gently; Do not shake vigorously. (Same as: NovoLO G)"single patient use only" Stable for 28 days at room temperature.Expires in _ ____ days from Date Start Date: 02/17/14 Stop Date: 02/22/14 Status: Discontinued insulin aspart 2 unit, 0.02 mL, Route: SUB-Q, Drug form: SOLN, Bedtime, Dosing Weight 144.682, kg, PRN Blood Glucose Results, Start date: 02/17/14 9:49:00, Duration: 30 day, S top date: 03/19/14 9:48:00 Notes: Roll in palms of hands gently; Do not shake vigorously. (Same as: NovoLO G)"single patient use only" Stable for 28 days at room temperature.Expires in _ ____ days from Date Start Date: 02/17/14 Stop Date: 02/22/14 Status: Discontinued Lactated Ringers Injection IV 1000 mL 1,000 mL, Rate: 25 ml/hr, Infuse over: 40 hr, Route: IV, Dosing Weight 144.682 k g, Total Volume: 1,000, Start date: 02/20/14 11:43:00, Duration: 30 day, Stop da te: 03/22/14 11:42:00 Start Date: 02/20/14 Stop Date: 02/20/14 Status: Discontinued LaMICtal (Lamotrigine) XR 400 mg tab Pt's Own MED LaMICtal (Lamotrigine) XR 400 mg tab Pt's Own MED, 400 mg, Drug form: MISC , Route: PO, Daily, 02/18/14 9:00:00, Duration: 30 day, Stop date: 03/19/14 9:00 :00 Start Date: 02/18/14 Stop Date: 02/18/14 Status: Discontinued Lamictal 200mg Lamictal 200mg, 2 tab, Drug form: MISC, Route: PO, Daily, 02/18/14 10:17:00, Dur ation: 30 day, Stop date: 03/20/14 9:00:00 Start Date: 02/18/14 Stop Date: 02/22/14 Status: Discontinued LaMICtal XR 400 mg, Route: PO, Drug form: ERTAB, Daily, Dosing Weight 144.682, kg, Start emigdio e: 02/18/14 9:00:00, Duration: 30 day, Stop date: 03/19/14 9:00:00 Start Date: 02/18/14 Stop Date: 02/17/14 Status: Deleted LaMICtal XR 200 mg oral tablet, extended release 400 mg=2 tab, PO, Daily, 0 Refill(s) Start Date: 02/17/14 Status: Ordered lamoTRIgine 100 mg oral tablet 200 mg, 2 tab, Route: PO, Drug form: TAB, Daily, Dosing Weight 144.682, kg, Star t date: 02/17/14 11:00:00, Stop date: 03/19/14 9:00:00 Notes: (Same as:LaMICtal) Start Date: 02/17/14 Stop Date: 02/17/14 Status: Discontinued lamoTRIgine 200 mg oral tablet 2 tabs, PO, Daily, 0 Refill(s) Start Date: 02/17/14 Stop Date: 02/17/14 Status: Discontinued Lasix 20 mg oral tablet 20 mg=1 tab, PO, BID, # 30 tab, 0 Refill(s) Start Date: 02/17/14 Status: Ordered Lasix 20 mg oral tablet 20 mg, 1 tab, Route: PO, Drug form: TAB, BID, Dosing Weight 144.682, kg, Start d ate: 02/17/14 17:00:00, Duration: 30 day, Stop date: 03/19/14 9:00:00 Notes: (Same as: Lasix) May cause GI upset. Give with food or milk. Start Date: 02/17/14 Stop Date: 02/22/14 Status: Discontinued levothyroxine 125 microgram, 1 tab, Route: PO, Drug form: TAB, [id number], Dosing Weight 144.682, kg, Start date: 02/18/14 6:30:00, Duration: 30 day, Stop date: 03/19/14 6:30:00 Notes: Take 1 hour before or 2 hours after meal; Enteral feeds may interefere wi th the absorption of this medication. (Same as:Levothroid) Start Date: 02/18/14 Stop Date: 02/22/14 Status: Discontinued levothyroxine 125 mcg (0.125 mg) oral tablet 125 microgram=1 tab, PO, Daily, 0 Refill(s) Start Date: 02/17/14 Status: Ordered lidocaine 1% 1 ml, Route: SUB-Q, Drug Form: INJ, Dosing Weight 145.455, kg, ONCE, STAT, Start date: 02/16/14 18:11:00, Stop date: 02/16/14 18:11:00 Notes: Preservative free. (Same as: Xylocaine MPF) Start Date: 02/16/14 Stop Date: 02/16/14 Status: Completed meperidine 12.5 mg, Route: IVP, Q30Min, Dosing Weight 144.682, kg, PRN Other -See Comment, For shivering, Start date: 02/20/14 12:10:00, Duration: 2 doses or times, Stop d ate: Limited # of times Start Date: 02/20/14 Stop Date: 02/20/14 Status: Discontinued metFORMIN 500 mg oral tablet 1,000 mg=2 tab, PO, BID, 0 Refill(s) Start Date: 02/17/14 Status: Ordered methylPREDNISolone 125 mg, Route: IVP, ONCE, Dosing Weight 145.455, kg, Priority: STAT, Start date: 02/16/14 19:38:00, Stop date: 02/16/14 19:38:00 Start Date: 02/16/14 Stop Date: 02/16/14 Status: Completed morphine Sulfate 4 mg, Route: IVP, Drug form: INJ, ONCE, Dosing Weight 145.455, kg, Priority: STA T, Start date: 02/16/14 17:04:00, Stop date: 02/16/14 17:04:00 Start Date: 02/16/14 Stop Date: 02/16/14 Status: Completed morphine Sulfate 4 mg, 2 mL, Route: IVP, Drug form: INJ, Q3H, Dosing Weight 145.455, kg, PRN Pain Score 4-6, Start date: 02/17/14 0:03:00, Duration: 30 day, Stop date: 03/19/14 0:02:00 Notes: (Same as:MORPhine Sulfate) Start Date: 02/17/14 Stop Date: 02/22/14 Status: Discontinued naloxone 0.04 mg, Route: IVP, Q2MIN, Dosing Weight 144.682, kg, PRN Narcotic Reversal, St art date: 02/20/14 12:10:00, Duration: 8 doses or times, Stop date: Limited # of times Start Date: 02/20/14 Stop Date: 02/20/14 Status: Discontinued nitroglycerin 0.4 mg, 1 tab, Route: SL, Drug form: TAB, Q5Min, Dosing Weight 144.682, kg, PRN Chest Pain, Start date: 02/17/14 0:49:00, Duration: 30 day, Stop date: 03/19/14 0:48:00, Chest Pain X3 Notes: (Same as:Nitroquick, Nitrostat)"Do Not Crush" Sublingual tablet Start Date: 02/17/14 Stop Date: 02/22/14 Status: Discontinued [place] 5/325 oral tablet 1 tab, Route: PO, Drug Form: TAB, Dosing Weight 144.682, kg, Q4H, PRN Pain, Star t date: 02/20/14 12:10:00, Duration: 30 day, Stop date: 03/22/14 12:09:00 Start Date: 02/20/14 Stop Date: 02/20/14 Status: Discontinued [place] 7.5/325 oral tablet 1 tab, Route: PO, Drug Form: TAB, Dosing Weight 144.682, kg, Q6H, PRN Pain Score 4-6, Start date: 02/18/14 9:17:00, Duration: 30 day, Stop date: 03/20/14 9:16:00 Notes: Same as [place] 325-7.5mg Do not exceed 4gm/day of acetaminophen. Start Date: 02/18/14 Stop Date: 02/22/14 Status: Discontinued ondansetron 4 mg, Route: IVP, ONCE, Dosing Weight 144.682, kg, PRN Nausea & Vomiting, Start date: 02/20/14 12:10:00 Start Date: 02/20/14 Stop Date: 02/20/14 Status: Discontinued ondansetron 4 mg, 2 mL, Route: IVP, Drug form: INJ, Q8H, Dosing Weight 144.682, kg, PRN Naus ea & Vomiting, Start date: 02/17/14 0:03:00, Duration: 30 day, Stop date: 03/19/14 0:02:00 Notes: (Same as: Zofran) Start Date: 02/17/14 Stop Date: 02/22/14 Status: Discontinued Solu-MEDROL 40 mg, 1 mL, Route: IVP, Drug form: INJ, Q8H, Dosing Weight 144.682, kg, Start d ate: 02/18/14 16:00:00, Duration: 30 day, Stop date: 03/20/14 8:00:00 Notes: (Same as:Solu-MEDROL, A-Methapred) Start Date: 02/18/14 Stop Date: 02/22/14 Status: Discontinued Unasyn + Sodium Chloride 0.9% IV 100 mL 3 gm, 1 ea, Route: IVPB, Q6H, Dosing Weight 144.682, kg, Start date: 02/17/14 18 :00:00, Duration: 30 day, Stop date: 03/19/14 12:00:00 Notes: Dosing based on Ampicillin component (Same as: Unasyn) Start Date: 02/17/14 Stop Date: 02/21/14 Status: Discontinued vancomycin 1 gm, Route: IVPB, Drug form: INJ, ONCE, Dosing Weight 145.455, kg, Priority: ST AT, Start date: 02/16/14 19:38:00, Stop date: 02/16/14 19:38:00 Start Date: 02/16/14 Stop Date: 02/16/14 Status: Completed vancomycin 1 gm, 200 mL, Route: IVPB, Drug form: INJ, [id number], Dosing Weight 145.455, kg, P riority: STAT, Start date: 02/17/14 0:03:00, Stop date: 03/18/14 18:57:00 Start Date: 02/17/14 Stop Date: 02/17/14 Status: Discontinued vancomycin 1 gm, 200 mL, Route: IVPB, Drug form: INJ, Bedtime, Dosing Weight 144.682, kg, S tart date: 02/17/14 21:00:00, Duration: 30 day, Stop date: 03/18/14 21:00:00 Start Date: 02/17/14 Stop Date: 02/17/14 Status: Canceled venlafaxine 150 mg, 1 cap, Route: PO, Drug form: ERCAP, Daily, Dosing Weight 144.682, kg, St art date: 02/17/14 11:00:00, Duration: 30 day, Stop date: 03/19/14 21:00:00 Notes: Do not open, crush, or chew. (Same As: Effexor XR) Start Date: 02/17/14 Stop Date: 02/22/14 Status: Discontinued venlafaxine 150 mg oral capsule, extended release 150 mg=1 cap, PO, Daily, 0 Refill(s) Start Date: 02/17/14 Status: Ordered Zofran 4 mg, Route: IVP, Drug form: INJ, ONCE, Dosing Weight 145.455, kg, Priority: STA T, Start date: 02/16/14 17:04:00, Stop date: 02/16/14 17:04:00 Start Date: 02/16/14 Stop Date: 02/16/14 Status: Completed Zosyn 3.375 gm, 100 mL, Route: IV, Drug form: PDR/INJ, [id number], Dosing Weight 144.682, kg, > 30 kg, Start date: 02/17/14 10:00:00, Duration: 30 day, Stop date: 03/19/14 2:00:00, Pediatric Dosing Special Instructions: Pediatric Dosing Notes: (Same as: Zosyn)Infuse over 4 hours. Activate and reconstitute before us e. Dosing based on Piperacillin component Start Date: 02/17/14 Stop Date: 02/17/14 Status: Discontinued Results ELECTROLYTES 1 2 3 Most recent to oldest [Reference Range]: 136 mEq/L (02/21/14 9:26 AM) 138 mEq/L (02/19/14 4:34 AM) 135 mEq/L (02/17/14 3:59 AM) Sodium Lvl [135-145 mEq/L] 4.3 mEq/L (02/21/14 9:26 AM) 4.8 mEq/L (02/19/14 4:34 AM) 4.8 mEq/L (02/17/14 3:59 AM) Potassium Lvl [3.5-5.1 mEq/L] 102 mEq/L (02/21/14 9:26 AM) 101 mEq/L (02/19/14 4:34 AM) 102 mEq/L (02/17/14 3:59 AM) Chloride Lvl [95-109 mEq/L] 29 mEq/L (02/21/14 9:26 AM) 31 mEq/L (02/19/14 4:34 AM) 20 mEq/L *LOW* (02/17/14 3:59 AM) CO2 [24-32 mEq/L] 9.3 mEq/L *LOW* (02/21/14 9:26 AM) 10.8 mEq/L (02/19/14 4:34 AM) 17.8 mEq/L (02/17/14 3:59 AM) AGAP [10.0-20.0 mEq/L] CHEM PANEL 1 2 3 Most recent to oldest [Reference Range]: 1.0 mg/dL (02/21/14 9:26 AM) 1.1 mg/dL (02/19/14 4:34 AM) 1.3 mg/dL (02/17/14 3:59 AM) Creatinine Lvl [0.5-1.4 mg/dL] 62 mL/min/1.73m2 1 *NA* (02/21/14 9:26 AM) 55 mL/min/1.73m2 2 *NA* (02/19/14 4:34 AM) 45 mL/min/1.73m2 3 *NA* (02/17/14 3:59 AM) eGFR 24 mg/dL *HI* (02/21/14 9:26 AM) 25 mg/dL *HI* (02/19/14 4:34 AM) 24 mg/dL *HI* (02/17/14 3:59 AM) BUN [7-22 mg/dL] 15 (02/16/14 7:00 PM) B/C Ratio [6-25] 159 mg/dL 4 *HI* (02/21/14 9:26 AM) 159 mg/dL 5 *HI* (02/19/14 4:34 AM) 263 mg/dL 6 *HI* (02/17/14 3:59 AM) Glucose Lvl [70-99 mg/dL] 7.7 g/dL (02/16/14 7:00 PM) Total Protein [6.4-8.4 g/dL] 3.8 g/dL (02/16/14 7:00 PM) Albumin Lvl [3.5-5.0 g/dL] 3.9 g/dL (02/16/14 7:00 PM) Globulin [2.0-4.0 g/dL] 1.0 (02/16/14 7:00 PM) A/G Ratio [0.7-1.6] 9.7 mg/dL (02/21/14 9:26 AM) 9.9 mg/dL (02/19/14 4:34 AM) 10.4 mg/dL (02/17/14 3:59 AM) Calcium Lvl [8.5-10.5 mg/dL] 18 unit/L (02/16/14 7:00 PM) ALT [0-65 unit/L] 15 unit/L (02/16/14 7:00 PM) AST [0-37 unit/L] 92 unit/L (02/16/14 7:00 PM) Alk Phos [39-136 unit/L] 0.6 mg/dL (02/16/14 7:00 PM) Bili Total [0.2-1.3 mg/dL] 1Result Comment: The eGFR is calculated [...] be mul tiplied by the estimated BMI. 3Result Comment: The eGFR is calculated using [...] be mul tiplied by the estimated BMI. 4Interpretive Data: Adult reference range values reflect the clinical guidelines of the [employer]. 5Interpretive Data: Adult reference range values reflect the clinical guidelines of the [employer]. 6Interpretive Data: Adult reference range values reflect the clinical guidelines of the [employer]. SPECIAL CHEMISTRY 1 2 3 Most recent to oldest [Reference Range]: 5.7 % *HI* (02/17/14 3:59 AM) Hgb A1C [<=5.6 %] TOXICOLOGY 1 2 3 Most recent to oldest [Reference Range]: 5.4 ug/ml 7 *NA* (02/17/14 12:41 PM) Vanco Lvl 7Interpretive Data: Therapeutic Range: Trough: 10 - 20 ug/mL Peak: 20 - 40 ug/mL Potential Toxicity: >80 ug/mL HEMATOLOGY 1 2 3 Most recent to oldest [Reference Range]: 14.0 K/CMM *HI* (02/21/14 9:26 AM) 7.1 K/CMM (02/19/14 4:34 AM) 13.3 K/CMM *HI* (02/18/14 5:10 AM) WBC [3.7-10.4 K/CMM] 4.22 M/CMM (02/21/14 9:26 AM) 4.13 M/CMM *LOW* (02/19/14 4:34 AM) 4.73 M/CMM (02/18/14 5:10 AM) RBC [4.20-5.40 M/CMM] 12.4 g/dL (02/21/14 9:26 AM) 12.5 g/dL (02/19/14 4:34 AM) 14.4 g/dL (02/18/14 5:10 AM) Hgb [12.0-16.0 g/dL] 37.9 % (02/21/14 9:26 AM) 37.4 % (02/19/14 4:34 AM) 43.3 % (02/18/14 5:10 AM) Hct [36.0-48.0 %] 89.9 fL (02/21/14 9:26 AM) 90.5 fL (02/19/14 4:34 AM) 91.5 fL (02/18/14 5:10 AM) MCV [80.0-98.0 fL] 29.4 pg (02/21/14 9:26 AM) 30.2 pg (02/19/14 4:34 AM) 30.4 pg (02/18/14 5:10 AM) MCH [27.0-31.0 pg] 32.8 g/dL (02/21/14 9:26 AM) 33.4 g/dL (02/19/14 4:34 AM) 33.2 g/dL (02/18/14 5:10 AM) MCHC [32.0-36.0 g/dL] 13.2 % (02/21/14 9:26 AM) 13.4 % (02/19/14 4:34 AM) 13.6 % (02/18/14 5:10 AM) RDW [11.5-14.5 %] 240 K/CMM (02/21/14 9:26 AM) 199 K/CMM (02/19/14 4:34 AM) 184 K/CMM (02/18/14 5:10 AM) Platelet [133-450 K/CMM] 6.7 fL *LOW* (02/21/14 9:26 AM) 6.9 fL *LOW* (02/19/14 4:34 AM) 7.1 fL *LOW* (02/18/14 5:10 AM) MPV [7.4-10.4 fL] 82.9 % *HI* (02/21/14 9:26 AM) 81.9 % *HI* (02/19/14 4:34 AM) 69.4 % (02/18/14 5:10 AM) Segs [45.0-75.0 %] 13.9 % *LOW* (02/21/14 9:26 AM) 14.4 % *LOW* (02/19/14 4:34 AM) 17.0 % *LOW* (02/18/14 5:10 AM) Lymphocytes [20.0-40.0 %] 2.8 % (02/21/14 9:26 AM) 3.5 % (02/19/14 4:34 AM) 12.7 % *HI* (02/18/14 5:10 AM) Monocytes [2.0-12.0 %] 0.7 % (02/18/14 5:10 AM) 0.1 % (02/17/14 3:59 AM) 0.2 % (02/16/14 5:00 PM) Eosinophils [0.0-4.0 %] 0.4 % (02/21/14 9:26 AM) 0.2 % (02/19/14 4:34 AM) 0.2 % (02/18/14 5:10 AM) Basophils [0.0-1.0 %] 11.6 K/CMM *HI* (02/21/14 9:26 AM) 5.9 K/CMM (02/19/14 4:34 AM) 9.2 K/CMM *HI* (02/18/14 5:10 AM) Segs-Bands # [1.5-8.1 K/CMM] 2.0 K/CMM (02/21/14 9:26 AM) 1.0 K/CMM (02/19/14 4:34 AM) 2.3 K/CMM (02/18/14 5:10 AM) Lymphocytes # [1.0-5.5 K/CMM] 0.4 K/CMM (02/21/14 9:26 AM) 0.2 K/CMM (02/19/14 4:34 AM) 1.7 K/CMM *HI* (02/18/14 5:10 AM) Monocytes # [0.0-0.8 K/CMM] 0.1 K/CMM (02/18/14 5:10 AM) Eosinophils # [0.0-0.5 K/CMM] 0.1 K/CMM (02/21/14 9:26 AM) 0.1 K/CMM (02/17/14 3:59 AM) 0.1 K/CMM (02/16/14 5:00 PM) Basophils # [0.0-0.2 K/CMM] 27.4 seconds 8 (02/17/14 12:41 PM) PTT [22.9-35.8 seconds] 8Interpretive Data: Heparin Therapeutic Range: 57 - 92 Seconds Medications Administered During Your Visit No data available for this section Immunizations No data available for this section Procedures Procedure Type Body Site Date of Procedure Related Diagnosis Appendectomy Cholecystocecostomy 1981 Gastric bypass Social History Social History Type Response Smoking Status Former smoker, Previous treatment: None, Ready to change: Yes, Concerns about tobacco use in household: Yes, Exposure to Tobacco Smoke None, Cigarette Smoking Last 365 Days Yes, Reg Smoking Cessation Counseling Yes Assessment and Plan Extracted from: Title: Clinical Document Author: Faye Mccrary MD Date: 02/22/14 Medicine Progress Daily Chief Complaint: lip abscess Subjective & Interval history: Patient seen and examined. c/o lip pain with dressing. Refused morphine and toradol. Objective: Vital Signs (last 24 hrs) Last Charted Minimum Maximum Temp98.5 (FEB 22 08:45)97.3 (FEB 21:02)98.5 (FEB 22:45) Heart RateL 59 (FEB 22:45)L 51 (FEB 22 00:00)L 59 (FEB 21 20:00) Resp Rate 18 (FEB 22:45)16 (FEB 21 12:02)18 (FEB 22 08:45) SBPH 146 (FEB 22 08:45)124 (FEB 21 16:00)H 164 (FEB 22 04:00) DBP78 (FEB 22 08:45)66 (FEB 21 12:02)80 (FEB 21 20:00) Medications and labs reviewed as below. PHYSICAL EXAM: GENERAL: AAO X 3 NAD HEENT: NCAT, PERRL, EOMI, NECK: Supple, midline trachea LUNGS: CTAB, No rales, rhonchi or wheezes. CARDIOVASCULAR: S1, S2 normal. No gallops, rubs or murmurs. ABDOMEN: Soft, nontender and nondistended. Bowel sounds present. EXTREMITIES: No edema, clubbing or cyanosis. SKIN: No rashes. IMPRESSION: Abscess secondary to insect bite and infection with cellulitis. Diabetes mellitus. Hypertension. Hyperlipidemia. PLAN & TREATMENT cx postive for MRSA sensitive to clinda and bactrim. stop rocephin wound care pain management consult. using medication for dressing change only will need home health for wound care and dressing chnage. states she will be unable to do dressing. ISS BP ok For details see orders. Disposition: [facility] Input/Output RecordInOutBal 02/824hr Tot 1 0 1 02/724hr Tot [phone] Scheduled Meds (12):atenolol (atenolol 50 mg oral tablet), clindamycin + Sodium Chloride 0.9% IV 100 mL, clonazePAM, enoxaparin, famotidine, furosemide (Lasix 20 mg oral tablet), gabapentin (gabapentin 400 mg oral capsule), gemfibrozil, levothyroxine, methylPREDNISolone (Solu-MEDROL), non-formulary (Lamictal 200mg), venlafaxine Unscheduled Meds: None PRN Meds (21):Dextrose 50% in Water IV (Dextrose 50% Syringe), Dextrose 50% in Water IV (Dextrose 50% Syringe), acetaminophen-hydrocodone ([place] 7.5/325 oral tablet), acetaminophen, atropine, docusate, glucagon, hydrOXYzine, hydromorphone, insulin aspart, insulin aspart, insulin aspart, insulin aspart, insulin aspart, insulin aspart, insulin aspart, insulin aspart, insulin aspart, morphine Sulfate, nitroglycerin, ondansetron One Time Meds: None Continuous Infusions: None Labs (Last four charted values) WBC H 14.0(FEB 21)7.1(FEB 19)H 13.3(FEB 18)H 11.2(FEB 17) Hgb 12.4(FEB 21)12.5(FEB 19)14.4(FEB 18)13.1(FEB 17) Hct 37.9(FEB 21)37.4(FEB 19)43.3(FEB 18)39.2(FEB 17) Plt 240(FEB 21)199(FEB 19)184(FEB 18)182(FEB 17) Na 136(FEB 21)138(FEB 19)135(FEB 17)136(FEB 16) K 4.3(FEB 21)4.8(FEB 19)4.8(FEB 17)4.2(FEB 16) CO2 29(FEB 21)31(FEB 19)L 20(FEB 17)28(FEB 16) Cl 102(FEB 21)101(FEB 19)102(FEB 17)101(FEB 16) Cr 1.0(FEB 21)1.1(FEB 19)1.3(FEB 17)1.1(FEB 16) BUN H 24(FEB 21)H 25(FEB 19)H 24(FEB 17)17(FEB 16) Glucose Random H 159(FEB 21)H 159(FEB 19)H 263(FEB 17)88(FEB 16) Ca 9.7(FEB 21)9.9(FEB 19)10.4(FEB 17)10.2(FEB 16) PTT 27.4(FEB 17)
== END | disposition home or self-care (01) ==
LOC: OR 05:31
PROVIDERS: ATTEND Podiatrist Foot Surgery
DX: M20.11 Hallux valgus (acquired), right foot (principal); M20.41 Other hammer toe(s) (acquired), right foot; E11.621 Type 2 diabetes mellitus with foot ulcer; L97.519 Non-pressure chronic ulcer of other part of right foot with unspecified severity; M85.671 Other cyst of bone, right ankle and foot; E11.51 Type 2 diabetes mellitus with diabetic peripheral angiopathy without gangrene; E11.42 Type 2 diabetes mellitus with diabetic polyneuropathy; G47.33 Obstructive sleep apnea (adult) (pediatric); I10 Essential (primary) hypertension; E78.5 Hyperlipidemia, unspecified; J44.9 Chronic obstructive pulmonary disease, unspecified; I83.90 Asymptomatic varicose veins of unspecified lower extremity; E03.9 Hypothyroidism, unspecified; N20.0 Calculus of kidney; F31.9 Bipolar disorder, unspecified; F17.210 Nicotine dependence, cigarettes, uncomplicated; Z88.8 Allergy status to other drugs, medicaments and biological substances; Z01.810 Encounter for preprocedural cardiovascular examination; Z01.812 Encounter for preprocedural laboratory examination; Z01.818 Encounter for other preprocedural examination; Z79.84 Long term (current) use of oral hypoglycemic drugs
CPT/HCPCS: 28270; 28285; 28296; 36415 ×2; 71046; 80048; 82948; 85025; 93005; 97597; C1713 ×2; J1100; J1885; J2001; J2250; J2405; 76001; J0690

== ENCOUNTER 2018-04-04 17:11 | Inpatient (IN) | payer MEDICARE ==
[~2018-04-04] VITALS: Ht 177.8 cm; Wt 133.4 kg
[~2018-04-04 17:11] MED LIST changes: -BUPIVACAINE HCL 0.5% 10ML MPF VIAL INJ ONE; -CEFAZOLIN SOD 2 GM/D5W 50ML 50 ML IV ONE; -DEXAMETHASONE SOD PHOS INJ 4 MG/ML VIAL ONE; -FENTANYL CITRATE/PF 100MCG/2 ML INJ ONE; -KETOROLAC TROMETHAMINE 30 MG/ML VIAL ONE; -LIDOCAINE HCL 2% LOCAL INJ 5 ML SDV VIAL INJ ONE; -MIDAZOLAM HCL 2 MG/2 ML VIAL ONE; -MUPIROCIN 2% OINT 22 GM TUBE ONE; -ONDANSETRON HCL INJ 2 MG/ML VIAL ONE; -PROPOFOL IV EMULSION 10 MG/ML 20 ML VIAL ONE; -SEVOFLURANE INHAL SOLN 250 ML PEN BTL ONE
--- OUTSIDE RECORDS SUMMARY | 2018-04-04 17:16 | XMS REPORT | Continuity of Care Document ---
Author Author [facility] Organization Interface Address Unknown Phone Unavailable Problems Problem Status Onset Date Classification Date Reported Comments Source DX: G30.8 Active 12/15/2017 [facility] UNK Active 11/28/2016 [facility] DX: R10.9=UNSPECIFIED ABDOMINAL PAIN/K52 Active 03/28/2016 [facility] N95.0 - POSTMENOPAUSAL BLEEDING Active 07/06/2015 [facility] Discharge Diagnosis: Ureterolithiasis 05/26/2015 05/29/2015 [facility] ABD PAIN Active 05/25/2015 [facility] L74.519 - "PRIMARY FOCAL HYPERHIDROSIS, Active 05/01/2015 [facility] BDDC - GERD Active 03/28/2015 [facility] R10.9 - UNSPECIFIED ABDOMINAL PAIN Z98.8 Active 03/08/[address] 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 [facility]<sup>1, 2</sup> Active 02/19/2014 Problem 12/22/2016 Problem added by Discern Expert. [facility]<sup>1, 2</sup> Active 02/19/2014 Problem 05/20/2014 2Problem added by Discern Expert. [facility]<sup>1, 2</sup> Active 02/19/2014 Problem 05/18/2016 Problem added by Discern Expert. [facility] [place] UPPER LIP ABSCESS VS ANGIOEDEMA Active 02/16/2014 [facility] SWOLLEN LIP Active 02/16/2014 [facility] DM (<span ID="[id number]">Confirmed</span>) Resolved Problem 11/16/2015 LAURA Sun, [facility] [place] HTN - Hypertension Resolved Problem 11/16/2015 LAURA Sun, [facility] [place] Hyperthyroidism Resolved Problem 11/16/2015 LAURA Sun, [facility] [place] Bipolar Resolved Problem 12/22/2016 LAURA Patel, [place] DM (<span [id number]">Confirmed</span>) Resolved Problem 12/22/2016 LAURA Sun, [place] Gout Resolved Problem 12/22/2016 LAURA Patel, [place] HTN - Hypertension Resolved Problem 12/22/2016 LAURA Sun, [place] Hyperthyroidism Resolved Problem 03/31/2016 LAURA Sun, [place] DM (<span ID="[id number]">Confirmed</span>) Res[facility] Problem [facility]/20[facility] Problem 05/20/2014 LAURA Sun,[facility] Hyperthyroidism Resolved Problem 05/20/2014 [facility]URA Sun,[facility] COPD (<span ID="[id number]">Confirmed</span>) Resolved Problem 12/22/2016 [facility] Hemorrhoids Resolved Problem 12/22/2016 [facility] Hypothyroidism Active Problem 12/22/2016 [facility] Nephrolithiasis Resolved Problem 12/22/2016 [facility] Depression Resolved Problem 12/22/2016 [facility] OA (<span [id number]">Confirmed</span>) Resolved Problem 12/22/2016 [facility] Bipolar Resolved Problem 05/18/2016 [facility]URA Pat[facility], [facility] [place] DM (<span ID="[id number]">Confirmed</span>) Resolved Problem 05/18/2016 LAURA Sun, [facility] [place] Gout Resolved Problem 05/18/2016 LAURA Patel, [facility] [place] HTN - Hypertension Resolved Problem 05/18/2016 LAURA Sun, [facility] [place] Hyperthyroidism Resolved Problem 05/18/2016 LAURA Sun, [facility] [place] CELLULITIS/ABSCESS MOUTH [facility] HYPERCALCEMIA Active [facility] HYPERPARATHYROIDISM NOS Active [facility] UNSPECIFIED ABDOMINAL PAIN Active [facility] Medications Medication Details Route Status Patient Instructions Ordering Provider Order Date Source sodium chloride 0.9% 1000 ml INJ 1,000 mL 1,000 mL, Rate: 25 ml/hr, Infuse over: 40 hr, Route: IV, Dosing Weight 129.091 kg, Total Volume: 1,000, Start date: 12/19/16 11:32:00 CDT, Duration: 1 day, Stop date: 12/20/16 11:31:00 CDT Inactive 12/19/2016 [facility] Albuterol 0.833 MG/ML / Ipratropium [place] 0.167 MG/ML Inhalant Solution 3 mL, Route: NEB, Drug Form: SOLN, Dosing Weight 131.455, kg, ONCE, STAT, Start date: 11/13/16 8:31:00 CDT, Stop date: 11/13/16 8:31:00 CDTNotes: (Same as: Rachael) Inactive 11/13/2016 [facility] Sodium Chloride 0.154 MEQ/ML Injectable Solution 500 mL, 500 ml/hr, Infuse Over: 1 hr, Route: IV, 500, Drug form: INJ, ONCE, Dosing Weight 131.455 kg, Start date: 11/13/16 8:31:00 CDT, Stop date: 11/13/16 8:31:00 CDT, Bolus Inactive 11/13/2016 [facility] Metronidazole 7.5 MG/ML Topical Cream 1 appl, TOP, BID, # 45 gm, 0 Refill(s) Active 11/11/2016 [facility] Ondansetron 8 MG Oral Tablet 8 mg=1 tab, PO, TID, PRN Nausea & Vomiting, # 3 tab, 0 Refill(s) Active 11/11/2016 [facility] atorvastatin 40 mg oral tablet 40 mg=1 tab, PO, Bedtime, # 30 tab, 0 Refill(s) Active 11/11/2016 [facility] Vitamin B12 0 Refill(s) Active 11/11/2016 [facility] Azelastine hydrochloride 0.137 MG/ACTUAT / Fluticasone propionate 0.05 MG/ACTUAT Metered Dose Nasal [place] 2 spray, NASAL, Daily, # 23 gm, 1 Refill(s) Active 11/11/2016 [facility] Ventolin HFA 90 mcg/inh inhalation aerosol with adapter 2 puff, INHALER, Q6H, PRN wheezing, coughing, or shortness of breath, # 8 gm, 1 Refill(s) Active 11/11/2016 [facility] 120 ACTUAT Fluticasone propionate 0.22 MG/ACTUAT Metered Dose Inhaler [Flovent] 1 puff, INHALATION, BID, # 12 gm, 0 Refill(s) Active 11/11/2016 [facility] Vitamin A 0 Refill(s) Active 11/11/2016 [facility] Albuterol 0.83 MG/ML Inhalant Solution 2.49 mg=3 mL, INHALATION, Q6H, PRN wheezing, coughing, or shortness of breath, # 240 ea, 1 Refill(s) Active 11/11/2016 [facility] Vitamin D3 0 Refill(s) Active 11/11/2016 [facility] venlafaxine 75 mg oral capsule, extended release 75 mg=1 cap, PO, Daily, # 30 cap, 0 Refill(s) Active 11/11/2016 [facility] levothyroxine 100 mcg (0.1 mg) oral tablet 100 microgram=1 tab, PO, Daily, # 30 tab, 0 Refill(s) Active 11/11/2016 [facility] losartan 100 mg oral tablet 100 mg=1 tab, PO, Daily, # 30 tab, 0 Refill(s) Active 11/11/2016 [facility] Ciprofloxacin 500 MG Oral Tablet [Cipro] 500 mg=1 tab, PO, Q12H, X 7 day, # 14 tab, 0 Refill(s) Active 05/26/2015 [facility] Acetaminophen 325 MG / Hydrocodone Bitartrate 10 MG Oral Tablet 1 tab, PO, Q4H, PRN Pain, X 2 day, # 12 tab, 0 Refill(s) No Longer Active 05/26/2015 [facility] Tamsulosin hydrochloride 0.4 MG Oral Capsule [Flomax] 0.4 mg=1 cap, PO, Daily, # 30 cap, 0 Refill(s) Active 05/26/2015 [facility] Promethazine Hydrochloride 12.5 MG Oral Tablet [Phenergan] 12.5 mg=1 tab, PO, Q4H, PRN Other-See Comments, X 3 day, # 18 tab, 0 Refill(s) Active 05/26/2015 [facility] Ketorolac 15 mg, 0.5 mL, Route: IVP, Drug form: INJ, ONCE, Dosing Weight 147.273, kg, Priority: STAT, Start date: 05/26/15 1:42:00, Stop date: 05/26/15 1:42:00Notes: (Same as:Toradol) IV bolus must be given >15 seconds. Give IM administration slowly and deeply into the muscle. Not for use > 4 days MEDICATION WASTE Product Size: 30 mg Product Wasted: ___ mg Inactive 05/26/2015 [facility] Ondansetron 4 mg, 2 mL, Route: IVP, Drug form: INJ, ONCE, Dosing Weight 147.273, kg, Priority: STAT, Start date: 05/26/15 1:42:00, Stop date: 05/26/15 1:42:00Notes: (Same as: Zofran) MEDICATION WASTE P roduct Size: 4 mg Product Wasted: ___ mg Inactive 05/26/2015 [facility] Saline Flush 0.9% 10 mL, Route: IVP, Drug Form: INJ, Dosing Weight 147.273, kg, PRN, PRN Line Flush, Start date: 05/26/15 1:42:00, Duration: 30 day, Stop date: 06/25/15 1:41:00Notes: (Same as: BD Posiflush) Inactive 05/26/2015 [facility] Sodium Chloride 0.154 MEQ/ML Injectable Solution 1,000 mL, 1000 ml/hr, Infuse Over: 1 hr, Route: IV, 1,000, Drug form: INJ, ONCE, Priority: STAT, Dosing Weight 147.273 kg, Start date: 05/26/15 1:42:00, Duration: 1 doses or times, Stop date: 05/26/15 1:42:00 Inactive 05/26/2015 [facility] venlafaxine 150 mg, 1 cap, Route: PO, Drug form: ERCAP, Daily, Dosing Weight 145, kg, Start date: 05/17/14 9:00:00, Duration: 30 day, Stop date: 06/15/14 9:00:00Notes: Do not open, crush, or chew. (Same As: Eff exor XR) Inactive 05/17/2014 [facility] Losartan 25 mg, 1 tab, Route: PO, Drug form: TAB, Daily, Dosing Weight 145, kg, Start date: 05/17/14 9:00:00, Duration: 30 day, Stop date: 06/15/14 9:00:00Notes: (Same as: Cozaar) Inactive 05/17/2014 [facility] LaMICtal XR 400 mg, 4 tab, Route: PO, Drug form: ERTAB, Daily, Dosing Weight 145, kg, Start date: 05/17/14 9:00:00, Duration: 30 day, Stop date: 06/15/14 9:00:00Notes: Same as: LaMICtal XR Inactive 05/17/2014 [facility] Gemfibrozil 600 mg, 1 tab, Route: PO, Drug form: TAB, Daily, Dosing Weight 145, kg, Start date: 05/17/14 9:00:00, Duration: 30 day, Stop date: 06/15/14 9:00:00Notes: (Same as: Lopid) Inactive 05/17/2014 [facility] Atenolol 50 MG Oral Tablet 50 mg, 1 tab, Route: PO, Drug form: TAB, Daily, Dosing Weight 145, kg, Start date: 05/17/14 9:00:00, Duration: 30 day, Stop date: 06/15/14 9:00:00Notes: (Same As:Tenormin) Inactive 05/17/2014 [facility] Allopurinol 100 mg, 1 tab, Route: PO, Drug form: TAB, Daily, Dosing Weight 145, kg, Start date: 05/17/14 9:00:00, Duration: 30 day, Stop date: 06/15/14 9:00:00Notes: (Same as: Zyloprim) Inactive 05/17/2014 [facility] Promethazine Hydrochloride 12.5 MG Oral Tablet [Phenergan] 12.5 mg=1 tab, PO, Q4H, Nausea & Vomiting, # 60 tab, 0 Refill(s) Active 05/17/2014 [facility] Docusate Sodium 100 MG Oral Capsule 100 mg=1 cap, PO, BID, # 30 cap, 0 Refill(s) Active 05/17/2014 [facility] Acetaminophen 300 MG / Codeine Phosphate 30 MG Oral Tablet 1 tab, PO, Q4H, Pain Score 1-3, # 50 tab, 0 Refill(s) Active 05/17/2014 [facility] Thyroxine 125 microgram, 1 tab, Route: PO, Drug form: TAB, Q630AM, Dosing Weight 145, kg, Start date: 05/17/14 6:30:00, Duration: 30 day, Stop date: 06/15/14 6:30:00Notes: Take 1 hour before or 2 hours after meal; Enteral feeds may interefere with the absorption of this medication. (Same as:Levothroid) Inactive 05/17/2014 [facility] Clonazepam 1 mg, 1 tab, Route: PO, Drug form: TAB, Bedtime, Dosing Weight 145, kg, Start date: 05/16/14 21:00:00, Duration: 30 day, Stop date: 06/14/14 21:00:00Notes: (Same As: KlonoPIN) No Longer Active 05/17/2014 [facility] Docusate 100 mg, 1 cap, Route: PO, Drug form: CAP, BID, Dosing Weight 145, kg, Start date: 05/16/14 17:00:00, Duration: 30 day, Stop date: 06/15/14 9:00:00Notes: (Same as: Colace) (Do Not Crush) No Longer Active 05/16/2014 [facility] Metformin hydrochloride 500 MG Oral Tablet 1,000 mg, 2 tab, Route: PO, Drug form: TAB, BID, Dosing Weight 145, kg, Start date: 05/16/14 17:00:00, Duration: 30 day, Stop date: 06/15/14 9:00:00Notes: (Same as: Glucophage) Take with meal No Longer Active 05/16/2014 [facility] gabapentin 400 MG Oral Capsule 400 mg, 1 cap, Route: PO, Drug form: CAP, BID, Dosing Weight 145, kg, Start date: 05/16/14 17:00:00, Duration: 30 day, Stop date: 06/15/14 9:00:00Notes: (Same as: Neurontin) No Longer Active 05/16/2014 [facility] Furosemide 20 MG Oral Tablet [Lasix] 20 mg, 1 tab, Route: PO, Drug form: TAB, BID, Dosing Weight 145, kg, Start date: 05/16/14 17:00:00, Duration: 30 day, Stop date: 06/15/14 9:00:00Notes: (Same as: Lasix) May cause GI upset. Give with food or milk. No Longer Active 05/16/2014 [facility] Famotidine 20 mg, 1 tab, Route: PO, Drug form: TAB, BID, Dosing Weight 145, kg, Start date: 05/16/14 17:00:00, Duration: 30 day, Stop date: 06/15/14 9:00:00Notes: (Same as: Pepcid) No Longer Active 05/16/2014 [facility] Ondansetron 4 mg, Route: IVP, ONCE, Dosing Weight 145, kg, PRN Nausea & Vomiting, Start date: 05/16/14 12:41:00 Inactive 05/16/2014 [facility] Labetalol 10 mg, Route: IVP, Q5Min, Dosing Weight 145, kg, PRN Elevated BP, Start date: 05/16/14 12:41:00, Duration: 5 doses or times, Stop date: Limited # of times Inactive 05/16/2014 [facility] Flumazenil 0.2 mg, Route: IVP, PRN, Dosing Weight 145, kg, PRN Benzodiazepine Reversal, Initial dose, Start date: 05/16/14 12:41:00, Duration: 30 day, Stop date: 06/15/14 12:40:00 Inactive 05/16/2014 [facility] Naloxone 0.04 mg, Route: IVP, Q2MIN, Dosing Weight 145, kg, PRN Narcotic Reversal, Start date: 05/16/14 12:41:00, Duration: 8 doses or times, Stop date: Limited # of times Inactive 05/16/2014 [facility] Morphine 2 mg, Route: IVP, Q5Min, Dosing Weight 145, kg, PRN Pain Score 4-6, Start date: 05/16/14 12:41:00, Duration: 5 doses or times, Stop date: Limited # of times Inactive 05/16/2014 [facility] Sodium Chloride 0.154 MEQ/ML Injectable Solution 1,000 mL, Rate: 100 ml/hr, Infuse over: 10 hr, Route: IV, Dosing Weight 145 kg, Total Volume: 1,000, Start date: 05/16/14 12:09:00, Duration: 30 day, Stop date: 06/15/14 12:08:00 No Longer Active 05/16/2014 [facility] Saline Flush 0.9% 10 ml, Route: IVP, Drug Form: INJ, Dosing Weight 145, kg, PRN, PRN Line Flush, Start date: 05/16/14 12:09:00, Duration: 30 day, Stop date: 06/15/14 12:08:00Notes: Same as: BD Posiflush Sterile No Longer Active 05/16/2014 [facility] Ondansetron 4 mg, 2 mL, Route: IVP, Drug form: INJ, Q6H, Dosing Weight 145, kg, PRN Nausea & Vomiting, Start date: 05/16/14 12:09:00, Duration: 30 day, Stop date: 06/15/14 12:08:00Notes: (Same as: Zofran) No Longer Active 05/16/2014 [facility] Promethazine 12.5 mg, 0.5 mL, Route: IVPB, Drug form: INJ, Q4H, Dosing Weight 145, kg, PRN Nausea & Vomiting, Start date: 05/16/14 12:09:00, Duration: 30 day, Stop date: 06/15/14 12:08:00Notes: Do not give IV push. (Same as: Phenergan) No Longer Active 05/16/2014 [facility] acetaminophen-codeine #3 1 tab, Route: PO, Drug Form: TAB, Dosing Weight 145, kg, Q4H, PRN Pain Score 1-3, Start date: 05/16/14 12:09:00, Duration: 30 day, Stop date: 06/15/14 12:08:00Notes: Do not exceed 4gm/day of acetaminophen. (Same as: Tylenol with Codeine # 3) No Longer Active 05/16/2014 [facility] Morphine 2 mg, 1 mL, Route: IVP, Drug form: INJ, Q3H, Dosing Weight 145, kg, PRN Pain Score 1-3, Start date: 05/16/14 12:09:00, Duration: 30 day, Stop date: 06/15/14 12:08:00Notes: (Same as:MORPhine Sulfate) No Longer Active 05/16/2014 [facility] Zofran 4 mg, 2 mL, Route: IVP, Drug form: INJ, ONCE, Dosing Weight 145, kg, PRN as needed for nausea/vomiting, Start date: 05/16/14 9:37:00Notes: (Same as: Zofran) No Longer Active 05/16/2014 [facility] losartan 25 mg oral tablet 25 mg=1 tab, PO, Daily, # 30 tab, 0 Refill(s) Active 05/16/2014 [facility] Ancef 2 gm, 50 mL, Route: IVPB, Drug form: INJ, ONCE, Dosing Weight 145, kg, Start date: 05/16/14 8:59:00, Duration: 1 doses or times, Stop date: 05/16/14 8:59:00 Inactive 05/16/2014 [facility] hydromorphone 2 mg oral tablet See Instructions, 2 tab, # 7 tab, 0 Refill(s)Special Instructions: 2 tab Active 02/22/2014 [facility] clindamycin 300 mg oral capsule 300 mg=1 cap, PO, Q6H, # 28 cap, 0 Refill(s) Active 02/22/2014 [facility] Clindamycin 600 mg, 4 mL, Route: IVPB, [id number], Dosing Weight 144.682, kg, Start date: 02/21/14 22:00:00, Duration: 30 day, Stop date: 03/23/14 14:00:00Notes: (clindamycin 150 mg/1 ml (600 mg/4 ml VL) INJ) (Same As: Cleocin) No Longer Active 02/22/2014 [facility] Ceftriaxone 2 gm, Route: IVPB, [id number], Dosing Weight 144.682, kg, Start date: 02/21/14 21:00:00, Duration: 30 day, Stop date: 03/22/14 21:00:00Notes: (Same As: Rocephin). No Longer Active 02/22/2014 [facility] hydromorphone 0.5 mg, 0.5 mL, Route: IVP, Drug form: INJ, Daily, PRN Wound Care, Start date: 02/21/14 15:43:00, Duration: 30 day, Stop date: 03/23/14 15:42:00 No Longer Active 02/21/2014 [facility] Dilaudid 0.5 mg, Route: IV, ONCE, Dosing Weight 144.682, kg, PRN, Start date: 02/21/14 15:36:00, for wound care Inactive 02/21/2014 [facility] Hydroxyzine 25 mg, 1 tab, Route: PO, Drug form: TAB, Q6H, Dosing Weight 144.682, kg, PRN Itching, Start date: 02/20/14 20:31:00, Stop date: 03/22/14 20:30:00Notes: (Same as: Atarax) Avoid alcohol. No Longer Active 02/21/2014 [facility] Acetaminophen 325 MG / Hydrocodone Bitartrate 5 MG Oral Tablet [[place] 5/325] 1 tab, Route: PO, Drug Form: TAB, Dosing Weight 144.682, kg, Q4H, PRN Pain, Start date: 02/20/14 12:10:00, Duration: 30 day, Stop date: 03/22/14 12:09:00 Inactive 02/20/2014 [facility] Ondansetron 4 mg, Route: IVP, ONCE, Dosing Weight 144.682, kg, PRN Nausea & Vomiting, Start date: 02/20/14 12:10:00 Inactive 02/20/2014 [facility] Meperidine 12.5 mg, Route: IVP, Q30Min, Dosing Weight 144.682, kg, PRN Other -See Comment, For shivering, Start date: 02/20/14 12:10:00, Duration: 2 doses or times, Stop date: Limited # of times Inactive 02/20/2014 [facility] Flumazenil 0.2 mg, Route: IVP, PRN, Dosing Weight 144.682, kg, PRN Benzodiazepine Reversal, Initial dose, Start date: 02/20/14 12:10:00, Duration: 30 day, Stop date: 03/22/14 11:09:00 Inactive 02/20/2014 [facility] Naloxone 0.04 mg, Route: IVP, Q2MIN, Dosing Weight 144.682, kg, PRN Narcotic Reversal, Start date: 02/20/14 12:10:00, Duration: 8 doses or times, Stop date: Limited # of times Inactive 02/20/2014 [facility] Fentanyl 25 microgram, Route: IVP, Q5Min, Dosing Weight 144.682, kg, PRN Pain Score 4-6, Start date: 02/20/14 12:10:00, Duration: 4 doses or times, Stop date: Limited # of times Inactive 02/20/2014 [facility] Hydromorphone 0.5 mg, Route: IVP, Q5Min, Dosing Weight 144.682, kg, PRN Pain Score 7-10, Start date: 02/20/14 12:10:00, Duration: 4 doses or times, Stop date: Limited # of times Inactive 02/20/2014 [facility] Acetaminophen 1,000 mg, Route: IVPB, Drug form: INJ, ONCE, Dosing Weight 144.682, kg, PRN Pain Score 1-3, Start date: 02/20/14 12:10:00, Duration: 1 doses or times, Stop date: Limited # of times Inactive 02/20/2014 [facility] Calcium Chloride 0.0014 MEQ/ML / Potassium Chloride 0.004 MEQ/ML / Sodium Chloride 0.103 MEQ/ML / Sodium Lactate 0.028 MEQ/ML Injectable Solution 1,000 mL, Rate: 25 ml/hr, Infuse over: 40 hr, Route: IV, Dosing Weight 144.682 kg, Total Volume: 1,000, Start date: 02/20/14 11:43:00, Duration: 30 day, Stop date: 03/22/14 11:42:00 Inactive 02/20/2014 [facility] Solu-Medrol 40 mg, 1 mL, Route: IVP, Drug form: INJ, Q8H, Dosing Weight 144.682, kg, Start date: 02/18/14 16:00:00, Duration: 30 day, Stop date: 03/20/14 8:00:00Notes: (Same as:Solu-MEDROL, A-Methapred) No Longer Active 02/18/2014 [facility] Lamictal 200mg Lamictal 200mg, 2 tab, Drug form: MISC, Route: PO, Daily, 02/18/14 10:17:00, Duration: 30 day, Stop date: 03/20/14 9:00:00 No Longer Active 02/18/2014 [facility] Acetaminophen 325 MG / Hydrocodone Bitartrate 7.5 MG Oral Tablet [[place] 7.5/325] 1 tab, Route: PO, Drug Form: TAB, Dosing Weight 144.682, kg, Q6H, PRN Pain Score 4-6, Start date: 02/18/14 9:17:00, Duration: 30 day, Stop date: 03/20/14 9:16:00Notes: Same as [place] 325-7.5mg Do not exceed 4gm/day of acetaminophen. No Longer Active 02/18/2014 [facility] LaMICtal (Lamotrigine) XR 400 mg tab Pt's Own MED LaMICtal (Lamotrigine) XR 400 mg tab Pt's Own MED, 400 mg, Drug form: MISC, Route: PO, Daily, 02/18/14 9:00:00, Duration: 30 day, Stop date: 03/19/14 9:00:00 Inactive 02/18/2014 [facility] LaMICtal XR 400 mg, Route: PO, Drug form: ERTAB, Daily, Dosing Weight 144.682, kg, Start date: 02/18/14 9:00:00, Duration: 30 day, Stop date: 03/19/14 9:00:00 No Longer Active 02/18/2014 [facility] Thyroxine 125 microgram, 1 tab, Route: PO, Drug form: TAB, Q630AM, Dosing Weight 144.682, kg, Start date: 02/18/14 6:30:00, Duration: 30 day, Stop date: 03/19/14 6:30:00Notes: Take 1 hour before or 2 hours after meal; Enteral feeds may interefere with the absorption of this medication. (Same as:Levothroid) No Longer Active 02/18/2014 [facility] Vancomycin 1 gm, 200 mL, Route: IVPB, Drug form: INJ, Bedtime, Dosing Weight 144.682, kg, Start date: 02/17/14 21:00:00, Duration: 30 day, Stop date: 03/18/14 21:00:00 Inactive 02/18/2014 [facility] Clonazepam 1 mg, 1 tab, Route: PO, Drug form: TAB, Bedtime, Dosing Weight 144.682, kg, Start date: 02/17/14 21:00:00, Duration: 30 day, Stop date: 03/18/14 21:00:00Notes: (Same As: KlonoPIN) No Longer Active 02/18/2014 [facility] Unasyn 3 gm, 1 ea, Route: IVPB, Q6H, Dosing Weight 144.682, kg, Start date: 02/17/14 18:00:00, Duration: 30 day, Stop date: 03/19/14 12:00:00Notes: Dosing based on Ampicillin component (Same as: Unasyn) No Longer Active 02/17/2014 [facility] Famotidine 20 mg, 1 tab, Route: PO, Drug form: TAB, BID, Dosing Weight 144.682, kg, Start date: 02/17/14 17:00:00, Duration: 30 day, Stop date: 03/19/14 9:00:00Notes: (Same as: Pepcid) No Longer Active 02/17/2014 [facility] Furosemide 20 MG Oral Tablet [Lasix] 20 mg, 1 tab, Route: PO, Drug form: TAB, BID, Dosing Weight 144.682, kg, Start date: 02/17/14 17:00:00, Duration: 30 day, Stop date: 03/19/14 9:00:00Notes: (Same as: Lasix) May cause GI upset. Give with food or milk. No Longer Active 02/17/2014 [facility] 24 HR lamotrigine 200 MG Extended Release Enteric Coated Tablet [Lamictal] 400 mg=2 tab, PO, Daily, 0 Refill(s) Active 02/17/2014 [facility] Atenolol 50 MG Oral Tablet 50 mg, 1 tab, Route: PO, Drug form: TAB, Daily, Dosing Weight 144.682, kg, Start date: 02/17/14 11:00:00, Duration: 30 day, Stop date: 03/19/14 9:00:00Notes: (Same As:Tenormin) No Longer Active 02/17/2014 [facility] venlafaxine 150 mg, 1 cap, Route: PO, Drug form: ERCAP, Daily, Dosing Weight 144.682, kg, Start date: 02/17/14 11:00:00, Duration: 30 day, Stop date: 03/19/14 21:00:00Notes: Do not open, crush, or chew. (Same As: Effexor XR) No Longer Active 02/17/2014 [facility] lamotrigine 200 MG Oral Tablet 200 mg, 2 tab, Route: PO, Drug form: TAB, Daily, Dosing Weight 144.682, kg, Start date: 02/17/14 11:00:00, Stop date: 03/19/14 9:00:00Notes: (Same as:LaMICtal) Inactive 02/17/2014 [facility] Gemfibrozil 600 mg, 1 tab, Route: PO, Drug form: TAB, Daily, Dosing Weight 144.682, kg, Start date: 02/17/14 11:00:00, Duration: 30 day, Stop date: 03/19/14 9:00:00Notes: (Same as: Lopid) No Longer Active 02/17/2014 [facility] gabapentin 400 MG Oral Capsule 400 mg, 1 cap, Route: PO, Drug form: CAP, BID, Dosing Weight 144.682, kg, Start date: 02/17/14 11:00:00, Duration: 30 day, Stop date: 03/19/14 9:00:00Notes: (Same as: Neurontin) No Longer Active 02/17/2014 [facility] Enoxaparin 40 mg, 0.4 mL, Route: SUB-Q, Drug form: INJ, [id number], Dosing Weight 144.682, kg, Start date: 02/17/14 10:00:00, Duration: 30 day, Stop date: 03/18/14 10:00:00Notes: (Same as: Lovenox) No Longer Active 02/17/2014 [facility] Zosyn 3.375 gm, 100 mL, Route: IV, Drug form: PDR/INJ, [id number], Dosing Weight 144.682, kg, > 30 kg, Start date: 02/17/14 10:00:00, Duration: 30 day, Stop date: 03/19/14 2:00:00, Pediatric DosingSpecial Instructions: Pediatric DosingNotes: (Same as: Zosyn) Infuse over 4 hours. Activate and reconstitute before use. Dosing based on Piperacillin component Inactive 02/17/2014 [facility] Dextrose 50% Syringe 12.5 gm, 25 mL, Route: IVP, Drug Form: INJ, Dosing Weight 144.682, kg, PRN, PRN Blood Glucose Results, Start date: 02/17/14 9:49:00, Duration: 30 day, Stop date: 03/19/14 8:48:00 No Longer Active 02/17/2014 [facility] Glucagon 1 mg, Route: IM, Drug form: PDR/INJ, PRN, Dosing Weight 144.682, kg, PRN Blood Glucose Results, Start date: 02/17/14 9:49:00, Duration: 30 day, Stop date: 03/19/14 8:48:00 No Longer Active 02/17/2014 [facility] Insulin, Aspart, Human 1 unit, 0.01 [...] days from Date No Longer Active 02/17/2014 [facility] Famotidine 20 mg=1 tab, PO, BID, # 60 tab, 0 Refill(s) Active 02/17/2014 [facility] Ciprofloxacin 500 mg, PO, Q12H, 0 Refill(s) Inactive 02/17/2014 [facility] Atropine 0.5 mg, 5 mL, Route: IVP, Drug form: INJ, PRN, Dosing Weight 144.682, kg, PRN Bradycardia, Start date: 02/17/14 0:49:00, Duration: 30 day, Stop date: 03/19/14 0:48:00, HR No Longer Active 02/17/2014 [facility] Nitroglycerin 0.4 mg, 1 tab, Route: SL, Drug form: TAB, Q5Min, Dosing Weight 144.682, kg, PRN Chest Pain, Start date: 02/17/14 0:49:00, Duration: 30 day, Stop date: 03/19/14 0:48:00, Chest Pain [id number]: (Same as:Hortencia hogan, Nitrostat) "Do Not Crush" Sublingual tablet No Longer Active 02/17/2014 [facility] gemfibrozil 600 mg oral tablet 600 mg=1 tab, PO, Daily, 0 Refill(s) Active 02/17/2014 [facility] gabapentin 400 MG Oral Capsule 400 mg=1 cap, PO, BID, 0 Refill(s) Active 02/17/2014 [facility] Furosemide 20 MG Oral Tablet [Lasix] 20 mg=1 tab, PO, BID, # 30 tab, 0 Refill(s) Active 02/17/2014 [facility] levothyroxine 125 mcg (0.125 mg) oral tablet 125 microgram=1 tab, PO, Daily, 0 Refill(s) Active 02/17/2014 [facility] clonazePAM 1 mg oral tablet 1 mg=1 tab, PO, Bedtime, 0 Refill(s) Active 02/17/2014 [facility] lamotrigine 200 MG Oral Tablet 2 tabs, PO, Daily, 0 Refill(s) Inactive 02/17/2014 [facility] allopurinol 100 mg oral tablet 100 mg=1 tab, PO, Daily, 0 Refill(s) Active 02/17/2014 [facility] venlafaxine 150 mg oral capsule, extended release 150 mg=1 cap, PO, Daily, 0 Refill(s) Active 02/17/2014 [facility] Metformin hydrochloride 500 MG Oral Tablet 1,000 mg=2 tab, PO, BID, 0 Refill(s) Active 02/17/2014 [facility] Atenolol 50 MG Oral Tablet 50 mg=1 tab, PO, Daily, 0 Refill(s) Active 02/17/2014 [facility] Vancomycin 1 gm, 200 mL, Route: IVPB, Drug form: INJ, [id number], Dosing Weight 145.455, kg, Priority: STAT, Start date: 02/17/14 0:03:00, Stop date: 03/18/14 18:57:00 Inactive 02/17/2014 [facility] Ondansetron 4 mg, 2 mL, Route: IVP, Drug form: INJ, Q8H, Dosing Weight 144.682, kg, PRN Nausea & Vomiting, Start date: 02/17/14 0:03:00, Duration: 30 day, Stop date: 03/19/14 0:02:00Notes: (Same as: Zofran) No Longer Active 02/17/2014 [facility] Acetaminophen 650 mg, 20.3 mL, Route: PO, Drug form: LIQ, Q4H, Dosing Weight 144.682, kg, PRN Pain 1-3/Temp > 100.4 F, Start date: 02/17/14 0:03:00, Duration: 30 day, Stop date: 03/19/14 0:02:00Notes: Max aceta [id number]=4985bn/day (4 gm/day). (Same as: Tylenol) No Longer Active 02/17/2014 [facility] Docusate 100 mg, 1 cap, Route: PO, Drug form: CAP, BID, Dosing Weight 144.682, kg, PRN Constipation, Start date: 02/17/14 0:03:00, Duration: 30 day, Stop date: 03/19/14 0:02:00Notes: (Same as: Colace) (Do Not Crush) No Longer Active 02/17/2014 [facility] Morphine 4 mg, 2 mL, Route: IVP, Drug form: INJ, Q3H, Dosing Weight 145.455, kg, PRN Pain Score 4-6, Start date: 02/17/14 0:03:00, Duration: 30 day, Stop date: 03/19/14 0:02:00Notes: (Same as:MORPhine Sulfate) No Longer Active 02/17/2014 [facility] Methylprednisolone 125 mg, Route: IVP, ONCE, Dosing Weight 145.455, kg, Priority: STAT, Start date: 02/16/14 19:38:00, Stop date: 02/16/14 19:38:00 Inactive 02/17/2014 [facility] Vancomycin 1 gm, Route: IVPB, Drug form: INJ, ONCE, Dosing Weight 145.455, kg, Priority: STAT, Start date: 02/16/14 19:38:00, Stop date: 02/16/14 19:38:00 Inactive 02/17/2014 [facility] Hydromorphone 1 mg, Route: IVP, ONCE, Dosing Weight 145.455, kg, Priority: STAT, Start date: 02/16/14 19:05:00, Stop date: 02/16/14 19:05:00 Inactive 02/17/2014 [facility] Lidocaine Hydrochloride 10 MG/ML Injectable Solution 1 ml, Route: SUB-Q, Drug Form: INJ, Dosing Weight 145.455, kg, ONCE, STAT, Start date: 02/16/14 18:11:00, Stop date: 02/16/14 18:11:00Notes: Preservative free. (Same as: Xylocaine MPF) Inactive 02/16/2014 [facility] Zofran 4 mg, Route: IVP, Drug form: INJ, ONCE, Dosing Weight 145.455, kg, Priority: STAT, Start date: 02/16/14 17:04:00, Stop date: 02/16/14 17:04:00 Inactive 02/16/2014 [facility] Morphine 4 mg, Route: IVP, Drug form: INJ, ONCE, Dosing Weight 145.455, kg, Priority: STAT, Start date: 02/16/14 17:04:00, Stop date: 02/16/14 17:04:00 Inactive 02/16/2014 [facility] Allergies, Adverse Reactions, Alerts Substance Category Reaction Severity Reaction type Status Date Reported Comments Source Benadryl Assertion Drug allergy Active [facility] SEJAL Inhibitors Assertion Drug allergy Active [facility] clindamycin Assertion Drug allergy Active [facility] Immunizations Immunization Date Given Site Status [...] lobe. No additional abnormalities are seen. 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 SL: [id number] 03/28/2016 - - Read by: Zeke Ruiz MD Dictated Date/time: 03/28/16 16:50 Electronically Signed by: Zeke Ruiz MD 03/28/16 17:00 FINAL REPORT [facility] Abdomen complete US Abdomen complete US [...] by: James Augustin 11/13/15 12:41 FINAL REPORT ABIOLAMarion Jorge CARDIAC ENZYMES Troponin-I null 0.00 - 0.40 05/26/2015 [facility] CARDIAC ENZYMES CK MB 1.4 ng/mL 0.5 - 3.6 05/26/2015 [facility] CHEM PANEL A/G Ratio 1.2 0.7 - 1.6 05/26/2015 [facility] CHEM PANEL AGAP 12.2 meq/L 10.0 - 20.0 05/26/2015 [facility] CHEM PANEL Globulin 3.5 g/dL 2.0 - 4.0 05/26/2015 [facility] CHEM PANEL B/C Ratio 23 6 - 25 05/26/2015 [facility] CHEM PANEL Total Protein 7.6 g/dL 6.4 - 8.4 05/26/2015 [facility] CHEM PANEL Albumin Lvl 4.1 g/dL 3.5 - 5.0 05/26/2015 [facility] CHEM PANEL AST 16 unit/L 0 - 37 05/26/2015 [facility] CHEM PANEL Alk Phos 116 unit/L 39 - 136 05/26/2015 [facility] CHEM PANEL ALT 36 unit/L 0 - 65 05/26/2015 [facility] CHEM PANEL Bili Total 0.5 mg/dL 0.2 - 1.3 05/26/2015 [facility] CHEM PANEL eGFR 52 mL/min/1.73m2 05/26/2015 [...] should be multiplied by the estimated BMI. [facility] CHEM PANEL Calcium Lvl 9.4 mg/dL 8.5 - 10.5 05/26/2015 [facility] CHEM PANEL CO2 28 meq/L 24 - 32 05/26/2015 [facility] CHEM PANEL Chloride Lvl 107 meq/L 95 - 109 05/26/2015 [facility] CHEM PANEL Potassium Lvl 4.2 meq/L 3.5 - 5.1 05/26/2015 [facility] CHEM PANEL Sodium Lvl 143 meq/L 135 - 145 05/26/2015 [facility] CHEM PANEL Creatinine Lvl 1.14 mg/dL 0.50 - 1.40 05/26/2015 [facility] CHEM PANEL BUN 26 mg/dL 7 - 22 05/26/2015 [facility] CHEM PANEL Glucose Lvl 131 mg/dL 70 - 99 05/26/2015 [facility] HEMATOLOGY Lymphocytes # 2.1 K/CMM 1.0 - 5.5 05/26/2015 [facility] HEMATOLOGY Eosinophils # 0.2 K/CMM 0.0 - 0.5 05/26/2015 [facility] HEMATOLOGY Basophils # 0.1 K/CMM 0.0 - 0.2 05/26/2015 [facility] HEMATOLOGY Basophils 1.0 % 0.0 - 1.0 05/26/2015 [facility] HEMATOLOGY Monocytes 7.3 % 2.0 - 12.0 05/26/2015 [facility] HEMATOLOGY Segs-Bands # 5.9 K/CMM 1.5 - 8.1 05/26/2015 [facility] HEMATOLOGY Eosinophils 1.8 % 0.0 - 4.0 05/26/2015 [facility] HEMATOLOGY Segs 66.6 % 45.0 - 75.0 05/26/2015 [facility] HEMATOLOGY Lymphocytes 23.3 % 20.0 - 40.0 05/26/2015 [facility] Monocytes # 0.6 K/CMM 0.0 - 0.8 05/26/2015 [facility] MPV 7.8 fL 7.4 - 10.4 05/26/2015 [facility] RDW 13.9 % 11.5 - 14.5 05/26/2015 [facility] MCHC 32.4 g/dL 32.0 - 36.0 05/26/2015 [facility] MCV 90.4 fL 80.0 - 98.0 05/26/2015 [facility] MCH 29.3 pg 27.0 - 31.0 05/26/2015 [facility] Hct 41.1 % 36.0 - 48.0 05/26/2015 [facility] Platelet 180 K/CMM 133 - 450 05/26/2015 [facility] WBC 8.8 K/CMM 3.7 - 10.4 05/26/2015 [facility] RBC 4.54 M/CMM 4.20 - 5.40 05/26/2015 [facility] Hgb 13.3 g/dL 12.0 - 16.0 05/26/2015 [facility] URINE AND STOOL UA Mucus Moderate /LPF None Seen /LPF 05/26/2015 [facility] URINE AND STOOL UA RBC null 0 - 2 05/26/2015 [facility] URINE AND STOOL UA CaOx Dora [...] STOOL UA Spec Grav 1.027 <=1.030 05/26/2015 [facility] URINE AND STOOL UA Glucose Negative mg/dL Negative mg/dL 05/26/2015 [facility] URINE AND STOOL UA Protein 100 mg/dL Negative mg/dL 05/26/2015 [facility] URINE AND STOOL UA Ketones Negative mg/dL Negative mg/dL 05/26/2015 [facility] URINE AND STOOL UA Bili Negative *NA* (05/26/15 2:06 AM) Negative 05/26/2015 [facility] URINE AND STOOL UA Nitrite Negative (05/26/15 2:06 AM) Negative 05/26/2015 [facility] URINE AND STOOL UA Blood Large *ABN* (05/26/15 2:06 AM) Negative 05/26/2015 [facility] URINE AND STOOL UA Sq Epi Many /LPF Few /LPF 05/26/2015 [facility] URINE AND STOOL UA Leuk Est Small *ABN* (05/26/15 2:06 AM) Negative 05/26/2015 [facility] URINE AND STOOL UA WBC 32 /HPF 0 - 5 05/26/2015 [facility] URINE AND STOOL UA Turbidity Marked *ABN* (05/26/15 2:06 AM) Clear 05/26/2015 [facility] Renal Stone CT Renal Stone CT [...] too small 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 No other urinary tract calculi are [...] Son Kay MD 03/15/15 16:34 FINAL REPORT [facility] CHEM PANEL Magnesium Lvl 1.9 mg/dL 1.8 - 2.4 05/17/2014 [facility] CHEM PANEL Phosphorus 3.2 mg/dL 2.5 - 4.5 05/17/2014 [facility] CHEM PANEL Calcium Lvl 9.4 mg/dL 8.5 - 10.5 05/17/2014 [facility] PARATHYROID PROFILE PTH Intact 61.8 pg/mL 11.1 - 79.5 05/17/2014 [facility] CHEM PANEL Phosphorus 3.1 mg/dL 2.5 - 4.5 05/16/2014 [facility] CHEM PANEL Magnesium Lvl 1.8 mg/dL 1.8 - 2.4 05/16/2014 [facility] CHEM PANEL Albumin Lvl 3.8 g/dL 3.5 - 5.0 05/16/2014 [facility] CHEM PANEL Calcium Lvl 9.7 mg/dL 8.5 - 10.5 05/16/2014 [facility] ELECTROLYTES AGAP 10.2 meq/L 10.0 - 20.0 05/16/2014 [facility] ELECTROLYTES eGFR 55 mL/min/1.73m2 [...] should be multiplied by the estimated BMI. [facility] ELECTROLYTES Sodium Lvl 142 meq/L 135 - 145 05/16/2014 [facility] ELECTROLYTES Potassium Lvl 4.2 meq/L 3.5 - 5.1 05/16/2014 [facility] ELECTROLYTES Chloride Lvl 109 meq/L 95 - 109 05/16/2014 [facility] ELECTROLYTES CO2 27 meq/L 24 - 32 05/16/2014 [facility] ELECTROLYTES Calcium Lvl 9.3 mg/dL 8.5 - 10.5 05/16/2014 [facility] ELECTROLYTES BUN 15 mg/dL 7 - 22 05/16/2014 [facility] ELECTROLYTES Creatinine Lvl 1.1 mg/dL 0.5 - 1.4 05/16/2014 [facility] ELECTROLYTES Glucose Lvl 116 mg/dL 70 - 99 05/16/2014 3Interpretive Data: Adult reference range values reflect the clinical guidelines of the [place] [employer]. [facility] PARATHYROID PROFILE PTH Intact 33.6 pg/mL 11.1 - 79.5 05/16/2014 [facility] PARATHYROID PROFILE PTH Intact 56.2 pg/mL 11.1 - 79.5 05/16/2014 5Result Comment: called to Phill Kumar 05/16/2014 12:45 lwb [facility] PARATHYROID PROFILE Ca Norm WB 1.24 mMol/L 1.05 - 1.25 05/16/2014 [facility] PARATHYROID PROFILE Ca Ion WB 1.28 mMol/L 1.05 - 1.25 05/16/2014 [facility] ELECTROLYTES Potassium WB 4.0 meq/L 3.5 - 5.1 05/16/2014 [facility] ELECTROLYTES AGAP 10.0 meq/L 10.0 - 20.0 05/16/2014 [facility] ELECTROLYTES eGFR 55 mL/min/1.73m2 [...] should be multiplied by the estimated BMI. [facility] ELECTROLYTES Sodium Lvl 143 meq/L 135 - 145 05/16/2014 [facility] ELECTROLYTES Creatinine Lvl 1.1 mg/dL 0.5 - 1.4 05/16/2014 [facility] ELECTROLYTES BUN 15 mg/dL 7 - 22 05/16/2014 [facility] ELECTROLYTES CO2 28 meq/L 24 - 32 05/16/2014 [facility] ELECTROLYTES Chloride Lvl 109 meq/L 95 - 109 05/16/2014 [facility] ELECTROLYTES Potassium Lvl 4.0 meq/L 3.5 - 5.1 05/16/2014 [facility] ELECTROLYTES Glucose Lvl 105 mg/dL 70 - 99 05/16/2014 4Interpretive Data: Adult reference range values reflect the clinical guidelines of the [place] [employer]. [facility] HEMATOLOGY Monocytes 8.1 % 2.0 - 12.0 05/16/2014 [facility] HEMATOLOGY Lymphocytes 30.8 % 20.0 - 40.0 05/16/2014 [facility] HEMATOLOGY Segs 58.1 % 45.0 - 75.0 05/16/2014 [facility] HEMATOLOGY Segs-Bands # 4.1 K/CMM 1.5 - 8.1 05/16/2014 [facility] HEMATOLOGY Basophils 0.8 % 0.0 - 1.0 05/16/2014 [facility] HEMATOLOGY Monocytes # 0.6 K/CMM 0.0 - 0.8 05/16/2014 [facility] HEMATOLOGY Lymphocytes # 2.2 K/CMM 1.0 - 5.5 05/16/2014 [facility] HEMATOLOGY Eosinophils 2.2 % 0.0 - 4.0 05/16/2014 [facility] HEMATOLOGY Basophils # 0.1 K/CMM 0.0 - 0.2 05/16/2014 [facility] HEMATOLOGY Eosinophils # 0.2 K/CMM 0.0 - 0.5 05/16/2014 [facility] HEMATOLOGY RBC 4.43 M/CMM 4.20 - 5.40 05/16/2014 [facility] HEMATOLOGY MCV 89.2 fL 80.0 - 98.0 05/16/2014 [facility] HEMATOLOGY RDW 13.7 % 11.5 - 14.5 05/16/2014 [facility] HEMATOLOGY MPV 7.5 fL 7.4 - 10.4 05/16/2014 [facility] HEMATOLOGY Platelet 178 K/CMM 133 - 450 05/16/2014 [facility] HEMATOLOGY Hct 39.5 % 36.0 - 48.0 05/16/2014 [facility] HEMATOLOGY Hgb 13.5 g/dL 12.0 - 16.0 05/16/2014 [facility] HEMATOLOGY MCH 30.4 pg 27.0 - 31.0 05/16/2014 [facility] HEMATOLOGY MCHC 34.1 g/dL 32.0 - 36.0 05/16/2014 [facility] HEMATOLOGY WBC 7.1 K/CMM 3.7 - 10.4 05/16/2014 [facility] Parathyroid SPECT NM Parathyroid [...] - This report was dictated by a School Counselor/Fellow. I have personally reviewed the images as well as the Resident's interpretation and agree with the findings. Read by: Lobito Daniels MD Resident: Lobito Daniels MD Dictated Date/time: 05/05/14 13:59 Electronically Signed by: Kassidy Pina MD 05/05/14 15:03 FINAL REPORT [facility] [place] Parathyroid scan NM Parathyroid scan NM EXAM: [...] - This report was dictated by a School Counselor/Fellow. I have personally reviewed the images as well as the Resident's interpretation and agree with the findings. Read by: Lobito Daniels MD Resident: Lobito Daniels MD Dictated Date/time: 05/05/14 13:59 Electronically Signed by: Kassidy Pina MD 05/05/14 15:03 FINAL REPORT [facility] CHEM PANEL eGFR 62 mL/min/1.73m2 02/21/2014 1Result [...] should be multiplied by the estimated BMI. [facility] CHEM PANEL AGAP 9.3 meq/L 10.0 - 20.0 02/21/2014 [facility] CHEM PANEL Calcium Lvl 9.7 mg/dL 8.5 - 10.5 02/21/2014 [facility] CHEM PANEL Chloride Lvl 102 meq/L 95 - 109 02/21/2014 [facility] CHEM PANEL Potassium Lvl 4.3 meq/L 3.5 - 5.1 02/21/2014 [facility] CHEM PANEL CO2 29 meq/L 24 - 32 02/21/2014 [facility] CHEM PANEL Creatinine Lvl 1.0 mg/dL 0.5 - 1.4 02/21/2014 [facility] CHEM PANEL BUN 24 mg/dL 7 - 22 02/21/2014 [facility] CHEM PANEL Sodium Lvl 136 meq/L 135 - 145 02/21/2014 [facility] CHEM PANEL Glucose Lvl 159 mg/dL 70 - 99 02/21/2014 4Interpretive Data: Adult reference range values reflect the clinical guidelines of the [place] [employer]. [facility] HEMATOLOGY Platelet 240 K/CMM 133 - 450 02/21/2014 [facility] HEMATOLOGY MPV 6.7 fL 7.4 - 10.4 02/21/2014 [facility] HEMATOLOGY MCHC 32.8 g/dL 32.0 - 36.0 02/21/2014 [facility] HEMATOLOGY RDW 13.2 % 11.5 - 14.5 02/21/2014 [facility] WBC 14.0 K/CMM 3.7 - 10.4 02/21/2014 [facility] MCV 89.9 fL 80.0 - 98.0 02/21/2014 [facility] MCH 29.4 pg 27.0 - 31.0 02/21/2014 [facility] Hct 37.9 % 36.0 - 48.0 02/21/2014 [facility] RBC 4.22 M/CMM 4.20 - 5.40 02/21/2014 [facility] Hgb 12.4 g/dL 12.0 - 16.0 02/21/2014 [facility] HEMATOLOGY Monocytes 2.8 % 2.0 - 12.0 02/21/2014 [facility] Basophils 0.4 % 0.0 - 1.0 02/21/2014 [facility] Segs-Bands # 11.6 K/CMM 1.5 - 8.1 02/21/2014 [facility] Lymphocytes # 2.0 K/CMM 1.0 - 5.5 02/21/2014 [facility] Lymphocytes 13.9 % 20.0 - 40.0 02/21/2014 [facility] Segs 82.9 % 45.0 - 75.0 02/21/2014 [facility] Basophils # 0.1 K/CMM 0.0 - 0.2 02/21/2014 [facility] Monocytes # 0.4 K/CMM 0.0 - 0.8 02/21/2014 [facility] ELECTROLYTES AGAP 10.8 meq/L 10.0 - 20.0 02/19/2014 [facility] ELECTROLYTES eGFR 55 mL/min/1.73m2 02/19/2014 2Result [...] should be multiplied by the estimated BMI. [facility] ELECTROLYTES Calcium Lvl 9.9 mg/dL 8.5 - 10.5 02/19/2014 [facility] ELECTROLYTES CO2 31 meq/L 24 - 32 02/19/2014 [facility] ELECTROLYTES Creatinine Lvl 1.1 mg/dL 0.5 - 1.4 02/19/2014 [facility] ELECTROLYTES Chloride Lvl 101 meq/L 95 - 109 02/19/2014 [facility] ELECTROLYTES Potassium Lvl 4.8 meq/L 3.5 - 5.1 02/19/2014 [facility] ELECTROLYTES Sodium Lvl 138 meq/L 135 - 145 02/19/2014 [facility] ELECTROLYTES Glucose Lvl 159 mg/dL 70 - 99 02/19/2014 5Interpretive Data: Adult reference range values reflect the clinical guidelines of the [place] [employer]. [facility] ELECTROLYTES BUN 25 mg/dL 7 - 22 02/19/2014 [facility] HEMATOLOGY Lymphocytes # 1.0 K/CMM 1.0 - 5.5 02/19/2014 [facility] HEMATOLOGY Monocytes # 0.2 K/CMM 0.0 - 0.8 02/19/2014 [facility] Lymphocytes 14.4 % 20.0 - 40.0 02/19/2014 [facility] HEMATOLOGY Basophils 0.2 % 0.0 - 1.0 02/19/2014 [facility] HEMATOLOGY Segs-Bands # 5.9 K/CMM 1.5 - 8.1 02/19/2014 [facility] HEMATOLOGY Monocytes 3.5 % 2.0 - 12.0 02/19/2014 [facility] HEMATOLOGY Segs 81.9 % 45.0 - 75.0 02/19/2014 [facility] Platelet 199 K/CMM 133 - 450 02/19/2014 [facility] MPV 6.9 fL 7.4 - 10.4 02/19/2014 [facility] HEMATOLOGY RDW 13.4 % 11.5 - 14.5 02/19/2014 [facility] MCHC 33.4 g/dL 32.0 - 36.0 02/19/2014 [facility] HEMATOLOGY WBC 7.1 K/CMM 3.7 - 10.4 02/19/2014 [facility] MCH 30.2 pg 27.0 - 31.0 02/19/2014 [facility] MCV 90.5 fL 80.0 - 98.0 02/19/2014 [facility] Hct 37.4 % 36.0 - 48.0 02/19/2014 [facility] HEMATOLOGY Hgb 12.5 g/dL 12.0 - 16.0 02/19/2014 [facility] HEMATOLOGY RBC 4.13 M/CMM 4.20 - 5.40 02/19/2014 [facility] HEMATOLOGY MCH 30.4 pg 27.0 - 31.0 02/18/2014 [facility] HEMATOLOGY MCHC 33.2 g/dL 32.0 - 36.0 02/18/2014 [facility] HEMATOLOGY RDW 13.6 % 11.5 - 14.5 02/18/2014 [facility] HEMATOLOGY Platelet 184 K/CMM 133 - 450 02/18/2014 [facility] HEMATOLOGY RBC 4.73 M/CMM 4.20 - 5.40 02/18/2014 [facility] HEMATOLOGY Hgb 14.4 g/dL 12.0 - 16.0 02/18/2014 [facility] HEMATOLOGY Hct 43.3 % 36.0 - 48.0 02/18/2014 [facility] HEMATOLOGY MPV 7.1 fL 7.4 - 10.4 02/18/2014 [facility] HEMATOLOGY MCV 91.5 fL 80.0 - 98.0 02/18/2014 [facility] HEMATOLOGY WBC 13.3 K/CMM 3.7 - 10.4 02/18/2014 [facility] HEMATOLOGY Lymphocytes # 2.3 K/CMM 1.0 - 5.5 02/18/2014 [facility] HEMATOLOGY Eosinophils # 0.1 K/CMM 0.0 - 0.5 02/18/2014 [facility] HEMATOLOGY Monocytes # 1.7 K/CMM 0.0 - 0.8 02/18/2014 [facility] HEMATOLOGY Eosinophils 0.7 % 0.0 - 4.0 02/18/2014 [facility] HEMATOLOGY Basophils 0.2 % 0.0 - 1.0 02/18/2014 [facility] HEMATOLOGY Segs-Bands # 9.2 K/CMM 1.5 - 8.1 02/18/2014 [facility] HEMATOLOGY Monocytes 12.7 % 2.0 - 12.0 02/18/2014 [facility] HEMATOLOGY Lymphocytes 17.0 % 20.0 - 40.0 02/18/2014 [facility] HEMATOLOGY Segs 69.4 % 45.0 - 75.0 02/18/2014 [facility] HEMATOLOGY PTT 27.4 s 22.9 - 35.8 02/17/2014 8Interpretive Data: Heparin Therapeutic Range: 57 - 92 Seconds [facility] TOXICOLOGY Vanco Lvl 5.4 ug/ml 02/17/2014 7Interpretive Data: Therapeutic Range: Trough: 10 - 20 ug/mL Peak: 20 - 40 ug/mL Potential Toxicity: >80 ug/mL [facility] ELECTROLYTES Chloride Lvl 102 meq/L 95 - 109 02/17/2014 [facility] ELECTROLYTES AGAP 17.8 meq/L 10.0 - 20.0 02/17/2014 [facility] ELECTROLYTES Calcium Lvl 10.4 mg/dL 8.5 - 10.5 02/17/2014 [facility] ELECTROLYTES CO2 20 meq/L 24 - 32 02/17/2014 [facility] ELECTROLYTES Glucose Lvl 263 mg/dL 70 - 99 02/17/2014 6Interpretive Data: Adult reference range values reflect the clinical guidelines of the [place]. [facility] ELECTROLYTES BUN 24 mg/dL 7 - 22 02/17/2014 [facility] ELECTROLYTES Creatinine Lvl 1.3 mg/dL 0.5 - 1.4 02/17/2014 [facility] ELECTROLYTES Sodium Lvl 135 meq/L 135 - 145 02/17/2014 [facility] ELECTROLYTES Potassium Lvl 4.8 meq/L 3.5 - 5.1 02/17/2014 [facility] ELECTROLYTES eGFR 45 mL/min/1.73m2 02/17/2014 3Result [...] should be multiplied by the estimated BMI. [facility] HEMATOLOGY Basophils # 0.1 K/CMM 0.0 - 0.2 02/17/2014 [facility] HEMATOLOGY Eosinophils 0.1 % 0.0 - 4.0 02/17/2014 [facility] SPECIAL CHEMISTRY Hgb A1C 5.7 % <=5.6 % 02/17/2014 [facility] CHEM PANEL AST 15 unit/L 0 - 37 02/17/2014 [facility] CHEM PANEL Alk Phos 92 unit/L 39 - 136 02/17/2014 [facility] CHEM PANEL ALT 18 unit/L 0 - 65 02/17/2014 [facility] CHEM PANEL Albumin Lvl 3.8 g/dL 3.5 - 5.0 02/17/2014 [facility] CHEM PANEL Total Protein 7.7 g/dL 6.4 - 8.4 02/17/2014 [facility] CHEM PANEL B/C Ratio 15 6 - 25 02/17/2014 [facility] CHEM PANEL Globulin 3.9 g/dL 2.0 - 4.0 02/17/2014 [facility] CHEM PANEL A/G Ratio 1.0 0.7 - 1.6 02/17/2014 [facility] CHEM PANEL Bili Total 0.6 mg/dL 0.2 - 1.3 02/17/2014 [facility] Facial bone wo contrast CT Facial [...] Beny Renee MD 02/16/14 23:26 FINAL REPORT [facility] HEMATOLOGY Basophils # 0.1 K/CMM 0.0 - 0.2 02/16/2014 [facility] HEMATOLOGY Eosinophils 0.2 % 0.0 - 4.0 02/16/2014 [facility] Vital Signs Vital Sign Value Date Comments Source Respitory Rate 11 12/19/2016 [facility] Systolic (mm Hg) 125 12/19/2016 [facility] Diastolic (mm Hg) 61 12/19/2016 [facility] Systolic (mm Hg) 93 12/19/2016 [facility] Diastolic (mm Hg) 69 12/19/2016 [facility] Respitory Rate 13 12/19/2016 [facility] Systolic (mm Hg) 132 12/19/2016 [facility] Diastolic (mm Hg) 71 12/19/2016 [facility] Respitory Rate 19 12/19/2016 [facility] Height 177.8 cm 12/18/2016 [facility] BMI Calculated 40.83 12/18/2016 [facility] Weight 129.091 12/18/2016 [facility] Respitory Rate 12 11/13/2016 [facility] Systolic (mm Hg) 125 11/13/2016 [facility] Diastolic (mm Hg) 69 11/13/2016 [facility] Respitory Rate 12 11/13/2016 [facility] Systolic (mm Hg) 121 11/13/2016 [facility] Diastolic (mm Hg) 64 11/13/2016 [facility] Respitory Rate 15 11/13/2016 [facility] Systolic (mm Hg) 175 11/13/2016 [facility] Diastolic (mm Hg) 72 11/13/2016 [facility] Weight 131.455 11/11/2016 [facility] BMI Calculated 41.58 11/11/2016 [facility] Height 177.8 cm 11/11/2016 [facility] Temperature Oral (F) 98.5 F 05/26/2015 [facility] Respitory Rate 18 05/26/2015 [facility] Heart Rate 65 05/26/2015 [facility] Systolic (mm Hg) 138 05/26/2015 [facility] Diastolic (mm Hg) 54 05/26/2015 [facility] Weight 147.273 05/26/2015 [facility] Temperature Oral (F) 98.1 F 05/26/2015 [facility] BMI Calculated 46.59 05/26/2015 [facility] Height 177.8 cm 05/26/2015 [facility] Systolic (mm Hg) 170 05/26/2015 [facility] Diastolic (mm Hg) 80 05/26/2015 [facility] Heart Rate 70 05/26/2015 [facility] Respitory Rate 18 05/26/2015 [facility] Heart Rate 70 02/09/2015 [facility] Respitory Rate 16 02/09/2015 [facility] Temperature Oral (F) 98.1 F 02/09/2015 [facility] Systolic (mm Hg) 146 02/09/2015 [facility] Diastolic (mm Hg) 79 02/09/2015 [facility] Height 177.8 cm 02/09/2015 [facility] BMI Calculated 46.01 02/09/2015 [facility] Weight 145.455 02/09/2015 [facility] Diastolic (mm Hg) 57 05/17/2014 [facility] Temperature Oral (F) 97.8 F 05/17/2014 [facility] Respitory Rate 18 05/17/2014 [facility] Heart Rate 71 05/17/2014 [facility] Systolic (mm Hg) 134 05/17/2014 [facility] Diastolic (mm Hg) 61 05/17/2014 [facility] Systolic (mm Hg) 124 05/17/2014 [facility] Temperature Oral (F) 97.6 F 05/17/2014 [facility] Center Respitory Rate 18 05/17/2014 [facility] Heart Rate 61 05/17/2014 [facility] Diastolic (mm Hg) 59 05/17/2014 [facility] Systolic (mm Hg) 105 05/17/2014 [facility] Respitory Rate 18 05/17/2014 [facility] Heart Rate 77 05/17/2014 [facility] Temperature Oral (F) 98.0 F 05/17/2014 [facility] BMI Calculated 45.87 05/16/2014 [facility] Weight 145 05/16/2014 [facility] Height 177.8 cm 05/16/2014 [facility] BMI Calculated 45.87 05/16/2014 [facility] Weight 145 05/16/2014 [facility] Height 177.8 cm 05/16/2014 [facility] Diastolic (mm Hg) 85 02/22/2014 [facility] Heart Rate 56 02/22/2014 [facility] Respitory Rate 17 02/22/2014 [facility] Systolic (mm Hg) 149 02/22/2014 [facility] Temperature Oral (F) 98.3 F 02/22/2014 [facility] Diastolic (mm Hg) 82 02/22/2014 [facility] Systolic (mm Hg) 145 02/22/2014 [facility] Heart Rate 56 02/22/2014 [facility] Respitory Rate 18 02/22/2014 [facility] Temperature Oral (F) 98.6 F 02/22/2014 [facility] Systolic (mm Hg) 146 02/22/2014 [facility] Diastolic (mm Hg) 78 02/22/2014 [facility] Respitory Rate 18 02/22/2014 [facility] Temperature Oral (F) 98.5 F 02/22/2014 [facility] Heart Rate 59 02/22/2014 [facility] Weight 144.682 02/17/2014 [facility] Height 177.8 cm 02/17/2014 [facility] BMI Calculated 45.77 02/17/2014 [facility] Weight 145.455 02/16/2014 [facility] BMI Calculated 46.01 02/16/2014 [facility] Height 177.8 cm 02/16/2014 [facility] Encounters Location Location Details Encounter Type Encounter Number Reason For Visit Attending Provider ADM Date DC Date Status Source [facility] Inpatient [id number] Faye Mccrary 02/16/2014 02/22/2014 [facility] [id number] Morales Toney 05/05/2014 05/06/2014 [facility] OBS Observation Patient [id number] Morales Toney 05/16/2014 05/17/2014 [facility] [id number] Helder PressleyKristen 02/09/2015 02/10/2015 [facility] Outpatient Imaging - [place] [facility] [id number] Helio Major 03/15/2015 03/16/2015 [facility] [id number] Manfredroseanna Cervanteseal 05/26/2015 05/26/2015 [facility] Outpatient Imaging - [place] [facility] [id number] Leatha Dumas 11/13/2015 11/14/2015 [facility]patient [id number] Amie Hicks 03/28/2016 03/29/2016 [facility] Outpatient Imaging - [place] [facility] [id number] Emanuel Jenkins 05/15/2016 05/16/2016 [facility] Bedded Outpatient [id number] Kyle Diana 11/13/2016 11/13/2016 [facility] Bedded Outpatient [id number] Kyle Diana 12/19/2016 12/19/2016 [facility] Procedures Procedure Code Date Perfomer Comments Source Cholecystocecostomy [id number] 05/18/1980 [facility] [place] Cholecystocecostomy [id number] 05/18/1980 [facility] Cholecystocecostomy [id number] 05/18/1980 [facility] Appendectomy [id number] [facility] [place] Gastric bypass [id number] [facility] [place] Appendectomy [id number] [facility] Gastric bypass [id number] [facility] Complete parathyroidectomy [id number] [facility] Gastric stapling [id number] [facility]end[facility] [id number] [facility] Gastric bypass [id number] [facility]
[2018-04-04] MEDS ORDERED: SODIUM CHLORIDE 0.9% 1000ML 1,000 ML IV STA (17:40)
[2018-04-04 18:06] LABS: ABG HCO3 25 mmol/L (23-28); ABG PCO2 40 mmHg (41-51); ABG PH 7.42 (7.31-7.41); ABG PO2 65 mmHg (80-105)
[2018-04-04 18:08] LABS: INR 0.89; PROTHROMBIN TIME 12.9 seconds (11.9-14.5)
[2018-04-04 18:09] LABS: PARTIAL THROMBOPLASTIN TIME 26.9 seconds (23.8-35.5)
[2018-04-04 18:16] LABS: ALBUMIN 4.2 g/dL (3.5-5.0); ALBUMIN/GLOBULIN RATIO 1.2 (0.8-2.0); CALCIUM 9.3 mg/dL (8.4-10.2); CREATININE, SERUM 1.1 mg/dL (0.57-1.11); MAGNESIUM 2.5 MG/DL (1.3-2.1)
[2018-04-04 18:22] LABS: CREATINE KINASE MB 0.8 ng/mL (0-5.0)
[2018-04-04 18:37] LABS: ACETAMINOPHEN < 3 ug/mL (10-30); SALICYLATE < 5.0 mg/dL (0-30)
[2018-04-04 18:46] LABS: B-TYPE NATRIURETIC PEPTIDE2 44.3 pg/mL (0-100)
--- NOTE | 2018-04-04 19:18 | Diagnostic Imaging Report ---
EXAM: CHEST SINGLE (PORTABLE), AP 1 view INDICATION: Altered mental status COMPARISON: None FINDINGS: LINES/TUBES: None LUNGS: No consolidations or edema. PLEURA: No effusions or pneumothorax. HEART AND MEDIASTINUM: Normal size and contour. BONES AND SOFT TISSUES: No acute findings. Surgical clip projects over the left upper quadrant. IMPRESSION: No acute thoracic abnormality. Signed by: Dr. Carline Wilkerson M.D. on 04/04/2018 7:14 PM
[2018-04-04 19:23] LABS: BASOPHILS % 0.6 % (0.0-1.0); EOSINOPHILS # (AUTO) 0.1 (0.0-0.4); EOSINOPHILS % 2.2 % (0.0-6.0); HEMATOCRIT 40.4 % (34.2-44.1); HEMOGLOBIN 13.1 g/dL (12.0-16.0); LYMPHOCYTES # (AUTO) 1.7 (1.0-3.2); LYMPHOCYTES % 26.8 % (18.0-39.1); MEAN CORPUSCULAR HEMOGLOBIN 28.8 pg (28-32); MEAN CORPUSCULAR HGB CONC 32.4 g/dL (31-35); MEAN CORPUSCULAR VOLUME 88.8 fL (81-99); MONOCYTES # (AUTO) 0.5 (0.2-0.8); MONOCYTES % 7.2 % (4.4-11.3); NEUTROPHILS % 62.9 % (38.7-80.0); PLATELET COUNT 175 x10e3/uL (140-360); RED BLOOD COUNT 4.55 x10e6/uL (3.6-5.1); RED CELL DISTRIBUTION WIDTH 13.6 % (11.7-14.4)
--- NOTE | 2018-04-04 19:33 | Diagnostic Imaging Report ---
History: Altered mental status, epilepsy Comparison studies: Head CTs on 03/02/2016 and 07/11/2017 Technique: Axial images were obtained from the skull base to the vertex. Coronal and sagittal reconstructions obtained from the axial data. Dose modulation, iterative reconstruction, and/or weight based adjustment of the mA/kV was utilized to reduce the radiation dose to as low as reasonably achievable. Findings: Scalp/skull: No abnormalities. No fractures, blastic or lytic lesions. Extra-axial spaces: No masses. No fluid collections. Brain sulci: Appropriate for age. Ventricles: Normal in size and configuration. No hydrocephalus. Parenchyma: A noncalcified, well-circumscribed, 1 cm hypodense focus remains centered in the right anterior temporal white matter, without surrounding edema or mass effect. No masses, hemorrhage, acute or chronic cortical vascular insults. Sellar/suprasellar region: No abnormalities Craniocervical junction: Patent foramen magnum. No Chiari one malformation. IMPRESSION: 1. No acute abnormalities. 2. No changes when compared to the previous head CT's. 3. Well-circumscribed 1 cm hypodense focus in the right anterior temporal white matter as described is nonspecific. 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 Recommend further evaluation with an nonemergent MRI with and without contrast unless it has been done in the past. Signed by: Dr. Wang River M.D. on 04/04/2018 7:29 PM
[2018-04-04 19:38] LABS: BILIRUBIN,URINE NEGATIVE (NEGATIVE); CLARITY,URINE CLEAR (CLEAR); COLOR,URINE YELLOW (YELLOW); KETONES,URINE NEGATIVE (NEGATIVE); LEUKOCYTE ESTERASE ,URINE NEGATIVE (NEGATIVE); NITRITE,URINE NEGATIVE (NEGATIVE); PROTEIN,URINE DIPSTICK NEGATIVE (NEGATIVE); URINE UROBILINOGEN 0.2 mg/dL (0.2 - 1)
[2018-04-04 19:44] LABS: AMPHETAMINES SCREEN,URINE NEGATIVE (NEGATIVE); BENZODIAZEPINES SCREEN,URINE NEGATIVE (NEGATIVE); PHENCYCLIDINE SCREEN,URINE NEGATIVE (NEGATIVE)
[2018-04-04 19:49] LABS: EPITHELIAL CELLS,URINE RARE /LPF; MUCUS,URINE FEW (RARE); RBC,URINE 0-5 /HPF (0-5); WBC,URINE (MAN) 0-5 /HPF (0-5)
[2018-04-04] MEDS ORDERED: ACETAMINOPHEN 325 MG TAB PO PRN (21:15)
[2018-04-04] MEDS ORDERED: ONDANSETRON HCL INJ 2 MG/ML VIAL IV PRN (21:30)
[2018-04-04] MEDS ORDERED: DEXTROSE 50% SYRINGE 50 ML IV PRN (21:30)
[2018-04-04] MEDS: SODIUM CHLORIDE 0.9% 1000ML 1,000 ML IV SCH (23:13)
[2018-04-05] VITALS (9 sets, daily range): BP systolic 131–156; BP diastolic 60–79
[2018-04-05] MEDS: SODIUM CHLORIDE 0.9% 1000ML 1,000 ML IV SCH ×3 (05:22→20:44)
[2018-04-05 05:56] LABS: BASOPHILS # (AUTO) 0.1 (0.0-0.1); BASOPHILS % 0.9 % (0.0-1.0); EOSINOPHILS # (AUTO) 0.2 (0.0-0.4); EOSINOPHILS % 2.3 % (0.0-6.0); HEMATOCRIT 37.6 % (34.2-44.1); LYMPHOCYTES # (AUTO) 2.6 (1.0-3.2); LYMPHOCYTES % 39.8 % (18.0-39.1); MEAN CORPUSCULAR HEMOGLOBIN 29.1 pg (28-32); MEAN CORPUSCULAR HGB CONC 31.9 g/dL (31-35); MEAN CORPUSCULAR VOLUME 91.3 fL (81-99); MONOCYTES # (AUTO) 0.5 (0.2-0.8); MONOCYTES % 7.4 % (4.4-11.3); NEUTROPHILS # (AUTO) 3.2 (2.1-6.9); NEUTROPHILS % 49.4 % (38.7-80.0); PLATELET COUNT 160 x10e3/uL (140-360); RED BLOOD COUNT 4.12 x10e6/uL (3.6-5.1); RED CELL DISTRIBUTION WIDTH 13.8 % (11.7-14.4)
[2018-04-05 06:14] LABS: ALBUMIN 3.6 g/dL (3.5-5.0); ALBUMIN/GLOBULIN RATIO 1.2 (0.8-2.0); ANION GAP 13.6 mmol/L (8-16); CALCIUM 9.4 mg/dL (8.4-10.2); CREATININE, SERUM 1.02 mg/dL (0.57-1.11); POTASSIUM 4.6 mmol/L (3.5-5.1)
[2018-04-05] MEDS: INSULIN REGULAR, HUMAN 100 UNIT/1 ML 3ML VIAL SQ SCH ×4 (07:30→20:44)
--- NOTE | 2018-04-05 11:31 | Consultation ---
DATE OF CONSULTATION: April 05, 2018 CARDIOLOGY CONSULTATION ATTENDING PHYSICIAN: Dr. Gresham Thank you so much for asking me to see this nice lady in consultation. Ms. Pedersen is a complex, 62-year-old woman with multiple medical problems who was brought to the emergency room on the afternoon of the after having apparently a witnessed seizure at home. HISTORY OF PRESENT ILLNESS: The patient reports that on Thursday, the , she was tired and fell asleep. A friend of hers called and woke her up. She came to the house, thinking that she was not feeling well. She then checked a fingerstick blood sugar and found it was 86 and took a spoonful of sugar and some peanut butter. Shortly afterwards, she was witnessed to pass out and "shake all over." The patient does not remember anything until she woke up in the emergency room at [facility]. The patient sees a neurologist Dr. Solorio and her PA Valerio for headaches, numbness, tingling and shaking of the legs but has never been known to have any syncopal episode in the past. She has visited [facility] multiple times and recently had right foot surgery on February [address] Lepe. It is healing well. She has been wearing a boot on her right foot. She has had multiple other ER visits for chest pain, shoulder pain, and had an episode of angioedema in January 2014. She reports she had a cardiac evaluation before her foot surgery which was all unremarkable. PAST MEDICAL HISTORY: Also significant for longstanding diabetes, hypertension, hypothyroidism, gout, bipolar disorder. HOME MEDICATIONS: Please see the chart. PERSONAL AND SOCIAL HISTORY: He did have a long history of smoking, but no longer smokes. FAMILY HISTORY: She reports her father had a heart attack in his 60s. Her mother with Alzheimer disease. She reports she has an older brother who is now 68 and also has Alzheimer disease. PHYSICAL EXAMINATION GENERAL: Exam at this time shows a pleasant, obese, white woman, alert, responsive, conversant. VITALS: Blood pressure 139/64. Pulse is 70 and regular. HEAD, EYES, EARS, NOSE AND THROAT: Examination is unremarkable. NECK: No jugular venous distention or bruit. THORAX: Heart sounds S1 and S2 are equal. No murmur. LUNGS: Clear. ABDOMEN: Protuberant. Normal bowel sounds. EXTREMITIES: No cyanosis, clubbing or edema. There is a healing incision near the right great toe. EKG shows sinus rhythm with 1st-degree AV block. Laboratory studies are relatively unremarkable. CT scan of the head shows a circumscribed lesion in the right temporal region 1 cm. She reports that she has already had an MRI of the head but cannot tell us where it was done. ASSESSMENT 1. Probable new-onset seizure. 2. Diabetes, recently stopping metformin. 3. History of hypertension. PLAN: Will monitor with you and await neurology evaluation. Her cardiac status looks clinically stable at this time. Thank you for asking me to see her at this time. RICK CAPONE MD Job#: [id number] cc:MD YO WU M.D.
[2018-04-05] MEDS ORDERED: LOSARTAN POTASSIUM 100 MG TAB PO SCH (17:00)
[2018-04-05] MEDS ORDERED: LAMOTRIGINE 100 MG TAB PO SCH (17:00)
[2018-04-05] MEDS ORDERED: GABAPENTIN 400 MG CAP PO SCH (18:00)
[2018-04-05] MEDS: LOSARTAN POTASSIUM 25 MG TAB PO SCH (18:07)
[2018-04-05] MEDS: GABAPENTIN 400 MG CAP PO SCH (20:44)
[2018-04-05] MEDS: VENLAFAXINE HCL 75 MG CAPCR PO SCH (20:44)
[2018-04-05] MEDS: CLONAZEPAM 1 MG TAB PO SCH (20:44)
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
[2018-04-06] VITALS (8 sets, daily range): BP systolic 100–148; BP diastolic 50–71
[2018-04-06] MEDS: INSULIN REGULAR, HUMAN 100 UNIT/1 ML 3ML VIAL SQ SCH ×4 (07:30→21:30)
[2018-04-06] MEDS: GABAPENTIN 400 MG CAP PO SCH ×2 (08:00→21:30)
[2018-04-06] MEDS: LAMOTRIGINE 100 MG TAB PO SCH (08:00)
[2018-04-06] MEDS: LEVOTHYROXINE SODIUM 100 MCG/VIAL IV SCH (08:00)
[2018-04-06] MEDS: LOSARTAN POTASSIUM 25 MG TAB PO SCH (08:00)
[2018-04-06] MEDS: PANTOPRAZOLE SOD 40 MG TABEC PO SCH (08:00)
[2018-04-06] MEDS: SODIUM CHLORIDE 0.9% 1000ML 1,000 ML IV SCH (12:19)
--- NOTE | 2018-04-06 19:23 | Electroencephalogram ---
DATE OF STUDY: April 06, 2018 REQUESTING PHYSICIAN: Dr. Jeny Lockhart. HISTORY: This 62-year-old woman with a history of a possible seizure is having an EEG for evaluation of epileptiform activity. The patient is taking the following medications that might affect the EEG: Lamotrigine, gabapentin, and clonazepam. TECHNIQUE: This is a routine, portable EEG, recorded digitally using the international 10/20 electrode placement system, and done in the inpatient setting with the patient awake. The EEG is adequate for interpretation. DESCRIPTION: Well-organized, well-sustained 9-10 Hertz activity is best seen symmetrically over the posterior head regions. Thirteen to 14 Hertz activity is intermixed. No focal or epileptiform activity is recorded. Sleep is not recorded. Photic stimulation does produce a driving response. Hyperventilation is not performed. INTERPRETATION: This electroencephalogram is normal with the patient awake, No epileptiform discharges are seen. Job#: [id number] GH MTDD
[2018-04-06] MEDS: VENLAFAXINE HCL 75 MG CAPCR PO SCH (21:30)
[2018-04-06] MEDS: CLONAZEPAM 1 MG TAB PO SCH (21:30)
[2018-04-07] VITALS: BP 144/69
[2018-04-07] MEDS: SODIUM CHLORIDE 0.9% 1000ML 1,000 ML IV SCH (03:14)
[2018-04-07 04:00] VITALS: BP 116/59
[2018-04-07 05:30] LABS: BASOPHILS # (AUTO) 0.1 (0.0-0.1); BASOPHILS % 0.8 % (0.0-1.0); EOSINOPHILS # (AUTO) 0.2 (0.0-0.4); EOSINOPHILS % 3.3 % (0.0-6.0); HEMATOCRIT 33.2 % (34.2-44.1); LYMPHOCYTES # (AUTO) 2.7 (1.0-3.2); LYMPHOCYTES % 41.5 % (18.0-39.1); MEAN CORPUSCULAR HEMOGLOBIN 29.1 pg (28-32); MEAN CORPUSCULAR HGB CONC 33.1 g/dL (31-35); MEAN CORPUSCULAR VOLUME 87.8 fL (81-99); MONOCYTES # (AUTO) 0.6 (0.2-0.8); MONOCYTES % 9.2 % (4.4-11.3); NEUTROPHILS # (AUTO) 2.9 (2.1-6.9); PLATELET COUNT 149 x10e3/uL (140-360); RED BLOOD COUNT 3.78 x10e6/uL (3.6-5.1); RED CELL DISTRIBUTION WIDTH 13.7 % (11.7-14.4)
[2018-04-07 05:54] LABS: ANION GAP 9.2 mmol/L (8-16); BLOOD UREA NITROGEN 18 mg/dL (7-26); BUN/CREATININE RATIO 20 (6-25); CALCIUM 9.4 mg/dL (8.4-10.2); CARBON DIOXIDE 28 mmol/L (22-29); CHLORIDE 108 mmol/L (98-107); CREATININE, SERUM 0.91 mg/dL (0.57-1.11); EST GLOMERULAR FILTRATION RATE > 60 ML/MIN (60-); GLUCOSE 94 mg/dL (74-118); POTASSIUM 4.2 mmol/L (3.5-5.1); SODIUM 141 mmol/L (136-145)
[2018-04-07] MEDS: INSULIN REGULAR, HUMAN 100 UNIT/1 ML 3ML VIAL SQ SCH ×2 (07:30→11:30)
[2018-04-07 08:27] VITALS: BP 136/60
[2018-04-07] MEDS: LOSARTAN POTASSIUM 25 MG TAB PO SCH (09:20)
[2018-04-07] MEDS: GABAPENTIN 400 MG CAP PO SCH (09:20)
[2018-04-07] MEDS: PANTOPRAZOLE SOD 40 MG TABEC PO SCH (09:20)
[2018-04-07] MEDS: LEVOTHYROXINE SODIUM 100 MCG/VIAL IV SCH (09:20)
[2018-04-07] MEDS: LAMOTRIGINE 100 MG TAB PO SCH (09:20)
[2018-04-07 11:17] VITALS: BP 152/72
== END 2018-04-07 12:27 | disposition home or self-care (01) | DRG 101 ==
LOC: ER 17:11 → ERHOLD 21:22 → INTOOBSV 21:22 → MED/SURG 22:29 → OBSVTOIN 04-06 09:31
PROVIDERS: ADMIT Internal Medicine; ATTEND Internal Medicine
DX: R56.9 Unspecified convulsions (principal); I10 Essential (primary) hypertension; E78.5 Hyperlipidemia, unspecified; E11.42 Type 2 diabetes mellitus with diabetic polyneuropathy; F31.9 Bipolar disorder, unspecified; Z79.4 Long term (current) use of insulin; Z87.891 Personal history of nicotine dependence; E03.9 Hypothyroidism, unspecified
CPT/HCPCS: 36415; 36600; 51700; 70450; 71045; 80048; 80053; 80307; 80320; 80329; 81001; 82140; 82550; 82553; 82805; 82948; 83605; 83735; 83880; 84484; 85025; 85610; 85730; 87040; 87086; 93005; 93880; 95812; 99285; G0378; J7030

== ENCOUNTER 2020-04-18 16:40 | Emergency (ER) | payer MEDICARE ==
[~2020-04-18] VITALS: Ht 177.8 cm; Wt 133.4 kg
--- OUTSIDE RECORDS SUMMARY | 2020-04-18 17:38 | XMS REPORT | Clinical Summary ---
Author Author [facility] Organization [facility] Address Unknown Phone Unavailable Care Team Providers Care Advertising Teacher Name Role Phone Mayra Ferreira MD PCP Allergies Not on File Medications Not on file Active Problems Not on file Encounters Care Team Description Date Type Specialty Mayra Ferreira MD Acute upper respiratory infection, unspe cified (Primary Dx) 04/04/2020 Transcribe Access Orders 04/04/2020 Travel 01/02/2020 Travel 12/23/2019 Travel Mayra Ferreira MD Close Exposure to Covid-19 Virus (Primar y Dx) 12/21/2019 Transcribe Access Orders 11/30/2019 Travel Mayra Ferreira MD Acute bronchospasm (Primary Dx) 11/29/2019 Transcribe Access Orders after 04/18/2019 Social History Date Tobacco Use Types Packs/Day Years Used Never Assessed Sex Assigned at Date Recorded Not on file Industry Job Start Date Occupation Not on file Not on file Not on file Date Recorded COVID-19 Exposure Response 04/04/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 Last Filed Vital Signs Not on file Plan of Treatment Health Maintenance Due Date Last Done Comments CERVICAL CANCER SCREENING 1976 BREAST CANCER SCREENING 2005 COLONOSCOPY SCREENING 2005 SHINGLES VACCINES (#1) 2005 INFLUENZA VACCINE 12/17/2019 Procedures Comments Procedure Name Priority Date/Time Associated Diag nosis COVID-19 QUALITATIVE PCR Routine 01/02/2020 Close Exposure to 10:05 AM CDT Covid-19 Virus COVID-19 QUALITATIVE PCR Routine 11/30/2019 Acute bronchospasm 1:14 PM CDT after 04/18/2019 Results * COVID-19 qualitative PCR (01/02/2020 10:05 AM CDT) Only the most recent of 2 results within the time period is included. Interpretation Negative results do not NOLEN preclude 2019-nCoV infection SCIENTOLOGIST and should not be used as the HOSPITAL sole basis for treatment or other patient management decisions. Negative results must be combined with clinical observations, patient history, and epidemiological information. COVID-19 Not-Detected Not-Detected [facility] qualitative PCR SCIENTOLOGIST result HOSPITAL COVID-19 See link below for PDF Lab [facility] qualitative PCR ReportComment: Case Number: SCIENTOLOGIST [id number] HOSPITAL Specimen Nasopharyngeal swab Performing Organization Address City/State/ZIP Code P estrella Number [facility] DEPARTMENT OF [address] [place] [id number] PATHOLOGY AND GENOMIC MEDICINE [id number] [place] [address] after 04/18/2019 Insurance Type Payer Benefit Subscriber ID Effective Phone Address Plan / Dates Group HMO HUMANA MEDICARE HU[employer]NA HMO [id number] [id number] GOLD PLUS resent MEDICARE Advance Directives For more information, please contact: [phone] Patient Commercial Appraiser Explanation Type Date Recorded Advance Directives, Living Will and Medical Power of Dispatch Manager
--- OUTSIDE RECORDS SUMMARY | 2020-04-18 17:39 | XMS REPORT | Continuity of Care Document ---
Author Author [facility] t Organization [facility] Address [address] [place] [address] Phone Unavailable Care Team Providers Care Health Policy Nurse Name Role Phone JOSEPH TENORIO, S (NS) YO PCP Sarah Duarte MD Attphys [phone] AGUSTÍN MCKEON, P.AYamil Attphys Unavailable YAYO URBAN M.D. Attphys Unavailable CLARITA CRAWFORD Attphys Unavailable JESUS MANUEL OVALLE M.D. Attphys Unavailable JEFF WHEELER M.D. Attphys Unavailable MARILIN CHONG M.D. Attphys Unavailable KEIRA POSADAS RD Attphys Unavailable Laura PITTS Attphys Unavailable FABIOLA SARKAR P.A. Attphys Unavailable YO RUIZ M.D. Attphys Unavailable DELMY OLVERA Attphys Unavailable FOX BRADLEY M.D. Attphys Unavailable [place]-[facility], NUCLEAR Attphys Unavailable [facility], ECHO Attphys Unavailable MARYSOL WATSON M.D. Attphys Unavailable Efrem OLGUIN Attphys Unavailable ANGELIQUE KWAN M.D. Attphys Unavailable HANNAH YORK M.D. Attphys Unavailable MEKA LINDER NP Attphys Unavailable ASH SCHULTZ P.A. Attphys Unavailable SOWMYA KIRBY M.D. Attphys Unavailable WIL BECKHAM NP Attphys Unavailable MARI SCHMIDT NP Attphys Unavailable JAGDEEP PULIDO M.D. Attphys Unavailable DAGO AYALA M.D. Attphys Unavailable CHAVO CHANG M.D. Attphys Unavailable VEE MURGUIA M.D. Attphys Unavailable Payers Payer Name Policy Type Policy Number Effective Date Expiration Date S angelika BASS MEDICAREHUMANA HMO GOLD PLUS [id number] 2019 00:00:00 Luigi Vasquez Aarp Medicare Complete [id number] 2018 00:00:00 [facility] Problems Condition Name Condition Details Condition Category Status Onset Date Resolution Date Last Treatment Date Treating Clinician Comments Source Chest pain on exertion Problem Active 2014-01-19 00:00:00 [facility] Allergic reaction Allergic reaction Problem Active [facility] Chest pain Chest pain Problem Active [facility] New onset seizure New onset seizure Problem Active [facility] History of weakness History of weakness Problem Resolved [facility] History of Abnormal urine finding History of Abnormal urine find ing Problem Resolved [facility] History of acne vulgaris History of acne vulgaris Problem Resolved [facility] History of Acute idiopathic gout involving toe of left foot History of Acute idiopathic gout involving toe of left foot Problem Resolved [facility] Chronic low back pain Chronic low back pain Problem Active [facility] History of Acute UTI History of Acute UTI Problem Resolved [facility] History of Allergic rhinitis due to pollen History of Allergic rhinitis due to pollen Problem [facility]olved [facility] History of Arthritis History of Arthritis Problem Resolved [facility] History of Atypical chest pain History of Atypical chest pain Probl em Resolved [facility] History of Bacterial folliculitis History of Bacterial folliculi tis Problem Resolved [facility] 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 Problem Resolved [facility] History of claustrophobia History of claustrophobia Problem Active [facility] History of Blood tests for routine general physical ex amination History of Blood tests for routine general physical examination Problem Resolved [facility] BMI 40.0-44.9, adult BMI 40.0-44.9, adult Problem Active [facility] History of Body aches History of Body aches Problem Resolved [facility] History of Breast screening History of Breast screening Problem Resolved [facility] History of Bright red rectal bleeding History of Bright red rectal bleeding Problem Resolved [facility] History of Burning with urination History of Burning with urinat ion Problem Resolved [facility] History of Helicobacter infection History of Helicobacter infect ion Problem Resolved [facility] History of Contusion of right great toe without damage to nail, initial encounter History of Contusion of right great toe without damage to nail, initial encounter [facility] History of Cutaneous candidiasis History of Cutaneous candidiasi s Problem Resolved [facility] History of Depression History of Depression Problem Resolved [facility] History of essential hypertension History of essential hypertens ion Problem Resolved [facility] At moderate risk for fall At moderate risk for fall Problem Active [facility] History of Female pelvic pain History of Female pelvic pain Problem Resolved [facility] History of low back pain History of low back pain Problem Resolved [facility] History of hematuria History of hematuria Problem Resolved [facility] History of hemorrhoids History of hemorrhoids Problem Resolved [facility] History of type 2 diabetes mellitus History of type 2 diabetes m ellitus Problem Resolved [facility] History of influenza vaccination History of influenza vaccinatio n Problem Resolved [facility] History of Leg cramps History of Leg cramps Problem Resolved [facility] History of Lip abscess History of Lip abscess Problem Resolved [facility] History of migraine History of migraine Problem Resolved [facility] History of Need for pneumococcal vaccination History o f Need for pneumococcal vaccination Problem Resolved [facility] History of Neuropathy of foot History of Neuropathy of foot Problem Resolved [facility] History of Other acute nonsuppurative otitis media of right ear History of Other acute nonsuppurative otitis media of right ear Problem Resolved [facility] History of Other protein-calorie malnutrition History of Other protein-calorie malnutrition Problem Resolved [facility] History of postmenopausal bleeding History of postmenopausal ble eding Problem Resolved [facility] History of Pre-operative cardiovascular examination Hi story of Pre-operative cardiovascular examination Problem Resolved [facility] History of renal calculi History of renal calculi Problem Resolved [facility] Restless legs syndrome Restless legs syndrome Problem Active [facility] History of Skin lesion History of Skin lesion Problem Resolved [facility] History of sore throat History of sore throat Problem Resolved [facility] History of 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 History of Stenosis of lateral recess of lumbosacral spine Problem Resolved [facility] History of UTI symptoms History of UTI symptoms Problem Resolved [facility] Venous stasis Venous stasis Problem Active [facility] History of bariatric surgery History of bariatric surgery Problem Active [facility] Ataxia Ataxia Problem Active [facility] IBS (irritable bowel syndrome) IBS (irritable bowel syndrome) Problem Active [facility] Loss of balance Loss of balance Problem Active [facility] Lipoma of forehead Lipoma of forehead Problem Active [facility] Anxiety Anxiety Problem Active [facility] Other headache syndrome Other headache syndrome Problem Active [facility] Bipolar affective disorder, remission status unspecifi ed Bipolar affective disorder, remission status unspecified Problem Active [facility] Morbid obesity Morbid obesity Problem Active [facility] Cardiac arrhythmia Cardiac arrhythmia Problem Active [facility] Focal seizure Focal seizure Problem Active [facility] Flu-like symptoms Flu-like symptoms Problem Active [facility] Other insomnia Other insomnia Problem Active [facility] Financial difficulties Financial difficulties Problem Active [facility] Lumbar radiculopathy Lumbar radiculopathy Problem Active [facility] Neuropathy [facility]uropathy [facility] Depression with anxiety Depression with anxiety Problem Active [facility] Conversion disorder with attacks or seizures Conversio n disorder with attacks or seizures Problem Active [facility] Insect bites Insect bites Problem Active [facility] Constipation Constipation Problem Active [facility] Encounter for hepatitis C screening test for low risk patient Encounter for hepatitis C screening test for low risk patient Problem Active [facility] Herniated lumbar intervertebral disc Herniated lumbar interv ertebral disc Problem Active [facility] Screening mammogram, encounter for Screening mammogram, encounte r for Problem Active [facility] Candidiasis of vulva and vagina Candidiasis of vulva and vagina Pro blem Active [facility] Venereal disease screening Venereal disease screening Problem Active [facility] Hearing loss Hearing loss Problem Active [facility] Diabetes mellitus Diabetes mellitus Problem Active [facility] Hypertension Hypertension Problem Active [facility] Hyperlipidemia Hyperlipidemia Problem Active [facility] Hypothyroidism Hypothyroidism Problem Active [facility] Vitamin D deficiency Vitamin D deficiency Problem Active [facility] Tension headache Tension headache Problem Active [facility] Vaginal discharge Vaginal discharge Problem Active [facility] Encounter for routine gynecological exam ination with Papanicolaou smear of cervix Encounter for routine gynecological exam ination with Papanicolaou smear of cervix Problem Active [facility] Unsteady gait Unsteady gait Problem Active [facility] Acute insomnia Acute insomnia Problem Active [facility] Nevus, non-neoplastic Nevus, non-neoplastic Problem Active [facility] Urinary incontinence Urinary incontinence Problem Active [facility] Breast mass, left Breast mass, left Problem Active [facility] Chronic obstructive pulmonary disease Chronic obstructive pu lmonary disease Problem Active [facility] Acid reflux Acid reflux Problem Active [facility] Other rosacea Other rosacea Problem Active [facility] Obstructive sleep apnea Obstructive sleep apnea Problem Active [facility] OA (osteoarthritis of spine) OA (osteoarthritis of spine) Problem Active [facility] Nocturnal leg cramps Nocturnal leg cramps Problem Active [facility] Hyperhidrosis Hyperhidrosis Problem Active [facility] Gout Gout Problem Active [facility] Generalized osteoarthritis of multiple sites Generaliz ed osteoarthritis of multiple sites Problem Active [facility] Chronic diarrhea of unknown origin Chronic diarrhea of unknown o rigin Problem Active [facility] Hemorrhoids Hemorrhoids Problem Active [facility] Decreased vision in both eyes Decreased vision in both eyes Problem Active [facility] Abnormal MMSE Abnormal MMSE Problem Active [facility] Breast mass Breast mass Problem Active [facility] Allergies, Adverse Reactions, Alerts Allergy Name Allergy Type Status Severity Reaction(s) Onset Date Inacti ve Date Treating Clinician Comments Source diphenhydramine HCl DA Active [place] 2020-02-13 00:00:00 [facility] SEJAL Inhibitors DA Active U 2020-02-13 00:00:00 [facility] lithium DA Active [place] 2020-02-07 00:00:00 [facility] diphenhydramine HCl DA Active [place] 2020-02-07 00:00:00 [facility] diphenhydramine HCl DA Active [place] 2018-07-04 00:00:00 [facility] lithium DA Active [place] 2018-07-04 00:00:00 [facility] diphenhydramine HCl Allergy to Substance Active Mild ITCHIN G, SOB 2016-03-02 00:00:00 [facility] diphenhydramine HCl DA Active [place] 2013-12-08 00:00:00 [facility] lithium DA Active [place] 2013-12-08 00:00:00 [facility] SEJAL Inhibitors Allergy to drug (finding) Active Cough [facility] Benadryl Allergy to drug (finding) Active [facility] clindamycin Allergy to drug (finding) Active [facility] Family History Family Member Diagnosis Comments Start Date Stop Date Source Mother Family history of Alzheimer's disease [facility] Father Family history of bipolar disorder [facility] Father Family history of hypertension [facility] Brother Family history of bipolar disorder [facility] Grandfather Family history of myocardial infarction [facility] Social History Social Habit Start Date Stop Date Quantity Comments Source Sex Assigned [facility] [place] [facility] Religion Exposure to SARS-CoV-2 (event) Yes [place] [employer] Smoking Status Start Date Stop Date Source Ex-smoker (finding) [facility] Medications Ordered Medication Name Filled Medication Name Start Date Stop Da te Current Medication? Ordering Clinician Indication Dosage Frequency Signature (SIG) Comments Components Source Nystatin 177209 UNIT/GM External Ointment Nystatin 100 000 UNIT/GM External Ointment 2019-03-21 00:00:00 Yes AGUSTÍN SCHMITTOS P.A. Q0.3333D APPLY 2-3 TIMES DAILY TO AFFECTED AREA(S). [facility] Naproxen 500 MG Oral Tablet Naproxen 500 MG Oral Tablet 2019-03-11 00:00:00 Yes AGUSTÍN MCKEON P.A. Q0.5D TAKE 1 TA BLET TWICE DAILY AFTER MEALS NEEDED. [facility] Venlafaxine HCl - 25 MG Oral Tablet Venlafaxine HCl - 25 MG Oral Tablet 2019-02-22 00:00:00 Yes [facility] Fluconazole 150 MG Oral Tablet Fluconazole 150 MG Oral Table t 2019-02-22 00:00:00 Yes JEFF WHEELER M.D. TAKE 1 TABLET 1 TIME ONLY. [facility] rOPINIRole HCl - 1 MG Oral Tablet rOPINIRole HCl - 1 MG Oral Tablet 2019-01-26 00:00:00 Yes AGUSTÍN MCKEON P.A. 1 QD TAKE 1 TABLET BY MOUTH DAILY [facility] Proctozone-HC 2.5 % CREA Proctozone-HC 2.5 % CREA 2019-01-26 00:00:00 Yes AGUSTÍN MCKEON P.A. 1 Q0.5D INSERT 1 APPLICATOR TWICE DAILY [facility] OneTouch Verio In Vitro Strip OneTouch Verio In Vitro Strip 2018 00:00:00 Yes JESUS MANUEL OVALLE M.D. CHECK 1 to 2 TIMES DAILY [facility] PowerToralph Delica Lancets 33G OneTouch Delica Lancets 33G 2017-01-21 00:00:00 Yes JESUS MANUEL OVALLE M.D. Check BG 1 to 2x a day [facility] Analpram HC 2.5-1 % CREA Analpram HC 2.5-1 % CREA 2016-11-27 00:00:00 Yes AGUSTÍN MCKEON P.A. USE DIRECTED AFTER BOWEL MOV EMENTS AND BEDTIME [facility] Levothyroxine Sodium 100 MCG Oral Tablet Levothyroxine Sodium 100 MCG Oral Tablet 2016-02-21 00:00:00 Yes JESUS MANUEL OVALLE M.D. TAKE 1 TABLET BY MOUTH DAILY [facility] Atorvastatin Calcium 40 MG Oral Tablet Atorvastatin Calcium 40 MG Oral Tablet 2015-08-09 00:00:00 Yes JESUS MANUEL OVALLE M.D. QD Take 1 tablet by mouth daily as directed [facility] Ventolin HFA 108 (90 Base) MCG/ACT Inhalation Aerosol Solution Ventolin HFA 108 (90 Base) MCG/ACT Inhalation Aerosol Solution 2015-02-12 00:00:00 Yes AGUSTÍN MCKEON P.A. INHALE 1 TO 2 PUFFS EVERY 4 TO 6 HOURS NEEDED. [facility] Losartan Potassium 100 MG Oral Tablet Losartan Potassium 100 MG Oral Tablet 2014-08-22 00:00:00 Yes AGUSTÍN MCKEON P.A. Q D TAKE 1 TABLET BY MOUTH ONCE DAILY [facility] Fluticasone Propionate 50 MCG/ACT Nasal Suspension Flu ticasone Propionate 50 MCG/ACT Nasal Suspension 2014-06-23 00:00:00 Yes AGUSTÍN MCKEON P.A. Use 2 sprays in each nostril once daily [facility] Gabapentin 400 MG Oral Capsule Gabapentin 400 MG Oral Capsul e 2014-03-07 00:00:00 Yes AGUSTÍN MCKEON P.A. Q0.5D [place] 1 CAPSULE BY MOUTH TWICE DAILY [facility] Albuterol Sulfate 0.63 Mg/3 Ml Vial.neb Albuterol Sulfate 0. 63 Mg/3 Ml Vial.neb Yes As Needed [facility] Atorvastatin Calcium 20 Mg Tablet Atorvastatin Calcium 20 Mg Tablet Yes 40 Bedtime [facility] Clonazepam 1 Mg Tablet Clonazepam 1 Mg Tablet Yes 1 Bedtime [facility] Flonase Flonase Yes Bedtime [facility] Gabapentin 400 Mg Capsule Gabapentin 400 Mg Capsule Yes 400 Every 12 Hours [facility] Lamotrigine (Lamictal) 200 Mg Tablet Lamotrigine (Lamictal) 200 Mg Tablet Yes 400 Daily [facility] Levothyroxine Sodium 125 Mcg Tablet Levothyroxine Sodium 125 Mcg Tabl et Yes .1 Daily@0600 [facility] Losartan Potassium 25 Mg Tablet Losartan Potassium 25 Mg Tablet Yes 100 Daily [facility] Venlafaxine Hcl 75 Mg Tab Venlafaxine Hcl 75 Mg Tab Yes 150 Bedtime [facility] clonazePAM 1 MG Oral Tablet clonazePAM 1 MG Oral Tablet Yes 1 TAKE 1 TABLET BEDTIME [facility] Vitamin B-12 1000 MCG Oral Tablet Vitamin B-12 1000 MCG Oral Tablet Yes JESUS MANUEL OVALLE M.D. QD TAKE 1 TABLET DAILY DIRECTED. [facility] Vitamin D-3 25 MCG (1000 UT) Oral Capsule Vitamin D-3 25 MCG (1000 UT) Oral Capsule Yes JESUS MANUEL OVALLE M.D. 3 a day ; Restart 11-25-18 [facility] Albuterol Sulfate (2.5 MG/3ML) 0.083% Inhalation Nebul ization Solution Albuterol Sulfate (2.5 MG/3ML) 0.083% Inhalation Nebulization Solution Yes AGUSTÍN MCKEON P.A. USE 1 UNIT DOSE EVERY 4-6 HOURS NEE DED FOR WHEEZING . [facility] lamoTRIgine 200 MG Oral Tablet lamoTRIgine 200 MG Oral Tablet Yes 1 QD TAKE 1 TABLET DAILY. [facility] amLODIPine Besylate 5 MG Oral Tablet amLODIPine Besylate 5 MG Oral Tablet Yes AGUSTÍN MCKEON P.A. QD TAKE 1 TABLET DAILY FOR BLOOD PRESSURE. [facility] Metformin Hcl 500 Mg Tablet, 500 Mg Oral Metformin Hcl 500 Mg Tablet, 500 Mg Oral 2018-04-04 00:00:00 No 500 Twice A Day [facility] Atorvastatin , Oral Atorvastatin , Oral 2018-02-19 00:00:00 No Bedtime [facility] Atenolol 50 Mg Tablet, 50 Mg Oral Atenolol 50 Mg Tablet, 50 Mg O ral 2018-02-16 00:00:00 No 50 Daily [facility] Olanzapine (Zyprexa) 5 Mg Tablet, 5 Mg Oral Olanzapine (Zyprexa) 5 Mg Tablet, 5 Mg Oral 2018-02-16 00:00:00 No 5 Bedtime [facility] Simvastatin 20 Mg Tablet, 20 Mg Oral Simvastatin 20 Mg Tablet, 2 0 Mg Oral 2018-02-16 00:00:00 No 20 Daily [facility] Allopurinol 100 Mg Tablet, 100 Mg Oral Allopurinol 100 Mg Tablet , 100 Mg Oral 2014-12-11 00:00:00 No 100 Daily [facility] Clonazepam 2 Mg Tab.rapdis, 2 Mg Oral Clonazepam 2 Mg Tab.rapdis , 2 Mg Oral 2014-12-11 00:00:00 No 2 Bedtime [facility] Furosemide 20 Mg Tablet, 20 Mg Oral Furosemide 20 Mg Tablet, 20 Mg Oral 2014-12-11 00:00:00 No 20 Twice A Day [facility] Lamotrigine 200 Mg Tablet, 400 Mg Oral Lamotrigine 200 Mg Tablet , 400 Mg Oral 2014-12-11 00:00:00 No 400 Daily [facility] Venlafaxine Hcl (Venlafaxine Hcl Er) 150 Mg Cap.er.24h , 150 Mg Oral Venlafaxine Hcl (Venlafaxine Hcl Er) 150 Mg Cap.er.24h, 150 Mg Oral 2014 00:00:00 No 150 Bedtime [facility] Aspirin (Aspir 81) 81 Mg Tablet.dr, 81 Mg Oral Aspirin (Aspir 81) 81 Mg Tablet.dr, 81 Mg Oral 2014-02-10 00:00:00 No 81 Da antonio [facility] Atorvastatin Calcium (Lipitor) 40 Mg Tablet, 40 Mg Ora l Atorvastatin Calcium (Lipitor) 40 Mg Tablet, 40 Mg Oral 2014-02-10 00:00:00 No 40 Bedtime [facility] Famotidine (Pepcid) 20 Mg Tablet, 20 Mg Oral Famotidin e (Pepcid) 20 Mg Tablet, 20 Mg Oral 2014-02-10 00:00:00 No 20 Twice A Day [facility] Levofloxacin (Levaquin) 500 Mg Tablet, 500 Mg Oral Lev ofloxacin (Levaquin) 500 Mg Tablet, 500 Mg Oral 2014-02-10 00:00:00 No 500 D aily [facility] Metronidazole 500 Mg Tablet, 500 Mg Oral Metronidazole 500 Mg Tablet, 500 Mg Oral 2014-02-10 00:00:00 No 500 Three Times A Day [facility] Allopurinol 100 Mg Tablet, 100 Mg Oral Allopurinol 100 Mg Tablet , 100 Mg Oral 2014-01-19 00:00:00 No 100 Daily [facility] Immunizations Ordered Immunization Name Filled Immunization Name Date Status Comments Source Tdap (Adacel) 2018-03-04 17:09:00 Completed [facility] Fluzone Quadrivalent 0.5 ML Intramuscular Suspension 2018-03-04 17:08:00 Completed [facility] Fluzone Quadrivalent 0.5 ML Intramuscular Suspension Prefill ed Syringe 2017-02-09 15:09:00 Completed [facility] Fluzone Quadrivalent 0.5 ML Intramuscular Suspension Prefill ed Syringe 2016-03-03 13:42:00 Completed [facility] Fluzone Quadrivalent 0.5 ML Intramuscular Suspension Prefill ed Syringe 2015-02-12 15:53:00 Completed [facility] Pneumovax 23 25 MCG/0.5ML Injection Injectable 2015-01 15:52:00 Completed [facility] Influenza Unknown Completed [facility] Vital Signs Vital Name Observation Time Observation Value Comments Source BP Systolic 2019-03-21 10:33:00 144 mm[Hg] Location: [place]; [place] on: Sitting [facility] BP Diastolic 2019-03-21 10:33:00 77 mm[Hg] Location: [place]; Positi on: Sitting [facility] Heart Rate 2019-03-21 10:33:00 71 /min [facility] BP Systolic 2019-03-21 10:24:00 149 mm[Hg] Location: L[place]; Positi on: Sitting [facility] BP Diastolic 2019-03-21 10:24:00 80 mm[Hg] Location: L[place]; Positi on: Sitting [facility] Heart Rate 2019-03-21 10:24:00 73 /min [facility] Height 2019-03-21 10:24:00 70 [in_us] [facility] Weight 2019-03-21 10:24:00 288.5 [lb_av] [facility] Body Mass Index Calculated 2019-03-21 10:24:00 41.4 kg/m2 [facility] Temperature 2019-03-21 10:24:00 96.9 [degF] Method: Temporal [facility] Respiration Rate 2019-03-21 10:24:00 16 /min [facility] BP Systolic 2019-02-22 15:00:00 95 mm[Hg] Location: L[place]; Positi on: Sitting [facility] BP Diastolic 2019-02-22 15:00:00 59 mm[Hg] Location: [place]; [place] on: Sitting [facility] Height 2019-02-22 15:00:00 70 [in_us] [facility] Weight 2019-02-22 15:00:00 282.125 [lb_av] [facility] Body Mass Index Calculated 2019-02-22 15:00:00 40.48 kg/m2 [facility] Temperature 2019-02-22 15:00:00 98 [degF] Method: Oral [facility] Heart Rate 2019-02-22 15:00:00 91 /min [facility] BP Systolic 2019-01-26 12:56:00 124 mm[Hg] Location: [place]; Positi on: Sitting [facility] BP Diastolic 2019-01-26 12:56:00 75 mm[Hg] Location: [place]; [place] on: Sitting [facility] Height 2019-01-26 12:56:00 70 [in_us] [facility] Weight 2019-01-26 12:56:00 292.125 [lb_av] [facility]ive [facility] Body Mass Index Calculated 2019-01-26 12:56:00 41.92 kg/m2 [facility] Temperature 2019-01-26 12:56:00 97.4 [degF] Method[facility] Heart Rate 2019-01-26 12:56:00 76 /min [facility] Respiration Rate 2019-01-26 12:56:00 16 /min [facility] BP Systolic 2019-01-04 14:10:00 118 mm[Hg] Location: [place]; Positi on: Sitting [facility] BP Diastolic 2019-01-04 14:10:00 68 mm[Hg] Location: [place]; Positi on: Sitting [facility] Height 2019-01-04 14:10:00 70 [in_us] [facility] Weight 2019-01-04 14:10:00 288.4375 [lb_av] [facility] Body Mass Index Calculated 2019-01-04 14:10:00 41.39 kg/m2 [facility] Temperature 2019-01-04 14:10:00 97.4 [degF] Method: [facility] Heart Rate 2019-01-04 14:10:00 79 /min [facility] Respiration Rate 2019-01-04 14:10:00 16 /min [facility] BP Systolic 2018-11-25 15:27:00 130 mm[Hg] [facility] BP Diastolic 2018-11-25 15:27:00 80 mm[Hg] [facility] BP Systolic 2018-11-25 14:58:00 137 mm[Hg] Location: LUE; Positi on: Sitting [facility] BP Diastolic 2018-11-25 14:58:00 69 mm[Hg] Location: [place]; Positi on: Sitting [facility] Height 2018-11-25 14:58:00 70 [in_us] [facility] Weight 2018-11-25 14:58:00 286.4375 [lb_av] [facility] Body Mass Index Calculated 2018-11-25 14:58:00 41.1 kg/m2 [facility] Heart Rate 2018-11-25 14:58:00 86 /min [facility] BP Systolic 2018-09-28 12:42:00 129 mm[Hg] Location: [place]; Positi on: Sitting [facility] BP Diastolic 2018-09-28 12:42:00 73 mm[Hg] Location: [place]; [place] on: Sitting [facility] Height 2018-09-28 12:42:00 70 [in_us] [facility] Weight 2018-09-28 12:42:00 283 [lb_av] [facility] Body Mass Index Calculated 2018-09-28 12:42:00 40.61 kg/m2 [facility] Heart Rate 2018-09-28 12:42:00 84 /min [facility] BP Systolic 2018-09-16 13:21:00 124 mm[Hg] Location: [place]; Positi on: Sitting [facility] BP Diastolic 2018-09-16 13:21:00 76 mm[Hg] Location: [place]; Positi on: Sitting [facility] Height 2018-09-16 13:21:00 70 [in_us] [facility] Weight 2018-09-16 13:21:00 288.5 [lb_av] [facility] Body Mass Index Calculated 2018-09-16 13:21:00 41.4 kg/m2 [facility] Heart Rate 2018-09-16 13:21:00 76 /min [facility] Temperature 2018-09-16 13:21:00 97.8 [degF] Method: Temporal [facility] Respiration Rate 2018-09-16 13:21:00 16 /min [facility] BP Systolic 2018-09-09 13:21:00 107 mm[Hg] Location: [place]; Positi on: Sitting [facility] BP Diastolic 2018-09-09 13:21:00 69 mm[Hg] Location: [place]; Positi on: Sitting [facility] Height 2018-09-09 13:21:00 70 [in_us] [facility] Weight 2018-09-09 13:21:00 284.5 [lb_av] [facility] Body Mass Index Calculated 2018-09-09 13:21:00 40.82 kg/m2 [facility] Heart Rate 2018-09-09 13:21:00 70 /min [facility] Temperature 2018-09-09 13:21:00 96.9 [degF] Method: Temporal [facility] Respiration Rate 2018-09-09 13:21:00 16 /min [facility] BP Systolic 2018-08-23 10:31:00 125 mm[Hg] Location: [place]; Positi on: Sitting [facility] BP Diastolic 2018-08-23 10:31:00 78 mm[Hg] Location: [place]; [place] on: Sitting [facility] Height 2018-08-23 10:31:00 70 [in_us] [facility] Weight 2018-08-23 10:31:00 284.0625 [lb_av] [facility] Body Mass Index Calculated 2018-08-23 10:31:00 40.76 kg/m2 [facility] Temperature 2018-08-23 10:31:00 96.9 [degF] Method: Temporal [facility] Heart Rate 2018-08-23 10:31:00 76 /min [facility] Respiration Rate 2018-08-23 10:31:00 16 /min [facility] BP Systolic 2018-07-08 14:17:00 147 mm[Hg] Location: [place]; Positi on: Sitting [facility] BP Diastolic 2018-07-08 14:17:00 75 mm[Hg] Location: [place]; [place] on: Sitting [facility] Height 2018-07-08 14:17:00 70 [in_us] [facility] Weight 2018-07-08 14:17:00 285.25 [lb_av] [facility] Body Mass Index Calculated 2018-07-08 14:17:00 40.93 kg/m2 [facility] Temperature 2018-07-08 14:17:00 97.2 [degF] Method: Temporal [facility] Heart Rate 2018-07-08 14:17:00 75 /min [facility] Respiration Rate 2018-07-08 14:17:00 16 /min [facility] BP Systolic 2018-06-15 15:16:00 136 mm[Hg] [facility] BP Diastolic 2018-06-15 15:16:00 76 mm[Hg] [facility] BP Systolic 2018-06-15 14:48:00 130 mm[Hg] Location: [place]; [place] on: Sitting [facility] BP Diastolic 2018-06-15 14:48:00 74 mm[Hg] Location: [place]; [place] on: Sitting [facility] Height 2018-06-15 14:48:00 70 [in_us] [facility] Weight 2018-06-15 14:48:00 277.0625 [lb_av] [facility] Body Mass Index Calculated 2018-06-15 14:48:00 39.75 kg/m2 [facility] Heart Rate 2018-06-15 14:48:00 79 /min [facility] BP Systolic 2018-06-01 10:19:00 135 mm[Hg] Location: [place]; Pos[place] on: Sitting [facility] BP Diastolic 2018-06-01 10:19:00 77 mm[Hg] Location: [place]; [place] on: Sitting [facility] Height 2018-06-01 10:19:00 70 [in_us] [facility] Weight 2018-06-01 10:19:00 280 [lb_av] [facility] Body Mass Index Calculated 2018-06-01 10:19:00 40.18 kg/m2 [facility] Heart Rate 2018-06-01 10:19:00 71 /min [facility] Temperature 2018-06-01 10:19:00 97.6 [degF] Method: Temporal [facility] Respiration Rate 2018-06-01 10:19:00 16 /min [facility] Weight 2018-04-28 09:18:00 274.6 [lb_av] [facility] Body Mass Index Calculated 2018-04-28 09:18:00 39.4 kg/m2 [facility] Height 2018-04-28 09:18:00 70 [in_us] [facility]i [facility] BP Systolic 2018-04-19 10:43:00 121 mm[Hg] Location: [place]; Pos[place] on: Sitting [facility] BP Diastolic 2018-04-19 10:43:00 67 mm[Hg] Location: [place] Positi on: Sitting [facility] Height 2018-04-19 10:43:00 70 [in_us] [facility] Weight 2018-04-19 10:43:00 267.5 [lb_av] [facility] Body Mass Index Calculated 2018-04-19 10:43:00 38.38 kg/m2 [facility] Temperature 2018-04-19 10:43:00 96.9 [degF] Method: Temporal [facility] Heart Rate 2018-04-19 10:43:00 83 /min [facility] Respiration Rate 2018-04-19 10:43:00 16 /min [facility] BP Systolic 2018-03-15 11:12:00 118 mm[Hg] [facility] BP Diastolic 2018-03-15 11:12:00 68 mm[Hg] [facility] BP Systolic 2018-03-15 10:55:00 127 mm[Hg] Location: [place] Positi on: Sitting [facility] BP Diastolic 2018-03-15 10:55:00 72 mm[Hg] Location: [place] Pos[place] on: Sitting [facility] Height 2018-03-15 10:55:00 70 [in_us] [facility] Temperature 2018-03-15 10:55:00 98.2 [degF] Method: Oral [facility] Heart Rate 2018-03-15 10:55:00 92 /min Location: L Radial; Q uality: Normal [facility] BP Systolic 2018-03-12 10:50:00 135 mm[Hg] Location: [place]; Positi on: Sitting [facility] BP Diastolic 2018-03-12 10:50:00 75 mm[Hg] Location: [place]; [place] on: Sitting [facility] Heart Rate 2018-03-12 10:50:00 71 /min [facility] BP Systolic 2018-03-12 10:49:00 140 mm[Hg] Location: [place]; [place] on: Sitting [facility] BP Diastolic 2018-03-12 10:49:00 74 mm[Hg] Location: [place]; [place] on: Sitting [facility] Heart Rate 2018-03-12 10:49:00 71 /min [facility] Height 2018-03-12 10:49:00 70 [in_us] [facility] Temperature 2018-03-12 10:49:00 98.2 [degF] Method: Temporal [facility] Respiration Rate 2018-03-12 10:49:00 16 /min [facility] BP Systolic 2018-03-04 16:11:00 133 mm[Hg] Location: [place]; [place] on: Sitting [facility] BP Diastolic 2018-03-04 16:11:00 79 mm[Hg] Location: [place]; [place] on: Sitting [facility] Height 2018-03-04 16:11:00 70 [in_us] [facility] Weight 2018-03-04 16:11:00 273 [lb_av] [facility] Body Mass Index Calculated 2018-03-04 16:11:00 39.17 kg/m2 [facility] Temperature 2018-03-04 16:11:00 97.2 [degF] Method: Temporal [facility] Heart Rate 2018-03-04 16:11:00 80 /min [facility] Respiration Rate 2018-03-04 16:11:00 16 /min [facility] BP Systolic 2017-12-28 13:44:00 139 mm[Hg] Location: [place]; [place] on: Sitting [facility] BP Diastolic 2017-12-28 13:44:00 70 mm[Hg] Location: [place]; [place] on: Sitting [facility] Height 2017-12-28 13:44:00 70 [in_us] [facility] Weight 2017-12-28 13:44:00 276.3125 [lb_av] [facility] Body Mass Index Calculated 2017-12-28 13:44:00 39.65 kg/m2 [facility] Temperature 2017-12-28 13:44:00 97.2 [degF] Method: Temporal [facility] Heart Rate 2017-12-28 13:44:00 76 /min [facility] Respiration Rate 2017-12-28 13:44:00 16 /min [facility] BP Systolic 2017-12-09 13:43:00 143 mm[Hg] Location: [place]; [place] on: Sitting [facility] BP Diastolic 2017-12-09 13:43:00 75 mm[Hg] Location: [place]; [place] on: Sitting [facility] Height 2017-12-09 13:43:00 70 [in_us] [facility] Weight 2017-12-09 13:43:00 283 [lb_av] [facility] Body Mass Index Calculated 2017-12-09 13:43:00 40.61 kg/m2 [facility] Heart Rate 2017-12-09 13:43:00 98 /min Location: L Radial; [facility] BP Systolic 2017-11-26 11:22:00 121 mm[Hg] Location: [place]; [place] on: Sitting [facility] BP Diastolic 2017-11-26 11:22:00 78 mm[Hg] Location: [place]; [place] on: Sitting [facility] Height 2017-11-26 11:22:00 70 [in_us] [facility] Weight 2017-11-26 11:22:00 278.25 [lb_av] [facility] Body Mass Index Calculated 2017-11-26 11:22:00 39.92 kg/m2 [facility] Heart Rate 2017-11-26 11:22:00 90 /min [facility] Temperature 2017-11-26 11:22:00 96 [degF] [facility] Respiration Rate 2017-11-26 11:22:00 16 /min [facility] BP Systolic 2017-11-02 15:05:00 115 mm[Hg] Location: [place]; [place] on: Sitting [facility] BP Diastolic 2017-11-02 15:05:00 71 mm[Hg] Location: [place]; [place] on: Sitting [facility] Height 2017-11-02 15:05:00 70 [in_us] [facility] Body Mass Index Calculated 2017-11-02 15:05:00 41.11 kg/m2 [facility] Weight 2017-11-02 15:05:00 286.5 [lb_av] [facility] Temperature 2017-11-02 15:05:00 97.5 [degF] Method: Temporal [facility] Heart Rate 2017-11-02 15:05:00 79 /min Location: L Brachial Artery; [facility] Respiration Rate 2017-11-02 15:05:00 16 /min Quality: Normal [facility] BP Systolic 2017-11-02 13:25:00 138 mm[Hg] Location: [place]; [place] on: Sitting [facility] BP Diastolic 2017-11-02 13:25:00 80 mm[Hg] Location: [place]; [place] on: Sitting [facility] Height 2017-11-02 13:25:00 70 [in_us] [facility] Body Mass Index Calculated 2017-11-02 13:25:00 40.89 kg/m2 [facility] Weight 2017-11-02 13:25:00 285 [lb_av] [facility] Heart Rate 2017-11-02 13:25:00 75 /min Location: L Radial; [facility] BP Systolic 2017-10-21 11:13:00 148 mm[Hg] [facility] BP Diastolic 2017-10-21 11:13:00 80 mm[Hg] [facility] BP Systolic 2017-10-21 10:47:00 150 mm[Hg] Location: [place]; [place] on: Sitting [facility] BP Diastolic 2017-10-21 10:47:00 82 mm[Hg] Location: [place]; [place] on: Sitting [facility] Height 2017-10-21 10:47:00 70 [in_us] [facility] Weight 2017-10-21 10:47:00 282.125 [lb_av] [facility] Body Mass Index Calculated 2017-10-21 10:47:00 40.48 kg/m2 [facility] Heart Rate 2017-10-21 10:47:00 76 /min [facility] BP Systolic 2017-09-22 09:42:00 148 mm[Hg] Location: [place]; [place] on: Sitting [facility] BP Diastolic 2017-09-22 09:42:00 72 mm[Hg] Location: [place]; [place] on: Sitting [facility] Heart Rate 2017-09-22 09:42:00 89 /min Location: L Radial; [facility] Height 2017-09-22 09:42:00 70 [in_us] [facility]i ty [facility] Weight 2017-09-22 09:42:00 281.125 [lb_av] [facility] Body Mass Index Calculated 2017-09-22 09:42:00 40.34 kg/m2 [facility] Temperature 2017-09-22 09:42:00 98.7 [degF] Method: Temporal [facility] BP Systolic 2017-08-11 13:55:00 143 mm[Hg] Location: [place]; [place] on: Sitting [facility] BP Diastolic 2017-08-11 13:55:00 77 mm[Hg] Location: [place]; [place] on: Sitting [facility] Temperature 2017-08-11 13:55:00 98.1 [degF] Method: Oral [facility] Height 2017-08-11 13:55:00 70 [in_us] [facility] Weight 2017-08-11 13:55:00 286 [lb_av] [facility] Body Mass Index Calculated 2017-08-11 13:55:00 41.04 kg/m2 [facility] Heart Rate 2017-08-11 13:55:00 76 /min [facility] Respiration Rate 2017-08-11 13:55:00 16 /min [facility] BP Systolic 2017-07-16 10:49:00 130 mm[Hg] [facility] BP Diastolic 2017-07-16 10:49:00 70 mm[Hg] [facility] BP Systolic 2017-07-16 10:27:00 144 mm[Hg] Location: LUE; Pos[place] on: Sitting [facility] BP Diastolic 2017-07-16 10:27:00 78 mm[Hg] Location: L[place]; [place] on: Sitting [facility] Height 2017-07-16 10:27:00 70 [in_us] [facility] Weight 2017-07-16 10:27:00 280.25 [lb_av] [facility] Body Mass Index Calculated 2017-07-16 10:27:00 40.21 kg/m2 [facility] Heart Rate 2017-07-16 10:27:00 77 /min [facility] Temperature 2017-07-13 09:56:00 97.2 [degF] Method: Temporal [facility] BP Systolic 2017-07-13 09:48:00 139 mm[Hg] Location: L[place]; [place] on: Sitting [facility] BP Diastolic 2017-07-13 09:48:00 72 mm[Hg] Location: LUE; [place] on: Sitting [facility] Temperature 2017-07-13 09:48:00 96.5 [degF] Method: Temporal [facility] Height 2017-07-13 09:48:00 70 [in_us] [facility] Weight 2017-07-13 09:48:00 278.375 [lb_av] [facility] Body Mass Index Calculated 2017-07-13 09:48:00 39.94 kg/m2 [facility] Heart Rate 2017-07-13 09:48:00 92 /min [facility] Respiration Rate 2017-07-13 09:48:00 16 /min [facility] BP Systolic 2017-05-28 14:12:00 123 mm[Hg] Location: LUE; Positi on: Sitting [facility] BP Diastolic 2017-05-28 14:12:00 72 mm[Hg] Location: LUE; [place] on: Sitting [facility] Height 2017-05-28 14:12:00 70 [in_us] [facility] Weight 2017-05-28 14:12:00 284.5625 [lb_av] [facility] Body Mass Index Calculated 2017-05-28 14:12:00 40.83 kg/m2 [facility] Temperature 2017-05-28 14:12:00 96.9 [degF] Method: Temporal [facility] Heart Rate 2017-05-28 14:12:00 56 /min [facility] Respiration Rate 2017-05-28 14:12:00 16 /min [facility] BP Systolic 2017-05-27 13:55:00 116 mm[Hg] Location: LUE; [place] on: Sitting [facility] BP Diastolic 2017-05-27 13:55:00 73 mm[Hg] Location: LUE; [place] on: Sitting [facility] Height 2017-05-27 13:55:00 70 [in_us] [facility] Weight 2017-05-27 13:55:00 285.25 [lb_av] [facility] Body Mass Index Calculated 2017-05-27 13:55:00 40.93 kg/m2 [facility] Heart Rate 2017-05-27 13:55:00 56 /min [facility] Respiration Rate 2017-05-27 13:55:00 16 /min [facility] BP Systolic 2017-05-25 08:45:00 124 mm[Hg] Location: LUE; Positi on: Sitting [facility] BP Diastolic 2017-05-25 08:45:00 83 mm[Hg] Location: LUE; [place] on: Sitting [facility] Height 2017-05-25 08:45:00 70 [in_us] [facility] Weight 2017-05-25 08:45:00 282.0625 [lb_av] [facility] Body Mass Index Calculated 2017-05-25 08:45:00 40.47 kg/m2 [facility] Temperature 2017-05-25 08:45:00 98.1 [degF] Method: Oral [facility] Heart Rate 2017-05-25 08:45:00 57 /min Location: L Brachial Artery; [facility] Respiration Rate 2017-05-25 08:45:00 16 /min Quality[facility] BP Systolic 2017-04-08 13:59:00 128 mm[Hg] Location: LUE; Positi on: Sitting [facility] BP Diastolic 2017-04-08 13:59:00 73 mm[Hg] Location: LUE; Pos[place] on: Sitting [facility] Height 2017-04-08 13:59:00 70 [in_us] [facility] Weight 2017-04-08 13:59:00 283.5625 [lb_av] [facility] Body Mass Index Calculated 2017-04-08 13:59:00 40.69 kg/m2 [facility] Heart Rate 2017-04-08 13:59:00 54 /min [facility] BP Systolic 2017-04-02 09:25:00 130 mm[Hg] Location: LUE; Positi on: Sitting [facility] BP Diastolic 2017-04-02 09:25:00 68 mm[Hg] Location: LUE; [place] on: Sitting [facility] Height 2017-04-02 09:25:00 70 [in_us] [facility] Weight 2017-04-02 09:25:00 282 [lb_av] [facility] Body Mass Index Calculated 2017-04-02 09:25:00 40.46 kg/m2 [facility] [facility] Temperature 2017-04-02 09:25:00 97.1 [degF] Method: [facility] Heart Rate 2017-04-02 09:25:00 65 /min Location: L Radial; [facility] Respiration Rate 2017-04-02 09:25:00 16 /min Quality: Normal [facility] Procedures Procedure Date / Time Performed Performing Clinician Sourc e COVID-19 QUALITATIVE PCR 2020-01-02 10:05:00 Sisi Duarteist COVID-19 QUALITATIVE PCR 2019-11-30 13:14:00 Sisi Duarte Meyers Religion . [facility] - PAP 2019-02-22 00:00:[address] [facility] LETY Breast mammogram screen bilateral [id number] 2019-02-22 00:00:00 [facility] . [facility] - Affirm VPIII (BV Panel) 2019-02-22 00:00:00 [facility] [H] HSV by PCR 2019-02-22 00:00:[address] [facility] MA Digital Mammo Screening [place] [id number] 2019-02-14 00:00:00 [facility] MRI Spine lumbar w/wo contrast [id number] 2019-01-26 00:00:00 [facility] [QL] CMP W/EGFR 2018-11-25 00:00:00 [facility] [[facility]] MICROALBUMIN, RANDOM URINE (W/CREATININE) 2018-11-25 00:00 :00 [facility] [[facility]] T4, FREE 2018-11-25 00:00:00 [place] [facility] [place] [facility] [[facility]] TSH, 3RD GENERATION 2018-11-25 00:00[facility]00 [facility] CMP W/EGFR 2018-06-15 00:00:00 [facility] [QL] T4, FREE 2018-06-15 00:00:[address] [place] [address] [facility] [[facility]] TSH, 3RD GENERATION 2018-06-15 00:00:00 Un [facility] [[facility]] CBC (INCLUDES DIFF/PLT) 2018-06-15 00:00:00 [facility] Magnetic resonance imaging of brain without then with contrast 2018-04-05 00:00:00 YAYO ROGERS [facility] Computed tomography of brain without radiopaque contrast 201 12-26-17 00:00:00 LANRE PITTS [facility] RELEASE OF FOOT CONTRACTURE 2018-02-19 00:00:00 DELMY OLVERA [facility] REPAIR OF HAMMERTOE 2018-02-19 00:00:00 DELMY OLVERA [facility] CORRECTION HALLUX VALGUS 2018-02-19 00:00:00 DELMY OLVERA [facility] RMVL DEVITAL TIS 20 CM/< 2018-02-19 00:00:00 DELMY OLVERA [facility] X-ray of chest, two views 2018-02-16 00:00:00 DELMY OLVERA I [facility] MA Digital Mammo DX [place] [id number] 2018-02-03 00:00:00 [facility] US Breast Bilat [id number] 2018-02-03 00:00:00 [facility] [N] KAVYA-Ankle Brachial Index Multiple Levels 72742 2017-11-02 00 :00:00 [facility] [N] 2D Echo complete, with Doppler [id number] 2017-11-02 00:00:00 [facility] [N] Nuclear Test-Adenosine Stress Perfusion 2017-11-02 00:00:00 [facility] [QL] CMP W/EGFR 2017-10-21 00:00:00 [facility] [QL] MICROALBUMIN, RANDOM URINE (W/CREATININE) 2017-10-21 00:00 :00 [facility] [QL] T4, FREE 2017-10-21 00:00:00 [facility] [QL] TSH, 3RD GENERATION 2017-10-21 00:00:00 Un [facility] [QL] VITAMIN D, 25-HYDROXY, LC/MS/MS 2017-10-21 00:00:00 [facility] [QL] CULTURE, URINE, ROUTINE 2017-07-13 00:00:00 [facility] Computed tomography of brain without radiopaque contrast 201 12-18-23 00:00:00 LANRE PITTS [facility] Breast Bilat 31740 2017-07-09 [facility] Digital Mammo DX [place] [id number] 2017-07-09 00:00:00 [facility] [N] 2D Echo complete, with Doppler 70789 2017-05-27 00:00:00 [facility] [N] Nuclear Test-Adenosine Stress Perfusion 2017-05-27 00:00:00 [facility] Breast Unilat 13155 2017-05-25 00:00:00 [facility] [QL] HEMOGLOBIN A1c 2017-04-02 00:00:00 [facility] [QL] CBC (INCLUDES DIFF/PLT) 2017-04-02 00:00:00 [facility] [QL] CMP W/EGFR 2017-04-02 00:00:00 [facility] [] LIPID PANEL WITH REFLEX TO DIRECT LDL 2017-04-02 00:00:00 [facility] [QL] TSH, 3RD GENERATION 2017-04-02 00:00:00 [facility] History of Gastric Surgery For Morbid Obesity Gastric Stapling [facility] History of Cholecystectomy [facility] History of Appendectomy [facility] History of Parathyroid Complete Parathyroidectomy [facility] History of Parathyroid Resection [facility] History [facility] History of Stomach surgery [facility] History of Dilation and curettage [facility] History [facility] Care Planned Activity Planned Date Details Comments Source Future Scheduled Test 2019-12-17 00:00:00 INFLUENZA VACCINE [code = INFLUENZA VACCINE] [facility] Diagnostic Test Pending 2017-11-02 00:00:00 [N] KAVYA-Ankle Br achial Index Multiple Levels 86309 [code = [N] KAVYA-Ankle Brachial Index Multiple Levels 48982] [facility] Diagnostic Test Pending 2017-11-02 00:00:00 [N] 2D Echo comp lete, with Doppler 48979 [code = [N] 2D Echo complete, with Doppler 71758] [facility] Diagnostic Test Pending 2017-11-02 00:00:00 [N] Nuclear Test -Adenosine Stress Perfusion [code = [N] Nuclear Test-Adenosine Stress Perfusion] [facility] Diagnostic Test Pending 2017-07-09 00:00:00 US Breast Bilat 10422 [code = 39508] [facility] Diagnostic Test Pending 2017-07-09 00:00:00 MA Digital Mammo DX [place] G0204 [code = G0204] [facility] Diagnostic Test Pending 2017-05-27 00:00:00 [N] 2D Echo comp lete, with Doppler 04327 [code = [N] 2D Echo complete, with Doppler 53666] [facility] Diagnostic Test Pending 2017-05-27 00:00:00 [N] Nuclear Test -Adenosine Stress Perfusion [code = [N] Nuclear Test-Adenosine Stress Perfusion] [facility] Diagnostic Test Pending 2017-05-27 00:00:00 [N] 2D Echo comp lete, with Doppler 30939 [code = [N] 2D Echo complete, with Doppler 80898] [facility] Diagnostic Test Pending 2017-05-27 00:00:00 [N] Nuclear Test -Adenosine Stress Perfusion [code = [N] Nuclear Test-Adenosine Stress Perfusion] [facility] Future Scheduled Test 2005 00:00:00 BREAST CANCER SCRE ENING [code = BREAST CANCER SCREENING] [facility] Future Scheduled Test 2005 00:00:00 COLONOSCOPY SCREEN ING [code = COLONOSCOPY SCREENING] [facility] Future Scheduled Test 2005 00:00:00 SHINGLES VACCINES (#1) [code = SHINGLES VACCINES (#1)] [facility] Future Scheduled Test 1976 00:00:00 Screening for dotty gnant neoplasm of cervix (procedure) [code = 074385029] [facility] Encounters Start Date/Time End Date/Time Encounter Type Admission Type Attendi [facility] Care Department Encounter ID Source 2019-03-03 08:17:36 Outpatient [facility] [id number] [facility] 2020-01-02 00:00:00 2020-01-02 00:00:00 Outpatient SARAH DUARTE [facility] [id number] [facility] 2019-11-30 00:00:00 2019-11-30 00:00:00 Outpatient SARAH DUARTE [facility] [id number] [facility] 2019-05-23 10:00:00 2019-05-23 10:00:00 Appointment; AGUSTÍN MCKEON P.A. CAMPOS, BERTHA, P.A. [facility] [id number] [facility] 2019-03-29 13:00:00 2019-03-29 13:00:00 Appointment; AGUSTÍN MCKEON P.A. CAMPOS, BERTHA, P.A. [facility] [id number] [facility] 2019-03-29 10:30:00 2019-03-29 10:30:00 Appointment; YAYO URBAN M.D. BYRD, MICHAEL, M.D. [facility] UTP [id number] [facility] 2019-03-29 10:00:00 2019-03-29 10:00:00 Appointment; MARIANO CRAWFORD KIMBERLY [facility] UTP [id number] [facility] 2019-03-21 10:15:00 2019-03-21 10:15:00 Appointment; AGUSTÍN MCKEON P.A. CAMPOS, BERTHA, P.A. [facility], [address] [id number] [facility] 2019-03-16 10:30:00 2019-03-16 10:30:00 Appointment; AGUSTÍN MCKEON P.A. CAMPOS, BERTHA, P.A. [facility] [id number] [facility] 2019-03-11 11:00:00 2019-03-11 11:00:00 Appointment; JESUS MANUEL OVALLE M .D. CHIU, ALICE, M.D. [facility] [id number] [facility] 2019-02-22 14:45:00 2019-02-22 14:45:00 Appointment; GREG WHEELER M.D. UGHANZE, COMFORT, M.D. [facility] [address] [id number] [facility] 2019-01-26 12:45:00 2019-01-26 12:45:00 Appointment; AGUSTÍN MCKEON P.A. CAMPOS, BERTHA, P.A. [facility] [address] [id number] [facility] 2019-01-04 14:00:00 2019-01-04 14:00:00 Appointment; AGUSTÍN MCKEON P.A. CAMPOS, BERTHA, P.A. [facility] [address] [id number] [facility] 2018-11-25 14:45:00 2018-11-25 14:45:00 Appointment; JESUS MANUEL OVALLE M .D. CHIU, ALICE, M.D. [facility] [id number] [facility] 2018-10-05 10:30:00 2018-10-05 10:30:00 Appointment; JESUS MANUEL OVALLE M .D. CHIU, ALICE, M.D. [facility] [id number] [facility] 2018-09-28 12:30:00 2018-09-28 12:30:00 Appointment; MARILIN CHONG M.D. HOPE, OMOTOLA, M.D. [facility] [id number] [facility] 2018-09-16 13:45:00 2018-09-16 13:45:00 Appointment; AGUSTÍN MCKEON P.A. CAMPOS, BERTHA, P.A. [facility] [address] [id number] [facility] 2018-09-09 13:00:00 2018-09-09 13:00:00 Appointment; AGUSTÍN MCKEON P.A. CAMPOS, BERTHA, P.A. [facility] [address] [id number] [facility] 2018-08-23 10:15:00 2018-08-23 10:15:00 Appointment; AGUSTÍN MCKEON P.A. CAMPOS, BERTHA, P.A. [facility] [address] [id number] [facility] 2018-07-08 14:00:00 2018-07-08 14:00:00 Appointment; AGUSTÍN MCKEON P.A. CAMPOS, BERTHA, P.A. [facility] [address] [id number] [facility] 2018-06-29 10:30:00 2018-06-29 10:30:00 Appointment; AGUSTÍN MCKEON P.A. CAMPOS, BERTHA, P.A. [facility] [id number] [facility] 2018-06-15 14:45:00 2018-06-15 14:45:00 Appointment; JESUS MANUEL OVALLE M .D. CHIU, ALICE, M.D. [facility] [id number] [facility] 2018-06-01 10:15:00 2018-06-01 10:15:00 Appointment; AGUSTÍN MCKEON P.A. CAMPOS, BERTHA, P.A. [facility] [id number] [facility] 2018-04-28 08:00:00 2018-04-28 08:00:00 Appointment; KEIRA POSADAS RD WRIGHT, TISH, RD [facility] [id number] [facility] 2018-04-19 10:30:00 2018-04-19 10:30:00 Appointment; AGUSTÍN MCKEON P.A. CAMPOS, BERTHA, P.A. [facility] [id number] [facility] 2018-04-06 09:31:00 2018-04-07 12:27:00 Discharged Inpatient [address] [facility] [id number] [facility] 2018-03-15 10:30:00 2018-03-15 10:30:00 Appointment; JESUS MANUEL OVALLE M .D. CHIU, ALICE, M.D. [facility] [address] [id number] [facility] 2018-03-12 10:45:00 2018-03-12 10:45:00 Appointment; FABIOLA SARKAR P.A. CRUZ, LETICIA, P.A. [facility] [address] [id number] [facility] 2018-03-04 16:15:00 2018-03-04 16:15:00 Appointment; CLAUDIA RUIZ M.D. BORTOLOTTI, JULIE, M.D. [facility] [address] [id number] [facility] 2018-02-19 05:31:00 2018-02-19 05:31:00 Registered Surgical Day Car e [address] [facility] [id number] [facility] 2017-12-28 13:45:00 2017-12-28 13:45:00 Appointment; CLAUDIA RUIZ M.D. BORTOLOTTI, JULIE, M.D. [facility] [address] [id number] [facility] 2017-12-09 11:20:00 2017-12-09 11:20:00 Appointment; TAO BRADLEY M.D. DHOBLE, ABHIJEET, M.D. [facility] [id number] [facility] 2017-12-07 08:30:00 2017-12-07 08:30:00 Appointment; BAYORE-MS, N UCLEAR [facility], NUCLEAR [facility] [id number] [facility] 2017-11-26 11:15:00 2017-11-26 11:15:00 Appointment; AGUSTÍN MCKEON P.A. CAMPOS, BERTHA, P.A. [facility] [address] [id number] [facility] 2017-11-06 16:00:00 2017-11-06 16:00:00 Appointment; BAY[place]ORE-MS, Nathanael KHAN [place]-MS, ECHO UTP UTP [id number] [facility] 2017-11-06 15:00:00 2017-11-06 15:00:00 Appointment; [place]-MS, Nathanael KHAN [place]-MS, ECHO UTP [facility] [id number] [facility] 2017-11-02 15:00:00 2017-11-02 15:00:00 Appointment; AGUSTÍN MCKEON P.A. CAMPOS, BERTHA, P.A. [facility] [address] [id number] [facility] 2017-11-02 13:20:00 2017-11-02 13:20:00 Appointment; TAO BRADLEY M.D. DHOBLE, ABHIJEET, M.D. [facility] [id number] [facility] 2017-10-21 10:30:00 2017-10-21 10:30:00 Appointment; JESUS MANUEL OVALLE M .D. CHIU, ALICE, M.D. [facility] [id number] [facility] 2017-10-19 16:15:00 2017-10-19 16:15:00 Appointment; JESUS MANUEL OVALLE M .D. CHIU, ALICE, M.D. [facility] [id number] [facility] 2017-10-16 14:45:00 2017-10-16 14:45:00 Appointment; JESUS MANUEL OVALLE M .D. CHIU, ALICE, M.D. [facility] [id number] [facility] 2017-10-16 13:15:00 2017-10-16 13:15:00 Appointment; MARYSOL WATSON M.D. SATTAR, BEENA, M.D. [facility] [id number] [facility] 2017-09-22 09:15:00 2017-09-22 09:15:00 Appointment; AGUSTÍN MCKEON P.A. CAMPOS, BERTHA PKarina [facility] [address] [id number] [facility] 2017-08-11 13:30:00 2017-08-11 13:30:00 Appointment; AGUSTÍN MCKEON P.A. CAMPOS, BERTHA, P.A. [facility] [address] [id number] [facility] 2017-07-16 10:30:00 2017-07-16 10:30:00 Appointment; JESUS MANUEL OVALLE M .D. CHIU, ALICE, M.D. [facility] [address] [id number] [facility] 2017-07-13 09:30:00 2017-07-13 09:30:00 Appointment; AGUSTÍN MCKEON P.A. CAMPOS, BERTHA, P.A. [facility] [address] [id number] [facility] 2017-07-11 20:09:00 2017-07-11 23:45:00 Departed Emergency Room ER HONGLANRE [facility] [id number] [facility] 2017-07-10 15:15:00 2017-07-10 15:15:00 Appointment; JESUS MANUEL OVALLE M .D. CHIU, ALICE, M.D. [facility] [id number] [facility] 2017-07-10 06:58:00 2017-07-10 11:16:00 Departed Emergency Room ER CLAU CÉSAR [facility] [id number] [facility] 2017-05-28 14:30:00 2017-05-28 14:30:00 Appointment; CLAUDIA RUIZ M.D. BORTOLOTTI, JULIE, M.D. [facility] [id number] [facility] 2017-05-27 13:40:00 2017-05-27 13:40:00 Appointment; TAO BRADLEY M.D. DHOBLE, ABHIJEET, M.D. [facility] [id number] [facility] 2017-05-25 08:30:00 2017-05-25 08:30:00 Appointment; MCKEON, Danya RANDOLPH BERTHA, P.A. UTP [facility] [address] [id number] [facility] 2017-05-20 11:18:00 2017-05-20 20:22:00 Departed Emergency Room ER ÉCSAR OLGUIN [facility] [id number] [facility] 2017-04-08 13:30:00 2017-04-08 13:30:00 Appointment; JESUS MANUEL OVALLE M .D. CHIU, ALICE, M.D. [facility] [id number] [facility] 2017-04-02 09:30:00 2017-04-02 09:30:00 Appointment; AGUSTÍN MCKEON P.A. CAMPOS, BERTHA, P.A. UTP [facility] [address] [id number] [facility] 2017-02-27 13:00:00 2017-02-27 13:00:00 Appointment; ROMAN KWAN M.D. KOSHELEV, MISHA, M.D. [facility] UTP [id number] [facility] 2017-02-09 12:30:00 2017-02-09 12:30:00 Appointment; AGUSTÍN MCKEON P.A. CAMPOS, BERTHA, P.A. UTP UTP [id number] [facility] 2017-02-02 13:45:00 2017-02-02 13:45:00 Appointment; HANNAH YORK M.D. CATALANO, MARC, M.D. [facility] UTP [id number] [facility] 2017-01-20 14:45:00 2017-01-20 14:45:00 Appointment; MEKA LINDER N P BECK, SHERI, NP UTP UTP [id number] [facility] 2017-01-07 13:30:00 2017-01-07 13:30:00 Appointment; EVA SCHULTZ P.A. SPOONER, JOSEPH, P.A. UTP UTP [id number] [facility] 2017-01-02 14:30:00 2017-01-02 14:30:00 Appointment; HANNAH YORK M.D. CATALANO, MARC, M.D. [facility] UTP [id number] [facility] 2017-01-02 13:30:00 2017-01-02 13:30:00 Appointment; EVA SCHULTZ P.A. SPOONER, JOSEPH, P.A. UTP UTP [id number] [facility] 2016-12-15 13:00:00 2016-12-15 13:00:00 Appointment; SOWMYA KIRBY M.D. SUAREZ, ANDREA, M.D. UTP UTP [id number] [facility] 2016-12-04 10:30:00 2016-12-04 10:30:00 Appointment; MEKA LINDER N P BECK, SHERI, NP UTP UTP [id number] [facility] 2016-11-27 16:15:00 2016-11-27 16:15:00 Appointment; JESUS MANUEL OVALLE M .D. CHIU, ALICE, M.D. UTP UTP [id number] [facility] 2016-11-27 15:45:00 2016-11-27 15:45:00 Appointment; HANNAH YORK M.D. CATALANO, MARC, M.D. [facility] UTP [id number] [facility] 2016-11-06 15:00:00 2016-11-06 15:00:00 Appointment; HANNAH YORK M.D. CATALANO, MARC, M.D. UTP UTP [id number] [facility] 2016-10-23 09:30:00 2016-10-23 09:30:00 Appointment; AGUSTÍN MCKEON P.A. CAMPOS, BERTHA, P.A. UTP UTP [id number] [facility] 2016-10-09 09:45:00 2016-10-09 09:45:00 Appointment; AGUSTÍN MCKEON P.A. CAMPOS, BERTHA, P.A. UTP UTP [id number] [facility] 2016-10-02 09:00:00 2016-10-02 09:00:00 Appointment; AGUSTÍN MCKEON P.A. CAMPOS, BERTHA, P.A. UTP UTP [id number] [facility] 2016-09-22 14:30:00 2016-09-22 14:30:00 Appointment; WIL BECKHAM NP TRAN, THUY, NP UTP UTP [id number] [facility] 2016-09-19 14:30:00 2016-09-19 14:30:00 Appointment; WIL BECKHAM NP TRAN, THUY, NP UTP UTP [id number] [facility] 2016-09-01 08:45:00 2016-09-01 08:45:00 Appointment; SOWMYA KIRBY M.D. SUAREZ, ANDREA, M.D. UTP UTP [id number] [facility] 2016-08-14 14:45:00 2016-08-14 14:45:00 Appointment; JESUS MANUEL OVALLE M .D. CHIU, ALICE, M.D. UTP UTP [id number] [facility] 2016-08-05 10:00:00 2016-08-05 10:00:00 Appointment; MEKA LINDER N P BECK, SHERI, NP UTP UTP [id number] [facility] 2016-05-16 16:15:00 2016-05-16 16:15:00 Appointment; JESUS MANUEL OVALLE M .D. CHIU, ALICE, M.D. UTP UTP [id number] [facility] 2016-05-08 14:00:00 2016-05-08 14:00:00 Appointment; MEKA LINDER N P BECK, SHERI, NP UTP UTP [id number] [facility] 2016-04-17 11:00:00 2016-04-17 11:00:00 Appointment; MEKA LINDER N P BECK, SHERI, NP UTP UTP [id number] [facility] 2016-03-28 15:00:00 2016-03-28 15:00:00 Appointment; HANNAH YORK M.D. CATALANO, MARC, M.D. UTP UTP [id number] [facility] 2016-03-28 10:30:00 2016-03-28 10:30:00 Appointment; MEKA LINDER N P BECK, SHERI, NP UTP UTP [id number] [facility] 2016-03-07 13:00:00 2016-03-07 13:00:00 Appointment; Nathanael BOWSER ECHO UTP UTP [id number] [facility] 2016-03-03 14:45:00 2016-03-03 14:45:00 Appointment; FABIOLA SARKAR P.A. CRUZ, LETICIA, P.A. UTP UTP [id number] [facility] 2016-02-21 14:15:00 2016-02-21 14:15:00 Appointment; JESUS MANUEL OVALLE M .D. CHIU, ALICE, M.D. UTP UTP [id number] [facility] 2016-01-17 13:45:00 2016-01-17 13:45:00 Appointment; AGUSTÍN MCKEON P.A. CAMPOS, BERTHA, P.A. UTP UTP [id number] [facility] 2015-11-27 11:00:00 2015-11-27 11:00:00 Appointment; JESUS MANUEL OVALLE M .D. CHIU, ALICE, M.D. UTP UTP [id number] [facility] 2015-11-26 14:45:00 2015-11-26 14:45:00 Appointment; JESUS MANUEL OVALLE M .D. CHIU, ALICE, M.D. UTP UTP [id number] [facility] 2015-11-13 09:00:00 2015-11-13 09:00:00 Appointment; AGUSTÍN MCKEON P.A. CAMPOS, BERTHA, PYamilAYamil MEZA UTP [id number] [facility] 2015-10-31 15:00:00 2015-10-31 15:00:00 Appointment; KEIRA POSADAS RD WRIGHT, TISH, RD UTP UTP [id number] [facility] 2015-10-17 10:00:00 2015-10-17 10:00:00 Appointment; MARI GRACE NP TEJADA-FOSTER, NORMA, NP UTP UTP [id number] [facility] 2015-09-20 15:00:00 2015-09-20 15:00:00 Appointment; MEKA LINDER N P BECK, SHERI, NP UTP UTP [id number] [facility] 2015-08-09 10:30:00 2015-08-09 10:30:00 Appointment; JESUS MANUEL OVALLE M .D. CHIU, ALICE, M.D. UTP UTP [id number] [facility] 2015-06-25 09:00:00 2015-06-25 09:00:00 Appointment; JAGDEEP PULIDO M.D. AYOUB, HAJAR, M.D. [facility] UTP [id number] [facility] 2015-06-18 14:30:00 2015-06-18 14:30:00 Appointment; CLAUDIA RUIZ M.D. BORTOLOTTI, JULIE, M.D. [facility] [id number] [facility] 2015-06-06 09:30:00 2015-06-06 09:30:00 Appointment; DAGO AYALA M.D. SNYDER, BRAD, M.D. [facility] UTP [id number] [facility] 2015-05-30 15:15:00 2015-05-30 15:15:00 Appointment; JAGDEEP PULIDO M.D. AYOUB, HAJAR, M.D. [facility] [id number] [facility] 2015-05-25 09:45:00 2015-05-25 09:45:00 Appointment; CLAUDIA RUIZ M.D. BORTOLOTTI, JULIE, M.D. [facility] [id number] [facility] 2015-05-15 15:45:00 2015-05-15 15:45:00 Appointment; JESUS MANUEL OVALLE M .D. CHIU, ALICE, M.D. [facility] [id number] [facility] 2015-05-15 13:00:00 2015-05-15 13:00:00 Appointment; CHAVO CHANG M.D. ADROGUE, JULIA, M.D. [facility] [id number] [facility] 2015-04-19 15:45:00 2015-04-19 15:45:00 Appointment; CLAUDIA RUIZ M.D. BORTOLOTTI, JULIE, M.D. [facility] [id number] [facility] 2015-04-06 17:30:00 2015-04-06 17:30:00 Appointment; VEE MURGUIA M.D. WALLS, ENDIA, M.D. [facility] [id number] [facility] Results Test Description Test Time Test Comments Results Result Comments Source - XR C-SPINE 4-5 V 2020-03-12 11:34:00 [facility] : 1955 Sex: F FAX: Kendra Mcguire [phone] [place]: O St: REG FAX: Ike Otero MD [phone] Name: ALISON HOUSTON [facility] : 1955 Age/S: 64/F [address] [facility] Unit #: [id number] Loc: [place] [address] Phys: Ike Upton MD Acct: [id number] Dis Date: Status: REG CLI PHONE #: [phone] Exam Date: 03/12/2020 1127 FAX #: [phone] Reason: CERVICAL DISC HERNIATION EXAMS: CPT CODE: [id number] XR C-SPINE 4-5 V 68743 REASON FOR EXAM: CERVICAL DISC HERNIATION EXAM ORDER DATE: 03/12/2020 11:10 AM Ordering: Ike Upton MD Attending:Ike Upton MD Location:[facility] PROCEDURE: - XR C-SPINE 4-5 V FINDINGS: 4 views of the cervical spine were obtained . The osseous structures are unremarkable in size and shape. The disc spaces are maintained. No evidence of fracture. Fusion with anterior internal fixation plate from C5 through C7 is in good anatomic alignment. Uncovertebral joints are preserved. Lung apices are clear. No prevertebral soft tissue swelling. No evidence of hardware loosening or failure. No subluxation. Anterior disc osteophyte at C3 and C4. IMPRESSION: Cervical fusion from C5 through C7 in good anatomic alignment. No evidence of hardware loosening or failure. at 1134 Reported and signed by: Lobito Dupree M.D. CC: Kendra Duarte MD; Ike Upton MD Technologist: CLAUDINE IBARRA) Trnscrd Date/Time/By: 03/12/2020 (3042) : By: [email or web address] Orig Print D/T: S: 03/12/2020 (0920) PAGE 1 Signed Report INTERVERTEBRAL DISC 2020-02-17 17:10:00 RUN DATE: 02/17/20 [facility] ([facility] PAGE 1 RUN TIME: 1710 Specimen Inquiry RUN USER: INTERFACE PATIENT: ALISON HOUSTON LOC: [place] U #: [id number] AGE/SX: 64/F ROOM: [facility] RE02/15/20REG DR: Ike Upton MD : 55 BED: A DIS: 02/16/20 STATUS: DIS Dorothy TLOC: SPEC #: [id number] RECD: 02/16/20 STATUS: ROBBIE REQ #: [id number] VAN: 02/15/[address] [facility] [address]: Ike Upton MD ENTERED: 02/16/20 SP TYPE: INT DISC OTHR DR: Kendra Duarte MD ORDERED: GROSS COPIES TO: Kendra Duarte MD [address] [facility] [address] [place] [address] Ike Upton MD [address] [address] PROCEDURES: GROSS (02/17/20) TISSUES: CERVICAL VERTEBRA, NOS - DISC CLINICAL HISTORY COLLECTION DATE: 02/15/2020 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 Small fragments of possible bone are present. Computer Networking Instructor Adjunct portions are submitted for histologic evaluation in a single cassette after decalcification. CONTINUED ON NEXT PAGE RUN DATE: 02/17/20 [place] [facility] PAGE 2 RUN TIME: 1710 Specimen Inquiry RUN USER: INTERFACE SPEC #: [id number] PATIENT: ALISON HOUSTON # [id number] (Continued) MACROSCOPIC (Continued) GROSS PERFORMED AT [facility] [address] [place] [address] [phone] MICROSCOPIC All of the stains, including any controls performed, stain appropriately. MICROSCOPIC PERFORMED AT [facility] [address] [place] [address] [phone] PERFORMING SITE Diagnosis performed at: [facility], [place] [address] [place] [address] Signed SIGNATURE ON FILE Miri Griffiths MD 02/17/20 8558 END OF REPORT - XR C-SPINE 2-3 VIEWS 2020-02-16 08:47:00 FAX: Kendra Mcguire [phone] [place]: St: [facility] FAX: Ike Otero MD [phone] Name: ALISON HOUSTON [facility] : 1955 Age/S: 64/F [address] [facility] Unit #: [id number] Loc: V.[address] [place] [address] Phys: Ike Upton MD Acct: [id number] Dis Date: Status: ADM IN PHONE #: [phone] Exam Date: 02/16/2020 0841 FAX #: [phone] Reason: Status post fusion EXAMS: CPT CODE: [id number] XR C-SPINE 2-3 VIEWS 54847 HISTORY: Post fusion. COMPARISON: X-ray from May 01, 2019. Location: [facility]. AP and lateral view of the C-spine: Fusion with anterior internal fixation plate from C5 through C7 is in good anatomic alignment. Uncovertebral joints are preserved. Small cervical ribs. Lung apices are clear. No prevertebral soft tissue swelling. IMPRESSION: Cervical fusion from C5 through C7 in good anatomic alignment. Vertebral body heights are maintained. Anterior osteophytes at C4 and C3 level. at 0847 Reported and signed by: José Hudson M.D. CC: Kendra Duarte MD; Ike Upton MD Technologist: RT Dharmesh(Epifanio) Trnscrd Date/Time/By: 02/16/2020 (0847) : By: [email or web address] Orig Print D/T: S: 02/16/2020 (0085) PAGE 1 Signed Report GLUBED 2020-02-15 10:26:00 Test Item GLUBED (test code = GLUBED) 90 mg/dL 74-106 N Performed by certified braiding machine operator at [facility] Novel Coronavirus 03:29:00* Test Item Value Reference Range Interpretation Comments Novel Coronavirus 2018 Inhouse (test code = [id number]) Negative Negative Positive results are indicative of the presence pyUFGY-QlR-4 RNA, clinical correlation with patient historyand other diagnostic information is necessary to determinepatient infection status. Positive results do not rule outbacterial infection or co-infection with other viruses. Negative results do not preclude SARS-CoV-2 infection andshould not be used as the sole basis for patient managementdecisions. Negative results must be combined with otherclinical observations, patient history, and epidemiologicalinformation. Detection of SARS-CoV-2 RNA may be affected bysample collection methods, storage conditions, and/or stageof infection. Viral RNA mutations, vaccinations, antiviraltherapeutics, antibiotics, chemotherapeutic orimmunosuppressant drugs have not been evaluated for effectson detection. Results are for the identification of SARS-CoV-2 RNA usingthe [employer] M2000 System under the FDA Emergency UseAuthorization. The testing is performed by personneltrained in the procedures for the Pompa M2000 moleculardiagnostic SARS-CoV-2 assay in vitro. Novel Coronavirus 03:29:00* Test Item Value Reference Range Interpretation Comments Novel Coronavirus 2018 Inhouse (test code = [id number]) Negative Negative Positive results are indicative of the presence vpEMFE-AvX-9 RNA, clinical correlation with patient historyand other diagnostic information is necessary to determinepatient infection status. Positive results do not rule outbacterial infection or co-infection with other viruses. Negative results do not preclude SARS-CoV-2 infection andshould not be used as the sole basis for patient managementdecisions. Negative results must be combined with otherclinical observations, patient history, and epidemiologicalinformation. Detection of SARS-CoV-2 RNA may be affected bysample collection methods, storage conditions, and/or stageof infection. Viral RNA mutations, vaccinations, antiviraltherapeutics, antibiotics, chemotherapeutic orimmunosuppressant drugs have not been evaluated for effectson detection. Results are for the identification of SARS-CoV-2 RNA usingthe TRANSCORP M2000 System under the FDA Emergency UseAuthorization. The testing is performed by personneltrained in the procedures for the Pompa M2000 moleculardiagnostic SARS-CoV-2 assay in vitro. BASIC METABOLIC [id number] 16:03:00* Test Item Value Reference Range Interpretation Comments SODIUM (test code = NA) 144 mmol/L 136-145 N POTASSIUM (test code = K) 4.0 mmol/L 3.5-5.1 N CHLORIDE (test code = CL) 109.0 mmol/L 98-107 H CARBON DIOXIDE (test code = CO2) 30.0 mmol/L 21-32 N ANION GAP (test code = GAP) 9.0 10-20 L GLUCOSE (test code = GLU) 77 mg/dL 74-106 N BLOOD UREA NITROGEN (test code = BUN) 15 mg/dL 7-18 N GLOMERULAR FILTRATION RATE (test code = GFR) 50 mL/min >=60 Estimated GFR by using Modified MDRD formula.Chronic kidney disease is defined as either kidney damageor GFR <60 mL/min/1.73 m2 for >3 months. CREATININE (test code = CREAT) 1.10 mg/dL 0.55-1.02 H Note change in reference range due to change in reagent. BUN/CREATININE RATIO (test code = BUN/CREA) 13.5 10-20 N CALCIUM (test code = CA) 9.5 mg/dL 8.5-10.1 N BASIC METABOLIC [id number] 15:57:00* Test Item Value Reference Range Interpretation Comments SODIUM (test code = NA) 144 mmol/L 136-145 N POTASSIUM (test code = K) 4.0 mmol/L 3.5-5.1 N CHLORIDE (test code = CL) 109.0 mmol/L 98-107 H CARBON DIOXIDE (test code = CO2) mmol/L 21-32 ANION GAP (test code = GAP) 10-20 GLUCOSE (test code = GLU) mg/dL 74-106 BLOOD UREA NITROGEN (test code = BUN) mg/dL 7-18 GLOMERULAR FILTRATION RATE (test code = GFR) mL/min >=60 CREATININE (test code = CREAT) mg/dL 0.55-1.02 BUN/CREATININE RATIO (test code = BUN/CREA) 10-20 CALCIUM (test code = CA) mg/dL 8.5-10.1 PROTHROMBIN [id number] 15:47:00* Test Item Value Reference Range Interpretation Comments PROTHROMBIN TIME PATIENT (test code = PTP) 11.3 seconds 9.0-14.0 N INTERNATIONAL NORMAL RATIO (test code = INR) 1.0 0.8-1.2 N The therapeutic range for oral anticoagulant therapy formost indications is an international normalized ratio (INR)of between 2.0 and 3.0. The recommended therapeutic INRrange for various clinical situations is listed below: Clinical Situation INR range Pulmonary e mbolism treatment (2.0-3.0)Venous thrombosis treatmentVenous thrombosis prophylaxis (high risk surgery)Prevention of systemic embolism from: Acute myocardial infarction Valvular heart disease Atrial fibrillation Mechanical prosthetic heart valves (2.5-3.5) IS PATIENT ON ANTICOAGULANTS? NTHROMBOPLASTIN TIME [id number] 15:47:00* Test Item Value Reference Range Interpretation Comments THROMBOPLASTIN TIME PARTIAL (test code = PTT) 28.7 seconds 23.0-37. 0 N IS PATIENT ON ANTICOAGULANTS? NCBC W/AUTO [id number] 15:34:00* Test Item Value Reference Range Interpretation Comments WHITE BLOOD CELL (test code = WBC) 9.0 K/mm3 4.5-12.5 N RED BLOOD CELL (test code = RBC) 4.55 mill/mm3 3.7-5.2 N HEMOGLOBIN (test code = HGB) 13.2 gram/dL 11.5-15.5 N HEMATOCRIT (test code = HCT) 41.3 % 36.0-46.0 N MEAN CELL VOLUME (test code = MCV) 90.8 fL 80-98 N MEAN CELL HGB (test code = MCH) 29.0 picogram 27.0-33.0 N MEAN CELL HGB CONCETRATION (test code = MCHC) 32.0 gram/dL 33.0-36. 0 L RED CELL DISTRIBUTION WIDTH (test code = RDW) 14.6 % 11.6-16. 2 N RED CELL DISTRIBUTION WIDTH SD (test code = RDW-SD) 48.3 fL 37 .0-51.0 N PLATELET COUNT (test code = PLT) 205 K/mm3 150-450 N MEAN PLATELET VOLUME (test code = MPV) 9.3 fL 6.7-11.0 N NEUTROPHIL % (test code = NT%) 63.7 % 39.0-69.0 N IMMATURE GRANULOCYTE % (test code = IG%) 0.3 % 0.0-5.0 N LYMPHOCYTE % (test code = LY%) 25.1 % 25.0-55.0 N MONOCYTE % (test code = MO%) 8.2 % 0.0-10.0 N EOSINOPHIL % (test code = EO%) 2.0 % 0.0-5.0 N BASOPHIL % (test code = BA%) 0.7 % 0.0-1.0 N NUCLEATED RBC % (test code = NRBC%) 0.0 % 0-0 N NEUTROPHIL # (test code = NT#) 5.73 K/mm3 1.8-7.7 N IMMATURE GRANULOCYTE # (test code = IG#) 0.03 x10 3/uL 0-0.03 N LYMPHOCYTE # (test code = LY#) 2.26 K/mm3 1.0-5.0 N MONOCYTE # (test code = MO#) 0.74 K/mm3 0-0.8 N EOSINOPHIL # (test code = EO#) 0.18 K/mm3 0.0-0.5 N BASOPHIL # (test code = BA#) 0.06 K/mm3 0.0-0.2 N NUCLEATED RBC # (test code = NRBC#) 0.00 K/mm3 0.0-0.1 N MANUAL DIFF REQUIRED (test code = MDIFF) NO - XR CHEST 2 [id number] 14:45:00 FAX: Kendra Mcguire [phone] [place]: St: PRE FAX: Ike Otero MD [phone] Name: ALISON HOUSTON [facility] : 1955 Age/S: 64/F [address] [facility] Unit #: [id number] Loc: [place] [address] Phys: Ike Upton MD Acct: [id number] Dis Date: Status: PRE SDC PHONE #: [phone] Exam Date: 02/13/2020 1432 FAX #: [phone] Reason: PRE-OP EXAMS: CPT CODE: [id number] XR CHEST 2 V 84193 REASON FOR EXAM: PRE-OP Exam Order Date: 02/13/2020 2:26 PM Ordering M.D.: Ike Upton MD PROCEDURE: - XR CHEST 2 V COMPARISON: Chest radiograph September 17, 2014 FINDINGS: The lungs are clear. There is no pleural effusion or pneumothorax. Pulmonary vascularity is within normal limits. Cardiomediastinal silhouette is normal in size for technique. The mediastinal contours are within normal limits. Degenerative changes are present in the spine. The visualized upper abdomen is within normal limits. IMPRESSION: No acute cardiopulmonary process. Location: [facility] at 1445 Reported and signed by: Esvin Abbott MD CC: Kendra Duarte MD; Ike Upton MD Technologist: Samanta Kovacs RT(R) Trnutrd Date/Time/By: 02/13/2020 (6165) : By: [email or web address] Orig Print D/T: S: 02/13/2020 (0299) PAGE 1 Signed Report - MRI L-SPINE W/O [id number] 00:37:00 [place]: PM St: REG Name: ALISON COLLAZO : 5 Age/S: 64/F [address] Unit #: [id number] Loc: L.MRI [place] [address] Phys: Undefined Provider Acct: [id number] Dis Date: Status: REG REF PHONE #: [phone] Exam Date: 02/08/2020 0156 FAX #: Reason: back pain EXAMS: CPT: [id number] MRI L-SPINE W/O CONT 38533 HISTORY: Pain Location: C3 TECHNIQUE: Sagittal and axial MR images of the lumbar spine were o btained. Comparison the prior CT dated 02/07/2020 FINDINGS: Vertebral heights are maintained. Multilevel degenerative changes are demonstrated. Endplate degenerative changes are present greatest at L4-5. T12/L1: Central disc protrusion is demonstrated indenting the thecal sac without significant central spinal stenosis. L1/2: Mild posterior disc bulge is noted without significant central sp inal stenosis. L2/3: Facet arthropathy is noted with mild left for aminal narrowing noted. L3/4: Mild disc bulges demonstrated with facet degenerative changes and ligamentous thickening. Findings caus e moderate to severe central spinal stenosis with bilateral lateral recess narrowing and mild left foraminal narrowing. L4/5: Posterior disc bulges demonstrated with facet degenerative changes. Findings cause mild to moderate central spinal stenosis more so to the left of midline with severe left lateral recess narrowing with left greater than right kenyon ral foraminal narrowing. L5/S1: Facet arthropathy is noted bilater ally mild bilateral foraminal narrowing is noted. Bilateral lateral reces s narrowing is present. IMPRESSION: 1. Multil evel degenerative changes of the lumbar spine described above. at 0037 Reported and sig josh by: Margarette Barreto M.D. PAGE 1 Signed Report (CONTINUED) [place]: PM St: REG Name: ALISON HOUSTON : 1955 Age/S: 64/F [address] Unit #: [id number] Loc: [place] [address] Phys: Undefined Provider Acct: [id number] Dis Date: Status: REG REF PHONE #: [phone] Exam Date: 02/08/2020 2202 FAX #: Reason: back pain EXAMS: CPT: 0 [id number] MRI L-SPINE W/O CONT 43592 < Continued> CC: Technologist: RT Carlos Enrique(R)(CT)(MRI) Transcribed Date/Time/By: 02/09/2020 (0037) :[email or web address] Orig Print D/T: S: 02/09/2020 (0040) PAGE 2 Signed Report URINALYSIS COMPLETE 2020-02-07 15:50:00* Test Item Value Reference Range Interpretation Comments UA COLOR (test code = COLU) Light-Yellow YELLOW UA APPEARANCE (test code = APPU) CLEAR CLEAR UA GLUCOSE DIPSTICK (test code = DGLUU) NEGATIVE mg/dL NEGATIVE UA BILIRUBIN DIPSTICK (test code = BILU) NEGATIVE mg/dL NEGATIVE UA KETONE DIPSTICK (test code = KETU) NEGATIVE mg/dL NEGATIVE UA SPECIFIC GRAVITY (test code = SGU) 1.012 1.001-1.035 UA BLOOD DIPSTICK (test code = EBEN) Negative mg/dL NEGATIVE UA PH DIPSTICK (test code = JAVAN) 6.0 5.0-8.0 UA PROTEIN DIPSTICK (test code = PROU) NEGATIVE mg/dL NEGATIVE UA UROBILINIOGEN DIPSTICK (test code = URO) Normal mg/dL NEGATIVE UA NITRITE DIPSTICK (test code = NILAY) NEGATIVE NEGATIVE UA LEUKOCYTE ESTERASE W REFLEX (test code = LEUUR) NEGATIVE Lopez/uL NEGATIVE UA WBC (test code = WBCU) 0-5 per HPF 0-5 UA RBC (test code = RBCU) 3-5 #/HPF 0-5 UA EPITHELIAL CELLS (test code = EPIU) FEW per HPF FEW UA BACTERIA (test code = BACU) per HPF NONE UA MUCUS (test code = MUCU) FEW #/LPF FEW Urine Source? Clean CatchURINALYSIS [id number] 15:50:00* Test Item Value Reference Range Interpretation Comments UA COLOR (test code = COLU) Light-Yellow YELLOW UA APPEARANCE (test code = APPU) CLEAR CLEAR UA GLUCOSE DIPSTICK (test code = DGLUU) NEGATIVE mg/dL NEGATIVE UA BILIRUBIN DIPSTICK (test code = BILU) NEGATIVE mg/dL NEGATIVE UA KETONE DIPSTICK (test code = KETU) NEGATIVE mg/dL NEGATIVE UA SPECIFIC GRAVITY (test code = SGU) 1.012 1.001-1.035 UA BLOOD DIPSTICK (test code = EBEN) Negative mg/dL NEGATIVE UA PH DIPSTICK (test code = JAVAN) 6.0 5.0-8.0 UA PROTEIN DIPSTICK (test code = PROU) NEGATIVE mg/dL NEGATIVE UA UROBILINIOGEN DIPSTICK (test code = URO) Normal mg/dL NEGATIVE UA NITRITE DIPSTICK (test code = NILAY) NEGATIVE NEGATIVE UA LEUKOCYTE ESTERASE W REFLEX (test code = LEUUR) NEGATIVE Lopez/uL NEGATIVE UA WBC (test code = WBCU) 0-5 per HPF 0-5 UA RBC (test code = RBCU) 3-5 #/HPF 0-5 UA EPITHELIAL CELLS (test code = EPIU) FEW per HPF FEW UA BACTERIA (test code = BACU) NONE SEEN per HPF NONE UA MUCUS (test code = MUCU) FEW #/LPF FEW Urine Source? Clean CatchURINALYSIS [id number] 15:46:00* Test Item Value Reference Range Interpretation Comments UA COLOR (test code = COLU) Light-Yellow YELLOW UA APPEARANCE (test code = APPU) CLEAR CLEAR UA GLUCOSE DIPSTICK (test code = DGLUU) NEGATIVE mg/dL NEGATIVE UA BILIRUBIN DIPSTICK (test code = BILU) NEGATIVE mg/dL NEGATIVE UA KETONE DIPSTICK (test code = KETU) NEGATIVE mg/dL NEGATIVE UA SPECIFIC GRAVITY (test code = SGU) 1.012 1.001-1.035 UA BLOOD DIPSTICK (test code = EBEN) Negative mg/dL NEGATIVE UA PH DIPSTICK (test code = JAVAN) 6.0 5.0-8.0 UA PROTEIN DIPSTICK (test code = PROU) NEGATIVE mg/dL NEGATIVE UA UROBILINIOGEN DIPSTICK (test code = URO) Normal mg/dL NEGATIVE UA NITRITE DIPSTICK (test code = NILAY) NEGATIVE NEGATIVE UA LEUKOCYTE ESTERASE W REFLEX (test code = LEUUR) NEGATIVE Lopez/uL NEGATIVE UA WBC (test code = WBCU) per HPF 0-5 UA RBC (test code = RBCU) per HPF 0-5 UA EPITHELIAL CELLS (test code = EPIU) per HPF Few UA BACTERIA (test code = BACU) per HPF NONE Urine Source? Clean CatchCOMPREHENSIVE METABOLIC [id number] 14:54:00* Test Item Value Reference Range Interpretation Comments SODIUM (test code = NA) 141 mmol/L 136-145 N POTASSIUM (test code = K) 3.7 mmol/L 3.5-5.1 N CHLORIDE (test code = CL) 107.0 mmol/L 98-107 N CARBON DIOXIDE (test code = CO2) 30.0 mmol/L 21-32 N ANION GAP (test code = GAP) 7.7 10-20 L GLUCOSE (test code = GLU) 108 mg/dL 74-106 H BLOOD UREA NITROGEN (test code = BUN) 15 mg/dL 7-18 N GLOMERULAR FILTRATION RATE (test code = GFR) 56 mL/min >=60 Estimated GFR by using Modified MDRD formula.Chronic kidney disease is defined as either kidney damageor GFR <60 mL/min/1.73 m2 for >3 months. CREATININE (test code = CREAT) 1.00 mg/dL 0.55-1.02 N Note change in reference range due to change in reagent. BUN/CREATININE RATIO (test code = BUN/CREA) 15.1 10-20 N TOTAL PROTEIN (test code = PROT) 7.3 gram/dL 6.4-8.2 N ALBUMIN (test code = ALB) 3.9 g/dL 3.4-5.0 N GLOBULIN (test code = GLOB) 3.4 gram/dL 2.7-4.2 N ALBUMIN/GLOBULIN RATIO (test code = A/G) 1.1 0.75-1.50 N CALCIUM (test code = CA) 9.1 mg/dL 8.5-10.1 N BILIRUBIN TOTAL (test code = BILT) 0.60 mg/dL 0.0-1.0 N SGOT/AST (test code = AST) 18 IUnit/L 15-37 N SGPT/ALT (test code = ALT) 26 IUnit/L 12-78 N ALKALINE PHOSPHATASE TOTAL (test code = ALKP) 103 IUnit/L 45-117 N Note change in reference range due to change in reagent. [id number] 14:54:00* Test Item Value Reference Range Interpretation Comments LIPASE (test code = LIP) 107 U/L 73.0-393.0 N - CT L-SPINE W/O [id number] 14:53:00 Name: ALISON HOUSTON [facility] : 1955 Age/S: 64 / F [address] [facility] Unit #: [id number] Loc: [facility] [place] [address] Phys: Priya Reyes MD Acct: [id number] Dis Date: Status: REG ER PHONE #: [phone] Exam Date: 02/07/2020215 FAX #: [phone] Reason: fall, weakness to left leg EXAMS: CPT CODE: [id number] CT L-SPINE W/O CONTRAST 94[address] HISTORY: fall, weakness to left leg TECHNIQUE: 2.[address] of the lumbar spine with coronal and sagittal reformatting. Automated exposure control for dose reduction. COMPARISON: None. FINDINGS: Limited by body habitus. Vertebral body alignment is satisfactory. Vertebral body heights are preserved. Osteopenia. Severe L4-L5 disc space loss with vacuum phenomenon, endplate irregularity, marginal osteophytes. Mild disc space loss with disc bulge and marginal osteophytes at other lumbar levels. Moderate-severe lumbar facet arthrosis. Moderate central canal stenosis at L3-L4 and L4-L5. Moderate-severe foraminal stenosis from L3-L4 through L5- S1. No prevertebral or paraspinal soft tissue abnormality. Aortoiliac atherosclerotic vascular calcification without aneurysm. Mild degenerat sae changes of the sacroiliac joints and hips. IMPRESSION: No acute fracture or subluxation of the lumbar spine. LOCATION: LP at 1453 Reported and signed by: Gaye Whipple D.O. CC: Priya Reyes MD Technologist:Bill Castillo RT(R),(MR),(CT) CTDI: DLP: Trnscb Date/Time: 02/07/2020 (955) [email or web address] Orig Print D/T: S: 02/07/2020 (2926) PAGE 1 Signed Report COMPREHENSIVE METABOLIC [id number] 14:47:00* Test Item Value Reference Range Interpretation Comments SODIUM (test code = NA) 141 mmol/L 136-145 N POTASSIUM (test code = K) 3.7 mmol/L 3.5-5.1 N CHLORIDE (test code = CL) 107.0 mmol/L 98-107 N CARBON DIOXIDE (test code = CO2) mmol/L 21-32 ANION GAP (test code = GAP) 10-20 GLUCOSE (test code = GLU) mg/dL 74-106 BLOOD UREA NITROGEN (test code = BUN) mg/dL 7-18 GLOMERULAR FILTRATION RATE (test code = GFR) mL/min >=60 CREATININE (test code = CREAT) mg/dL 0.55-1.02 BUN/CREATININE RATIO (test code = BUN/CREA) 10-20 TOTAL PROTEIN (test code = PROT) gram/dL 6.4-8.2 ALBUMIN (test code = ALB) g/dL 3.4-5.0 GLOBULIN (test code = GLOB) gram/dL 2.7-4.2 ALBUMIN/GLOBULIN RATIO (test code = A/G) 0.75-1.50 CALCIUM (test code = CA) mg/dL 8.5-10.1 BILIRUBIN TOTAL (test code = BILT) mg/dL 0.0-1.0 SGOT/AST (test code = AST) IUnit/L 15-37 SGPT/ALT (test code = ALT) IUnit/L 12-78 ALKALINE PHOSPHATASE TOTAL (test code = ALKP) IUnit/L 45-117 [id number] 14:47:00* Test Item Value Reference Range Interpretation Comments LIPASE (test code = LIP) U/L 73.0-393.0 - CT T-SPINE W/O [id number] 14:40:00 Name: ALISON HOUSTON [facility] : 1955 Age/S: 64 / F [address] [facility] Unit #: [id number] Loc: [place] [address] Phys: Priya Reyes MD Acct: [id number] Dis Date: Status: REG ER PHONE #: [phone] Exam Date: 02/07/2020215 FAX #: [phone] Reason: fall, weakness to left leg EXAMS: CPT CODE: [id number] CT T-SPINE W/O CONTRAST 98026 HISTORY: fall, weakness to left leg TECHNIQUE: 2.[address] of the thoracic spine with coronal and sagittal reformatting. Automated exposure control for dose reduction. COMPARISON: None. FINDINGS: Limited by artifact related to body habitus. Mild levoscoliosis. Vertebral body alignment is satisfactory. Vertebral body heights are preserved. Osteopenia. Moderate multilevel disc space loss with marginal osteophytes and facet arthrosis. No evidence disc bulge or protrusion. No central canal stenosis. Mild foraminal stenosis at bilateral T3-T4, left T7-T8, bilateral T9-T10. Paraspinal soft tissues are unremarkable. Visualized lung parenchyma and mediastinal structures are unremarkable. IMPR ESSION: No acute fracture or subluxation of the thoracic spine . LOCATION: [place] at 1440 Reported and signed by: Gaye Whipple D.O. CC: Priya Reyes MD Technologist:Bill Castillo RT(R),(MR),(CT) CTDI: DLP: Trnscb Date/Time: 02/07/2020 (1440) [email or web address] Orig Print D/T: S: 02/07/2020 (4036) PAGE 1 Signed Report - CT C-SPINE W/O CONTRAST 2020-02-07 14:32:00 Name: ALISON HOUSTON [facility] : 1955 Age/S: 64 / F Janell Lopez Unit #: [id number] Loc: [place] [address] Phys: Priya Reyes MD Acct: [id number] Dis Date: Status: REG ER PHONE #: [phone] Exam Date: 02/07/2020 021 FAX #: [phone] Reason: fall, headache EXAMS: CPT CODE: [id number] CT C-SPINE W/O CONTRAST 26317 HISTORY: fall, headache TECHNIQUE: 2.[address] of the cervical spine. Sagittal and coronal reformatted images were generated. Automated exposure control for dose reduction. COMPARISON: X-ray 05/01/19 FINDINGS: Craniocervical and cervicothoracic articulations are appropriate. Degenerative changes of the anterior atlantoaxial joint. Vertebral body alignment is satisfactory. Vertebral body heights are preserved. Mild disc space loss with disc bulge, marginal osteophytes, and uncovertebral arthrosis at C3-C4 and C4- C5. Severe disc space loss with disc/osteophyte complex and uncovertebral arthrosis at C5-C6 and C6-C7. Moderate C7-T1 disc space loss with marginal osteophytes. C7-T1 facet arthrosis. Mild C5-C6 central canal stenosis. Mild right C3-C4 and left C4-C5 foraminal stenosis. Moderate-severe foraminal stenosis at C5-C6 and C6-C7, greater on the right. No prevertebral or paraspinal soft tissue abnormality. Atherosclerotic vascular calcification of the carotid bifurcations. Visualized posterior fossa contents are grossly unremarkable. Lung apices are clear. IMPRESSION: No acute fracture or subluxation of the cervical spine. LOCATION: LP at 1432 Reported and signed by: Gaye Whipple D.O. CC: Priya Reyes MD Technologist:Bill Ray RT(R),(MR),(CT) CTDI: DLP: Trnscb Date/Time: 02/07/2020 (1432) [email or web address] Orig Print D/T: S: 02/07/2020 (5976) PAGE 1 Signed Report - CT HEAD/BRAIN W/O [id number] 14:26:00 Name: ALISON HOUSTON [facility] : 1955 Age/S: 64 / F [address] Unit #: [id number] Loc: [place] [address] Phys: Priya Reyes MD Acct: [id number] Dis Date: Status: REG ER PHONE #: [phone] Exam Date: 02/07/2020 021 FAX #: [phone] Reason: fall, headache EXAMS: CPT CODE: [id number] CT HEAD/BRAIN W/O CONT 24057 HISTORY: Fall and pain. COMPARISON: CT scan from August 25, 2018. Location: [facility]. CT brain without contrast: Automated exposure control. No acute intracranial bleeds or extra- axial collections are noted. No acute territorial vascular infarction is noted. The sulci, gyri, ventricles and subarachnoid spaces and the basilar cisterns are normal for patient's age. No herniation or hydrocephalus or midline shift is noted. Mild periventricular ischemic gliosis is noted. Age-appropriate atrophy is noted as well. Portions of the visualized paranasal sinuses are normal. No obvious bony calvarial defect is noted. IMPRESSION: No acute intracranial bleeds or extra-axial collections. No acute territorial vascular infarction. No herniation or hydrocephalus or midline shift. Chronic white matter ischemic disease and atrophy . at 1426 Reported and signed by: José Hudson M.D. CC: Priya Reyes MD Technologist:Bill Castillo RT(R),(MR),(CT) CTDI: DLP: Trnscb Date/Time: 02/07/2020 (1426) [email or web address] Orig Print D/T: S: 02/07/2020 (3434) PAGE 1 Signed Report CBC W/AUTO [id number] 14:21:00* Test Item Value Reference Range Interpretation Comments WHITE BLOOD CELL (test code = WBC) 7.8 K/mm3 4.5-12.5 N RED BLOOD CELL (test code = RBC) 4.24 mill/mm3 3.7-5.2 N HEMOGLOBIN (test code = HGB) 12.5 gram/dL 11.5-15.5 N HEMATOCRIT (test code = HCT) 38.7 % 36.0-46.0 N MEAN CELL VOLUME (test code = MCV) 91.3 fL 80-98 N MEAN CELL HGB (test code = MCH) 29.5 picogram 27.0-33.0 N MEAN CELL HGB CONCETRATION (test code = MCHC) 32.3 gram/dL 33.0-36. 0 L RED CELL DISTRIBUTION WIDTH (test code = RDW) 14.8 % 11.6-16. 2 N RED CELL DISTRIBUTION WIDTH SD (test code = RDW-SD) 48.6 fL 37 .0-51.0 N PLATELET COUNT (test code = PLT) 166 K/mm3 150-450 N MEAN PLATELET VOLUME (test code = MPV) 8.9 fL 6.7-11.0 N NEUTROPHIL % (test code = NT%) 62.9 % 39.0-69.0 N IMMATURE GRANULOCYTE % (test code = IG%) 0.4 % 0.0-5.0 N LYMPHOCYTE % (test code = LY%) 25.5 % 25.0-55.0 N MONOCYTE % (test code = MO%) 8.4 % 0.0-10.0 N EOSINOPHIL % (test code = EO%) 2.2 % 0.0-5.0 N BASOPHIL % (test code = BA%) 0.6 % 0.0-1.0 N NUCLEATED RBC % (test code = NRBC%) 0.0 % 0-0 N NEUTROPHIL # (test code = NT#) 4.92 K/mm3 1.8-7.7 N IMMATURE GRANULOCYTE # (test code = IG#) 0.03 x10 3/uL 0-0.03 N LYMPHOCYTE # (test code = LY#) 2.00 K/mm3 1.0-5.0 N MONOCYTE # (test code = MO#) 0.66 K/mm3 0-0.8 N EOSINOPHIL # (test code = EO#) 0.17 K/mm3 0.0-0.5 N BASOPHIL # (test code = BA#) 0.05 K/mm3 0.0-0.2 N NUCLEATED RBC # (test code = NRBC#) 0.00 K/mm3 0.0-0.1 N - XR KNEE 3 V [id number] 17:03:00 [facility] 1955 Age/S:63 /F [address] [facility] Unit#:[id number] Loc: [place] [address] Phys: Carlos Mccauley INLAYER SILVER Dis Date: PHONE #: [phone] Status: REG ER FAX #: [phone] Exam Date: 05/01/2019 Reason: PAIN S/P FALL EXAMS: CPT CODE: [id number] XR KNEE 3 V RT [id number] CLINICAL HISTORY: PAIN S/P FALL TECHNIQUE: 4 views of the right knee COMPARISON: None FINDINGS: No acute fracture. Bony trabecular pattern is unremarkable. No cortical destruction or periosteal reaction. No joint effusion is present. No stranding in Hoffa's fat pad. There is mild narrowing of the medial compartment of the knee joint. Regional soft tissues are unremarkable. IMPRESSION: Mild degenerative changes of the right knee but no fracture or joint effusion. Location: RR at 1703 Reported and signed by: Esvin Abbott MD CC: Carlos Mccauley Technologist: Sarah Tillman Trnscrpt Data: 05/01/2019 (1703) [email or web address] Orig Print D/T: S: 05/01/2019 (1199) PAGE 1 Signed Report - XR FOOT 3 + V [id number] 17:01:00 [facility] 1955 Age/S:63 /F [address] [facility] Unit#:[id number] Loc: [place] [address] Phys: Carlos Mccauley INLAYER SILVER Dis Date: PHONE #: [phone] Status: REG ER FAX #: [phone] Exam Date: 05/01/2019 Reason: PAIN S/P FALL EXAMS: CPT CODE: [id number] XR FOOT 3 + [place] RT [address] CLINICAL HISTORY: PAIN S/P FALL TECHNIQUE: AP, oblique, and lateral views of the right foot and ankle COMPARISON: None FINDINGS: No acute fracture or dislocation. Bony trabecular pattern is unremarkable. No cortical destruction or periosteal reaction. There has been prior bunionectomy. No evidence of hardware loosening. There is mild narrowing of the interphalangeal joint spaces.. Ankle mortise is appropriately aligned. Small calcaneal enthesophytes are present. There is mild swelling of the soft tissues around the ankle. IMPRESSION: Mild soft tissue swelling of the right ankle but no acute underlying bony injury or disruption of the ankle mortise. Mild degenerative changes of the right foot. Postsurgical changes of prior bunionectomy. No hardware loosening. Location: at 1701 Reported and signed by: Esvin Abbott MD CC: Carlos Mccauley Technologist: Sarah Tillman Trnscrpt Data: 05/01/2019 (1701) [email or web address] Orig Print D/T: S: 05/01/2019 (1510) PAGE 1 Signed Report - XR ANKLE 3 + V [id number] 17:01:00 [facility] 1955 Age/S:63 /F [address] [facility] Unit#:[id number] Loc: [place] [address] Phys: Sanjay Mccauley INLAYER SILVER Dis Date: PHONE #: [phone] Status: REG ER FAX #: [phone] Exam Date: 05/01/2019 Re ason: PAIN S/P FALL EXAMS: CPT CODE: [id number] XR ANKLE 3 + V RT [address]44 CLINICAL HISTORY: PAIN S/P FALL TECHNIQUE: AP, oblique, and lateral views of the right foot and ankle COMPARISON: None FINDINGS: No acute fr acture or dislocation. Bony trabecular pattern is unremarkable. No cortica l destruction or periosteal reaction. There has been prior bunionectomy. N o evidence of hardware loosening. There is mild narrowing of the i nterphalangeal joint spaces.. Ankle mortise is appropriately aligned. Smal l calcaneal enthesophytes are present. There is mild swellin g of the soft tissues around the ankle. IMPRESSION: Mild soft tissue swelling of the right ankle but no acute underlyi ng bony injury or disruption of the ankle mortise. Mild degenera tive changes of the right foot. Postsurgical changes of prior bunionecto my. No hardware loosening. Location: Electronic ally Signed by Esvin bAbott MD on 05/01/2019 at 1701 Repo rted and signed by: Esvin Abbott MD CC: Carlos Mccauley Technologist: Sarah Tillman Trnutrpt Data: 05/01/2019 (1701) [email or web address] Orig Print D/T: S: 05/01/2019 (2384) PAGE 1 Signed Report - XR T-SPINE 3 VIEWS 2019-05-01 16:58:00 Name: ALISON HOUSTON [facility] : 1955 Age/S:63 /F [address] [facility] Unit#:[id number] Loc: [place] [address] Phys: Carlos Mccauley Dis Date: PHONE #: [phone] Status: REG ER FAX #: [phone] Exam Date: 05/01/2019 Reason: PAIN S/P FALL EXAMS: CPT CODE: [id number] XR T-SPINE 3 VIEWS 39819 HISTORY: PAIN S/P FALL EXAM: AP, open-mouth, and lateral views of the cervical spine. AP, lateral, and swimmers views of the thoracic spine. AP, lateral, and lumbosacral views of the lumbar spine. Comparison: None FINDINGS: No acute fracture or subluxation. Vertebral body alignment is satisfactory. There is mild height loss of the vertebral bodies in the cervical spine. There is also height loss of the C5-C6 disc space as well as the T12-L1, L1-L2, and L4-L5 disc spaces. Vacuum phenomenon is present in the discs in the lower thoracic spine. Moderate-sized vertebral body osteophytes are present in the mid cervical spine and in the lower thoracic spine and lower lumbar spine. There is also degenerative changes of the facet joints in the lower lumbar spine. No paraspinal soft tissue contour abnormality. Visualized lungs are clear. Incidental note is made of cervical ribs. Prior cholecystectomy. IMPRESSION: Degenerative changes throughout the spine but no fracture or malalignment. Location: at 1658 Reported and signed by: Esvin Abbott MD CC: Carlos Mccauley Technologist: Sarah Tillman Trnscrpt Data: 05/01/2019 (8012) [email or web address] Orig Print D/T: S: 05/01/2019 (0267) PAGE 1 Signed Report - XR L-SPINE 2/3 [id number] 16:58:00 [facility] 1955 Age/S:63 /F [address] [facility] Unit#:[id number] Loc: [place] [address] Phys: Carlos Mccauley Dis Date: PHONE #: [phone] Status: REG ER FAX #: [phone] Exam Date: 05/01/2019 Reason: PAIN S/P FALL EXAMS: CPT CODE: [id number] XR L-SPINE 2/3 VIEWS 05494 HISTORY: PAIN S/P FALL EXAM: AP, open-mouth, and lateral views of the cervical spine. AP, lateral, and swimmers views of the thoracic spine. AP, lateral, and lumbosacral views of the lumbar spine. Comparison: None FINDINGS: No acute fracture or subluxation. Vertebral body alignment is satisfactory. There is mild height loss of the vertebral bodies in the cervical spine. There is also height loss of the C5-C6 disc space as well as the T12-L1, L1-L2, and L4-L5 disc spaces. Vacuum phenomenon is present in the discs in the lower thoracic spine. Moderate-sized vertebral body osteophytes are present in the mid cervical spine and in the lower thoracic spine and lower lumbar spine. There is also degenerative changes of the facet joints in the lower lumbar spine. No paraspinal soft tissue contour abnormality. Visualized lungs are clear. Incidental note is made of cervical ribs. Prior cholecystectomy. IMPRESSION: Degenerative changes throughout the spine but no fracture or malalignment. Location: RR at 1658 Reported and signed by: Esvin Abbott MD CC: Carlos Mccauley Technologist: Sarah Tillman Trnscrpt Data: 05/01/2019 (0007) [email or web address] Orig Print D/T: S: 05/01/2019 (6708) PAGE 1 Signed Report - XR C-SPINE 2-3 [id number] 16:58:00 Name: ALISON HOUSTON [facility] : 1955 Age/S:63 /F [address] [facility] Unit#:[id number] Loc: [place] [address] Phys: Carlos Mccauley Dis Date: PHONE #: [phone] Status: REG ER FAX #: [phone] Exam Date: 05/01/2019 Reason: PAIN S/P FALL EXAMS: CPT CODE: [id number] XR C-SPINE 2-3 VIEWS 25514 HISTORY: PAIN S/P FALL EXAM: AP, open-mouth, and lateral views of the cervical spine. AP, lateral, and swimmers views of the thoracic spine. AP, lateral, and lumbosacral views of the lumbar spine. Comparison: None FINDINGS: No acute fracture or subluxation. Vertebral body alignment is satisfactory. There is mild height loss of the vertebral bodies in the cervical spine. There is also height loss of the C5-C6 disc space as well as the T12-L1, L1-L2, and L4-L5 disc spaces. Vacuum phenomenon is present in the discs in the lower thoracic spine. Moderate-sized vertebral body osteophytes are present in the mid cervical spine and in the lower thoracic spine and lower lumbar spine. There is also degenerative changes of the facet joints in the lower lumbar spine. No paraspinal soft tissue contour abnormality. Visualized lungs are clear. Incidental note is made of cervical ribs. Prior cholecystectomy. IMPRESSION: Degenerative changes throughout the spine but no fracture or malalignment. Location: RR at 1658 Reported and signed by: Esvin Abbott MD CC: Carlos Mccauley Technologist: Sarah Tillman Trnscrpt Data: 05/01/2019 (1657) [email or web address] Orig Print D/T: S: 05/01/2019 (6021) PAGE 1 Signed Report MA Digital Mammo Screening [place] [id number] 2019-03-15 10:14:00BILATERAL DIGITAL SCREENING MAMMOGRAM WITH CAD: 03/15/2019CLINICAL: Encounter For Screening Mammogram For Malignant Neoplasm OfBreast/Z12.31. Current study was evaluated with a Computer Aided Detection (CAD) system. COMPARISON:No prior exams were available for comparison. TECHNIQUE: Mammographic views were obtained using digital acquisition. Currentstudy was also evaluated with a Computer Aided Detection (CAD) system.FINDINGS:The tissue of both breasts is almost entirely fat. There are benign appearing calcifications in both breasts. No significant masses, calcifications, or other findings are seen in eitherbreast. IMPRESSION: AMOS GNRECOMMENDATION:There is no mammographic evidence of malignancy. A 1 yearscreen ing mammogram is recommended.(03/15/2020) This exam was interpreted [id number] at [facility]. Professional services are provided by the [facility] MLelo AndersonDivision of Diagnostic Imaging.Xavi bustamante m/penrad:03/30/2019 11:10:16 Internal Recruiter(s): RT Carly(Epifanio)(M), [facility] sent: BI-RADS 1/2 Mammogram BI-RADS: 2 Benign--Re ad by: Brandon Freeman MDDictated Date/time: 03/30/19 11:10Electronically Si gned by: Brandon Freeman MD 03/30/1911:10FINAL REPORT [facility]] HEPATITIS C [id number] 13:47:00* Test Item Value Reference Range Interpretation Comments HEPATITIS C ANTIBODY; Normal (test code = 70679-8) NON-REACTIVE NON -REACTIVE N SIGNAL TO CUT-OFF (test code = SIGNAL TO CUT-OFF) 0.02 <1.0 0 N HCV antibody was non-reactive. There is no laboratory evidence of HCV infection. In most cases, no further action is required. However,if recent HCV exposure is suspected, a test for HCV RNA(test code 83970) is suggested. For additional information please refer [email or web address].Br[employer]club/faq/OHU58e8(This link is being provided for informational/educational purposes only.) [facility]] MICROALBUMIN, RANDOM URINE (W/CREATININE) 2018-11-25 15:44:01* Test Item Value Reference Range Interpretation Comments Urine Microalbumin (test code = Urine Microalbumin) 83.3 mg/L No established reference range. U Creatinine (test code = 2161-8) 254.00 mg/dl No established reference range. Urine Microalbuming Creatinine Ratio; Ab ove High Threshold (test code = 04803-3) 32.8 mg/g <=30.0 [facility]] CMP [id number] 15:44:01* Test Item Value Reference Range Interpretation Comments Sodium Level; Above High Threshold (test code = 2951-2) 146 {mEq/l} 135-145 Potassium Level (test code = 2823-3) 4.0 {mEq/l} 3.5-5.1 Chloride Level; Above High Threshold (test code = 5-0) 111 {mEq/ l} 95-109 Carbon Dioxide (test code = 2027-9) 26 {mEq/l} 24-32 AGAP (test code = 42086-5) 13.0 {mEq/l} 10.0-20.0 Glucose Lvl (test code = 2345-7) 89 mg/dl 70-99 Adult reference range values reflect the clinical guidelinesof the [place] [employer]. Creatinine Lvl (test code = 2160-0) 1.00 mg/dl 0.50-1.40 Blood Urea Nitrogen (test code = 3094-0) 16 mg/dl 7-22 BUN/Creatinine Ratio (test code = 3097-3) 16 6-25 Total Protein (test code = 2885-2) 7.1 g/dl 6.4-8.4 Albumin Lvl (test code = 1751-7) 4.3 g/dl 3.5-5.0 Globulin (test code = 63945-7) 2.8 g/dl 2.7-4.2 A/G Ratio (test code = 1759-0) 1.5 0.7-1.6 Calcium Level Total (test code = 01345-8) 9.6 mg/dl 8.5-10.5 ALT (test code = 1743-4) 20 u/l 0-65 AST (test code = 73579-3) 12 u/l 0-37 Bili Total (test code = 1975-2) 0.8 mg/dl 0.2-1.3 Alk Phos (test code = 1783-0) 104 u/l 39-136 eGFR (test code = 34107-9) 60 {ML/MIN/1.7} The eGFR is calculated using the CKD-EPI formula. In most young, healthyindividuals the eGFR will be >90 mL/min/1.73m2. The eGFR declines with age. AneGFR of 60-89 may be normal in some populations, particularly the elderly, forwhom the CKD-EPI formula has not been extensively validated. Use of the eGFR isnot recommended in the following populations:Individuals with unstable creatinine concentrations, including patients and those with serious co-morbid conditions.Patients with extremes in muscle mass or diet.The data above are obtained from the National Kidney Disease Education Program(NKDEP) which additionally recommends that when the eGFR is used in patientswith extremes of body mass index for purposes of drug dosing, the eGFR shouldbe multiplied by the estimated BMI. [facility]] T4, [id number] 15:44:01* Test Item Value Reference Range Interpretation Comments T4 Free (test code = 3024-7) 0.99 ng/dl 0.76-1.46 [facility]] TSH, 3RD [id number] 15:44:01* Test Item Value Reference Range Interpretation Comments TSH (test code = 35597-8) 0.386 {uIU/ml} 0.360-3.740 [facility] ([facility] In Office)2018-11-25 14:59:00* Test Item Value Reference Range Interpretation Comments Glucose POC Lifescan (test code = Glucose POC Lifescan) 132 [facility][O] Hemoglobin A1c (in office)2018-11-25 14:59:00 * Test Item Value Reference Range Interpretation Comments HEMOGLOBIN A1c (test code = 4548-4) 5.2 [facility][O] Lipid Panel (In Office)2018-11-25 14:58:00* Test Item Value Reference Range Interpretation Comments CHOLESTEROL, TOTAL (test code = 2093-3) 138 HDL CHOLESTEROL (test code = 2085-9) 54 TRIGLYCERIDES (test code = 2571-8) 259 LDL-CHOLESTEROL (test code = 97293-0) 33 NON HDL CHOLESTEROL (test code = NON HDL CHOLESTEROL) 84 T. Chol/HDL Ratio (test code = 9830-1) 2.6 GLUCOSE (test code = 1547-9) 127 [facility] [id number] 14:08:00* Test Item Value Reference Range Interpretation Comments LAMOTRIGINE (test code = LAMO) 7.2 ug/mL 2.0-20.0 This test was developed and its performance characteristicsdetermined by [facility]. It has not been cleared orapproved by the Food and Drug Administration. Detection Limit = 1.0Performed At: [facility] [address] [place], [place] [id number] Jimenez MD Ph:[phone] [id number] 02:05:00* Test Item Value Reference Range Interpretation Comments LEVETIRACETAM (test code = LEVTAM) 27.5 ug/mL 10.0-40.0 This test was developed and its performance characteristicsdetermined by [facility]. It has not been cleared orapproved by the Food and Drug Administration.Performed At: [facility] [id number] Jimenez MD Ph:[phone] BASIC METABOLIC [id number] 09:54:00* Test Item Value Reference Range Interpretation Comments SODIUM (test code = NA) 142 mmol/L 136-145 N POTASSIUM (test code = K) 3.9 mmol/L 3.5-5.1 N CHLORIDE (test code = CL) 109.0 mmol/L 98-107 H CARBON DIOXIDE (test code = CO2) 26.0 mmol/L 21-32 N ANION GAP (test code = GAP) 10.9 10-20 N GLUCOSE (test code = GLU) 96 mg/dL 74-106 N BLOOD UREA NITROGEN (test code = BUN) 15 mg/dL 7-18 N GLOMERULAR FILTRATION RATE (test code = GFR) 50 mL/min >=60 Estimated GFR by using Modified MDRD formula.Chronic kidney disease is defined as either kidney damageor GFR <60 mL/min/1.73 m2 for >3 months. CREATININE (test code = CREAT) 1.10 mg/dL 0.55-1.02 H Note change in reference range due to change in reagent. BUN/CREATININE RATIO (test code = BUN/CREA) 13.6 10-20 N CALCIUM (test code = CA) 10.0 mg/dL 8.5-10.1 N [id number] 09:54:00* Test Item Value Reference Range Interpretation Comments PHOSPHORUS (test code = PHOS) 4.2 mg/dL 2.5-4.9 N [id number] 09:54:00* Test Item Value Reference Range Interpretation Comments MAGNESIUM (test code = MAG) 2.3 mg/dL 1.8-2.4 N CBC W/AUTO [id number] 09:50:00* Test Item Value Reference Range Interpretation Comments WHITE BLOOD CELL (test code = WBC) 9.4 K/mm3 4.5-12.5 N RED BLOOD CELL (test code = RBC) 4.83 mill/mm3 3.7-5.2 N HEMOGLOBIN (test code = HGB) 13.8 gram/dL 11.5-15.5 N HEMATOCRIT (test code = HCT) 43.6 % 36.0-46.0 N MEAN CELL VOLUME (test code = MCV) 90.3 fL 80-98 N MEAN CELL HGB (test code = MCH) 28.6 picogram 27.0-33.0 N MEAN CELL HGB CONCETRATION (test code = MCHC) 31.7 gram/dL 33.0-36. 0 L RED CELL DISTRIBUTION WIDTH (test code = RDW) 14.1 % 11.6-16. 2 N RED CELL DISTRIBUTION WIDTH SD (test code = RDW-SD) 46.3 fL 37 .0-51.0 N PLATELET COUNT (test code = PLT) 166 K/mm3 150-450 N MEAN PLATELET VOLUME (test code = MPV) 9.3 fL 6.7-11.0 N NEUTROPHIL % (test code = NT%) 50.9 % 39.0-69.0 N IMMATURE GRANULOCYTE % (test code = IG%) 0.2 % 0.0-5.0 N LYMPHOCYTE % (test code = LY%) 37.3 % 25.0-55.0 N MONOCYTE % (test code = MO%) 8.4 % 0.0-10.0 N EOSINOPHIL % (test code = EO%) 2.3 % 0.0-5.0 N BASOPHIL % (test code = BA%) 0.9 % 0.0-1.0 N NUCLEATED RBC % (test code = NRBC%) 0.0 % 0-0 N NEUTROPHIL # (test code = NT#) 4.79 K/mm3 1.8-7.7 N IMMATURE GRANULOCYTE # (test code = IG#) 0.02 x10 3/uL 0-0.03 N LYMPHOCYTE # (test code = LY#) 3.51 K/mm3 1.0-5.0 N MONOCYTE # (test code = MO#) 0.79 K/mm3 0-0.8 N EOSINOPHIL # (test code = EO#) 0.22 K/mm3 0.0-0.5 N BASOPHIL # (test code = BA#) 0.08 K/mm3 0.0-0.2 N NUCLEATED RBC # (test code = NRBC#) 0.00 K/mm3 0.0-0.1 N MANUAL DIFF REQUIRED (test code = MDIFF) NO DRUGS OF ABUSE SCREEN [id number] 04:48:00* Test Item Value Reference Range Interpretation Comments UA PH DIPSTICK (test code = JAVAN) 6.0 5.0-8.0 URN COCAINE (test code = COCAURN) NEGATIVE <300 ng/mL URN CANNABINOIDS (test code = CANNABURN) NEGATIVE <50 ng/mL URN AMPHETAMINE (test code = AMPHETURN) NEGATIVE <1000 ng/mL URN BARBITURATE (test code = BARBITURN) NEGATIVE <200 ng/mL URN BENZODIAZEPINE (test code = BENZOURN) NEGATIVE <200 ng/mL URN OPIATES (test code = OPIATURN) NEGATIVE <300 ng/mL URN PHENCYCLIDINE (PCP) (test code = PHENCURN) NEGATIVE <25 ng/ mL URN METHADONE (test code = METHAURN) NEGATIVE <300 ng/mL DRUGS OF ABUSE SCREEN [id number] 04:47:00* Test Item Value Reference Range Interpretation Comments UA PH DIPSTICK (test code = JAVAN) 6.0 5.0-8.0 URN COCAINE (test code = COCAURN) <300 ng/mL URN CANNABINOIDS (test code = CANNABURN) <50 ng/mL URN AMPHETAMINE (test code = AMPHETURN) <1000 ng/mL URN BARBITURATE (test code = BARBITURN) <200 ng/mL URN BENZODIAZEPINE (test code = BENZOURN) <200 ng/mL URN OPIATES (test code = OPIATURN) <300 ng/mL URN PHENCYCLIDINE (PCP) (test code = PHENCURN) <25 ng/ mL URN METHADONE (test code = METHAURN) <300 ng/mL [id number] 17:34:00* Test Item Value Reference Range Interpretation Comments GLYCOSYLATED HEMOGLOBIN (HA1C) (test code = GLYHGB) 5.6 % HbA1 4. 8-6.0 N ESTIMATED AVERAGE GLUCOSE (test code = EAG) 114 MG/DL [id number] 12:40:00* Test Item Value Reference Range Interpretation Comments GLUBED (test code = GLUBED) 133 mg/dL 74-106 H Performed by certified braiding machine operator at [facility] [facility] [id number] 08:22:00* Test Item Value Reference Range Interpretation Comments GLUBED (test code = GLUBED) 122 mg/dL 74-106 H Performed by certified braiding machine operator at [facility] [id number] 22:19:00* Test Item Value Reference Range Interpretation Comments GLUBED (test code = GLUBED) 93 mg/dL 74-106 N Performed by certified braiding machine operator at [facility] BASIC METABOLIC [id number] 22:11:00* Test Item Value Reference Range Interpretation Comments SODIUM (test code = NA) 145 mmol/L 136-145 N POTASSIUM (test code = K) 4.1 mmol/L 3.5-5.1 N CHLORIDE (test code = CL) 109.0 mmol/L 98-107 H CARBON DIOXIDE (test code = CO2) 27.0 mmol/L 21-32 N ANION GAP (test code = GAP) 13.1 10-20 N GLUCOSE (test code = GLU) 95 mg/dL 74-106 N BLOOD UREA NITROGEN (test code = BUN) 18 mg/dL 7-18 N GLOMERULAR FILTRATION RATE (test code = GFR) > 60 mL/min >=60 Estimated GFR by using Modified MDRD formula.Chronic kidney disease is defined as either kidney damageor GFR <60 mL/min/1.73 m2 for >3 months. CREATININE (test code = CREAT) 0.90 mg/dL 0.55-1.02 N Note change in reference range due to change in reagent. BUN/CREATININE RATIO (test code = BUN/CREA) 20.0 10-20 N CALCIUM (test code = CA) 9.2 mg/dL 8.5-10.1 N [id number] 22:11:00* Test Item Value Reference Range Interpretation Comments TROPONIN-I (test code = TROPI) <0.015 ng/mL 0-0.045 N CBC W/O [id number] 21:54:00* Test Item Value Reference Range Interpretation Comments WHITE BLOOD CELL (test code = WBC) 7.9 K/mm3 4.5-12.5 N RED BLOOD CELL (test code = RBC) 4.70 mill/mm3 3.7-5.2 N HEMOGLOBIN (test code = HGB) 13.2 gram/dL 11.5-15.5 N HEMATOCRIT (test code = HCT) 41.9 % 36.0-46.0 N MEAN CELL VOLUME (test code = MCV) 89.1 fL 80-98 N MEAN CELL HGB (test code = MCH) 28.1 picogram 27.0-33.0 N MEAN CELL HGB CONCETRATION (test code = MCHC) 31.5 gram/dL 33.0-36. 0 L RED CELL DISTRIBUTION WIDTH (test code = RDW) 13.9 % 11.6-16. 2 N PLATELET COUNT (test code = PLT) 144 K/mm3 150-450 L MEAN PLATELET VOLUME (test code = MPV) 9.2 fL 6.7-11.0 N CBC W/O [id number] 21:51:00* Test Item Value Reference Range Interpretation Comments WHITE BLOOD CELL (test code = WBC) K/mm3 4.5-12.5 RED BLOOD CELL (test code = RBC) mill/mm3 3.7-5.2 HEMOGLOBIN (test code = HGB) 13.2 gram/dL 11.5-15.5 N HEMATOCRIT (test code = HCT) 41.9 % 36.0-46.0 N MEAN CELL VOLUME (test code = MCV) fL 80-98 MEAN CELL HGB (test code = MCH) picogram 27.0-33.0 MEAN CELL HGB CONCETRATION (test code = MCHC) gram/dL 33.0-36. 0 RED CELL DISTRIBUTION WIDTH (test code = RDW) % 11.6-16. 2 PLATELET COUNT (test code = PLT) K/mm3 150-450 MEAN PLATELET VOLUME (test code = MPV) fL 6.7-11.0 - CT HEAD/BRAIN W/O [id number] 19:33:00 Name: ALISON [facility] : 1955 Age/S: 63 / F [address] [facility] Unit #: [id number] Loc: [place] [address] Phys: KALPESH MOREIRA MD Acct: [id number] Dis Date: Status: PRE ER PHONE #: [phone] Exam Date: 08/25/2018 1858 FAX #: [phone] Reason: Seizure EXAMS: CPT CODE: [id number] CT HEAD/BRAIN W/O CONT [id number] REASON FOR EXAM: Seizure EXAM ORDER DATE: 08/25/2018 6:50 PM Ordering M.D.: KALPESH MOREIRA MD PROCEDURE: - CT HEAD/BRAIN W/O CONT COMPARISON: 08/06/2018 FINDINGS: CT images of the brain were obtained without IV contrast. Dose modulation, iterative reconstruction, and/or weight based adjustment of the MA/KV was utilized to reduce the radiation dose to as low as reasonably achievable. The brain parenchyma is within normal limits. The harrison-white matter delineation is unremarkable. The ventricles, cisterns, and sulci are unremarkable. There is no evidence of hemorrhage, mass, mass effect. There is no evidence of acute or old infarct. The calvarium is intact. IMPRESSION: Unremarkable brain. at 1933 Reported and signed by: Angel Walton M.D. CC: KALPESH MOREIRA MD T echnologist:Bhavani Balderas RT(R); MARGARETTE Floyd CTDI: DLP: Trnscb Date /Time: 08/25/2018 (1932) ElleVTL Orig Print D/T: S: 02/2019 (1936) CTDI: DLP: PAGE 1 Signed Report - CT HEAD/BRAIN W/O [id number] 16:56:00 Name: ALISON HOUSTON [facility] : 1955 Age/S: 63 / F [address] [facility] Unit #: [id number] Loc: [place] [address] Phys: KALPESH MOREIRA MD Acct: [id number] Dis Date: Status: REG ER PHONE #: [phone] Exam Date: 08/06/2018 1629 FAX #: [phone] Reason: seizure EXAMS: CPT CODE: [id number] CT HEAD/BRAIN W/O CONT [id number] EXAM: CT of the head; INFORMATION: Seizure; TECHNIQUE AND FINDINGS: CT dose reduction protocol; The ventricles are symmetric and of normal diameter; normal width of basilar cisterns and sulci; normal harrison/white matter differentiation; no evidence of intra or extra-axial hemorrhage, mass lesion or midline shift. Bone windows show no abnormalities. IMPRESSION: Normal CT scan of the head. No change compared with a recent study from July 04, 2018. at 1656 Reported and signed by: Vahid Pepe M.D. CC: KALPESH MOREIRA MD Technologist:ROSEMARY SHERMAN RT(R); MARGARETTE CTDI: DLP: Trnscb Date/Time: 08/06/2018 (1655) LevarW Orig Print D/T: S: 08/06/2018 (1658) CTDI: DLP: PAGE 1 Signed Report DRUGS OF ABUSE SCREEN [id number] 15:57:00* Test Item Value Reference Range Interpretation Comments UA PH DIPSTICK (test code = JAVAN) 6.0 5.0-8.0 URN COCAINE (test code = COCAURN) NEGATIVE <300 ng/mL URN CANNABINOIDS (test code = CANNABURN) NEGATIVE <50 ng/mL URN AMPHETAMINE (test code = AMPHETURN) NEGATIVE <1000 ng/mL URN BARBITURATE (test code = BARBITURN) NEGATIVE <200 ng/mL URN BENZODIAZEPINE (test code = BENZOURN) NEGATIVE <200 ng/mL URN OPIATES (test code = OPIATURN) NEGATIVE <300 ng/mL URN PHENCYCLIDINE (PCP) (test code = PHENCURN) NEGATIVE <25 ng/ mL URN METHADONE (test code = METHAURN) NEGATIVE <300 ng/mL DRUGS OF ABUSE SCREEN [id number] 15:36:00* Test Item Value Reference Range Interpretation Comments UA PH DIPSTICK (test code = JAVAN) 6.0 5.0-8.0 URN COCAINE (test code = COCAURN) <300 ng/mL URN CANNABINOIDS (test code = CANNABURN) <50 ng/mL URN AMPHETAMINE (test code = AMPHETURN) <1000 ng/mL URN BARBITURATE (test code = BARBITURN) <200 ng/mL URN BENZODIAZEPINE (test code = BENZOURN) <200 ng/mL URN OPIATES (test code = OPIATURN) <300 ng/mL URN PHENCYCLIDINE (PCP) (test code = PHENCURN) <25 ng/ mL URN METHADONE (test code = METHAURN) <300 ng/mL BASIC METABOLIC [id number] 15:35:00* Test Item Value Reference Range Interpretation Comments SODIUM (test code = NA) 140 mmol/L 136-145 N POTASSIUM (test code = K) 4.2 mmol/L 3.5-5.1 N CHLORIDE (test code = CL) 106.0 mmol/L 98-107 N CARBON DIOXIDE (test code = CO2) 29.0 mmol/L 21-32 N ANION GAP (test code = GAP) 9.2 10-20 L GLUCOSE (test code = GLU) 100 mg/dL 74-106 N BLOOD UREA NITROGEN (test code = BUN) 16 mg/dL 7-18 N GLOMERULAR FILTRATION RATE (test code = GFR) 50 mL/min >=60 Estimated GFR by using Modified MDRD formula.Chronic kidney disease is defined as either kidney damageor GFR <60 mL/min/1.73 m2 for >3 months. CREATININE (test code = CREAT) 1.10 mg/dL 0.55-1.02 H Note change in reference range due to change in reagent. BUN/CREATININE RATIO (test code = BUN/CREA) 14.5 10-20 N CALCIUM (test code = CA) 9.7 mg/dL 8.5-10.1 N HEPATIC FUNCTION [id number] 15:35:00* Test Item Value Reference Range Interpretation Comments TOTAL PROTEIN (test code = PROT) 7.7 gram/dL 6.4-8.2 N ALBUMIN (test code = ALB) 4.3 g/dL 3.4-5.0 N GLOBULIN (test code = GLOB) 3.4 gram/dL 2.7-4.2 N ALBUMIN/GLOBULIN RATIO (test code = A/G) 1.3 0.75-1.50 N BILIRUBIN TOTAL (test code = BILT) 0.70 mg/dL 0.0-1.0 N BILIRUBIN DIRECT (test code = BILD) 0.15 mg/dL 0.0-0.20 N SGOT/AST (test code = AST) 15 IUnit/L 15-37 N SGPT/ALT (test code = ALT) 22 IUnit/L 12-78 N ALKALINE PHOSPHATASE TOTAL (test code = ALKP) 109 IUnit/L 45-117 N Note change in reference range due to change in reagent. BASIC METABOLIC [id number] 15:24:00* Test Item Value Reference Range Interpretation Comments SODIUM (test code = NA) 140 mmol/L 136-145 N POTASSIUM (test code = K) 4.2 mmol/L 3.5-5.1 N CHLORIDE (test code = CL) 106.0 mmol/L 98-107 N CARBON DIOXIDE (test code = CO2) mmol/L 21-32 ANION GAP (test code = GAP) 10-20 GLUCOSE (test code = GLU) mg/dL 74-106 BLOOD UREA NITROGEN (test code = BUN) mg/dL 7-18 GLOMERULAR FILTRATION RATE (test code = GFR) mL/min >=60 CREATININE (test code = CREAT) mg/dL 0.55-1.02 BUN/CREATININE RATIO (test code = BUN/CREA) 10-20 CALCIUM (test code = CA) mg/dL 8.5-10.1 HEPATIC FUNCTION [id number] 15:24:00* Test Item Value Reference Range Interpretation Comments TOTAL PROTEIN (test code = PROT) gram/dL 6.4-8.2 ALBUMIN (test code = ALB) g/dL 3.4-5.0 GLOBULIN (test code = GLOB) gram/dL 2.7-4.2 ALBUMIN/GLOBULIN RATIO (test code = A/G) 0.75-1.50 BILIRUBIN TOTAL (test code = BILT) mg/dL 0.0-1.0 BILIRUBIN DIRECT (test code = BILD) mg/dL 0.0-0.20 SGOT/AST (test code = AST) IUnit/L 15-37 SGPT/ALT (test code = ALT) IUnit/L 12-78 ALKALINE PHOSPHATASE TOTAL (test code = ALKP) IUnit/L 45-117 CBC W/O [id number] 14:32:00* Test Item Value Reference Range Interpretation Comments WHITE BLOOD CELL (test code = WBC) 8.3 K/mm3 4.5-12.5 N RED BLOOD CELL (test code = RBC) 4.78 mill/mm3 3.7-5.2 N HEMOGLOBIN (test code = HGB) 13.5 gram/dL 11.5-15.5 N HEMATOCRIT (test code = HCT) 43.4 % 36.0-46.0 N MEAN CELL VOLUME (test code = MCV) 90.8 fL 80-98 N MEAN CELL HGB (test code = MCH) 28.2 picogram 27.0-33.0 N MEAN CELL HGB CONCETRATION (test code = MCHC) 31.1 gram/dL 33.0-36. 0 L RED CELL DISTRIBUTION WIDTH (test code = RDW) 13.9 % 11.6-16. 2 N PLATELET COUNT (test code = PLT) 230 K/mm3 150-450 N MEAN PLATELET VOLUME (test code = MPV) 9.1 fL 6.7-11.0 N CBC W/O [id number] 14:30:00* Test Item Value Reference Range Interpretation Comments WHITE BLOOD CELL (test code = WBC) K/mm3 4.5-12.5 RED BLOOD CELL (test code = RBC) mill/mm3 3.7-5.2 HEMOGLOBIN (test code = HGB) 13.5 gram/dL 11.5-15.5 N HEMATOCRIT (test code = HCT) 43.4 % 36.0-46.0 N MEAN CELL VOLUME (test code = MCV) fL 80-98 MEAN CELL HGB (test code = MCH) picogram 27.0-33.0 MEAN CELL HGB CONCETRATION (test code = MCHC) gram/dL 33.0-36. 0 RED CELL DISTRIBUTION WIDTH (test code = RDW) % 11.6-16. 2 PLATELET COUNT (test code = PLT) K/mm3 150-450 MEAN PLATELET VOLUME (test code = MPV) fL 6.7-11.0 BASIC METABOLIC [id number] 20:24:00* Test Item Value Reference Range Interpretation Comments SODIUM (test code = NA) 142 mmol/L 136-145 N POTASSIUM (test code = K) 4.4 mmol/L 3.5-5.1 N CHLORIDE (test code = CL) 110.0 mmol/L 98-107 H CARBON DIOXIDE (test code = CO2) 24.0 mmol/L 21-32 N ANION GAP (test code = GAP) 12.4 10-20 N GLUCOSE (test code = GLU) 87 mg/dL 74-106 N BLOOD UREA NITROGEN (test code = BUN) 13 mg/dL 7-18 N GLOMERULAR FILTRATION RATE (test code = GFR) 56 mL/min >=60 Estimated GFR by using Modified MDRD formula.Chronic kidney disease is defined as either kidney damageor GFR <60 mL/min/1.73 m2 for >3 months. CREATININE (test code = CREAT) 1.00 mg/dL 0.55-1.02 N Note change in reference range due to change in reagent. BUN/CREATININE RATIO (test code = BUN/CREA) 13.4 10-20 N CALCIUM (test code = CA) 8.8 mg/dL 8.5-10.1 N BASIC METABOLIC [id number] 20:17:00* Test Item Value Reference Range Interpretation Comments SODIUM (test code = NA) 142 mmol/L 136-145 N POTASSIUM (test code = K) 4.4 mmol/L 3.5-5.1 N CHLORIDE (test code = CL) 110.0 mmol/L 98-107 H CARBON DIOXIDE (test code = CO2) mmol/L 21-32 ANION GAP (test code = GAP) 10-20 GLUCOSE (test code = GLU) mg/dL 74-106 BLOOD UREA NITROGEN (test code = BUN) mg/dL 7-18 GLOMERULAR FILTRATION RATE (test code = GFR) mL/min >=60 CREATININE (test code = CREAT) mg/dL 0.55-1.02 BUN/CREATININE RATIO (test code = BUN/CREA) 10-20 CALCIUM (test code = CA) mg/dL 8.5-10.1 CBC W/O [id number] 20:02:00* Test Item Value Reference Range Interpretation Comments WHITE BLOOD CELL (test code = WBC) 7.3 K/mm3 4.5-12.5 N RED BLOOD CELL (test code = RBC) 4.68 mill/mm3 3.7-5.2 N HEMOGLOBIN (test code = HGB) 13.3 gram/dL 11.5-15.5 N HEMATOCRIT (test code = HCT) 42.4 % 36.0-46.0 N MEAN CELL VOLUME (test code = MCV) 90.6 fL 80-98 N MEAN CELL HGB (test code = MCH) 28.4 picogram 27.0-33.0 N MEAN CELL HGB CONCETRATION (test code = MCHC) 31.4 gram/dL 33.0-36. 0 L RED CELL DISTRIBUTION WIDTH (test code = RDW) 13.9 % 11.6-16. 2 N PLATELET COUNT (test code = PLT) 179 K/mm3 150-450 N MEAN PLATELET VOLUME (test code = MPV) 9.1 fL 6.7-11.0 N CBC W/O [id number] 20:00:00* Test Item Value Reference Range Interpretation Comments WHITE BLOOD CELL (test code = WBC) K/mm3 4.5-12.5 RED BLOOD CELL (test code = RBC) mill/mm3 3.7-5.2 HEMOGLOBIN (test code = HGB) 13.3 gram/dL 11.5-15.5 N HEMATOCRIT (test code = HCT) 42.4 % 36.0-46.0 N MEAN CELL VOLUME (test code = MCV) fL 80-98 MEAN CELL HGB (test code = MCH) picogram 27.0-33.0 MEAN CELL HGB CONCETRATION (test code = MCHC) gram/dL 33.0-36. 0 RED CELL DISTRIBUTION WIDTH (test code = RDW) % 11.6-16. 2 PLATELET COUNT (test code = PLT) K/mm3 150-450 MEAN PLATELET VOLUME (test code = MPV) fL 6.7-11.0 - CT HEAD/BRAIN W/O [id number] 19:20:00 Name: ALISON [facility] : 1955 Age/S: 63 / F [address] [facility] Unit #: [id number] Loc: [place] [address] Phys: Modesto Chao MD Acct: [id number] Dis Date: Status: PRE ER PHONE #: [phone] Exam Date: 07/04/2018 190 FAX #: [phone] Reason: Seizure EXAMS: CPT CODE: [id number] CT HEAD/BRAIN W/O CONT [id number] REASON FOR EXAM: Seizure EXAM ORDER DATE: 07/04/2018 6:44 PM Ordering M.D.: Modesto Chao MD PROCEDURE: - CT HEAD/BRAIN W/O CONT COMPARISON: FINDINGS: CT images of the brain were obtained without IV contrast. Dose reduction techniques were applied. The brain parenchyma is within normal limits. The harrison-white matter delineation is unremarkable. The ventricles, cisterns, and sulci are unremarkable. There is no evidence of hemorrhage, mass, mass effect. There is no evidence of acute or old infarct. The calvarium is intact. IMPRESSION: Unremarkable brain. at 1920 Reported and signed by: Angel Walton M.D. CC: Modesto Chao MD Technologist:Luis Plummer, RT(R)(CT); September CTDI: DLP: Trnscb Date/Time: 07/04/2018 (1919) Lopez Orig Print D/T: S: 07/04/2018 (1922) CTDI: DLP: PAGE 1 Signed Report [QL] CBC (INCLUDES DIFF/PLT) 2018-06-15 15:37:01* Test Item Value Reference Range Interpretation Comments WBC (test code = 6690-2) 7.5 {K/CMM} 3.7-10.4 RBC (test code = 789-8) 4.60 {M/CMM} 4.20-5.40 Hgb (test code = 718-7) 13.4 g/dl 12.0-16.0 Hct (test code = 14451-3) 40.5 % 36.0-48.0 MCV (test code = 787-2) 88.0 fL 80.0-98.0 MCH (test code = 785-6) 29.1 pg 27.0-31.0 MCHC (test code = 786-4) 33.1 g/dl 32.0-36.0 RDW (test code = 788-0) 14.2 % 11.5-14.5 Platelet (test code = 67772-3) 223 {K/CMM} 133-450 Mean Platelet Volume (test code = 58918-8) 7.6 fL 7.4-10.4 [facility]] [id number] 15:37:01* Test Item Value Reference Range Interpretation Comments Segmented Neutrophils (test code = 66965-5) 53.9 % 45.0-75.0 Monocytes (test code = 94389-2) 7.9 % 2.0-12.0 Lymphocytes (test code = 66677-7) 34.7 % 20.0-40.0 Eosinophils (test code = 56952-1) 2.8 % 0.0-4.0 Basophils (test code = 706-2) 0.7 % 0.0-1.0 Segs-Bands # (test code = 40466-5) 4.1 {K/CMM} 1.5-8.1 Lymphocytes # (test code = 99220-6) 2.6 {K/CMM} 1.0-5.5 Monocytes # (test code = 72390-5) 0.6 {K/CMM} 0.0-0.8 Eosinophils # (test code = 67494-8) 0.2 {K/CMM} 0.0-0.5 Basophils # (test code = 24428-7) 0.1 {K/CMM} 0.0-0.2 [facility]] CMP [id number] 15:37:01* Test Item Value Reference Range Interpretation Comments Sodium Level (test code = 2951-2) 145 {mEq/l} 135-145 Potassium Level (test code = 2823-3) 4.8 {mEq/l} 3.5-5.1 Chloride Level; Above High Threshold (test code = 5-0) 110 {mEq/ l} 95-109 Carbon Dioxide (test code = 2027-9) 31 {mEq/l} 24-32 AGAP; Below Low Threshold (test code = 08051-5) 8.8 {mEq/l} 10.0-2 0.0 Glucose Lvl; Above High Threshold (test code = 2345-7) 104 mg/dl 70-99 Adult reference range values reflect the clinical guidelinesof the [place] [employer]. Creatinine Lvl (test code = 2160-0) 0.90 mg/dl 0.50-1.40 Blood Urea Nitrogen (test code = 3094-0) 18 mg/dl 7-22 BUN/Creatinine Ratio (test code = 3097-3) 20 6-25 Total Protein (test code = 2885-2) 7.0 g/dl 6.4-8.4 Albumin Lvl (test code = 1751-7) 4.5 g/dl 3.5-5.0 Globulin; Below Low Threshold (test code = 48161-2) 2.5 g/dl 2. 7-4.2 A/G Ratio; Above High Threshold (test code = 1759-0) 1.8 0 .7-1.6 Calcium Level Total (test code = 05635-4) 9.6 mg/dl 8.5-10.5 ALT (test code = 1743-4) 25 u/l 0-65 AST (test code = 26368-7) 18 u/l 0-37 Bili Total (test code = 1974-) 0.6 mg/dl 0.2-1.3 Alk Phos (test code = 1783-0) 111 u/l 39-136 eGFR (test code = 81724-6) 68 {ML/MIN/1.7} The eGFR is calculated using the CKD-EPI formula. In most young, healthyindividuals the eGFR will be >90 mL/min/1.73m2. The eGFR declines with age. AneGFR of 60-89 may be normal in some populations, particularly the elderly, forwhom the CKD-EPI formula has not been extensively validated. Use of the eGFR isnot recommended in the following populations:Individuals with unstable creatinine concentrations, including patients and those with serious co-morbid conditions.Patients with extremes in muscle mass or diet.The data above are obtained from the National Kidney Disease Education Program(NKDEP) which additionally recommends that when the eGFR is used in patientswith extremes of body mass index for purposes of drug dosing, the eGFR shouldbe multiplied by the estimated BMI. [facility]] T4, [id number] 15:37:01* Test Item Value Reference Range Interpretation Comments T4 Free (test code = 3024-7) 0.90 ng/dl 0.76-1.46 [facility]] TSH, 3RD [id number] 15:37:01* Test Item Value Reference Range Interpretation Comments TSH (test code = 94261-1) 0.964 {uIU/ml} 0.360-3.740 [facility][O] Hemoglobin A1c (in office)2018-06-15 14:51:00 * Test Item Value Reference Range Interpretation Comments HEMOGLOBIN A1c (test code = 4548-4) 5.0 [facility]iciansGl[facility] ([facility] Care In Office)2018-06-15 14:49:00* Test Item Value Reference Range Interpretation Comments Glucose POC Lifescan (test code = Glucose POC Lifescan) 147 [facility][O] Lipid Panel (In Office)2018-06-15 14:48:00* Test Item Value Reference Range Interpretation Comments CHOLESTEROL, TOTAL (test code = 2093-3) 126 HDL CHOLESTEROL (test code = 2085-9) 54 TRIGLYCERIDES (test code = 2571-8) 238 LDL-CHOLESTEROL (test code = 29776-0) 24 NON HDL CHOLESTEROL (test code = NON HDL CHOLESTEROL) 72 T. Chol/HDL Ratio (test code = 9830-1) 2.3 GLUCOSE (test code = 1547-9) 153 [facility] PhysiciansBedside [id number] 11:42:00* Test Item Value Reference Range Interpretation Comments Bedside Glucose (test code = 83483-9) 101 70-120 Meter ID: [id number] [facility] 2018-04-07 06:15:00* Test Item Value Reference Range Interpretation Comments Sodium Level (test code = 2951-2) 141 136-145 [facility] [id number] 06:15:00* Test Item Value Reference Range Interpretation Comments Potassium Level (test code = 2823-3) 4.2 3.5-5.1 [facility]Chloride [id number] 06:15:00* Test Item Value Reference Range Interpretation Comments Chloride Level (test code = 2075-0) 108 98-107 H [facility] HospitalCarbon Dioxide [id number] 06:15:00* Test Item Value Reference Range Interpretation Comments Carbon Dioxide Level (test code = 2028-9) 28 22-29 [facility] HospitalAnion [id number] 06:15:00* Test Item Value Reference Range Interpretation Comments Anion Gap (test code = 41355-7) 9.2 8-16 [facility] HospitalBlood Urea [id number] 06:15:00* Test Item Value Reference Range Interpretation Comments Blood Urea Nitrogen (test code = 3094-0) 18 7-26 [facility] HospitalCreatinine2018-11-21 06:15:00* Test Item Value Reference Range Interpretation Comments Creatinine (test code = 2160-0) 0.91 0.57-1.11 [facility] HospitalBUN/Creatinine Pbaht6580-77-97 06:15:00* Test Item Value Reference Range Interpretation Comments BUN/Creatinine Ratio (test code = 3097-3) 20 6-25 [facility] HospitalEstimat Glomerular Filtration Rate 2018-04-07 06:15:00* Test Item Value Reference Range Interpretation Comments Estimat Glomerular Filtration Rate (test code = 600162518) > 60 >60 Ranges were taken from the National Kidney Disease Education Program and the [facility] Kid[facility] Foundation literature.Reference ranges:60 or greater: Emovlg87-17 ( for 3 consecutive months): Chronic kidney disease 15 or less: Kidney failureCHI [facility] CypressGlucose Ydphd5342-96-93 06:15:00* Test Item Value Reference Range Interpretation Comments Glucose Level (test code = OZY7917) 94 74-118 [facility] HospitalCalcium Ofveq3578-79-42 06:15:00* Test Item Value Reference Range Interpretation Comments Calcium Level (test code = 36281-6) 9.4 8.4-10.2 [facility] HospitalWhite Blood [id number] 05:52:00* Test Item Value Reference Range Interpretation Comments White Blood Count (test code = 6690-2) 6.38 4.8-10.8 [facility] HospitalRed Blood [id number] 05:52:00* Test Item Value Reference Range Interpretation Comments Red Blood Count (test code = 789-8) 3.78 3.6-5.1 [facility] HospitalHemoglobin2018-11-21 05:52:00* Test Item Value Reference Range Interpretation Comments Hemoglobin (test code = 42175-9) 11.0 12.0-16.0 L [facility] HospitalHematocrit2018-11-21 05:52:00* Test Item Value Reference Range Interpretation Comments Hematocrit (test code = 4544-3) 33.2 34.2-44.1 L [facility] HospitalMean Corpuscular Wzycwt9681-52-08 05:52:00* Test Item Value Reference Range Interpretation Comments Mean Corpuscular Volume (test code = 787-2) 87.8 81-99 [facility] HospitalMean Corpuscular Ozwbcmqysq4936-62-64 05:52:00* Test Item Value Reference Range Interpretation Comments Mean Corpuscular Hemoglobin (test code = 785-6) 29.1 28-32 [facility] Hemoglobin Concent 2018-04-07 05:52:00* Test Item Value Reference Range Interpretation Comments Mean Corpuscular Hemoglobin Concent (test code = 786-4) 33.1 31-35 [facility] [id number] 05:52:00* Test Item Value Reference Range Interpretation Comments Red Cell Distribution Width (test code = 71595-7) 13.7 11.7 -14.4 [facility] HospitalPlatelet [id number] 05:52:00* Test Item Value Reference Range Interpretation Comments Platelet Count (test code = 777-3) 149 140-360 [facility]Neutrophils (%) (Auto)2018-04-07 05:52:00 * Test Item Value Reference Range Interpretation Comments Neutrophils (%) (Auto) (test code = 05192-2) 45.0 38.7-80.0 [facility]Lymphocytes (%) (Auto)2018-04-07 05:52:00 * Test Item Value Reference Range Interpretation Comments Lymphocytes (%) (Auto) (test code = 736-9) 41.5 18.0-39.1 H [facility]Monocytes (%) (Auto)2018-04-07 05:52:00* Test Item Value Reference Range Interpretation Comments Monocytes (%) (Auto) (test code = 5905-5) 9.2 4.4-11.3 [facility]Eosinophils (%) (Auto)2018-04-07 05:52:00 * Test Item Value Reference Range Interpretation Comments Eosinophils (%) (Auto) (test code = 713-8) 3.3 0.0-6.0 [facility] (%) (Auto)2018-04-07 05:52:00* Test Item Value Reference Range Interpretation Comments Basophils (%) (Auto) (test code = 706-2) 0.8 0.0-1.0 [facility]IM [facility]UL[facility]TES %2018-04-07 05:52:00* Test Item Value Reference Range Interpretation Comments IM GRANULOCYTES % (test code = IM GRANULOCYTES %) 0.2 0.0- 1.0 [facility]Neutrophils # (Auto)2018-04-07 05:52:00* Test Item Value Reference Range Interpretation Comments Neutrophils # (Auto) (test code = 751-8) 2.9 2.1-6.9 [facility] HospitalLymphocytes # (Auto)2018-04-07 05:52:00* Test Item Value Reference Range Interpretation Comments Lymphocytes # (Auto) (test code = 56733-3) 2.7 1.0-3.2 [facility] HospitalMonocytes # (Auto)2018-04-07 05:52:00* Test Item Value Reference Range Interpretation Comments Monocytes # (Auto) (test code = 742-7) 0.6 0.2-0.8 [facility] HospitalEosinophils # (Auto)2018-04-07 05:52:00* Test Item Value Reference Range Interpretation Comments Eosinophils # (Auto) (test code = 711-2) 0.2 0.0-0.4 [facility] HospitalBasophils # (Auto)2018-04-07 05:52:00* Test Item Value Reference Range Interpretation Comments Basophils # (Auto) (test code = 704-7) 0.1 0.0-0.1 [facility] HospitalAbsolute Immature Granulocyte (auto 2018-04-07 05:52:00* Test Item Value Reference Range Interpretation Comments Absolute Immature Granulocyte (auto (norma t code = Absolute Immature Granulocyte (auto) 0.01 0-0.1 [facility] HospitalBlood Xhxnebs0366-89-23 17:56:00* Test Item Value Reference Range Interpretation Comments Blood Culture (test code = 01092635) NO GROWTH AFTER 48 HOURS [facility] HospitalTotal Eaeieihxm2782-90-93 06:15:00* Test Item Value Reference Range Interpretation Comments Total Bilirubin (test code = 1975-2) 0.6 0.2-1.2 [facility] HospitalAspartate Amino Transf (AST/SGOT) 2018-04-05 06:15:00* Test Item Value Reference Range Interpretation Comments Aspartate Amino Transf (AST/SGOT) (test code = Aspartate Amino Transf (AST/SGOT)) 15 5-34 [facility] HospitalAlanine Aminotransferase (ALT/SGPT) 2018-04-05 06:15:00* Test Item Value Reference Range Interpretation Comments Alanine Aminotransferase (ALT/SGPT) (test code = 1742-6) 16 0-55 [facility] HospitalTotal Ovazwey0109-84-44 06:15:00* Test Item Value Reference Range Interpretation Comments Total Protein (test code = 2885-2) 6.5 6.5-8.1 [facility] HospitalAlbumin2018-11-19 06:15:00* Test Item Value Reference Range Interpretation Comments Albumin (test code = 1751-7) 3.6 3.5-5.0 [facility] HospitalGlobulin2018-11-19 06:15:00* Test Item Value Reference Range Interpretation Comments Globulin (test code = 07330-4) 2.9 2.3-3.5 [facility] HospitalAlbumin/Globulin Cffov7172-05-97 06:15:00 * Test Item Value Reference Range Interpretation Comments Albumin/Globulin Ratio (test code = 1759-0) 1.2 0.8-2.0 [facility] HospitalAlkaline Klqzpvkyuju4520-88-28 06:15:00* Test Item Value Reference Range Interpretation Comments Alkaline Phosphatase (test code = 6768-6) 70 40-150 [facility] HospitalUrine NJA9460-08-30 19:49:00* Test Item Value Reference Range Interpretation Comments Urine WBC (test code = 5821-4) 0-5 0-5 [facility] HospitalU[facility] JEI2393-98-82 19:49:00* Test Item Value Reference Range Interpretation Comments Urine RBC (test code = 61751-7) 0-5 0-5 [facility] HospitalU[facility] Urbmzohp8877-69-49 19:49:00* Test Item Value Reference Range Interpretation Comments Urine Bacteria (test code = 31472-3) NONE NONE [facility] HospitalU[facility] Epithelial Mfefm1812-97-06 19:49:00 * Test Item Value Reference Range Interpretation Comments Urine Epithelial Cells (test code = 39426-2) RARE NONE [facility] HospitalU[facility] Nhqjw0710-93-57 19:49:00* Test Item Value Reference Range Interpretation Comments Urine Mucus (test code = 8247-9) FEW RARE H [facility] HospitalUrine Opiates Aziwlp4056-93-76 19:44:00* Test Item Value Reference Range Interpretation Comments Urine Opiates Screen (test code = 98548-5) NEGATIVE NEGATIVE ALL TESTS PERFORMED MANUALLY ON imageloop TOX/SEE TESTColumbus Community HospitalUrine Barbiturates Ilcebc7617-86-31 19:44:00* Test Item Value Reference Range Interpretation Comments Urine Barbiturates Screen (test code = 656265891) NEGATIVE NEGA TIVE [facility] HospitalU[facility] Phencyclidine Kyaluc7361-38-24 19:44:00* Test Item Value Reference Range Interpretation Comments Urine Phencyclidine Screen (test code = 65012-5) NEGATIVE NEGAT SAE [facility] HospitalUrine Amphetamines Fguzzw8224-92-10 19:44:00* Test Item Value Reference Range Interpretation Comments Urine Amphetamines Screen (test code = 97872-6) NEGATIVE NEGATI VE [facility] HospitalU[facility] Methamphetamines Glwvfw7345-36-02 19:44:00* Test Item Value Reference Range Interpretation Comments Urine Methamphetamines Screen (test code = Urine Metha mphetamines Screen) NEGATIVE NEGATIVE [facility] Hospital[facility] Benzodiazepines Yleaom0929-53-46 19:44:00* Test Item Value Reference Range Interpretation Comments Urine Benzodiazepines Screen (test code = 63082-8) NEGATIVE NEG ATIVE [facility] HospitalU[facility] Cocaine Ijwokd2126-25-45 19:44:00* Test Item Value Reference Range Interpretation Comments Urine Cocaine Screen (test code = 3398-5) NEGATIVE NEGATIVE [facility] HospitalU[facility] Cannabinoids Nenmhj9940-10-89 19:44:00* Test Item Value Reference Range Interpretation Comments Urine Cannabinoids Screen (test code = 47521-0) NEGATIVE NEGATI VE THESE RESULTS ARE FOR MEDICAL TREATMENT ONLYTHIS REPORT CONTAINS UNCONFIR MED SCREENING RESULTS*POSITIVE RESULTS WILL BE CONFIRMED BY REFERENCE LAB UPON R EQUEST CUT-OFFDRUG CLASS CONCENTRATION ng/mLAmphetamines 1000Methamphetamines 1000Cocaine 300Opiate 300Phencyc lidine 25Cannabinoid 50Barbiturates 300Benzodiazepine 300Methadone 300[facility] HospitalUrine Methadone Qvzlob3585-13-31 19:44:00* Test Item Value Reference Range Interpretation Comments Urine Methadone Screen (test code = 04557-5) NEGATIVE NEGATIVE THESE RESULTS ARE FOR MEDICAL TREATMENT ONLYTHIS REPORT CONTAINS UNCONFIR MED SCREENING RESULTS*POSITIVE RESULTS WILL BE CONFIRMED BY REFERENCE LAB UPON R EQUEST CUT-OFFDRUG CLASS CONCENTRATION ng/mLAmphetamines 1000Methamphetamines 1000Cocaine Metabolite 300Opiate 300Phencyc lidine 25Cannabinoid 50Barbiturates 300Benzodiazepine 300Methadone 300[facility] Brhrm9814-16-35 19:39:00* Test Item Value Reference Range Interpretation Comments Urine Color (test code = 5778-6) YELLOW YELLOW [facility] Kukdoci6191-97-34 19:39:00* Test Item Value Reference Range Interpretation Comments Urine Clarity (test code = 03662-2) CLEAR CLEAR [facility] HospitalUrine Specific Gebnfhu3040-07-33 19:39:00 * Test Item Value Reference Range Interpretation Comments Urine Specific [place] (test code = 5811-5) 1.010 1.010-1.02 5 [facility] HospitalU[facility] qK8414-37-24 19:39:00* Test Item Value Reference Range Interpretation Comments Urine pH (test code = 26576-2) 7 5-7 [facility] Leukocyte Lgkubtqt2601-56-72 19:39:00* Test Item Value Reference Range Interpretation Comments Urine Leukocyte Esterase (test code = 5799-2) NEGATIVE NEGATIVE [facility] HospitalU[facility] Xtupbzm5121-22-09 19:39:00* Test Item Value Reference Range Interpretation Comments Urine Nitrite (test code = 20605-9) NEGATIVE NEGATIVE [facility] HospitalU[facility] Fgnynyw0310-72-04 19:39:00* Test Item Value Reference Range Interpretation Comments Urine Protein (test code = 5804-0) NEGATIVE NEGATIVE [facility] HospitalU[facility] Glucose (UA)2018-04-04 19:39:00* Test Item Value Reference Range Interpretation Comments Urine Glucose (UA) (test code = 2349-9) NEGATIVE NEGATIVE [facility] HospitalU[facility] Nnoyouh5093-84-37 19:39:00* Test Item Value Reference Range Interpretation Comments Urine Ketones (test code = 69251-6) NEGATIVE NEGATIVE [facility] HospitalU[facility] Zuiuelaheanc9957-48-21 19:39:00* Test Item Value Reference Range Interpretation Comments Urine Urobilinogen (test code = 26654-8) 0.2 0.2-1 [facility] HospitalU[facility] Ijnmfzcur3879-97-26 19:39:00* Test Item Value Reference Range Interpretation Comments Urine Bilirubin (test code = 1978-6) NEGATIVE NEGATIVE [facility] HospitalUrine Gwbci8270-92-40 19:39:00* Test Item Value Reference Range Interpretation Comments Urine Blood (test code = 58169-3) NEGATIVE NEGATIVE [facility] HospitalCT BRAIN NB1228-80-42 19:23:00 [facility] [address] [address] Patient Name: ALISON HOUSTON MR #: [id number] : 1955 Age/Sex: 62/F Req #: [id number] Adm Physician: Ordered by: LANRE PITTS MD Report #: [id number] Location: ER Room/Bed: Procedure: [id number] CT/C T BRAIN WO Exam Date: 04/04/18 Exam Time: 1840 REPORT STATUS: Signed History: Altere d mental status, epilepsy Comparison studies: Head CTs on 03/02/2016 and 07/11/2017 Technique: Axial images were obtained from the skull base to the vertex. Coronal and sagittal reconstructions obtained from the axial emigdio a. Dose modulation, iterative reconstruction, and/or weight based adjustment of the mA/kV was utilized to reduce the radiation dose to as low as reasonably achievable. Findings: Scalp/skull: No abnormalities. No fractur es, blastic or lytic lesions. Extra-axial spaces: No masses. No fluid c ollections. Brain sulci: Appropriate for age. Ventricles: Normal in size and configuration. No hydrocephalus. Parenchyma: A noncalcified, well-ci rcumscribed, 1 cm hypodense focus remains centered in the right anterior te mporal white matter, without surrounding edema or mass effect. No masses, hemo rrhage, acute or chronic cortical vascular insults. Sellar/suprasellar carlton on: No abnormalities Craniocervical junction: Patent foramen magnum. No Chiar i one malformation. IMPRESSION: 1. No acute abnormalities. 2. No c hanges when compared to the previous head CT's. 3. Well-circumscribed 1 cm hy podense focus in the right anterior temporal white matter as described is nons pecific. 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 Recommend further evaluation with an nonemergent MRI with and without contrast unless it has been done in the past. Signed by: Dr. Iraida Lezama M.D. on 04/04/2018 7:29 PM Dictated By: IRAIDA LEZAMA MD, MD 28 COPY TO: LANRE PITTS MD [facility] SINGLE (PORTABLE)2018-04-04 19:12:00 [address] [address] Patient Name: ALISON HOUSTON MR #: [id number] : 1955 Age/Sex: 62/F Req #: [id number] Adm Physician: Ordered by: LANRE PITTS MD Report #: [id number] Location: ER Room/Bed: Procedure: [id number] DX/C HEST SINGLE (PORTABLE) Exam Date: 04/04/18 Exam Time : 1849 REPORT STATUS: Signed EXA M: CHEST SINGLE (PORTABLE), AP 1 view INDICATION: Altered mental status COMP ARISON: None FINDINGS: LINES/TUBES: None LUNGS: No consolidations or edema. PLEURA: No effusions or pneumothorax. HEART AND MEDIASTINUM: Normal size and contour. BONES AND SOFT TISSUES: No acute findings. Surgica l clip projects over the left upper quadrant. IMPRESSION: No acute thor acic abnormality. Signed by: Dr. Apryl Wilkerson M.D. on 8 7:14 PM Dictated By: APRYL WILKERSON MD 13 Transcribed By: CARRIE on 04/04/181913 COPY TO: LANRE PITTS MD B-Type Natriuretic Srmbjoc4960-76-44 18:47:00* Test Item Value Reference Range Interpretation Comments B-Type Natriuretic Peptide (test code = 80930-9) 44.3 0-100 [facility] HospitalAcetaminophen Zxsjb2778-36-92 18:37:00* Test Item Value Reference Range Interpretation Comments Acetaminophen Level (test code = 77747-2) < 3 10-30 L [facility] HospitalEthyl Alcohol Fhrwj4023-79-83 18:37:00* Test Item Value Reference Range Interpretation Comments Ethyl Alcohol Level (test code = 5643-2) < 10.0 0.0-10.0 [facility] Aust[facility]icyl[facility] Sxxci3676-55-20 18:37:00* Test Item Value Reference Range Interpretation Comments Salicylates Level (test code = 4024-6) < 5.0 0-30 [facility] HospitalCreatine Kinase WG3294-56-69 18:28:00* Test Item Value Reference Range Interpretation Comments Creatine Kinase MB (test code = 21845-3) 0.80 0-5.0 [facility] HospitalTroponin R0838-75-93 18:28:00* Test Item Value Reference Range Interpretation Comments Troponin I (test code = CZD2977) 0.002 0-0.300 [facility] HospitalMagnesium Hxodu4355-64-99 18:18:00* Test Item Value Reference Range Interpretation Comments Magnesium Level (test code = 27405-8) 2.5 1.3-2.1 H [facility] HospitalCreatine Ahkppg9051-24-52 18:18:00* Test Item Value Reference Range Interpretation Comments Creatine Kinase (test code = 2157-6) 59 29-168 [facility] HospitalProthrombin Gfpz4030-88-81 18:10:00* Test Item Value Reference Range Interpretation Comments Prothrombin Time (test code = 5902-2) 12.9 11.9-14.5 [facility] HospitalProthromb Time International Ratio 2018-04-04 18:10:00* Test Item Value Reference Range Interpretation Comments Prothromb Time International Ratio (test code = 6301-6) 0.89 Oral Anticoagulant Therapy INR Values:1. Low Intensity Therapy 1.5 - 2.02 . Moderate Intensity Therapy 2.0 - 3.03. High Intensity Therapy(1) 2.5 - 3. 54. High Intensity Therapy(2) 3.0 - 4.05. Panic Value INR > 5.0 [facility] HospitalActivated Partial Thromboplast Time 2018-04-04 18:10:00* Test Item Value Reference Range Interpretation Comments Activated Partial Thromboplast Time (test code = 43971-4) 26.9 23.8-35.5 [facility] HospitalAmmonia2018-11-18 18:10:00* Test Item Value Reference Range Interpretation Comments Ammonia (test code = 63342-8) 54 31-123 [facility] HospitalLactic Acid Czqcy5385-00-34 18:09:00* Test Item Value Reference Range Interpretation Comments Lactic Acid Level (test code = Lactic Acid Level) 8.8 4.5- 19.8 [facility] HospitalArterial Blood pC1915-62-25 18:07:00* Test Item Value Reference Range Interpretation Comments Arterial Blood pH (test code = 2744-1) 7.42 7.31-7.41 H [facility] HospitalArterial Blood Partial Pressure CO2 2018-04-04 18:07:00* Test Item Value Reference Range Interpretation Comments Arterial Blood Partial Pressure CO2 (test code = 2018-) 40 41-51 L [facility] HospitalArterial Blood Partial Pressure O2 2018-04-04 18:07:00* Test Item Value Reference Range Interpretation Comments Arterial Blood Partial Pressure O2 (test code = 2018-) 65 80-105 L [facility] HospitalArterial Blood PHI50362-03-36 18:07:00* Test Item Value Reference Range Interpretation Comments Arterial Blood HCO3 (test code = 1960-4) 25 23-28 [facility] HospitalArterial Blood Base Vthqws8935-09-90 18:07:00* Test Item Value Reference Range Interpretation Comments Arterial Blood Base Excess (test code = 1925-7) 1.0 -2-3 [facility] HospitalArterial Blood Oxygen Saturation 2018-04-04 18:07:00* Test Item Value Reference Range Interpretation Comments Arterial Blood Oxygen Saturation (test code = 2708-6) 93.0 95-98 L [facility] HospitalFiO22018-11-18 18:07:00* Test Item Value Reference Range Interpretation Comments FiO2 (test code = FiO2) 21 ROOM AIR RIGHT RADIALColumbus Community Hospital[O] Hemoglobin A1c (in office)2018-03-15 10:57:00* Test Item Value Reference Range Interpretation Comments HEMOGLOBIN A1c (test code = 4548-4) 4.7 [facility][O] Lipid Panel (In Office)2018-03-15 10:57:00* Test Item Value Reference Range Interpretation Comments CHOLESTEROL, TOTAL (test code = 2093-3) 146 HDL CHOLESTEROL (test code = 2085-9) 61 TRIGLYCERIDES (test code = 2571-8) 156 LDL-CHOLESTEROL (test code = 05822-4) 85 NON HDL CHOLESTEROL (test code = NON HDL CHOLESTEROL) 54 T. Chol/HDL Ratio (test code = 9830-1) 2.4 GLUCOSE (test code = 1547-9) 101 [facility] PhysiciansGlucose (Point of Care In Office)2018-03-15 10:56:00* Test Item Value Reference Range Interpretation Comments Glucose POC Lifescan (test code = Glucose POC Lifescan) 95 [facility] PhysiciansCHEST 2 ZUCKR2013-27-50 13:02:00 [facility] [address] [address] Patient Name: ALISON HOUSTON MR #: [id number] : 1955 Age/Sex: 62/F Req #: [id number] Adm Physician: Ordered by: DELMY OLVERA DPM Report #: [id number] Location: OR Room/Bed: Procedure: [id number] DX/CHEST 2 VIEWS Exam Date: 02/16/18 Exam Time: 1210 REPORT STATUS: Signed EXAMINATION: CHEST 2 VIEWS INDICATION: Chest pain. Preop. Vijay t pain. COMPARISON: None FINDINGS: TUBES and LINES: None. LUNGS: Lungs are well inflated. Lungs are clear. There is no evidence of pneumonia or pulmonary edema. PLEURA: No pleural effusion or pneumothora x. HEART AND MEDIASTINUM: The cardiomediastinal silhouette is unremarkable . BONES AND SOFT TISSUES: No acute osseous lesion. Soft tissues are unremarkable. Metallic clips are seen in the upper abdomen. UPPER ABDOMEN: No free air under the diaphragm. IMPRESSION: No acute thoracic abno rmality. Signed by: Dr. Sheila Becerril M.D. on 02/16/2018 1:03 PM Di ctated By: SHEILA BECERRIL MD, MD 1305 Transcribed By: CARRIE on 02/16/18 1300 COPY TO: DELMY BALDWIN DPM [[facility]] MICROALBUMIN, RANDOM URINE (W/CREATININE)2017-10-21 12:00:01* Test Item Value Reference Range Interpretation Comments Urine Microalbumin (test code = Urine Microalbumin) 34.8 mg/L U Creatinine (test code = 2161-8) 177.00 mg/dl No established reference ranges. Urine Microalbuming Creatinine Ratio (test code = 35833-5) 1 9.7 {MCG/MG CRE} <=30.0 [facility]] CMP W/[id number] 12:00:01* Test Item Value Reference Range Interpretation Comments Sodium Level; Above High Threshold (test code = 2951-2) 146 {mEq/l} 135-145 Potassium Level (test code = 2823-3) 4.5 {mEq/l} 3.5-5.1 Chloride Level (test code = 2075-0) 106 {mEq/l} 95-109 Carbon Dioxide (test code = 2027-9) 28 {mEq/l} 24-32 AGAP (test code = 77491-6) 16.5 {mEq/l} 10.0-20.0 Glucose Lvl (test code = 2345-7) 98 mg/dl 70-99 Adult reference range values reflect the clinical guidelinesof the [place] [employer]. Creatinine Lvl (test code = 2160-0) 1.20 mg/dl 0.50-1.40 Blood Urea Nitrogen (test code = 3094-0) 18 mg/dl 7-22 BUN/Creatinine Ratio (test code = 3097-3) 15 6-25 Total Protein (test code = 2885-2) 7.9 g/dl 6.4-8.4 Albumin Lvl (test code = 1751-7) 4.7 g/dl 3.5-5.0 Globulin (test code = 54517-6) 3.2 g/dl 2.7-4.2 A/G Ratio (test code = 1759-0) 1.5 0.7-1.6 Calcium Level Total (test code = 08240-3) 10.1 mg/dl 8.5-10.5 ALT (test code = 1743-4) 29 u/l 0-65 AST (test code = 34034-2) 15 u/l 0-37 Alk Phos (test code = 1783-0) 96 u/l 39-136 Bili Total (test code = 1974-) 0.9 mg/dl 0.2-1.3 eGFR (test code = 90009-4) 49 {ML/MIN/1.7} The eGFR is calculated using the CKD-EPI formula. In most young, healthyindividuals the eGFR will be >90 mL/min/1.73m2. The eGFR declines with age. AneGFR of 60-89 may be normal in some populations, particularly the elderly, forwhom the CKD-EPI formula has not been extensively validated. Use of the eGFR isnot recommended in the following populations:Individuals with unstable creatinine concentrations, including patients and those with serious co-morbid conditions.Patients with extremes in muscle mass or diet.The data above are obtained from the National Kidney Disease Education Program(NKDEP) which additionally recommends that when the eGFR is used in patientswith extremes of body mass index for purposes of drug dosing, the eGFR shouldbe multiplied by the estimated BMI. [facility]] T4, BTFJ8726-08-47 12:00:01* Test Item Value Reference Range Interpretation Comments T4 Free (test code = 3024-7) 1.03 ng/dl 0.76-1.46 [facility]] TSH, 3RD JMAEXOCXBN4128-03-77 12:00:01* Test Item Value Reference Range Interpretation Comments TSH (test code = 63172-1) 1.530 {uIU/ml} 0.360-3.740 [facility]] VITAMIN D, 25-HYDROXY, LC/MS/ZA5941-66-44 12:00:01* Test Item Value Reference Range Interpretation Comments Vitamin D, 25-OH, Total (test code = Vitamin D, 25-OH, Total ) 49.4 ng/ml 30.0-100.0 Reference range is based on recommendations in the EndocrineSociety Clinical Practice Guideline (J Clin Endocrinol Uckbh1249;96:0801-1963) [facility][O] Hemoglobin A1c (in office)2017-10-21 10:48:00 * Test Item Value Reference Range Interpretation Comments HEMOGLOBIN A1c (test code = 4548-4) 5.0 [facility][O] Lipid Panel (In Office)2017-10-21 10:48:00* Test Item Value Reference Range Interpretation Comments CHOLESTEROL, TOTAL (test code = 2093-3) 134 HDL CHOLESTEROL (test code = 2085-9) 57 TRIGLYCERIDES (test code = 2571-8) 202 LDL-CHOLESTEROL (test code = 13092-3) 36 NON HDL CHOLESTEROL (test code = NON HDL CHOLESTEROL) 77 T. Chol/HDL Ratio (test code = 9830-1) 2.3 GLUCOSE (test code = 1547-9) 107 [facility] PhysiciansGlucose (Point of Care In Office)2017-10-21 10:48:00* Test Item Value Reference Range Interpretation Comments Glucose POC Lifescan (test code = Glucose POC Lifescan) 104 [facility]iciansGlucose (Point of Care In Office)2017-07-16 10:29:00* Test Item Value Reference Range Interpretation Comments Glucose POC Lifescan (test code = Glucose POC Lifescan) 107 [facility][O] Hemoglobin A1c (in office)2017-07-16 10:28:00 * Test Item Value Reference Range Interpretation Comments HEMOGLOBIN A1c (test code = 4548-4) 5.1 [facility][O] Lipid Panel (In Office)2017-07-16 10:28:00* Test Item Value Reference Range Interpretation Comments CHOLESTEROL, TOTAL (test code = 2093-3) 128 HDL CHOLESTEROL (test code = 2085-9) 60 TRIGLYCERIDES (test code = 2571-8) 160 LDL-CHOLESTEROL (test code = 00260-5) 36 NON HDL CHOLESTEROL (test code = NON HDL CHOLESTEROL) 68 T. Chol/HDL Ratio (test code = 9830-1) 2.1 GLUCOSE (test code = 1547-9) 105 [facility]] CULTURE, URINE, YLYUORX0868-17-54 05:00:00* Test Item Value Reference Range Interpretation Comments CULTURE (test code = CULTURE) See Comment CULTURE, URINE, ROUTINE MICRO NUMBER: [id number] TEST STATUS: FINAL SPECIMEN SOURCE: URINE SPECIMEN QUALITY: ADEQUATE RESULT: No GrowthNO COLLECTION DATE RECEIVED. WE HAVE USEDTHE DATE THE SPECIMEN WAS RE[facility] THE COLLECTION DATE. IF THISIS INCORRECT, PLEASE CONTACT CLIENT SERVICES.PHONE NUMBER: [phone] [facility] PhysiciansCreatine Kinase [id number] 22:52:00* Test Item Value Reference Range Interpretation Comments Creatine Kinase MB (test code = 11869-4) 2.30 0-5.0 [facility] HospitalTroponin [id number] 22:52:00* Test Item Value Reference Range Interpretation Comments Troponin I (test code = SCH2653) -0.001 0-0.300 [facility] HospitalCreatine Xfvzfm3238-70-86 22:50:00* Test Item Value Reference Range Interpretation Comments Creatine Kinase (test code = 2157-6) 133 29-168 [facility] HospitalTroponin [id number] 09:48:00* Test Item Value Reference Range Interpretation Comments Troponin I (test code = NWV5871) 0.003 0-0.300 [facility] HospitalThyroid Stimulating Hormone (TSH) 2017-07-10 09:48:00* Test Item Value Reference Range Interpretation Comments Thyroid Stimulating Hormone (TSH) (test code = 08304-1) 3.885 0.350-4.940 [facility] HospitalThyroid Stimulating Hormone (TSH) 2017-07-10 09:48:00* Test Item Value Reference Range Interpretation Comments Thyroid Stimulating Hormone (TSH) (test code = 64676-9) 3.885 0.350-4.940 [facility] HospitalThyroid Stimulating Hormone (TSH) 2017-07-10 09:48:00* Test Item Value Reference Range Interpretation Comments Thyroid Stimulating Hormone (TSH) (test code = 95995-8) 3.885 0.350-4.940 [facility] HospitalWhite Blood Pllxr0943-79-14 09:45:00* Test Item Value Reference Range Interpretation Comments White Blood Count (test code = 6690-2) 6.78 4.8-10.8 [facility] HospitalRed Blood Cybwj9998-81-07 09:45:00* Test Item Value Reference Range Interpretation Comments Red Blood Count (test code = 789-8) 4.64 3.6-5.1 [facility] HospitalHemoglobin2018-02-23 09:45:00* Test Item Value Reference Range Interpretation Comments Hemoglobin (test code = 98047-5) 13.6 12.0-16.0 [facility] HospitalHematocrit2018-02-23 09:45:00* Test Item Value Reference Range Interpretation Comments Hematocrit (test code = 4544-3) 40.0 34.2-44.1 [facility] HospitalMean Corpuscular Delahg4202-90-05 09:45:00* Test Item Value Reference Range Interpretation Comments Mean Corpuscular Volume (test code = 787-2) 86.2 81-99 [facility] HospitalMean Corpuscular Fhoabjszqm9141-94-69 09:45:00* Test Item Value Reference Range Interpretation Comments Mean Corpuscular Hemoglobin (test code = 785-6) 29.3 28-32 [facility] HospitalMean Corpuscular Hemoglobin Concent 2017-07-10 09:45:00* Test Item Value Reference Range Interpretation Comments Mean Corpuscular Hemoglobin Concent (test code = 786-4) 34.0 31-35 [facility] HospitalRed Cell Distribution Yxhvz4419-83-41 09:45:00* Test Item Value Reference Range Interpretation Comments Red Cell Distribution Width (test code = 13727-4) 13.4 11.7 -14.4 [facility] HospitalPlatelet Ukpid1574-66-49 09:45:00* Test Item Value Reference Range Interpretation Comments Platelet Count (test code = 777-3) 159 140-360 [facility] HospitalNeutrophils (%) (Auto)2017-07-10 09:45:00 * Test Item Value Reference Range Interpretation Comments Neutrophils (%) (Auto) (test code = 70970-9) 61.9 38.7-80.0 [facility] HospitalLymphocytes (%) (Auto)2017-07-10 09:45:00 * Test Item Value Reference Range Interpretation Comments Lymphocytes (%) (Auto) (test code = 736-9) 29.5 18.0-39.1 [facility] HospitalMonocytes (%) (Auto)2017-07-10 09:45:00* Test Item Value Reference Range Interpretation Comments Monocytes (%) (Auto) (test code = 5905-5) 6.6 4.4-11.3 [facility] HospitalEosinophils (%) (Auto)2017-07-10 09:45:00 * Test Item Value Reference Range Interpretation Comments Eosinophils (%) (Auto) (test code = 713-8) 1.3 0.0-6.0 [facility] HospitalBasophils (%) (Auto)2017-07-10 09:45:00* Test Item Value Reference Range Interpretation Comments Basophils (%) (Auto) (test code = 706-2) 0.6 0.0-1.0 [facility] HospitalIM GRANULOCYTES %2017-07-10 09:45:00* Test Item Value Reference Range Interpretation Comments IM GRANULOCYTES % (test code = IM GRANULOCYTES %) 0.1 0.0- 1.0 [facility] HospitalNeutrophils # (Auto)2017-07-10 09:45:00* Test Item Value Reference Range Interpretation Comments Neutrophils # (Auto) (test code = 751-8) 4.2 2.1-6.9 [facility] HospitalLymphocytes # (Auto)2017-07-10 09:45:00* Test Item Value Reference Range Interpretation Comments Lymphocytes # (Auto) (test code = 19191-1) 2.0 1.0-3.2 [facility] HospitalMonocytes # (Auto)2017-07-10 09:45:00* Test Item Value Reference Range Interpretation Comments Monocytes # (Auto) (test code = 742-7) 0.5 0.2-0.8 [facility] HospitalEosinophils # (Auto)2017-07-10 09:45:00* Test Item Value Reference Range Interpretation Comments Eosinophils # (Auto) (test code = 711-2) 0.1 0.0-0.4 [facility] HospitalBasophils # (Auto)2017-07-10 09:45:00* Test Item Value Reference Range Interpretation Comments Basophils # (Auto) (test code = 704-7) 0.0 0.0-0.1 [facility] HospitalAbsolute Immature Granulocyte (auto 2017-07-10 09:45:00* Test Item Value Reference Range Interpretation Comments Absolute Immature Granulocyte (auto (norma t code = Absolute Immature Granulocyte (auto) 0.01 0-0.1 [facility] HospitalWhite Blood Uocdg2807-83-58 09:45:00* Test Item Value Reference Range Interpretation Comments White Blood Count (test code = 6690-2) 6.78 4.8-10.8 [facility] HospitalRed Blood Ebygj5475-42-56 09:45:00* Test Item Value Reference Range Interpretation Comments Red Blood Count (test code = 789-8) 4.64 3.6-5.1 [facility] HospitalHemoglobin2018-02-23 09:45:00* Test Item Value Reference Range Interpretation Comments Hemoglobin (test code = 78790-0) 13.6 12.0-16.0 [facility] HospitalHematocrit2018-02-23 09:45:00* Test Item Value Reference Range Interpretation Comments Hematocrit (test code = 4544-3) 40.0 34.2-44.1 [facility] HospitalMean Corpuscular Yscstd0841-08-05 09:45:00* Test Item Value Reference Range Interpretation Comments Mean Corpuscular Volume (test code = 787-2) 86.2 81-99 [facility] HospitalMean Corpuscular Xkuoorjwkz1895-73-36 09:45:00* Test Item Value Reference Range Interpretation Comments Mean Corpuscular Hemoglobin (test code = 785-6) 29.3 28-32 [facility] Corp[facility] Hem[facility] Concent 2017-07-10 09:45:00* Test Item Value Reference Range Interpretation Comments Mean Corpuscular Hemoglobin Concent (test code = 786-4) 34.0 31-35 [facility] HospitalRed Cell Distribution Vbuzv9704-12-10 09:45:00* Test Item Value Reference Range Interpretation Comments Red Cell Distribution Width (test code = 94431-0) 13.4 11.7 -14.4 [facility] HospitalPlatelet Vlngd6531-13-25 09:45:00* Test Item Value Reference Range Interpretation Comments Platelet Count (test code = 777-3) 159 140-360 [facility] HospitalNeutrophils (%) (Auto)2017-07-10 09:45:00 * Test Item Value Reference Range Interpretation Comments Neutrophils (%) (Auto) (test code = 45189-2) 61.9 38.7-80.0 [facility] HospitalLymphocytes (%) (Auto)2017-07-10 09:45:00 * Test Item Value Reference Range Interpretation Comments Lymphocytes (%) (Auto) (test code = 736-9) 29.5 18.0-39.1 [facility] HospitalMonocytes (%) (Auto)2017-07-10 09:45:00* Test Item Value Reference Range Interpretation Comments Monocytes (%) (Auto) (test code = 5905-5) 6.6 4.4-11.3 [facility] HospitalEosinophils (%) (Auto)2017-07-10 09:45:00 * Test Item Value Reference Range Interpretation Comments Eosinophils (%) (Auto) (test code = 713-8) 1.3 0.0-6.0 [facility] HospitalBasophils (%) (Auto)2017-07-10 09:45:00* Test Item Value Reference Range Interpretation Comments Basophils (%) (Auto) (test code = 706-2) 0.6 0.0-1.0 [facility] HospitalIM GRANULOCYTES %2017-07-10 09:45:00* Test Item Value Reference Range Interpretation Comments IM GRANULOCYTES % (test code = IM GRANULOCYTES %) 0.1 0.0- 1.0 [facility] HospitalNeutrophils # (Auto)2017-07-10 09:45:00* Test Item Value Reference Range Interpretation Comments Neutrophils # (Auto) (test code = 751-8) 4.2 2.1-6.9 [facility] HospitalLymphocytes # (Auto)2017-07-10 09:45:00* Test Item Value Reference Range Interpretation Comments Lymphocytes # (Auto) (test code = 46481-5) 2.0 1.0-3.2 [facility] HospitalMonocytes # (Auto)2017-07-10 09:45:00* Test Item Value Reference Range Interpretation Comments Monocytes # (Auto) (test code = 742-7) 0.5 0.2-0.8 [facility] HospitalEosinophils # (Auto)2017-07-10 09:45:00* Test Item Value Reference Range Interpretation Comments Eosinophils # (Auto) (test code = 711-2) 0.1 0.0-0.4 [facility] HospitalBasophils # (Auto)2017-07-10 09:45:00* Test Item Value Reference Range Interpretation Comments Basophils # (Auto) (test code = 704-7) 0.0 0.0-0.1 [facility] HospitalAbsolute Immature Granulocyte (auto 2017-07-10 09:45:00* Test Item Value Reference Range Interpretation Comments Absolute Immature Granulocyte (auto (norma t code = Absolute Immature Granulocyte (auto) 0.01 0-0.1 [facility]odium Ceici6723-99-41 09:25:00* Test Item Value Reference Range Interpretation Comments Sodium Level (test code = 2951-2) 142 136-145 [facility] HospitalPotassium Mkbgk0140-85-03 09:25:00* Test Item Value Reference Range Interpretation Comments Potassium Level (test code = 2823-3) 3.7 3.5-5.1 [facility] HospitalChloride Zcvrv3905-20-32 09:25:00* Test Item Value Reference Range Interpretation Comments Chloride Level (test code = 2075-0) 107 98-107 [facility] HospitalCarbon Dioxide Pcgqb9646-28-27 09:25:00* Test Item Value Reference Range Interpretation Comments Carbon Dioxide Level (test code = 2028-9) 24 22-29 [facility] HospitalAnion Yfw0735-65-39 09:25:00* Test Item Value Reference Range Interpretation Comments Anion Gap (test code = 43178-1) 14.7 8-16 [facility] HospitalBlood Urea Hjlweuaa4106-59-64 09:25:00* Test Item Value Reference Range Interpretation Comments Blood Urea Nitrogen (test code = 3094-0) 20 7-26 [facility] HospitalCreatinine2018-02-23 09:25:00* Test Item Value Reference Range Interpretation Comments Creatinine (test code = 2160-0) 0.86 0.57-1.11 [facility] HospitalBUN/Creatinine Emwpt5824-48-97 09:25:00* Test Item Value Reference Range Interpretation Comments BUN/Creatinine Ratio (test code = 3097-3) 23 11-09 [facility] HospitalEstimat Glomerular Filtration Rate 2017-07-10 09:25:00* Test Item Value Reference Range Interpretation Comments Estimat Glomerular Filtration Rate (test code = 43858-4) 60- >60 Ranges were taken from the National Kidney Disease Education Program and the [place] [employer] literature.Reference ranges:60 or greater: Yhokiv95-55 ( for 3 consecutive months): Chronic kidney disease 15 or less: Kidney failureColumbus Community HospitalGlucose Dnmcr0489-45-95 09:25:00* Test Item Value Reference Range Interpretation Comments Glucose Level (test code = IGB9508) 109 74-118 [facility] HospitalCalcium Etmzt6008-28-67 09:25:00* Test Item Value Reference Range Interpretation Comments Calcium Level (test code = 02546-5) 10.3 8.4-10.2 H [facility] HospitalPhosphorus Jrirh0074-58-60 09:25:00* Test Item Value Reference Range Interpretation Comments Phosphorus Level (test code = PDC9451) 3.6 2.3-4.7 [facility] HospitalMagnesium Sqlpz4838-39-05 09:25:00* Test Item Value Reference Range Interpretation Comments Magnesium Level (test code = 23714-6) 1.9 1.3-2.1 [facility] HospitalTotal Fwbtqqahw0913-90-24 09:25:00* Test Item Value Reference Range Interpretation Comments Total Bilirubin (test code = 1975-2) 0.9 0.2-1.2 [facility] HospitalAspartate Amino Transf (AST/SGOT) 2017-07-10 09:25:00* Test Item Value Reference Range Interpretation Comments Aspartate Amino Transf (AST/SGOT) (test code = Aspartate Amino Transf (AST/SGOT)) 15 5-34 [facility] HospitalAlanine Aminotransferase (ALT/SGPT) 2017-07-10 09:25:00* Test Item Value Reference Range Interpretation Comments Alanine Aminotransferase (ALT/SGPT) (test code = 1742-6) 15 0-55 [facility] HospitalTotal Olzkawx9802-67-33 09:25:00* Test Item Value Reference Range Interpretation Comments Total Protein (test code = 2885-2) 7.4 6.5-8.1 [facility] HospitalAlbumin2018-02-23 09:25:00* Test Item Value Reference Range Interpretation Comments Albumin (test code = 1751-7) 4.2 3.5-5.0 [facility] HospitalGlobulin2018-02-23 09:25:00* Test Item Value Reference Range Interpretation Comments Globulin (test code = 94512-5) 3.2 2.3-3.5 [facility] HospitalAlbumin/Globulin Xdfoh3265-87-53 09:25:00 * Test Item Value Reference Range Interpretation Comments Albumin/Globulin Ratio (test code = 1759-0) 1.3 0.8-2.0 [facility] HospitalAlkaline Bcwgzorfcwm4630-72-43 09:25:00* Test Item Value Reference Range Interpretation Comments Alkaline Phosphatase (test code = 6768-6) 68 40-150 [facility]odium Jhxhj9985-63-95 09:25:00* Test Item Value Reference Range Interpretation Comments Sodium Level (test code = 2951-2) 142 136-145 [facility] HospitalPotassium Vggaa8023-64-13 09:25:00* Test Item Value Reference Range Interpretation Comments Potassium Level (test code = 2823-3) 3.7 3.5-5.1 [facility] HospitalChloride Sttva3992-85-00 09:25:00* Test Item Value Reference Range Interpretation Comments Chloride Level (test code = 2075-0) 107 98-107 [facility] HospitalCarbon Dioxide Wfngn7071-81-08 09:25:00* Test Item Value Reference Range Interpretation Comments Carbon Dioxide Level (test code = 2028-9) 24 22-29 [facility] HospitalAnion Jag1329-04-56 09:25:00* Test Item Value Reference Range Interpretation Comments Anion Gap (test code = 00710-9) 14.7 8-16 [facility] HospitalBlood Urea Vjcuirur1098-87-13 09:25:00* Test Item Value Reference Range Interpretation Comments Blood Urea Nitrogen (test code = 3094-0) 20 7-26 [facility] HospitalCreatinine2018-02-23 09:25:00* Test Item Value Reference Range Interpretation Comments Creatinine (test code = 2160-0) 0.86 0.57-1.11 [facility] HospitalBUN/Creatinine Xqhws8734-75-69 09:25:00* Test Item Value Reference Range Interpretation Comments BUN/Creatinine Ratio (test code = 3097-3) 11-09 [facility] HospitalEstimat Glomerular Filtration Rate 2017-07-10 09:25:00* Test Item Value Reference Range Interpretation Comments Estimat Glomerular Filtration Rate (test code = 48494-5) 60- >60 Ranges were taken from the National Kidney Disease Education Program and the [facility] Kidney Foundation literature.Reference ranges:60 or greater: Xtqpat32-51 ( for 3 consecutive months): Chronic kidney disease 15 or less: Kidney failureColumbus Community HospitalGlucose Dwgwc8668-03-99 09:25:00* Test Item Value Reference Range Interpretation Comments Glucose Level (test code = BQH0611) 109 74-118 [facility] HospitalCalcium Wszjs4421-42-10 09:25:00* Test Item Value Reference Range Interpretation Comments Calcium Level (test code = 18758-7) 10.3 8.4-10.2 H [facility] HospitalPhosphorus Pfykv8582-97-59 09:25:00* Test Item Value Reference Range Interpretation Comments Phosphorus Level (test code = SGV3279) 3.6 2.3-4.7 [facility] HospitalMagnesium Wmctd2728-95-58 09:25:00* Test Item Value Reference Range Interpretation Comments Magnesium Level (test code = 98159-2) 1.9 1.3-2.1 [facility] HospitalTotal Zhifxrcsx0751-15-32 09:25:00* Test Item Value Reference Range Interpretation Comments Total Bilirubin (test code = 1975-2) 0.9 0.2-1.2 [facility] HospitalAspartate Amino Transf (AST/SGOT) 2017-07-10 09:25:00* Test Item Value Reference Range Interpretation Comments Aspartate Amino Transf (AST/SGOT) (test code = Aspartate Amino Transf (AST/SGOT)) 15 5-34 [facility] HospitalAlanine Aminotransferase (ALT/SGPT) 2017-07-10 09:25:00* Test Item Value Reference Range Interpretation Comments Alanine Aminotransferase (ALT/SGPT) (test code = 1742-6) 15 0-55 [facility] HospitalTotal Gpprxnn1649-47-00 09:25:00* Test Item Value Reference Range Interpretation Comments Total Protein (test code = 2885-2) 7.4 6.5-8.1 [facility] HospitalAlbumin2018-02-23 09:25:00* Test Item Value Reference Range Interpretation Comments Albumin (test code = 1751-7) 4.2 3.5-5.0 [facility] HospitalGlobulin2018-02-23 09:25:00* Test Item Value Reference Range Interpretation Comments Globulin (test code = 25907-9) 3.2 2.3-3.5 [facility] HospitalAlbumin/Globulin Hhdlg9468-82-49 09:25:00 * Test Item Value Reference Range Interpretation Comments Albumin/Globulin Ratio (test code = 1759-0) 1.3 0.8-2.0 [facility] HospitalAlkaline Jrsfdyjwmtf6680-09-05 09:25:00* Test Item Value Reference Range Interpretation Comments Alkaline Phosphatase (test code = 6768-6) 68 40-150 [facility] HospitalPhosphorus Jpegf8976-50-28 09:25:00* Test Item Value Reference Range Interpretation Comments Phosphorus Level (test code = WWN8068) 3.6 2.3-4.7 [facility] HospitalTobacco Use Rnqrwllfr6416-80-85 20:30:00 * Test Item Value Reference Range Interpretation Comments Completed (test code = Completed) DONE [facility][O] Influenza A and B, Rapid Method (In Office) 2017-05-28 14:21:00* Test Item Value Reference Range Interpretation Comments INFLUENZA A & B Rapid (test code = INFLUENZA A & B Rapid) NEGATIVE N [facility] PhysiciansCreatine Kinase TH6599-20-74 15:29:00* Test Item Value Reference Range Interpretation Comments Creatine Kinase MB (test code = 64665-1) 1.20 0.00-5.00 [facility] HospitalCreatine Eqpvkm5571-79-99 15:24:00* Test Item Value Reference Range Interpretation Comments Creatine Kinase (test code = 2157-6) 67 29-168 [facility] Mrttiys7255-15-70 15:14:00* Test Item Value Reference Range Interpretation Comments Bedside Glucose (test code = 98931-8) 81 70-120 Meter ID: [id number] [facility]ney Hospital Glucose 2017-05-20 15:14:00* Test Item Value Reference Range Interpretation Comments Bedside Glucose (test code = 43574-1) 81 70-120 Meter ID: [id number] Community HospitalGlucose (Point of Care In Office)2017-04-08 14:00:00* Test Item Value Reference Range Interpretation Comments Glucose POC Lifescan (test code = Glucose POC Lifescan) 134 [facility][QLH] CBC (INCLUDES DIFF/PLT)2017-04-03 11:06:01* Test Item Value Reference Range Interpretation Comments WBC (test code = WBC) 7.5 {K/CMM} 3.7-10.4 RBC (test code = RBC) 4.49 {M/CMM} 4.20-5.40 Hgb (test code = 09788-3) 13.2 g/dl 12.0-16.0 Hct (test code = 4544-3) 39.1 % 36.0-48.0 MCV (test code = MCV) 87.0 fL 80.0-98.0 MCH (test code = MCH) 29.3 pg 27.0-31.0 MCHC (test code = MCHC) 33.7 g/dl 32.0-36.0 RDW (test code = RDW) 14.1 % 11.5-14.5 Platelet (test code = 777-3) 172 {K/CMM} 133-450 Mean Platelet Volume (test code = Mean Platelet Volume) 8.0 fL 7.4-10.4 [facility]] Mnswkdyhienc0359-88-55 11:06:01* Test Item Value Reference Range Interpretation Comments Segmented Neutrophils (test code = 86749-5) 63.0 % 45.0-75.0 Monocytes # (test code = 34958-3) 0.5 {K/CMM} 0.0-0.8 Lymphocytes (test code = Lymphocytes) 28.2 % 20.0-40.0 Eosinophils # (test code = 88454-4) 0.2 {K/CMM} 0.0-0.5 Basophils (test code = 49866-9) 0.6 % 0.0-1.0 Segs-Bands # (test code = 86999-7) 4.7 {K/CMM} 1.5-8.1 Lymphocytes # (test code = 97105-0) 2.1 {K/CMM} 1.0-5.5 [facility]] CMP W/IRCR7794-00-83 11:06:01* Test Item Value Reference Range Interpretation Comments Sodium Level (test code = Sodium Level) 143 {mEq/l} 135-145 Potassium Level (test code = Potassium Level) 4.5 {mEq/l} 3.5-5.1 Chloride Level (test code = Chloride Level) 111 {mEq/l} 95-109 Carbon Dioxide (test code = Carbon Dioxide) 25 {mEq/l} 24-32 AGAP (test code = AGAP) 11.5 {mEq/l} 10.0-20.0 Glucose Lvl (test code = Glucose Lvl) 89 mg/dl 70-99 Adult reference range values reflect the clinical guidelinesof the [place] [employer]. Creatinine Lvl (test code = Creatinine Lvl) 0.90 mg/dl 0.50-1.40 Blood Urea Nitrogen (test code = Blood Urea Nitrogen) 17 mg/dl 7-22 BUN/Creatinine Ratio (test code = BUN/Creatinine Ratio) 19 6-25 Total Protein (test code = 21321-8) 7.4 g/dl 6.4-8.4 Albumin Lvl (test code = 1751-7) 3.9 g/dl 3.5-5.0 Globulin (test code = Globulin) 3.5 g/dl 2.7-4.2 A/G Ratio (test code = A/G Ratio) 1.1 0.7-1.6 Calcium Level Total (test code = Calcium Level Total) 9.7 mg/dl 8.5-10.5 ALT (test code = 1742-6) 25 u/l 0-65 AST (test code = 1916-6) 12 u/l 0-37 Alk Phos (test code = 1783-0) 92 u/l 39-136 Bili Total (test code = 81845-6) 0.7 mg/dl 0.2-1.3 eGFR (test code = eGFR) 69 {ML/MIN/1.7} T he eGFR is calculated using the CKD-EPI formula. In most young, healthyindividuals the eGFR will be >90 mL/min/1.73m2. The eGFR declines with age. AneGFR of 60-89 may be normal in some populations, particularly the elderly, forwhom the CKD-EPI formula has not been extensively validated. Use of the eGFR isnot recommended in the following populations:Individuals with unstable creatinine concentrations, including patients and those with serious co-morbid conditions.Patients with extremes in muscle mass or diet.The data above are obtained from the National Kidney Disease Education Program(NKDEP) which additionally recommends that when the eGFR is used in patientswith extremes of body mass index for purposes of drug dosing, the eGFR shouldbe multiplied by the estimated BMI. [facility]] TSH, 3RD QTQRVSUFVY3530-45-74 11:06:01* Test Item Value Reference Range Interpretation Comments TSH (test code = 40814-6) 1.090 {uIU/ml} 0.360-3.740 [facility][] LIPID PANEL WITH REFLEX TO DIRECT LDL 2017-04-03 11:06:01* Test Item Value Reference Range Interpretation Comments Chol (test code = Chol) 120 mg/dl <=199 Trig (test code = 2571-8) 148 mg/dl <=149 HDL Cholesterol (test code = HDL Cholesterol) 53 mg/dl >=61 CHD Risk (test code = CHD Risk) 2.26 3.90-5.80 LDL (test code = LDL) 37 mg/dl <=99 VLDL (test code = VLDL) 30 [facility][QL] HEMOGLOBIN J5f9680-98-86 11:06:01* Test Item Value Reference Range Interpretation Comments Hemoglobin A1c (test code = 4548-4) 5.4 % <=5.6 [facility] PhysiciansNegative Retinal Eye Exam (Diabetic)2016-10-28 05:00:00* Test Item Value Reference Range Interpretation Comments Negative Diabetic Eye Screening (test code = Negative Diabetic Eye Screening) [id number] [facility] PhysiciansCT BRAIN WO [facility] [address] [place] [address] Patient Name: ALISON HOUSTON MR #: [id number] : 1955 Age/Sex: 62/F Req #: [id number] Adm Physician: Ordered by: LANRE PITTS MD Report #: [id number] Location: ER Room/Bed: Procedure: [id number] CT/CT BRAIN WO Exam Date: 06/19 09/02 Exam Time: 2201 REPORT STATUS: Signed E XAMINATION: Head CT HISTORY: Headache, anxiety, hypercoagulation COMPARI SON: Head CT on 03/02/2016 TECHNIQUE: Multidetector axial images were obtained without contrast from the foramen magnum to the vertex . The images were nick nstructed using brain and bone algorithms. Thin section brain images were ref ormatted into coronal and sagittal planes. Intravenous contrast: None. Mo tion/streaking artifact limits the evaluation of the skull base and posterior cranial fossa. FINDINGS: Parenchyma: 1. Unchanged nonspecific approximately 7 mm CSF equal density focus in the right superior temporal whi te matter without associated mass effect. 2. No mass or hemorrhage. No CT allie dence of acute territorial vascular insult. Extra-axial spaces: No abnormal density. No extra-axial fluid collections Brain volume: Norm al for age. Ventricles: No hydrocephalus or displacement. Arter ies: No density suggestive of thrombus. Dural sinuses: No abnormal densi ty. Extra-axial spaces: No abnormal density. Foramen magnum: No mass, Chiari malformation, or basilar invagination. Sella: Mildly enlarg ed, partially empty, mostly CSF field. Paranasal/mastoid sinuses: Image d portions unremarkable. Skull/Scalp: No lytic or blastic lesions. No f ractures. IMPRESSION: No acute intracranial abnormalities. [place] nonspecific hypodensity in the right temporal lobe compared to head CT on 1 Signed by: Dr. Stephanie Fitzgerald M.D. on 07/11/2017 10:22 PM Dic tated By: STEPHANIE FITZGERALD MD 2 222 Transcribed By: CARRIE on 07/11/172 COPY TO: LANRE PITTS MD CHEST SINGLE (PORTABLE) [place] [address] Patient Name: ALISON HOUSTON MR #: [id number] : 1955 Age/Sex: 62/F Req #: [id number] Adm Physician: Ordered by: CÉSAR OLGUIN MD Report #: [id number] Location: ER Room/Bed: Procedure: [id number] DX/CHEST SINGLE (PORTABLE) Exam Date: 07/10/17 Exam Time: 0750 REPORT STA TUS: Signed PROCEDURE: A single AP view of the chest. COMPARISON: Por table chest 05/20/2017. INDICATIONS: CHEST PAIN, HIGH BLOOD PRESSURE FINDINGS: Lines/tubes: None. Lungs: The lungs are well inflated a nd clear. There is no evidence of pneumonia or pulmonary edema. Pleura: There is no pleural effusion or pneumothorax. Heart and mediastinum: Th e heart and the mediastinum are unremarkable. Bones: No acute bony abnorm ality. Degenerative changes of the thoracic spine. IMPRESSION: N o acute radiographic abnormality. Dictated by: Seda Hartmann M.D. on 2017 at 8:22 Electronically approved by: Seda Hartmann M.D. on 07/10/2017 at 8:22 Dictated By: SEDA HARTMANN MD 1 Transcribed By: KIAN on 07/10/17821 COPY TO: CÉSAR OLGUIN MD CHEST SINGLE (NOT PORTABLE) [place] [address] Patient Name: ALISON HOUSTON MR #: [id number] : 1955 Age/Sex: 62/F Req #: [id number] Adm Physician: Ordered by: LAZARO FERNANDEZ Report #: [id number] Location: ER Room /Bed: Procedure: [id number] DX/CHEST SINGLE (NOT MITCHEL BLE) Exam Date: 05/20/17 Exam Time: 1215 REPOR T STATUS: Signed PROCEDURE: X-RAY CHEST, ONE VIEW COMPARISON: [facility], DX, CHEST SINGLE (PORTABLE), 03/02/2016, 9:27. KAILA CATIONS: CHEST PAIN FINDINGS: There are no consolidations, pleural effusions or pneumothorax. The cardiomediastinal silhouette and pulmonary vas culature are normal. There is no interval change. There are no acute osseous abnormalities. There is a clip present in the left upper quadrant of the abdo men. CONCLUSION: No acute cardiopulmonary abnormality. Audi Young D.O. Dictated by: Lenny Young D.O. on 05/20/2017 at 13:07 Electronically approved by: Lenny Yonug D.O. on 05/20/2017 at 13:07 Dictated By: LENNY YOUNG DO [id number] Transcribed By: KIAN on 05/20/17 1308 COPY TO: LAZARO FERNANDEZ
--- NOTE | 2020-04-18 17:44 | Emergency Department Note ---
History of Present Illnes History of Present Illness Chief Complaint: Neurological History of Present Illness This is a 64 year old female Chief Complaint Comment Patient in from home with complaints of slurred speech, and chest tightness that started last night while she was sitting in her chair doing something on her cell phone. Patient also reports tingling and pain in her arm and swelling around her eyes. Patient reports that she called her PCP and they did a telehealth visit and the doctor thought that the patient's smile appeared uneven and suggested she go to the ER at [facility]. Patient reports that she is "stubborn" and didn't want to go there so she waited and her daughter convinced her to come here. Patient states that she had a recent neck surgery a little over a month ago. Also states when she had slurred speech she took a muscle relaxer which made her drowsy. Historian: Patient Arrival Mode: Car Hot Dimpling Machine Operator Required: No Onset (how long ago): day(s) (2) Location: Chest Quality: tightness Radiation: Reports non-radiation Severity: mild Onset quality: unable to specify Duration (how long): day(s) (3) Timing of current episode: sporadic Progression: resolved Chronicity: new Context: Denies recent illness, Denies recent surgery Relieving factors: none Exacerbating factors: none Associated symptoms: Reports denies other symptoms Treatments prior to arrival: none (MAKENNA YOO MD) Past Medical/Family History Physician Review I have reviewed the patient's past medical and family history. Any updates have been documented here. (MAKENNA YOO MD) Past Medical History Recent Fever: No Clinical Suspicion of Infectio: No New/Unexplained Change in Ment: No Past Medical History: Hypertension, Diabetes, Hypothyroidism, Other Mental Illness, Hyperlipedemia Other Medical History: bipolar sleep apnea Past Surgical History: Cholecysctectomy, Appendectomy, Bariatric Surgery Other Surgery: thyroidectomy Cervical Spine reconstruction with cadaver bones and pins (MAKENNA YOO MD) Other Last Tetanus: UNKNOWN (MAKENNA YOO MD) Review of Systems Review of Systems Constitutional: Reports no symptoms EENTM: Reports no symptoms Cardiovascular: Reports as per HPI Respiratory: Reports no symptoms Gastrointestinal: Reports no symptoms Genitourinary: Reports no symptoms Musculoskeletal: Reports no symptoms Integumentary: Reports no symptoms Neurological: Reports as per HPI Psychological: Reports no symptoms Endocrine: Reports no symptoms Hematological/Lymphatic: Reports no symptoms (MAKENNA YOO MD) Physical Exam Related Data Allergies: Coded Allergies: diphenhydramine HCl (Verified Allergy, Mild, ITCHING, SOB, 03/02/16) Triage Vital Signs Vital Signs Date Time Temp Pulse Resp B/P (MAP) Pulse Ox O2 Delivery O2 Flow Rate FiO2 04/18/20 16:46 98.3 77 16 98 Room Air Vital signs reviewed: Yes (MAKENNA YOO MD) Physical Exam CONSTITUTIONAL Constitutional: Present well-developed, Present well-nourished HENT HENT: Present normocephalic, Present atraumatic, Present oropharynx c lear/moist, Present nose normal HENT L/R: Present left ext ear normal, Present right ext ear normal EYES Eyes: Reports PERRL, Reports conjunctivae normal NECK Neck: Present ROM normal PULMONARY Pulmonary: Present effort normal, Present breath sounds normal CARDIOVASCULAR Cardiovascular: Present regular rhythm, Present heart sounds normal, Present capillary refill normal, Present normal rate GASTROINTESTINAL Abdominal: Present soft, Present nontender, Present bowel sounds normal GENITOURINARY Genitourinary: Present exam deferred SKIN Skin: Present warm, Present dry MUSCULOSKELETAL Musculoskeletal: Present ROM normal NEUROLOGICAL Neurological: Present alert, Present oriented x 3, Present no gross motor or sensory deficits; Absent cranial nerve deficit, Absent sensory deficit, Absent abnormal coordination, Absent weakness PSYCHOLOGICAL Psychological: Present mood/affect normal, Present judgement normal (MAKENNA YOO MD) Results Laboratory Lab results reviewed: Yes (MAKENNA YOO MD) Laboratory Laboratory Tests Test 04/18/20 18:24 04/18/20 17:43 Urine Color Yellow (YELLOW) Urine Clarity Clear (CLEAR) Urine pH 5.5 (5 - 7) Urine Specific [place] >=1.030 (1.010-1.025) Urine Protein Negative (NEGATIVE) Urine Glucose (UA) Negative (NEGATIVE) Urine Ketones Negative (NEGATIVE) Urine Blood Negative (NEGATIVE) Urine Nitrite Negative (NEGATIVE) Urine Bilirubin Negative (NEGATIVE) Urine Urobilinogen 0.2 mg/dL (0.2 - 1) Urine Leukocyte Esterase Small (NEGATIVE) Urine RBC 0-5 /HPF (0-5) Urine WBC 0-5 /HPF (0-5) Urine Epithelial Cells Few /LPF (NONE) Urine Bacteria Few /HPF (NONE) White Blood Count 7.71 x10e3/uL (4.8-10.8) Red Blood Count 4.23 x10e6/uL (3.6-5.1) Hemoglobin 12.3 g/dL (12.0-16.0) Hematocrit 38.3 % (34.2-44.1) Mean Corpuscular Volume 90.5 fL (81-99) Mean Corpuscular Hemoglobin 29.1 pg (28-32) Mean Corpuscular Hemoglobin Concent 32.1 g/dL (31-35) Red Cell Distribution Width 14.0 % (11.7-14.4) Platelet Count 231 x10e3/uL (140-360) Neutrophils (%) (Auto) 61.1 % (38.7-80.0) Lymphocytes (%) (Auto) 28.5 % (18.0-39.1) Monocytes (%) (Auto) 6.5 % (4.4-11.3) Eosinophils (%) (Auto) 2.7 % (0.0-6.0) Basophils (%) (Auto) 0.8 % (0.0-1.0) Neutrophils # (Auto) 4.7 (2.1-6.9) Lymphocytes # (Auto) 2.2 (1.0-3.2) Monocytes # (Auto) 0.5 (0.2-0.8) Eosinophils # (Auto) 0.2 (0.0-0.4) Basophils # (Auto) 0.1 (0.0-0.1) Absolute Immature Granulocyte (auto 0.03 x10e3/uL (0-0.1) Prothrombin Time 12.5 seconds (11.9-14.5) Prothromb Time International Ratio 0.89 Sodium Level 145 mmol/L (136-145) Potassium Level 3.7 mmol/L (3.5-5.1) Chloride Level 106 mmol/L (98-107) Carbon Dioxide Level 27 mmol/L (22-29) Anion Gap 15.7 mmol/L (8-16) Blood Urea Nitrogen 15 mg/dL (7-26) Creatinine 0.94 mg/dL (0.57-1.11) Estimat Glomerular Filtration Rate 60 ML/MIN (60-) BUN/Creatinine Ratio 16 (6-25) Glucose Level 94 mg/dL (74-118) Calcium Level 9.1 mg/dL (8.4-10.2) Total Bilirubin 0.5 mg/dL (0.2-1.2) Aspartate Amino Transf (AST/SGOT) 20 IU/L (5-34) Alanine Aminotransferase (ALT/SGPT) 18 IU/L (0-55) Alkaline Phosphatase 90 IU/L (40-150) Troponin I 0.006 ng/mL (0-0.300) Total Protein 7.0 g/dL (6.5-8.1) Albumin 4.1 g/dL (3.5-5.0) Globulin 2.9 g/dL (2.3-3.5) Albumin/Globulin Ratio 1.4 (0.8-2.0) Lab results reviewed: Yes (YAYO ROGERS MD) Imaging Imaging results reviewed: Yes (MAKENNA YOO MD) Imaging results reviewed: Yes Impressions Procedure: [id number] DX/CHEST SINGLE (PORTABLE) Exam Date: 04/18/20 Exam Time: 173 REPORT STATUS: Signed EXAMINATION: CHEST SINGLE (PORTABLE) INDICATION: ^Cp ^[id number] ^1730 COMPARISON: None FINDINGS: TUBES and LINES: None. LUNGS: Normal lung volumes. There is bibasilar atelectasis Lungs are otherwise clear. No consolidations. PLEURA: No pleural effusion or pneumothorax. HEART AND MEDIASTINUM: The cardiomediastinal silhouette is unremarkable. BONES AND SOFT TISSUES: No acute osseous lesion. Partially visualized cervical spine hardware. Soft tissues are unremarkable. UPPER ABDOMEN: No free air under the diaphragm. IMPRESSION: No acute thoracic radiographic abnormality. Signed by: Augustina Rodriguez MD on 04/18/2020 6:36 PM Dictated By: AUGUSTINA RODRIGUEZ MD 35 Transcribed By: CARRIE on 04/18/201835 COPY TO: MAKENNA YOO MD~ Procedure: [id number] CT/CT CERVICAL SPINE WO Exam Date: 04/18/20 Exam Time: 1730 REPORT STATUS: Signed History: Pain and tingling in the arm Comparison studies: None Technique: Axial images were obtained through the cervical region. Coronal and sagittal images reconstructed from the axial data. Dose modulation, iterative reconstruction, and/or weight based adjustment of the mA/kV was utilized to reduce the radiation dose to as low as reasonably achievable. Intravenous contrast: None Findings: Alignment: Normal cervical lordosis. No scoliosis. Cervicomedullary junction: No abnormalities. The foramen magnum is patent. Soft tissues: No prevertebral soft tissue swelling. No masses or calcifications. Vertebrae: Normal in height and density. No fractures, infection or neoplasms. Postsurgical changes: Patient status post anterior cervical fusion from C5 to C7. A prevertebral plate and screws which are embedded in the C5, C6 and C7 vertebrae are in place. Bone graft has been placed in the intervening disc spaces which have not fused. No loosening or failure. Degenerative changes: Mildly degenerated discs from C2 to C5 (mostly anterior osteophytes). Mild left foraminal stenosis at C4-5, severe right at C5-6 and mild left at C6-7 due to uncoarthrosis. Mild spinal canal stenosis at C5-6 and probably at C6-7 due to disc osteophyte complexes. Evaluation is suboptimal due to hardware artifacts. IMPRESSION: 1. No acute abnormalities. 2. Specifically, no fractures or subluxations. 3. Cannot adequately evaluate for spinal cord, vascular or ligament abnormalities. 4. Patient status post ACDF from C5 to C7. Hardware in place. 5. Degenerative foraminal stenosis from C4 to C7 is worse on the right at C5-6. Correlate with patient's symptoms. Signed by: Dr. Wang River M.D. on 04/18/2020 6:55 PM Dictated By: WANG RIVER MD, MD 54 Transcribed By: CARRIE on 04/18/201854 COPY TO: MAKENNA YOO MD~ Procedure: [id number] CT/CT BRAIN WO Exam Date: 04/18/20 Exam Time: 1730 REPORT STATUS: Signed History:Arm tingling, blurred speech Comparison studies: Head CT on 04/04/2018 Technique: Axial images were obtained from the skull base to the vertex. Coronal and sagittal images reconstructed from the axial data. Dose modulation, iterative reconstruction, and/or weight based adjustment of the mA/kV was utilized to reduce the radiation dose to as low as reasonably achievable. Intravenous contrast: None Findings: Scalp/skull: No abnormalities. Extra-axial spaces: No masses. No fluid collections. Brain sulci: Appropriate for age. Ventricles: Normal in size and configuration. No hydrocephalus. Parenchyma: No abnormal densities. No masses, hemorrhage, acute or chronic cortical vascular insults. Sellar/suprasellar region: No abnormalities. Craniocervical junction: Patent foramen magnum. No Chiari one malformation. Incidental findings: Once again a 1 cm well-circumscribed CSF-like cyst in the right anterior temporal white matter is not associated with surrounding edema or mass effect. Impression: 1. No acute intracranial abnormalities. 2. Specifically, no acute intracranial hemorrhage or acute vascular insult. 3. No changes when compared to the head CT on 04/04/2018. 4. Incidental CSF-like cystic focus in the right anterior temporal white matter as described on the previous head CT. Signed by: Dr. Wang River M.D. on 04/18/2020 6:50 PM Dictated By: WANG RIVER MD, MD 49 Transcribed By: CARRIE on 04/18/201849 COPY TO: MAKENNA YOO MD~ (YAYO ROGERS MD) Diagnostics Tests Diagnostic test(s) reviewed: Yes (MAKENNA YOO MD) Procedures 12 Lead ECG Interpretation ECG Interpretation : ECG: ECG 1 Hot Dimpling Machine Operator: Interpreted by ED physician Date: Apr 18, 2020 Rhythm: sinus rhythm Rate: normal QRS axis: normal ST segments normal: Yes T waves normal: Yes T wave inversion: aVL T waves flattening: I Clinical Impression: non-specific ECG (MAKENNA YOO MD) Assessment & Plan Medical Decision Making MDM 64-year-old female presents for multiple complaints including transient arm pain after many hours of driving as well as some transient chest tightness because occurred yesterday. She has no symptoms at this time. Additionally states she had some slurring of speech after she took a muscle relaxer but caregiver states that she had no facial droop. Labs, CT, cardiac enzymes, urine obtained. Patient is unsure as to whether she wants to stay in the hospital due to coronavirus. She states she will decide after her workup is complete prefers to go home. (MAKENNA YOO MD) Reassessment Reassessment time: 17:43 Reassessment Well appearing, NAD (MAKENNA YOO MD) Assessment & Plan Final Impression: (1) Chest pain (MAKENNA YOO MD) Depart Disposition: HOME, SELF-CARE Last Vital Signs Date Time Temp Pulse Resp B/P (MAP) Pulse Ox O2 Delivery O2 Flow Rate FiO2 04/18/20 16:46 98.3 77 16 98 Room Air (MAKENNA YOO MD) Home Meds Reported Medications Atorvastatin Calcium (ATORVASTATIN CALCIUM) 20 Mg Tablet, 40 MG PO HS, #30 TAB 02/19/18 [Flonase] No Conflict Check, NA HS 02/16/18 Losartan Potassium (LOSARTAN POTASSIUM) 25 Mg Tablet, 100 MG PO DAILY 12/11/14 Lamotrigine (LAMICTAL) 200 Mg Tablet, 400 MG PO DAILY take 2 (200mg) tablets daily 12/11/14 Albuterol Sulfate (ALBUTEROL SULFATE) 0.63 Mg/3 Ml Vial.neb, NEB PRN 12/11/14 Venlafaxine Hcl (VENLAFAXINE HCL) 75 Mg Tab, 150 MG PO HS, TAB 12/11/14 Clonazepam (CLONAZEPAM) 1 Mg Tablet, 1 MG PO HS, TAB 12/11/14 Gabapentin (GABAPENTIN) 400 Mg Capsule, 400 MG PO Q12H 10/11/13 Levothyroxine Sodium (LEVOTHYROXINE SODIUM) 125 Mcg Tablet, 0.1 MG PO DAILY@0600 10/11/13 MAKENNA YOO MD Apr 18, 2020 17:43 YAYO ROGERS MD Apr 18, 2020 19:20
[2020-04-18 17:55] LABS: BASOPHILS # (AUTO) 0.1 (0.0-0.1); BASOPHILS % 0.8 % (0.0-1.0); EOSINOPHILS # (AUTO) 0.2 (0.0-0.4); EOSINOPHILS % 2.7 % (0.0-6.0); HEMATOCRIT 38.3 % (34.2-44.1); HEMOGLOBIN 12.3 g/dL (12.0-16.0); LYMPHOCYTES # (AUTO) 2.2 (1.0-3.2); LYMPHOCYTES % 28.5 % (18.0-39.1); MEAN CORPUSCULAR HEMOGLOBIN 29.1 pg (28-32); MEAN CORPUSCULAR HGB CONC 32.1 g/dL (31-35); MEAN CORPUSCULAR VOLUME 90.5 fL (81-99); MONOCYTES # (AUTO) 0.5 (0.2-0.8); MONOCYTES % 6.5 % (4.4-11.3); NEUTROPHILS # (AUTO) 4.7 (2.1-6.9); NEUTROPHILS % 61.1 % (38.7-80.0); PLATELET COUNT 231 x10e3/uL (140-360); RED BLOOD COUNT 4.23 x10e6/uL (3.6-5.1)
[2020-04-18 18:07] LABS: INR 0.89; PROTHROMBIN TIME 12.5 seconds (11.9-14.5)
[2020-04-18 18:16] LABS: ALBUMIN 4.1 g/dL (3.5-5.0); ALBUMIN/GLOBULIN RATIO 1.4 (0.8-2.0); ANION GAP 15.7 mmol/L (8-16); CALCIUM 9.1 mg/dL (8.4-10.2); CREATININE, SERUM 0.94 mg/dL (0.57-1.11); POTASSIUM 3.7 mmol/L (3.5-5.1)
[2020-04-18 18:30] LABS: BILIRUBIN,URINE NEGATIVE (NEGATIVE); CLARITY,URINE CLEAR (CLEAR); COLOR,URINE YELLOW (YELLOW); KETONES,URINE NEGATIVE (NEGATIVE); LEUKOCYTE ESTERASE ,URINE SMALL (NEGATIVE); NITRITE,URINE NEGATIVE (NEGATIVE); PROTEIN,URINE DIPSTICK NEGATIVE (NEGATIVE); URINE UROBILINOGEN 0.2 mg/dL (0.2 - 1)
--- NOTE | 2020-04-18 18:39 | Diagnostic Imaging Report ---
EXAMINATION: CHEST SINGLE (PORTABLE) INDICATION: ^Cp ^[id number] ^1730 COMPARISON: None FINDINGS: TUBES and LINES: None. LUNGS: Normal lung volumes. There is bibasilar atelectasis Lungs are otherwise clear. No consolidations. PLEURA: No pleural effusion or pneumothorax. HEART AND MEDIASTINUM: The cardiomediastinal silhouette is unremarkable. BONES AND SOFT TISSUES: No acute osseous lesion. Partially visualized cervical spine hardware. Soft tissues are unremarkable. UPPER ABDOMEN: No free air under the diaphragm. IMPRESSION: No acute thoracic radiographic abnormality. Signed by: Yo Handy MD on 04/18/2020 6:36 PM
[2020-04-18 18:41] LABS: BACTERIA,URINE FEW /HPF; EPITHELIAL CELLS,URINE FEW /LPF; RBC,URINE 0-5 /HPF (0-5); WBC,URINE (MAN) 0-5 /HPF (0-5)
--- NOTE | 2020-04-18 18:54 | Diagnostic Imaging Report ---
History:Arm tingling, blurred speech Comparison studies: Head CT on 04/04/2018 Technique: Axial images were obtained from the skull base to the vertex. Coronal and sagittal images reconstructed from the axial data. Dose modulation, iterative reconstruction, and/or weight based adjustment of the mA/kV was utilized to reduce the radiation dose to as low as reasonably achievable. Intravenous contrast: None Findings: Scalp/skull: No abnormalities. Extra-axial spaces: No masses. No fluid collections. Brain sulci: Appropriate for age. Ventricles: Normal in size and configuration. No hydrocephalus. Parenchyma: No abnormal densities. No masses, hemorrhage, acute or chronic cortical vascular insults. Sellar/suprasellar region: No abnormalities. Craniocervical junction: Patent foramen magnum. No Chiari one malformation. Incidental findings: Once again a 1 cm well-circumscribed CSF-like cyst in the right anterior temporal white matter is not associated with surrounding edema or mass effect. Impression: 1. No acute intracranial abnormalities. 2. Specifically, no acute intracranial hemorrhage or acute vascular insult. 3. No changes when compared to the head CT on 04/04/2018. 4. Incidental CSF-like cystic focus in the right anterior temporal white matter as described on the previous head CT. Signed by: Dr. Wang River M.D. on 04/18/2020 6:50 PM
--- NOTE | 2020-04-18 18:58 | Diagnostic Imaging Report ---
History: Pain and tingling in the arm Comparison studies: None Technique: Axial images were obtained through the cervical region. Coronal and sagittal images reconstructed from the axial data. Dose modulation, iterative reconstruction, and/or weight based adjustment of the mA/kV was utilized to reduce the radiation dose to as low as reasonably achievable. Intravenous contrast: None Findings: Alignment: Normal cervical lordosis. No scoliosis. Cervicomedullary junction: No abnormalities. The foramen magnum is patent. Soft tissues: No prevertebral soft tissue swelling. No masses or calcifications. Vertebrae: Normal in height and density. No fractures, infection or neoplasms. Postsurgical changes: Patient status post anterior cervical fusion from C5 to C7. A prevertebral plate and screws which are embedded in the C5, C6 and C7 vertebrae are in place. Bone graft has been placed in the intervening disc spaces which have not fused. No loosening or failure. Degenerative changes: Mildly degenerated discs from C2 to C5 (mostly anterior osteophytes). Mild left foraminal stenosis at C4-5, severe right at C5-6 and mild left at C6-7 due to uncoarthrosis. Mild spinal canal stenosis at C5-6 and probably at C6-7 due to disc osteophyte complexes. Evaluation is suboptimal due to hardware artifacts. IMPRESSION: 1. No acute abnormalities. 2. Specifically, no fractures or subluxations. 3. Cannot adequately evaluate for spinal cord, vascular or ligament abnormalities. 4. Patient status post ACDF from C5 to C7. Hardware in place. 5. Degenerative foraminal stenosis from C4 to C7 is worse on the right at C5-6. Correlate with patient's symptoms. Signed by: Dr. Wang River M.D. on 04/18/2020 6:55 PM
== END 2020-04-18 19:53 | disposition home or self-care (01) ==
LOC: ER 17:36
DX: R07.9 Chest pain, unspecified (principal); I10 Essential (primary) hypertension; E11.9 Type 2 diabetes mellitus without complications; E03.9 Hypothyroidism, unspecified; E78.5 Hyperlipidemia, unspecified; F31.9 Bipolar disorder, unspecified
CPT/HCPCS: 36415; 70450; 71045; 72125; 80053; 81001; 84484; 85025; 85610; 93005; 99284

== ENCOUNTER → 2020-11-28 | Outpatient (CLI) | payer OTHER | LOC: US 10:56 | PROVIDERS: ATTEND Internal Medicine Nephrology | DX: N18.31 Chronic kidney disease, stage 3a (principal) | CPT/HCPCS: 76770; 76857 ==

== ENCOUNTER → 2022-08-14 | Day surgery (SDC) | payer MEDICARE, OTHER ==
[2022-08-12 14:52] LABS: BASOPHILS # (AUTO) 0.1 (0.0-0.1); BASOPHILS % 0.8 % (0.0-1.0); EOSINOPHILS # (AUTO) 0.1 (0.0-0.4); HEMATOCRIT 41.2 % (34.2-44.1); HEMOGLOBIN 13.2 g/dL (12.0-16.0); LYMPHOCYTES # (AUTO) 2.3 (1.0-3.2); LYMPHOCYTES % 32.5 % (18.0-39.1); MEAN CORPUSCULAR HEMOGLOBIN 28.8 pg (28-32); MONOCYTES # (AUTO) 0.5 (0.2-0.8); MONOCYTES % 6.8 % (4.4-11.3); NEUTROPHILS # (AUTO) 4.1 (2.1-6.9); NEUTROPHILS % 57.8 % (38.7-80.0); PLATELET COUNT 168 x10e3/uL (140-360); RED BLOOD COUNT 4.58 x10e6/uL (3.6-5.1); RED CELL DISTRIBUTION WIDTH 13.5 % (11.7-14.4)
[~2022-08-14] MED LIST changes: +CLONIDINE HCL0.3 MG PO; +DIALYVITE TABL1 EACH PO; +FENTANYL CITRATE/PF 100MCG/2 ML INJ ONE; +GLUCAGON FOR INJ 1 MG VIAL ONE; +GLYCOPYRROLATE INJ 0.2 MG/ML VIAL ONE; +LACTATED RINGER'S 1,000 ML ONE; +METOCLOPRAMIDE HCL 10 MG/2ML VIAL ONE; +MIDAZOLAM HCL 2 MG/2 ML VIAL ONE; +ONDANSETRON HCL INJ 2MG/ML 2ML 2 MG/ML VIAL ONE; +POVIDONE IODINE 0.05% 0.05 % ML PO ONE; +PROPOFOL IV EMULSION 10 MG/ML 20 ML VIAL ONE; +ULTRAM 50MG50 MG PO
[2022-08-14 14:14] VITALS: BP 124/69
== END | disposition home or self-care (01) ==
LOC: OR 11:07
PROVIDERS: ATTEND Internal Medicine Gastroenterology
DX: K29.70 Gastritis, unspecified, without bleeding (principal); D12.3 Benign neoplasm of transverse colon; D12.4 Benign neoplasm of descending colon; K20.90 Esophagitis, unspecified without bleeding; K57.30 Diverticulosis of large intestine without perforation or abscess without bleeding; K59.00 Constipation, unspecified; K64.8 Other hemorrhoids; Z98.84 Bariatric surgery status; Z71.3 Dietary counseling and surveillance; G47.30 Sleep apnea, unspecified; J44.9 Chronic obstructive pulmonary disease, unspecified; E03.9 Hypothyroidism, unspecified; E11.22 Type 2 diabetes mellitus with diabetic chronic kidney disease; I12.9 Hypertensive chronic kidney disease with stage 1 through stage 4 chronic kidney disease, or unspecified chronic kidney disease; N18.30 Chronic kidney disease, stage 3 unspecified; G25.81 Restless legs syndrome; G62.9 Polyneuropathy, unspecified; F31.9 Bipolar disorder, unspecified; Z88.8 Allergy status to other drugs, medicaments and biological substances; Z01.810 Encounter for preprocedural cardiovascular examination; Z01.812 Encounter for preprocedural laboratory examination; Z68.39 Body mass index [BMI] 39.0-39.9, adult; Z80.0 Family history of malignant neoplasm of digestive organs
CPT/HCPCS: 36415; 43239; 45378; 45385; 83630; 83993; 85025; 87045; 87177; 87324; 87328; 87449; 93005; J1610; J2250; J2405; J2765

== ENCOUNTER 2022-09-04 11:16 | Emergency (ER) | payer MEDICARE, OTHER ==
[~2022-09-04] VITALS: Ht 177.8 cm; Wt 133.4 kg
[~2022-09-04 11:16] MED LIST changes: -FENTANYL CITRATE/PF 100MCG/2 ML INJ ONE; -GLUCAGON FOR INJ 1 MG VIAL ONE; -GLYCOPYRROLATE INJ 0.2 MG/ML VIAL ONE; -LACTATED RINGER'S 1,000 ML ONE; -METOCLOPRAMIDE HCL 10 MG/2ML VIAL ONE; -MIDAZOLAM HCL 2 MG/2 ML VIAL ONE; -ONDANSETRON HCL INJ 2MG/ML 2ML 2 MG/ML VIAL ONE; -POVIDONE IODINE 0.05% 0.05 % ML PO ONE; -PROPOFOL IV EMULSION 10 MG/ML 20 ML VIAL ONE
[2022-09-04] MEDS ORDERED: BACTRIM DS TAB1 EACH PO (11:58)
== END 2022-09-04 12:01 | disposition home or self-care (01) ==
LOC: ER 11:31
DX: L03.032 Cellulitis of left toe (principal); Z98.84 Bariatric surgery status
CPT/HCPCS: 99283

== ENCOUNTER 2024-01-08 10:23 | Emergency (ER) | payer MEDICARE, OTHER ==
[~2024-01-08] VITALS: Ht 177.8 cm; Wt 117.9 kg
[~2024-01-08 10:23] MED LIST changes: +BACTRIM DS TAB1 EACH PO; +DICYCLOMINE HCL20 MG PO; +ONDANSETRON ODT4 MG PO
[2024-01-08 11:00] VITALS: PULSE 72; RESP 16; TEMP 98.6
[2024-01-08 11:57] LABS: BASOPHILS % 0.1 % (0.0-1.0); EOSINOPHILS # (AUTO) 0.1 (0.0-0.4); EOSINOPHILS % 0.9 % (0.0-6.0); HEMATOCRIT 42.3 % (34.2-44.1); HEMOGLOBIN 14.1 g/dL (12.0-16.0); LYMPHOCYTES # (AUTO) 0.9 (1.0-3.2); LYMPHOCYTES % 6.8 % (18.0-39.1); MEAN CORPUSCULAR HEMOGLOBIN 29.7 pg (28-32); MEAN CORPUSCULAR HGB CONC 33.3 g/dL (31-35); MEAN CORPUSCULAR VOLUME 89.1 fL (81-99); MONOCYTES # (AUTO) 0.6 (0.2-0.8); NEUTROPHILS # (AUTO) 12.1 (2.1-6.9); NEUTROPHILS % 87.8 % (38.7-80.0); PLATELET COUNT 186 x10e3/uL (140-360); RED BLOOD COUNT 4.75 x10e6/uL (3.6-5.1); RED CELL DISTRIBUTION WIDTH 13.4 % (11.7-14.4); WHITE BLOOD COUNT 13.76 x10e3/uL (4.8-10.8)
[2024-01-08] MEDS: FAMOTIDINE 20 MG/2 ML VIAL IV STA (12:03)
[2024-01-08] MEDS: ONDANSETRON HCL INJ 2MG/ML 2ML 2 MG/ML VIAL IV STA (12:03)
[2024-01-08] MEDS: SODIUM CHLORIDE 0.9% 1000ML 1,000 ML IV SCH (12:04)
[2024-01-08 12:14] LABS: ALBUMIN 4.6 g/dL (3.5-5.0); ALBUMIN/GLOBULIN RATIO 1.4 (0.8-2.0); BILIRUBIN,TOTAL 1.1 mg/dL (0.2-1.2); CALCIUM 9.9 mg/dL (8.4-10.2); TOTAL PROTEIN 7.8 g/dL (6.5-8.1)
[2024-01-08 12:19] LABS: TROPONIN I 0.015 ng/mL (0-0.300)
[2024-01-08] MEDS ORDERED: ONDANSETRON ODT4 MG PO (12:47)
[2024-01-08 13:22] VITALS: BP 129/61; PULSE 70; RESP 18; O2SAT 100
== END 2024-01-08 13:25 | disposition home or self-care (01) ==
LOC: ER 10:37
DX: R11.2 Nausea with vomiting, unspecified (principal); R19.7 Diarrhea, unspecified; I12.9 Hypertensive chronic kidney disease with stage 1 through stage 4 chronic kidney disease, or unspecified chronic kidney disease; E11.22 Type 2 diabetes mellitus with diabetic chronic kidney disease; N18.9 Chronic kidney disease, unspecified; E78.5 Hyperlipidemia, unspecified; E03.9 Hypothyroidism, unspecified; F31.9 Bipolar disorder, unspecified; G47.30 Sleep apnea, unspecified; R94.31 Abnormal electrocardiogram [ECG] [EKG]; Z98.84 Bariatric surgery status
CPT/HCPCS: 36415; 80053; 82948; 83690; 84484; 85025; 93005; 99283; J2405; J7030

== ENCOUNTER → 2024-12-13 | Day surgery (SDC) | payer MEDICARE ==
[2024-11-30 13:26] LABS: INR 0.93
[2024-11-30 13:33] LABS: EST GLOMERULAR FILTRATION RATE 57.0 ML/MIN (>=60)
[~2024-12-13] MED LIST changes: +AMITIZA24 MCG PO; +HYDROCHLOROTHIA25 MG PO; +LIDOCAINE HCL 2% LOCAL INJ 5 ML SDV VIAL INJ ONE; +LYRICA100 MG PO; +OMEPRAZOLE40 MG PO; +PLAVIX75 MG PO; +PROPOFOL IV EMULSION 10 MG/ML 20 ML VIAL ONE
[2024-12-13] MEDS: LACTATED RINGER'S 1,000 ML ONE (10:35)
[2024-12-13 13:29] VITALS: TEMP 97.4
[2024-12-13 14:00] VITALS: BP 150/75; PULSE 68; RESP 16; O2SAT 98
== END | disposition home or self-care (01) ==
LOC: OR 10:10
PROVIDERS: ATTEND Internal Medicine Gastroenterology
DX: K21.9 Gastro-esophageal reflux disease without esophagitis (principal); D12.3 Benign neoplasm of transverse colon; D12.4 Benign neoplasm of descending colon; K29.50 Unspecified chronic gastritis without bleeding; K44.9 Diaphragmatic hernia without obstruction or gangrene; Z98.84 Bariatric surgery status; K62.5 Hemorrhage of anus and rectum; K64.8 Other hemorrhoids; K64.4 Residual hemorrhoidal skin tags; K63.89 Other specified diseases of intestine; G47.33 Obstructive sleep apnea (adult) (pediatric); E11.22 Type 2 diabetes mellitus with diabetic chronic kidney disease; I12.9 Hypertensive chronic kidney disease with stage 1 through stage 4 chronic kidney disease, or unspecified chronic kidney disease; N18.2 Chronic kidney disease, stage 2 (mild); E78.5 Hyperlipidemia, unspecified; E03.9 Hypothyroidism, unspecified; E66.01 Morbid (severe) obesity due to excess calories; F41.9 Anxiety disorder, unspecified; F31.9 Bipolar disorder, unspecified; Z01.810 Encounter for preprocedural cardiovascular examination; Z01.812 Encounter for preprocedural laboratory examination; Z88.8 Allergy status to other drugs, medicaments and biological substances; Z79.02 Long term (current) use of antithrombotics/antiplatelets; Z79.899 Other long term (current) drug therapy; Z86.73 Personal history of transient ischemic attack (TIA), and cerebral infarction without residual deficits
CPT/HCPCS: 36415; 43239; 45385; 80048; 85610; 85730; 88305; 93005; J2003; J2704; J7121; 88312